=== PATIENT | male | born 1965 | race African-American/Black ===

== ENCOUNTER 2022-07-30 07:14 | Observation (INO) | payer BC ==
--- OUTSIDE RECORDS SUMMARY | 2022-07-30 07:29 | XMS REPORT | Clinical Summary ---
:1965 Author Organization [facility] MD [facility] Address [address] [place] [address] Care Team Providers Name Role Phone Thais Biggs MD Primary Care Provider Stef Biggs MD Unavailable Allergies No known active allergies Medications Medication Sig Dispensed Refills Start Date End Date Status amLODIPine (NORVASC) 5 mg Take 1 tablet by 2 019 Active tablet mouth daily. aspirin 325 mg EC tablet Take 325 mg by 0 12/10/2018 Active mouth daily. clotrimazole-betamethason Apply 1 1 03/10/2019 Active e (LOTRISONE) 1%-0.05% application cream topically to affected area(s) as needed. cyclobenzaprine Take 1 tablet by 3 04/07/2019 Active (FLEXERIL) 10 mg tablet mouth as needed. diclofenac sodium as needed. 1 06/05/2018 Active (Voltaren) 1 % gel pantoprazole (PROTONIX) Take 1 tablet by 0 9 Active 40 mg EC tablet mouth daily. OXTELLAR XR 300 mg Tb24 Take 1 tablet by 1 9 Active mouth daily. OXTELLAR XR 600 mg Tb24 Take 1 tablet by 1 9 Active mouth daily. trimethoprim (TRIMPEX) Take 1 tablet by 0 03/29/2019 Active 100 mg tablet mouth daily. labetalol (TRANDATE) 200 Take 1 tablet by 3 10/24/19 19 Active mg tablet mouth daily. losartan (COZAAR) 100 mg Take 100 mg by 0 11/28/2018 Active tablet mouth daily. hydroCHLOROthiazide Take 1 tablet by 1 02/07/2019 Active (HYDRODIURIL) 25 mg mouth daily. tablet fluticasone propionate Inhale 1 spray 0 11/03/2018 Active (FLONASE) 50 mcg/spray into each nasal spray nostril as needed. fish oil-omega-3 fatty Take 1,000 mg by 0 12/09/2018 Active acids 300-1,000 mg mouth daily. capsule Active Problems Not on file Surgical History Surgery Date Site/Laterality Comments COLONOSCOPY NEPHRECTOMY CORONARY ARTERY BYPASS GRAFT Medical History Medical History Date Comments Hypertension Myocardial infarction Arthritis Kidney cancer Social History Tobacco Use Types Packs/Day Years Used Date Smoking Tobacco: Former Cigarettes 1 20 Smokeless Tobacco: Former Alcohol Use Standard Drinks/Week Comments Not Currently 0 (1 standard drink = 0.6 oz pure alcoho l) Sex Assigned at Date Recorded Male 04/11/2019 5:08 PM CDT Obstetrics History Last Filed Vital Signs Not on file Plan of Treatment Health Maintenance Due Date Last Done Comments COVID-19 Vaccination (#1) 01/07/1967 Results Not on fileafter 07/30/2021 Insurance Payer Benefit Plan / Subscriber ID Effective Dates Phone Addre ss Type Group [employer] MANAGED CIGNA HMO POS [id number] 2018-Elena FISHER [id number] [place] [address] Care Teams 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
[2022-07-30 07:38] LABS: Absolute Lymphocytes (CBC) 2.4 K/uL (0.7-4.9); Lymphocytes % 42.4 % (15.3-44.8); MCV 80.5 fL (80-100); MPV 7.6 fL (7.6-11.3); RBC Red Blood Cell Count 5.09 M/uL (4.33-5.43)
[2022-07-30] MEDS ORDERED: ONDANSETRON 4 MG/2 ML VIAL ONE (07:42)
[2022-07-30] MEDS ORDERED: FENTANYL CITR 100 MCG/2 ML ONE (07:42)
--- OUTSIDE RECORDS SUMMARY | 2022-07-30 07:45 | XMS REPORT | Continuity of Care Document ---
:1965 Author Organization [facility] t Address [address] [place] [address] [place] [id number] Care Team Providers Name Role Phone Cherelle Ralph MD Primary Care Physician SUSAN BROWNE Attending Clinician Unavailable DARIUS LEDESMA Attending Clinician Unavailable REINALDO ABRAMS Attending Clinician Unavailable BREE SON Attending Clinician Unavailable LOU KAMINSKI Attending Clinician Unavailable Draw, [facility] Attending Clinician Unavailable Reinaldo Abrams MD Attending Clinician Darius Ledesma MD Attending Clinician Doctor Unassigned, [place] Attending Clinician Unavailable Suasn Browne MD Attending Clinician Nirav Hernandez MD Attending Clinician Lab, Lcc Attending Clinician Unavailable Lab, Lonnie Cbc Attending Clinician Unavailable Cherelle Ralph MD Attending Clinician CHERELLE RALPH Attending Clinician Unavailable Lou Kaminski DPM A Attending Clinician [phone] Bree Son MD Attending Clinician Gracie JULES, Zhanna Conway Attending Clinician [phone] NIRAV HERNANDEZ Attending Clinician Unavailable Dwayne ELIZABETH-C, Brody Attending Clinician BRODY PATEL Attending Clinician Unavailable Chantelle Mcgregor MD Attending Clinician [phone] CHANTELLE MCGREGOR Attending Clinician Unavailable Vaccine, [place] [facility] Attending Clinician Unavailable RAMIREZ WILKINS Attending Clinician Unavailable Ramirez Wilkins MD Attending Clinician MONISHA ZHOU Attending Clinician Unavailable Monisha Zhou DO Attending Clinician JASON MAI Attending Clinician Unavailable JASON MAI Attending Clinician Unavailable Km ELIZABETH, Ganesh B Attending Clinician Tabatha Bailon MD Attending Clinician TABATHA BAILON Attending Clinician Unavailable JOSE MANUEL AKERS Attending Clinician Unavailable PAULO CLARK Attending Clinician Unavailable RODRI IRENE Attending Clinician Unavailable Rodri Irene MD Attending Clinician Anita Rodriguez Attending Clinician ANITA CHAVARRIA Attending Clinician Unavailable Tosin Carrillo Attending Clinician TOSIN GUEVARA Attending Clinician Unavailable LIZZIE KIDD Attending Clinician Unavailable Lizzie Kidd NP Attending Clinician Milton GREER, Mitali Robert Attending Clinician Unavailable Wagner Oneal MD Attending Clinician Jonas CESAR, Abbey Gtz Attending Clinician Paulo Clark MD Attending Clinician ANDERSON ESQUIVEL Attending Clinician Unavailable DEWEY JONES Attending Clinician Unavailable FAVIAN PERALTA Attending Clinician Unavailable HADLEY CARDONA Attending Clinician Unavailable LEAH RIVERA Attending Clinician Unavailable Lawanda Deshpande Attending Clinician Adrian James Attending Clinician LISA ALLISON M.D, LISA DE LA TORRE, Attending Clzuly aguilar Unavailable SUSAN DOVE Admitting Clinician Unavailable JASON MAI Admitting Clinician Unavailable Jonas CESAR, Abbey Gtz Admitting Clinician Susan Browne MD Admitting Clinician LISA ALLISON M.D, LISA DE LA TORRE, Admitting Clzuly aguilar Unavailable Anay Payers Payer Name Policy Type Policy Number Effective Date Expiration Date S aman [employer] [place] [id number] 2020 00:00:00 CIGNA II [id number] 2018 00:00:00 Problems Condition Condition Condition Status Onset Resolution Last Treating Co mments Source Name Details Category Date Date Treatment Clinician Date Chest pain Chest pain Disease Active U nivers 9-07 ity of 00:00: [place] [facility] Dysphagia, Dysphagia, Disease Active Overview : Univers pharyngoes pharyngoes 7-05 Formattin ity of ophageal ophageal 00:00: g of this [place]nie as phase phase 00 note Medical might be Branch different from the original. Added automatic ally from request for surgery [id number] Sleep Sleep Disease Active Univers apnea, apnea, 6-28 ity of unspecifie unspecifie [place] type d type 00 Medical Branch Type 2 Type 2 Disease Active Univers diabetes diabetes 3-26 ity of mellitus mellitus 00:00: [place] without without 00 Medical complicati complicati Br anch on, on, without without long-term long-term current current use of use of insulin insulin Hypertrigl Hypertrigl Disease Active U nivers yceridemia yceridemia 3-26 it y of 00:00: [place] [facility] Polycythem Polycythem Disease Active U nivers ia, ia, 3-26 it[place] secondary secondary [place] Hypogonado Hypogonado Disease Active U nivers [place]ropic 3-26 ity of hypogonadi hypogonadi 00:[place] sm sm 00 Medical Branch Encounter Encounter Disease Active Uni vers for for 1-17 ity of monitoring monitoring 00:00[place] testostero testostero 00 Me dical ne ne Branch replacemen replacemen t therapy t therapy Essential Essential Disease Active Uni vers hypertensi hypertensi 7-20 it y of on on 00:00: [place] 00 Medical Branch Coronary Coronary Disease Active Unive rs artery artery 7-20 ity of disease disease 00:00: [place] involving involving 00 Medi rachana habematolel habematolel Branch coronary coronary artery of artery of habematolel habematolel heart heart without without angina angina pectoris pectoris Mixed Mixed Disease Active Univers hyperlipid hyperlipid 7-20 it y of emia emia 00:00: [place] 00 Medical Branch Seasonal Seasonal Disease Active Unive rs allergic allergic 7-20 ity of rhinitis rhinitis 00:00: [place] due to due to 00 Medical pollen pollen Branch Gastroesop Gastroesop Disease Active U nivers hageal hageal 7-20 ity of reflux reflux 00:00: [place] disease disease 00 Medical without without Branch esophagiti esophagiti s s Malignant Malignant Disease Active Uni vers neoplasm neoplasm 7-20 ity of of right of right 00:00: [place] kidney kidney 00 Medical Branch H/O H/O Disease Active Univers partial partial 7-20 ity of nephrectom nephrectom 00:[place] 00 Medical Branch History of History of Disease Active U nivers fusion of fusion of 7-20 ity of cervical cervical 00:00: [place] spine spine 00 Medical Branch Flatulence Flatulence Disease Active 2018-06 Overview : Univers , , 1-26 Formattin ity of eructation eructation 00:00: g of this [place] , and gas , and gas 00 note Medi rachana pain pain might be Branch different from the original. Added automatic ally from request for surgery [id number] HEART HEART Diagnosis Active 2017-07-07 Grisel ford PATIENT. PATIENT. 07-03 23:17:00 l HIGH BLOOD HIGH BLOOD 08:00: He rmann PRESSURE PRESSURE 00 Active 07/03/2017 [facility] CRAMPING CRAMPING Diagnosis Active 2017-07-03 Memoria Active 07-03 16:33:00 l 07/03/2017 00:00: Howie casey 00 [facility] Hypertensi Hypertens Problem Active 2017-10-14 Memoria ve iván 19:17:49 l disorder, disorder, Herm estelle systemic systemic arterial arterial (disorder) (disorder) Active Problem 10/14/2017 [facility] Malignant Malignant Problem Resolve 2017-10-14 Memoria neoplastic neoplastic d 19:17:49 l disease disease Jose Antonio (disorder) (disorder) Resolved Problem 10/14/2017 [facility] History of Past Illness Condition Condition Condition Status Onset Resolution Last Treating Co mments Source Name Details Category Date Date Treatment Clinician Date Essential Essential Problem 2017-10-14 2017-10-14 Memoria (primary) (primary) 07-08 19:17:49 19:17:49 l hypertensi hypertensi 06:00: He rmann on on 07/08/2017 8 [facility] Cramp and Cramp and Problem 2017-10-14 2017-10-14 Memoria spasm spasm 07-08 19:17:49 19:17:49 l 07/08/2017 06:00: Howie casey 00 8 [facility] Abnormal Abnormal Problem 2017-07-06 2017-07-06 Memoria levels of levels of 1-04 05:14:09 05:14:09 l other other 06:00: Jose Antonio serum serum 00 enzymes enzymes 07/03/2017 8 [facility] Allergies, Adverse Reactions, Alerts Allergy Allergy Status Severity Reaction(s) Onset Inactive Treating Comm ents Source Name Type Date Date Clinician SEMAGLUT DRUG Active N/V Univers BUTCH INGREDI -09 ity of 00:00: [place] [facility] Semaglut Propensi Active Nausea Univer s butch ty to and/or 07-08 ity of adverse Vomiting 00:00: [place] reaction Medical s Branch Empaglif Propensi Active Palpitations Univers lozin ty to - ity of adverse 00:00: [place] reaction Medical s Branch EMPAGLIF DRUG Active Palpitations Un rachel LOZIN INGREDI 01-03 ity of 00:00: [place] [facility] Atorvast Propensi Active Other - See 2019-06 Ms cramp s Univers atin ty to comments 0-20 ity of Calcium adverse 00:00: [place] reaction 00 Medical s Branch Ezetimib Propensi Active Other - See 2019-06 Muscle U nivers e ty to comments 0-20 cramps ity of adverse 00:00: [place] reaction Medical s Branch ATORVAST DRUG Active Other-Cmnt 2019-06 Univ ers ATIN INGREDI 0-20 ity of CALCIUM 00:00: Medical Branch EZETIMIB DRUG Active Other-Cmnt 2019-06 Univ ers E INGREDI 0-20 ity of 00:00: [place] [facility] [place] Social History Social Habit Start Date Stop Date Quantity Comments Source History [facility] o f Alcohol Frequency [facility] edical Branch History [facility] o f Alcohol Std Drinks [facility] History [facility] o f Alcohol Binge [facility] al Branch Exposure to 2022-07-16 2022-07-26 Not sure University of SARS-CoV-2 (event) 00:00:00 08:03:00 [facility] Tobacco use and 2022-01-31 2022-01-31 Former smokeless Uni versity of exposure 00:00:00 00:00:00 tobacco user [facility] [place] Tobacco Comment 2022-01-31 2022-01-31 1PPD for 28 Universi ty of 00:00:00 00:00:00 years; Quit 2011 [facility] dical [place] Alcohol Comment 2020-01-17 2020-01-17 OCCASINLLY Universit y of 00:00:00 00:00:00 [facility] Cigarettes smoked 2019-04-19 2019-04-19 Univers ity of current (pack per 00:00:00 00:00:00 [facility] ) - Reported [facility] Ce nter Cigarette 2019-04-19 2019-04-19 University of pack-years 00:00:00 00:00:00 [facility] Alcohol intake 2019-04-19 2019-04-19 Ex-drinker University of 00:00:00 00:00:00 (finding) [facility] Social History 2017-07-08 2017-07-08 [facility] arpit 05:01:48 05:01:48 History of tobacco 1983-06-30 2011-06-30 Cigarette Smoker University of use 00:00:00 00:00:00 [facility] Sex Ass[birth year] At [birth year] Universit y of 00:00:00 00:00:00 [facility] Smoking Status Start Date Stop Date Source Ex-smoker 2022-01-31 00:00:00 2022-01-31 00:00:00 [facility] Medications Ordered Filled Start Stop Current Ordering Indication Dosage Frequency Signature Comments Components Source Medication Medication Date Date Medication? Clinician (SIG) Name Name losartan 2022-0 Yes [id number] 100mg Take 1 Un rachel 100 mg 1-18 tablet by ity of tablet 00:00: mouth in [place] 00 the Medical morning. Branch losartan 2022-0 Yes [id number] 100mg Take 1 Un rachel 100 mg 1-18 tablet by ity of tablet 00:00: mouth in [place] 00 the Medical morning. Branch losartan 2022-0 Yes [id number] 100mg Take 1 Un rachel 100 mg 1-18 tablet by ity of tablet 00:00: mouth in [place] 00 the Medical morning. Branch losartan 2022-0 Yes [id number] 100mg Take 1 Un rachel 100 mg 1-18 tablet by ity of tablet 00:00: mouth in [place] the Medical morning. Branch losartan 2022-0 Yes [id number] 100mg Take 1 Un rachel 100 mg 1-18 tablet by ity of tablet 00:00: mouth in [place] 00 the Medical morning. Branch losartan 2022-0 Yes [id number] 100mg Take 1 Un rachel 100 mg 1-18 tablet by ity of tablet 00:00: mouth in [place] 00 the Medical morning. Branch metformin 2022-0 Yes [id number] 1000mg Take 2 Univers ER 500 mg 1-09 tablets by ity of 24 hr 00:00: mouth 2 [place] tablet 00 (two) Medical times Branch daily before breakfast and dinner. metformin 2022-0 Yes [id number] 1000mg Take 2 Univers ER 500 mg 1-09 tablets by ity of 24 hr 00:00: mouth 2 [place] tablet 00 (two) Medical times Branch daily before breakfast and dinner. metformin 3-0 Yes [id number] 1000mg Take 2 Univers ER 500 mg 1-09 tablets by ity of 24 hr 00:00: mouth 2 [place] tablet 00 (two) Medical times Branch daily before breakfast and dinner. metformin 3-0 Yes [id number] 1000mg Take 2 Univers ER 500 mg 1-09 tablets by ity of 24 hr 00:00: mouth 2 [place] tablet 00 (two) Medical times Branch daily before breakfast and dinner. metformin 2023-0 Yes [id number] 1000mg Take 2 Univers ER 500 mg 1-09 tablets by ity of 24 hr 00:00: mouth 2 [place] tablet 00 (two) Medical times Branch daily before breakfast and dinner. metformin 2023-0 Yes [id number] 1000mg Take 2 Univers ER 500 mg 1-09 tablets by ity of 24 hr 00:00: mouth 2 [place] tablet 00 (two) Medical times Branch daily before breakfast and dinner. metformin 3-0 Yes [id number] 1000mg Take 2 Univers ER 500 mg 1-09 tablets by ity of 24 hr 00:00: mouth 2 [place] tablet 00 (two) Medical times Branch daily before breakfast and dinner. metformin 3-0 Yes [id number] 1000mg Take 2 Univers ER 500 mg 1-09 tablets by ity of 24 hr 00:00: mouth 2 [place] tablet 00 (two) Medical times Branch daily before breakfast and dinner. metformin 3-0 Yes [id number] 1000mg Take 2 Univers ER 500 mg 1-09 tablets by ity of 24 hr 00:00: mouth 2 [place] tablet 00 (two) Medical times Branch daily before breakfast and dinner. metformin 3-0 Yes [id number] 1000mg Take 2 Univers ER 500 mg 1-09 tablets by ity of 24 hr 00:00: mouth 2 [place] tablet 00 (two) Medical times Branch daily before breakfast and dinner. metformin 3-0 Yes [id number] 1000mg Take 2 Univers ER 500 mg 1-09 tablets by ity of 24 hr 00:00: mouth 2 [place] tablet 00 (two) Medical times Branch daily before breakfast and dinner. OXcarbazepi 2023-0 Yes [id number] 1200mg Take 1,200 Univers ne 1-02 mg by ity of (OXTELLAR 00:00: [place] XR[place] 600 mg 00 bedtime. Medic al Tb24 Branch OXcarbazepi 3-0 Yes [id number] 1200mg Take 1,200 Univers ne 1-02 mg by ity of (OXTELLAR 00:00: [place] XR[place] 600 mg 00 bedtime. Medic al Tb24 Branch OXcarbazepi 3-0 Yes [id number] 1200mg Take 1,200 Univers ne 1-02 mg by ity of (OXTELLAR 00:00: [place] XR[place] 600 mg 00 bedtime. Medic al Tb24 Branch OXcarbazepi 3-0 Yes [id number] 1200mg Take 1,200 Univers ne 1-02 mg by ity of (OXTELLAR 00:00: [place] XR[place] 600 mg 00 bedtime. Medic al Tb24 Branch OXcarbazepi 3-0 Yes [id number] 1200mg Take 1,200 Univers ne 1-02 mg by ity of (OXTELLAR 00:00: [place] XR[place] 600 mg 00 bedtime. Medic al Tb24 Branch OXcarbazepi 3-0 Yes [id number] 1200mg Take 1,200 Univers ne 1-02 mg by ity of (OXTELLAR 00:00: [place] XR[place] 600 mg 00 bedtime. Medic al Tb24 Branch OXcarbazepi 3-0 Yes [id number] 1200mg Take 1,200 Univers ne 1-02 mg by ity of (OXTELLAR 00:00: [place] XR[place] 600 mg 00 bedtime. Medic al Tb24 Branch OXcarbazepi 3-0 Yes [id number] 1200mg Take 1,200 Univers ne 1-02 mg by ity of (OXTELLAR 00:00: [place] XR[place] 600 mg 00 bedtime. Medic al Tb24 Branch OXcarbazepi 3-0 Yes [id number] 1200mg Take 1,200 Univers ne 1-02 mg by ity of (OXTELLAR 00:00: [place] XR[place] 600 mg 00 bedtime. Medic al Tb24 Branch OXcarbazepi 3-0 Yes [id number] 1200mg Take 1,200 Univers ne 1-02 mg by ity of (OXTELLAR 00:00: [place] XR[place] 600 mg 00 bedtime. Medic al Tb24 Branch OXcarbazepi 3-0 Yes [id number] 1200mg Take 1,200 Univers ne 1-02 mg by ity of (OXTELLAR 00:00: [place] XR[place] 600 mg 00 bedtime. Medic al Tb24 Branch OXcarbazepi 2023-0 Yes [id number] 1200mg Take 1,200 Univers ne 1-02 mg by ity of (OXTELLAR 00:00: [place] XR[place] 600 mg 00 bedtime. Medic al Tb24 Branch icosapent 2021-06 Yes 1g Take 1 Univer s ethyL 2-15 capsule by ity of (VASCEPA) 1 00:00: [place] in [place] gram 00 the Medical capsule morning Branch and 1 capsule in the evening. icosapent 2021-06 Yes 1g Take 1 Univer s ethyL 2-15 capsule by ity of (VASCEPA) 1 00:00: [place] gram 00 the Medical capsule morning Branch and 1 capsule in the evening. icosapent 2021-06 Yes 1g Take 1 Univer s ethyL 2-15 capsule by ity of (VASCEPA) 1 00:00: mouth in [place] gram 00 the Medical capsule morning Branch and 1 capsule in the evening. icosapent 2021-06 Yes 1g Take 1 Univer s ethyL 2-15 capsule by ity of (VASCEPA) 1 00:00: mouth in [place] gram 00 the Medical capsule morning Branch and 1 capsule in the evening. icosapent 2021-06 Yes 1g Take 1 Univer s ethyL 2-15 capsule by ity of (VASCEPA) 1 00:00: mouth in [place] gram 00 the Medical capsule morning Branch and 1 capsule in the evening. icosapent 2021-06 Yes 1g Take 1 Univer s ethyL 2-15 capsule by ity of (VASCEPA) 1 00:00: mouth in [place] gram 00 the Medical capsule morning Branch and 1 capsule in the evening. icosapent 2021-06 Yes 1g Take 1 Univer s ethyL 2-15 capsule by ity of (VASCEPA) 1 00:00: mouth in [place] gram 00 the Medical capsule morning Branch and 1 capsule in the evening. icosapent 2021-06 Yes 1g Take 1 Univer s ethyL 2-15 capsule by ity of (VASCEPA) 1 00:00: mouth in [place] gram 00 the Medical capsule morning Branch and 1 capsule in the evening. icosapent 2021-06 Yes 1g Take 1 Univer s ethyL 2-15 capsule by ity of (VASCEPA) 1 00:00: mouth in [place] gram 00 the Medical capsule morning Branch and 1 capsule in the evening. icosapent 2021-06 Yes 1g Take 1 Univer s ethyL 2-15 capsule by ity of (VASCEPA) 1 00:00: mouth in [place] gram 00 the Medical capsule morning Branch and 1 capsule in the evening. icosapent 2021-06 Yes 1g Take 1 Univer s ethyL 2-15 capsule by ity of (VASCEPA) 1 00:00: mouth in [place] gram 00 the Medical capsule morning Branch and 1 capsule in the evening. icosapent 2021-06 Yes 1g Take 1 Univer s ethyL 2-15 capsule by ity of (VASCEPA) 1 00:00: mouth in [place] gram 00 the Medical capsule morning Branch and 1 capsule in the evening. icosapent 2021-06 Yes 1g Take 1 Univer s ethyL 2-15 capsule by ity of (VASCEPA) 1 00:00: mouth in [place] gram 00 the Medical capsule morning Branch and 1 capsule in the evening. icosapent 2021-06 Yes 1g Take 1 Univer s ethyL 2-15 capsule by ity of (VASCEPA) 1 00:00: mouth in [place] gram 00 the Medical capsule morning Branch and 1 capsule in the evening. icosapent 2021-06 Yes 1g Take 1 Univer s ethyL 2-15 capsule by ity of (VASCEPA) 1 00:00: mouth in [place] gram 00 the Medical capsule morning Branch and 1 capsule in the evening. icosapent 2021-06 Yes 1g Take 1 Univer s ethyL 2-15 capsule by ity of (VASCEPA) 1 00:00: mouth in [place] gram 00 the Medical capsule morning Branch and 1 capsule in the evening. icosapent 2021-06 Yes 1g Take 1 Univer s ethyL 2-15 capsule by ity of (VASCEPA) 1 00:00: mouth in [place] gram 00 the Medical capsule morning Branch and 1 capsule in the evening. pantoprazol 2021-06 Yes 40mg Take 1 Univ ers e 40 mg EC 2-11 tablet by ity of tablet 00:00: mouth in [place] the Medical morning. Branch 30 minutes before meal pantoprazol 2021-06 Yes 40mg Take 1 Univ ers e 40 mg EC 2-11 tablet by ity of tablet 00:00: mouth in [place] the morning. Branch 30 minutes before meal pantoprazol 2021-06 Yes 40mg Take 1 Univ ers e 40 mg EC 2-11 tablet by ity of tablet 00:00: mouth in [place] the morning. Branch 30 minutes before meal pantoprazol 2021-06 Yes 40mg Take 1 Univ ers e 40 mg EC 2-11 tablet by ity of tablet 00:00: mouth in [place] the morning. Branch 30 minutes before meal pantoprazol 2021-06 Yes 40mg Take 1 Univ ers e 40 mg EC 2-11 tablet by ity of tablet 00:00: mouth in [place] the morning. Branch 30 minutes before meal pantoprazol 2021-06 Yes 40mg Take 1 Univ ers e 40 mg EC 2-11 tablet by ity of tablet 00:00: mouth in [place] the morning. Branch 30 minutes before meal pantoprazol 2021-06 Yes 40mg Take 1 Univ ers e 40 mg EC 2-11 tablet by ity of tablet 00:00: mouth in [place] the morning. Branch 30 minutes before meal pantoprazol 2021-06 Yes 40mg Take 1 Univ ers e 40 mg EC 2-11 tablet by ity of tablet 00:00: mouth in [place] the morning. Branch 30 minutes before meal pantoprazol 2021-06 Yes 40mg Take 1 Univ ers e 40 mg EC 2-11 tablet by ity of tablet 00:00: mouth in [place] the morning. Branch 30 minutes before meal pantoprazol 2021-06 Yes 40mg Take 1 Univ ers e 40 mg EC 2-11 tablet by ity of tablet 00:00: mouth in [place] the morning. Branch 30 minutes before meal pantoprazol 2021-06 Yes 40mg Take 1 Univ ers e 40 mg EC 2-11 tablet by ity of tablet 00:00: mouth in [place] the morning. Branch 30 minutes before meal pantoprazol 2021-06 Yes 40mg Take 1 Univ ers e 40 mg EC 2-11 tablet by ity of tablet 00:00: mouth in [place] the Medical morning. Branch 30 minutes before meal pantoprazol 2021-06 Yes 40mg Take 1 Univ ers e 40 mg EC 2-11 tablet by ity of tablet 00:00: mouth in [place] the Medical morning. Branch 30 minutes before meal pantoprazol 2021-06 Yes 40mg Take 1 Univ ers e 40 mg EC 2-11 tablet by ity of tablet 00:00: mouth in [place] the morning. Branch 30 minutes before meal pantoprazol 2021-06 Yes 40mg Take 1 Univ ers e 40 mg EC 2-11 tablet by ity of tablet 00:00: mouth in [place] the morning. Branch 30 minutes before meal pantoprazol 2021-06 Yes 40mg Take 1 Univ ers e 40 mg EC 2-11 tablet by ity of tablet 00:00: mouth in [place] the morning. Branch 30 minutes before meal pantoprazol 2021-06 Yes 40mg Take 1 Univ ers e 40 mg EC 2-11 tablet by ity of tablet 00:00: mouth in [place] the morning. Branch 30 minutes before meal pantoprazol 2021-06 Yes 40mg Take 1 Univ ers e 40 mg EC 2-11 tablet by ity of tablet 00:00: mouth in [place] the morning. Branch 30 minutes before meal pantoprazol 2021-06 Yes 40mg Take 1 Univ ers e 40 mg EC 2-11 tablet by ity of tablet 00:00: mouth in [place] the morning. Branch 30 minutes before meal amLODIPine 2021-06 Yes [id number] 10mg Take 1 U nivers 10 mg 2-09 tablet by ity of tablet 00:00: mouth in [place] the morning. Branch amLODIPine 2021-06 Yes [id number] 10mg Take 1 U nivers 10 mg 2-09 tablet by ity of tablet 00:00: mouth in [place] the morning. Branch amLODIPine 2021-06 Yes [id number] 10mg Take 1 U nivers 10 mg 2-09 tablet by ity of tablet 00:00: mouth in [place] the morning. Branch amLODIPine 2021-06 Yes [id number] 10mg Take 1 U nivers 10 mg 2-09 tablet by ity of tablet 00:00: mouth in [place] the morning. Branch amLODIPine 2021-06 Yes [id number] 10mg Take 1 U nivers 10 mg 2-09 tablet by ity of tablet 00:00: mouth in [place] the Medical morning. Branch amLODIPine 2021-06 Yes [id number] 10mg Take 1 U nivers 10 mg 2-09 tablet by ity of tablet 00:00: mouth in [place] 00 the Medical morning. Branch amLODIPine 2021-06 Yes [id number] 10mg Take 1 U nivers 10 mg 2-09 tablet by ity of tablet 00:00: mouth in [place] the Medical morning. Branch amLODIPine 2021- Yes [id number] 10mg Take 1 U nivers 10 mg 2-09 tablet by ity of tablet 00:00: mouth in [place] the Medical morning. Branch amLODIPine 2021- Yes [id number] 10mg Take 1 U nivers 10 mg 2-09 tablet by ity of tablet 00:00: mouth in [place] the Medical morning. Branch amLODIPine 2021- Yes [id number] 10mg Take 1 U nivers 10 mg 2-09 tablet by ity of tablet 00:00: mouth in [place] the Medical morning. Branch amLODIPine 2021- Yes [id number] 10mg Take 1 U nivers 10 mg 2-09 tablet by ity of tablet 00:00: mouth in [place] the Medical morning. Branch amLODIPine 2021- Yes [id number] 10mg Take 1 U nivers 10 mg 2-09 tablet by ity of tablet 00:00: mouth in [place] the Medical morning. Branch amLODIPine 2021-06 Yes [id number] 10mg Take 1 U nivers 10 mg 2-09 tablet by ity of tablet 00:00: mouth in [place] the Medical morning. Branch amLODIPine 2021- Yes [id number] 10mg Take 1 U nivers 10 mg 2-09 tablet by ity of tablet 00:00: mouth in [place] the Medical morning. Branch amLODIPine 2021- Yes [id number] 10mg Take 1 U nivers 10 mg 2-09 tablet by ity of tablet 00:00: mouth in [place] the Medical morning. Branch amLODIPine 2021- Yes [id number] 10mg Take 1 U nivers 10 mg 2-09 tablet by ity of tablet 00:00: mouth in [place] the Medical morning. Branch amLODIPine 2021-1 Yes [id number] 10mg Take 1 U nivers 10 mg 2-09 tablet by ity of tablet 00:00: mouth in [place] 00 the Medical morning. Branch amLODIPine 2021- Yes [id number] 10mg Take 1 U nivers 10 mg 2-09 tablet by ity of tablet 00:00: mouth in [place] 00 the morning. Branch amLODIPine 2021-06 Yes [id number] 10mg Take 1 U nivers 10 mg 2-09 tablet by ity of tablet 00:00: mouth in [place] the morning. Branch amLODIPine 2021-06 Yes [id number] 10mg Take 1 U nivers 10 mg 2-09 tablet by ity of tablet 00:00: mouth in [place] the morning. Branch fluticasone 2021-06 Yes [id number] SHAKE U nivers propionate 1-16 LIQUID AND ity of 50 00:00: USE 2 [place] mcg/actuati 00 SPRAYS IN Med ical on nasal EACH Branch spray NOSTRIL DAILY fluticasone 2021-06 Yes [id number] SHAKE U nivers propionate 1-16 LIQUID AND ity of 50 00:00: USE 2 [place] mcg/actuati 00 SPRAYS IN Med ical on nasal EACH Branch spray NOSTRIL DAILY fluticasone 2021-06 Yes [id number] SHAKE U nivers propionate 1-16 LIQUID AND ity of 50 00:00: USE 2 [place] mcg/actuati 00 SPRAYS IN Med ical on nasal EACH Branch spray NOSTRIL DAILY fluticasone 2021-06 Yes [id number] SHAKE U nivers propionate 1-16 LIQUID AND ity of 50 00:00: USE 2 [place] mcg/actuati 00 SPRAYS IN Med ical on nasal EACH Branch spray NOSTRIL DAILY fluticasone 2021-06 Yes [id number] SHAKE U nivers propionate 1-16 LIQUID AND ity of 50 00:00: USE 2 [place] mcg/actuati 00 SPRAYS IN Med ical on nasal EACH Branch spray NOSTRIL DAILY fluticasone 2021-06 Yes [id number] SHAKE U nivers propionate 1-16 LIQUID AND ity of 50 00:00: USE 2 [place] mcg/actuati 00 SPRAYS IN Med ical on nasal EACH Branch spray NOSTRIL DAILY fluticasone 2021-06 Yes [id number] SHAKE U nivers propionate 1-16 LIQUID AND ity of 50 00:00: USE 2 [place] mcg/actuati 00 SPRAYS IN Med ical on nasal EACH Branch spray NOSTRIL DAILY fluticasone 2021-06 Yes [id number] SHAKE U nivers propionate 1-16 LIQUID AND ity of 50 00:00: USE 2 [place] mcg/actuati 00 SPRAYS IN Med ical on nasal EACH Branch spray NOSTRIL DAILY fluticasone 2021-06 Yes [id number] SHAKE U nivers propionate 1-16 LIQUID AND ity of 50 00:00: USE 2 [place] mcg/actuati 00 SPRAYS IN Med ical on nasal EACH Branch spray NOSTRIL DAILY fluticasone 2021-06 Yes [id number] SHAKE U nivers propionate 1-16 LIQUID AND ity of 50 00:00: USE 2 [place] mcg/actuati 00 SPRAYS IN Med ical on nasal EACH Branch spray NOSTRIL DAILY fluticasone 2021-06 Yes [id number] SHAKE U nivers propionate 1-16 LIQUID AND ity of 50 00:00: USE 2 [place] mcg/actuati 00 SPRAYS IN Med ical on nasal EACH Branch spray NOSTRIL DAILY fluticasone 2021-06 Yes [id number] SHAKE U nivers propionate 1-16 LIQUID AND ity of 50 00:00: USE 2 [place] mcg/actuati 00 SPRAYS IN Med ical on nasal EACH Branch spray NOSTRIL DAILY fluticasone 2021-06 Yes [id number] SHAKE U nivers propionate 1-16 LIQUID AND ity of 50 00:00: USE 2 [place] mcg/actuati 00 SPRAYS IN Med ical on nasal EACH Branch spray NOSTRIL DAILY fluticasone 2021-06 Yes [id number] SHAKE U nivers propionate 1-16 LIQUID AND ity of 50 00:00: USE 2 [place] mcg/actuati 00 SPRAYS IN Med ical on nasal EACH Branch spray NOSTRIL DAILY fluticasone 2021-06 Yes [id number] SHAKE U nivers propionate 1-16 LIQUID AND ity of 50 00:00: USE 2 [place] mcg/actuati 00 SPRAYS IN Med ical on nasal EACH Branch spray NOSTRIL DAILY fluticasone 2021-06 Yes [id number] SHAKE U nivers propionate 1-16 LIQUID AND ity of 50 00:00: USE 2 [place] mcg/actuati 00 SPRAYS IN Med ical on nasal EACH Branch spray NOSTRIL DAILY fluticasone 2021-06 Yes [id number] SHAKE U nivers propionate 1-16 LIQUID AND ity of 50 00:00: USE 2 [place] mcg/actuati 00 SPRAYS IN Med ical on nasal EACH Branch spray NOSTRIL DAILY fluticasone 2021-06 Yes [id number] SHAKE U nivers propionate 1-16 LIQUID AND ity of 50 00:00: USE 2 [place] mcg/actuati 00 SPRAYS IN Med ical on nasal EACH Branch spray NOSTRIL DAILY fluticasone 2021-06 Yes [id number] SHAKE U nivers propionate 1-16 LIQUID AND ity of 50 00:00: USE 2 [place] mcg/actuati 00 SPRAYS IN Med ical on nasal EACH Branch spray NOSTRIL DAILY fluticasone 2021-06 Yes [id number] SHAKE U nivers propionate 1-16 LIQUID AND ity of 50 00:00: USE 2 [place] mcg/actuati 00 SPRAYS IN Med ical on nasal EACH Branch spray NOSTRIL DAILY fluticasone 2021-06 Yes [id number] SHAKE U nivers propionate 1-16 LIQUID AND ity of 50 00:00: USE 2 [place] mcg/actuati 00 SPRAYS IN Med ical on nasal EACH Branch spray NOSTRIL DAILY allopurinoL 2021-06 Yes 100mg TAKE 1 [facility] 100 mg 1-09 TABLET BY ity of tablet 00:00: MOUTH IN [place] THE Medical MORNING Branch allopurinoL 2021-06 Yes 100mg TAKE 1 [facility] vers 100 mg 1-09 TABLET BY ity of tablet 00:00: MOUTH IN [place] THE Medical MORNING Branch allopurinoL 2021-06 Yes 100mg TAKE 1 [facility] vers 100 mg 1-09 TABLET BY ity of tablet 00:00: MOUTH IN [place] THE Medical MORNING Branch allopurinoL 2021-06 Yes 100mg TAKE 1 [facility] vers 100 mg 1-09 TABLET BY ity of tablet 00:00: MOUTH IN [place] THE Medical MORNING Branch allopurinoL 2021-06 Yes 100mg TAKE 1 [facility] vers 100 mg 1-09 TABLET BY ity of tablet 00:00: MOUTH IN [place] THE Medical MORNING Branch allopurinoL 2021-06 Yes 100mg TAKE 1 [facility] vers 100 mg 1-09 TABLET BY ity of tablet 00:00: MOUTH IN [place] THE Medical MORNING Branch allopurinoL 2021-06 Yes 100mg TAKE 1 [facility] vers 100 mg 1-09 TABLET BY ity of tablet 00:00: MOUTH IN [place] THE Medical MORNING Branch allopurinoL 2021-06 Yes 100mg TAKE 1 [facility] vers 100 mg 1-09 TABLET BY ity of tablet 00:00: MOUTH IN [place] 00 THE Medical MORNING Branch allopurinoL 2021- Yes 100mg TAKE 1 [facility] vers 100 mg 1-09 TABLET BY ity of tablet 00:00: MOUTH IN [place] 00 THE Medical MORNING Branch allopurinoL 2021- Yes 100mg TAKE 1 [facility] vers 100 mg 1-09 TABLET BY ity of tablet 00:00: MOUTH IN [place] 00 THE Medical MORNING Branch allopurinoL 2021- Yes 100mg TAKE 1 [facility] vers 100 mg 1-09 TABLET BY ity of tablet 00:00: MOUTH IN [place] 00 THE Medical MORNING Branch allopurinoL 2021- Yes 100mg TAKE 1 [facility] vers 100 mg 1-09 TABLET BY ity of tablet 00:00: MOUTH IN [place] 00 THE Medical MORNING Branch allopurinoL 2021- Yes 100mg TAKE 1 [facility] vers 100 mg 1-09 TABLET BY ity of tablet 00:00: MOUTH IN [place] 00 THE Medical MORNING Branch allopurinoL 2021- Yes 100mg TAKE 1 [facility] vers 100 mg 1-09 TABLET BY ity of tablet 00:00: MOUTH IN [place] 00 THE Medical MORNING Branch allopurinoL 2021- Yes 100mg TAKE 1 [facility] vers 100 mg 1-09 TABLET BY ity of tablet 00:00: MOUTH IN [place] 00 THE Medical MORNING Branch allopurinoL 2021- Yes 100mg TAKE 1 [facility] vers 100 mg 1-09 TABLET BY ity of tablet 00:00: MOUTH IN [place] 00 THE Medical MORNING Branch allopurinoL 2021- Yes 100mg TAKE 1 [facility] vers 100 mg 1-09 TABLET BY ity of tablet 00:00: MOUTH IN [place] 00 THE Medical MORNING Branch allopurinoL 2021- Yes 100mg TAKE 1 [facility] vers 100 mg 1-09 TABLET BY ity of tablet 00:00: MOUTH IN [place] 00 THE Medical MORNING Branch allopurinoL 2021- Yes 100mg TAKE 1 [facility] vers 100 mg 1-09 TABLET BY ity of tablet 00:00: MOUTH IN [place] 00 THE Medical MORNING Branch allopurinoL 2021- Yes 100mg TAKE 1 [facility] vers 100 mg 1-09 TABLET BY ity of tablet 00:00: MOUTH IN [place] 00 THE Medical MORNING Branch allopurinoL 2021- Yes 100mg TAKE 1 [facility] vers 100 mg 1-09 TABLET BY ity of tablet 00:00: MOUTH IN [place] 00 THE Medical MORNING Branch allopurinoL 2021-06 Yes 100mg TAKE 1 [facility] vers 100 mg 1-09 TABLET BY ity of tablet 00:00: MOUTH IN [place] THE Medical MORNING Branch FLUTICASONE 2021-06 Yes [id number] SHAKE U nivers PROPIONATE 0-17 LIQUID AND ity of 50 00:00: USE 2 [place] mcg/actuati 00 SPRAYS IN Med ical on nasal EACH Branch spray NOSTRIL DAILY FLUTICASONE 2021-06 Yes [id number] SHAKE U nivers PROPIONATE 0-17 LIQUID AND ity of 50 00:00: USE 2 [place] mcg/actuati 00 SPRAYS IN Med ical on nasal EACH Branch spray NOSTRIL DAILY FLUTICASONE 2021-06 Yes [id number] SHAKE U nivers PROPIONATE 0-17 LIQUID AND ity of 50 00:00: USE 2 [place] mcg/actuati 00 SPRAYS IN Med ical on nasal EACH Branch spray NOSTRIL DAILY FLUTICASONE 2021-06 Yes [id number] SHAKE U nivers PROPIONATE 0-17 LIQUID AND ity of 50 00:00: USE 2 [place] mcg/actuati 00 SPRAYS IN Med ical on nasal EACH Branch spray NOSTRIL DAILY FLUTICASONE 2021-06 Yes [id number] SHAKE U nivers PROPIONATE 0-17 LIQUID AND ity of 50 00:00: USE 2 [place] mcg/actuati 00 SPRAYS IN Med ical on nasal EACH Branch spray NOSTRIL DAILY FLUTICASONE 2021-06 Yes [id number] SHAKE U nivers PROPIONATE 0-17 LIQUID AND ity of 50 00:00: USE 2 [place] mcg/actuati 00 SPRAYS IN Med ical on nasal EACH Branch spray NOSTRIL DAILY FLUTICASONE 2021-06 Yes [id number] SHAKE U nivers PROPIONATE 0-17 LIQUID AND ity of 50 00:00: USE 2 [place] mcg/actuati 00 SPRAYS IN Med ical on nasal EACH Branch spray NOSTRIL DAILY FLUTICASONE 2021-06 Yes [id number] SHAKE U nivers PROPIONATE 0-17 LIQUID AND ity of 50 00:00: USE 2 [place] mcg/actuati 00 SPRAYS IN Med ical on nasal EACH Branch spray NOSTRIL DAILY FLUTICASONE 2021-06 Yes [id number] SHAKE U nivers PROPIONATE 0-17 LIQUID AND ity of 50 00:00: USE 2 [place] mcg/actuati 00 SPRAYS IN Med ical on nasal EACH Branch spray NOSTRIL DAILY FLUTICASONE 2021-06 Yes [id number] CHILO U nivers PROPIONATE 0-17 LIQUID AND ity of 50 00:00: USE 2 [place] mcg/actuati 00 SPRAYS IN Med ical on nasal EACH Branch spray NOSTRIL DAILY FLUTICASONE 2021-06- No [id number] CHILO [facility] PROPIONATE 0-17 11-16 LIQUID AND it y of 50 00:00: 00:00 USE 2 [place] mcg/actuati 00 :00 SPRAYS IN Med ical on nasal EACH Branch spray NOSTRIL DAILY clotrimazol 2021-06 Yes [id number] Apply to [facility] e-betametha 0-14 area(s) 2 ity of sone cream 00:00: (two) [place] 00 times Medical daily. Branch Apply only to bottom of feet BID gentian 2021-06 Yes [id number] Apply to [facility] vers nhi 1 % 0-14 area(s) 2 ity of solution 00:00: (two) [place] 00 times Medical daily. Branch Apply with q-tip in between affected toes once weekly. Do not dip used q-tip back into solution. clotrimazol 2021-06 Yes [id number] Apply to [facility] e-betametha 0-14 area(s) 2 ity of sone cream 00:00: (two) [place] 00 times Medical daily. Branch Apply only to bottom of feet BID gentian 2021-06 Yes [id number] Apply to [facility] vers nhi 1 % 0-14 area(s) 2 ity of solution 00:00: (two) [place] 00 times Medical daily. Branch Apply with q-tip in between affected toes once weekly. Do not dip used q-tip back into solution. clotrimazol 2021-06 Yes [id number] Apply to [facility] e-betametha 0-14 area(s) 2 ity of sone cream 00:00: (two) [place] 00 times Medical daily. Branch Apply only to bottom of feet BID gentian 2021-06 Yes [id number] Apply to [facility] vers nhi 1 % 0-14 area(s) 2 ity of solution 00:00: (two) [place] 00 times Medical daily. Branch Apply with q-tip in between affected toes once weekly. Do not dip used q-tip back into solution. clotrimazol 2021-06 Yes [id number] Apply to [facility] e-betametha 0-14 area(s) 2 ity of sone cream 00:00: (two) [place] 00 times Medical daily. Branch Apply only to bottom of feet BID gentian 2021-06 Yes [id number] Apply to [facility] vers nhi 1 % 0-14 area(s) 2 ity of solution 00:00: (two) [place] 00 times Medical daily. Branch Apply with q-tip in between affected toes once weekly. Do not dip used q-tip back into solution. clotrimazol 2021-06 Yes [id number] Apply to [facility] e-betametha 0-14 area(s) 2 ity of sone cream 00:00: (two) [place] 00 times Medical daily. Branch Apply only to bottom of feet BID gentian 2021-06 Yes [id number] Apply to [facility] vers nhi 1 % 0-14 area(s) 2 ity of solution 00:00: (two) [place] 00 times Medical daily. Branch Apply with q-tip in between affected toes once weekly. Do not dip used q-tip back into solution. clotrimazol 2021-06 Yes [id number] Apply to [facility] e-betametha 0-14 area(s) 2 ity of sone cream 00:00: (two) [place] 00 times Medical daily. Branch Apply only to bottom of feet BID gentian 2021-06 Yes [id number] Apply to [facility] vers nhi 1 % 0-14 area(s) 2 ity of solution 00:00: (two) [place] 00 times Medical daily. Branch Apply with q-tip in between affected toes once weekly. Do not dip used q-tip back into solution. clotrimazol 2021-06 Yes [id number] Apply to [facility] e-betametha 0-14 area(s) 2 ity of sone cream 00:00: (two) [place] 00 times Medical daily. Branch Apply only to bottom of feet BID gentian 2021-06 Yes [id number] Apply to [facility] vers nhi 1 % 0-14 area(s) 2 ity of solution 00:00: (two) [place] 00 times Medical daily. Branch Apply with q-tip in between affected toes once weekly. Do not dip used q-tip back into solution. clotrimazol 2021-06 Yes [id number] Apply to [facility] e-betametha 0-14 area(s) 2 ity of sone cream 00:00: (two) [place] 00 times Medical daily. Branch Apply only to bottom of feet BID gentian 2021-06 Yes [id number] Apply to [facility] vers nhi 1 % 0-14 area(s) 2 ity of solution 00:00: (two) [place] 00 times Medical daily. Branch Apply with q-tip in between affected toes once weekly. Do not dip used q-tip back into solution. clotrimazol 2021-06 Yes [id number] Apply to [facility] e-betametha 0-14 area(s) 2 ity of sone cream 00:00: (two) [place] 00 times Medical daily. Branch Apply only to bottom of feet BID gentian 2021-06 Yes [id number] Apply to [facility] vers nhi 1 % 0-14 area(s) 2 ity of solution 00:00: (two) [place] 00 times Medical daily. Branch Apply with q-tip in between affected toes once weekly. Do not dip used q-tip back into solution. clotrimazol 2021-06 Yes [id number] Apply to [facility] e-betametha 0-14 area(s) 2 ity of sone cream 00:00: (two) [place] 00 times Medical daily. Branch Apply only to bottom of feet BID gentian 2021-06 Yes [id number] Apply to [facility] vers nhi 1 % 0-14 area(s) 2 ity of solution 00:00: (two) [place] 00 times Medical daily. Branch Apply with q-tip in between affected toes once weekly. Do not dip used q-tip back into solution. clotrimazol 2021-06 Yes [id number] Apply to [facility] e-betametha 0-14 area(s) 2 ity of sone cream 00:00: (two) [place] 00 times Medical daily. Branch Apply only to bottom of feet BID gentian 2021-06 Yes [id number] Apply to [facility] vers nhi 1 % 0-14 area(s) 2 ity of solution 00:00: (two) [place] 00 times Medical daily. Branch Apply with q-tip in between affected toes once weekly. Do not dip used q-tip back into solution. clotrimazol 2021-06 Yes [id number] Apply to [facility] e-betametha 0-14 area(s) 2 ity of sone cream 00:00: (two) [place] 00 times Medical daily. Branch Apply only to bottom of feet BID gentian 2021-06 Yes [id number] Apply to [facility] vers nhi 1 % 0-14 area(s) 2 ity of solution 00:00: (two) [place] 00 times Medical daily. Branch Apply with q-tip in between affected toes once weekly. Do not dip used q-tip back into solution. clotrimazol 2021-06 Yes [id number] Apply to [facility] e-betametha 0-14 area(s) 2 ity of sone cream 00:00: (two) [place] 00 times Medical daily. Branch Apply only to bottom of feet BID gentian 2021-06 Yes [id number] Apply to [facility] vers nhi 1 % 0-14 area(s) 2 ity of solution 00:00: (two) [place] 00 times Medical daily. Branch Apply with q-tip in between affected toes once weekly. Do not dip used q-tip back into solution. clotrimazol 2021-06 Yes [id number] Apply to [facility] e-betametha 0-14 area(s) 2 ity of sone cream 00:00: (two) [place] 00 times Medical daily. Branch Apply only to bottom of feet BID gentian 2021-06 Yes [id number] Apply to [facility] vers nhi 1 % 0-14 area(s) 2 ity of solution 00:00: (two) [place] 00 times Medical daily. Branch Apply with q-tip in between affected toes once weekly. Do not dip used q-tip back into solution. clotrimazol 2021-06 Yes [id number] Apply to [facility] e-betametha 0-14 area(s) 2 ity of sone cream 00:00: (two) [place] 00 times Medical daily. Branch Apply only to bottom of feet BID gentian 2021-06 Yes [id number] Apply to [facility] vers nhi 1 % 0-14 area(s) 2 ity of solution 00:00: (two) [place] 00 times Medical daily. Branch Apply with q-tip in between affected toes once weekly. Do not dip used q-tip back into solution. clotrimazol 2021-06 Yes [id number] Apply to [facility] e-betametha 0-14 area(s) 2 ity of sone cream 00:00: (two) [place] 00 times Medical daily. Branch Apply only to bottom of feet BID gentian 2021-06 Yes [id number] Apply to [facility] vers nhi 1 % 0-14 area(s) 2 ity of solution 00:00: (two) [place] 00 times Medical daily. Branch Apply with q-tip in between affected toes once weekly. Do not dip used q-tip back into solution. clotrimazol 2021-06 Yes [id number] Apply to [facility] e-betametha 0-14 area(s) 2 ity of sone cream 00:00: (two) [place] 00 times Medical daily. Branch Apply only to bottom of feet BID gentian 2021-06 Yes [id number] Apply to [facility] vers nhi 1 % 0-14 area(s) 2 ity of solution 00:00: (two) [place] 00 times Medical daily. Branch Apply with q-tip in between affected toes once weekly. Do not dip used q-tip back into solution. clotrimazol 2021-06 Yes [id number] Apply to [facility] e-betametha 0-14 area(s) 2 ity of sone cream 00:00: (two) [place] 00 times Medical daily. Branch Apply only to bottom of feet BID gentian 2021-06 Yes [id number] Apply to [facility] vers nhi 1 % 0-14 area(s) 2 ity of solution 00:00: (two) [place] 00 times Medical daily. Branch Apply with q-tip in between affected toes once weekly. Do not dip used q-tip back into solution. clotrimazol 2021-06 Yes [id number] Apply to [facility] e-betametha 0-14 area(s) 2 ity of sone cream 00:00: (two) [place] 00 times Medical daily. Branch Apply only to bottom of feet BID gentian 2021-06 Yes [id number] Apply to [facility] vers nhi 1 % 0-14 area(s) 2 ity of solution 00:00: (two) [place] 00 times Medical daily. Branch Apply with q-tip in between affected toes once weekly. Do not dip used q-tip back into solution. clotrimazol 2021-06 Yes [id number] Apply to [facility] e-betametha 0-14 area(s) 2 ity of sone cream 00:00: (two) [place] 00 times Medical daily. Branch Apply only to bottom of feet BID gentian 2021-06 Yes [id number] Apply to [facility] vers nhi 1 % 0-14 area(s) 2 ity of solution 00:00: (two) [place] 00 times Medical daily. Branch Apply with q-tip in between affected toes once weekly. Do not dip used q-tip back into solution. clotrimazol 2021-06 Yes [id number] Apply to [facility] e-betametha 0-14 area(s) 2 ity of sone cream 00:00: (two) [place] 00 times Medical daily. Branch Apply only to bottom of feet BID gentian 2021-06 Yes [id number] Apply to [facility] vers nhi 1 % 0-14 area(s) 2 ity of solution 00:00: (two) [place] 00 times Medical daily. Branch Apply with q-tip in between affected toes once weekly. Do not dip used q-tip back into solution. clotrimazol 2021-06 Yes [id number] Apply to [facility] e-betametha 0-14 area(s) 2 ity of sone cream 00:00: (two) [place] 00 times Medical daily. Branch Apply only to bottom of feet BID gentian 2021-06 Yes [id number] Apply to [facility] vers nhi 1 % 0-14 area(s) 2 ity of solution 00:00: (two) [place] 00 times Medical daily. Branch Apply with q-tip in between affected toes once weekly. Do not dip used q-tip back into solution. clotrimazol 2021-06 Yes [id number] Apply to [facility] e-betametha 0-14 area(s) 2 ity of sone cream 00:00: (two) [place] 00 times Medical daily. Branch Apply only to bottom of feet BID gentian 2021-06 Yes [id number] Apply to [facility] vers nhi 1 % 0-14 area(s) 2 ity of solution 00:00: (two) [place] 00 times Medical daily. Branch Apply with q-tip in between affected toes once weekly. Do not dip used q-tip back into solution. clotrimazol 2021-06 Yes [id number] Apply to [facility] e-betametha 0-14 area(s) 2 ity of sone cream 00:00: (two) [place] 00 times Medical daily. Branch Apply only to bottom of feet BID gentian 2021-06 Yes [id number] Apply to [facility] vers nhi 1 % 0-14 area(s) 2 ity of solution 00:00: (two) [place] 00 times Medical daily. Branch Apply with q-tip in between affected toes once weekly. Do not dip used q-tip back into solution. clotrimazol 2021-06 Yes [id number] Apply to [facility] e-betametha 0-14 area(s) 2 ity of sone cream 00:00: (two) [place] 00 times Medical daily. Branch Apply only to bottom of feet BID gentian 2021-06 Yes [id number] Apply to [facility] vers nhi 1 % 0-14 area(s) 2 ity of solution 00:00: (two) [place] 00 times Medical daily. Branch Apply with q-tip in between affected toes once weekly. Do not dip used q-tip back into solution. clotrimazol 2021-06 Yes [id number] Apply to [facility] e-betametha 0-14 area(s) 2 ity of sone cream 00:00: (two) [place] 00 times Medical daily. Branch Apply only to bottom of feet BID gentian 2021-06 Yes [id number] Apply to [facility] vers nhi 1 % 0-14 area(s) 2 ity of solution 00:00: (two) [place] 00 times Medical daily. Branch Apply with q-tip in between affected toes once weekly. Do not dip used q-tip back into solution. clotrimazol 2021-06 Yes [id number] Apply to [facility] e-betametha 0-14 area(s) 2 ity of sone cream 00:00: (two) [place] 00 times Medical daily. Branch Apply only to bottom of feet BID gentian 2021-06 Yes [id number] Apply to [facility] vers nhi 1 % 0-14 area(s) 2 ity of solution 00:00: (two) [place] 00 times Medical daily. Branch Apply with q-tip in between affected toes once weekly. Do not dip used q-tip back into solution. clotrimazol 2021-06 Yes [id number] Apply to [facility] e-betametha 0-14 area(s) 2 ity of sone cream 00:00: (two) [place] 00 times Medical daily. Branch Apply only to bottom of feet BID gentian 2021-06 Yes [id number] Apply to [facility] vers nhi 1 % 0-14 area(s) 2 ity of solution 00:00: (two) [place] 00 times Medical daily. Branch Apply with q-tip in between affected toes once weekly. Do not dip used q-tip back into solution. clotrimazol 2021-06 Yes [id number] Apply to [facility] e-betametha 0-14 area(s) 2 ity of sone cream 00:00: (two) [place] 00 times Medical daily. Branch Apply only to bottom of feet BID gentian 2021-06 Yes [id number] Apply to [facility] vers nhi 1 % 0-14 area(s) 2 ity of solution 00:00: (two) [place] 00 times Medical daily. Branch Apply with q-tip in between affected toes once weekly. Do not dip used q-tip back into solution. clotrimazol 2021-06 Yes [id number] Apply to [facility] e-betametha 0-14 area(s) 2 ity of sone cream 00:00: (two) [place] 00 times Medical daily. Branch Apply only to bottom of feet BID gentian 2021-06 Yes [id number] Apply to [facility] vers nhi 1 % 0-14 area(s) 2 ity of solution 00:00: (two) [place] 00 times Medical daily. Branch Apply with q-tip in between affected toes once weekly. Do not dip used q-tip back into solution. clotrimazol 2021-06 Yes [id number] Apply to [facility] e-betametha 0-14 area(s) 2 ity of sone cream 00:00: (two) [place] 00 times Medical daily. Branch Apply only to bottom of feet BID gentian 2021-06 Yes [id number] Apply to [facility] vers nhi 1 % 0-14 area(s) 2 ity of solution 00:00: (two) [place] 00 times Medical daily. Branch Apply with q-tip in between affected toes once weekly. Do not dip used q-tip back into solution. clotrimazol 2021-06 Yes [id number] Apply to [facility] e-betametha 0-14 area(s) 2 ity of sone cream 00:00: (two) [place] 00 times Medical daily. Branch Apply only to bottom of feet BID gentian 2021-06 Yes [id number] Apply to [facility] vers nhi 1 % 0-14 area(s) 2 ity of solution 00:00: (two) [place] 00 times Medical daily. Branch Apply with q-tip in between affected toes once weekly. Do not dip used q-tip back into solution. clotrimazol 2021-06 Yes [id number] Apply to [facility] e-betametha 0-14 area(s) 2 ity of sone cream 00:00: (two) [place] 00 times Medical daily. Branch Apply only to bottom of feet BID gentian 2021-06 Yes [id number] Apply to [facility] vers nhi 1 % 0-14 area(s) 2 ity of solution 00:00: (two) [place] 00 times Medical daily. Branch Apply with q-tip in between affected toes once weekly. Do not dip used q-tip back into solution. fluticasone Yes [id number] SHAKE U nivers propionate 9-13 LIQUID AND ity of 50 00:00: USE 2 [place] mcg/actuati 00 SPRAYS IN Med ical on nasal EACH Branch spray NOSTRIL DAILY fluticasone Yes [id number] SHAKE U nivers propionate 9-13 LIQUID AND ity of 50 00:00: USE 2 [place] mcg/actuati 00 SPRAYS IN Med ical on nasal EACH Branch spray NOSTRIL DAILY fluticasone Yes [id number] SHAKE U nivers propionate 9-13 LIQUID AND ity of 50 00:00: USE 2 [place] mcg/actuati 00 SPRAYS IN Med ical on nasal EACH Branch spray NOSTRIL DAILY fluticasone 2021- No [id number] SHAKE [facility] propionate 9-13 10-17 LIQUID AND it y of 50 00:00: 00:00 USE 2 [place] mcg/actuati 00 :00 SPRAYS IN Med ical on nasal EACH Branch spray NOSTRIL DAILY fluticasone 2021- No [id number] SHAKE [facility] propionate 9-13 10-17 LIQUID AND it y of 50 00:00: 00:00 USE 2 [place] mcg/actuati 00 :00 SPRAYS IN Med ical on nasal EACH Branch spray NOSTRIL DAILY fluticasone 2021- No [id number] CHILO [facility] propionate 9-13 10-17 LIQUID AND it y of 50 00:00: 00:00 USE 2 [place] mcg/actuati 00 :00 SPRAYS IN Med ical on nasal EACH Branch spray NOSTRIL DAILY carvediloL 0 Yes [id number] 37.5mg Take 1.5 [facility] 25 mg 9-12 tablets by ity of tablet 00:00: mouth in [place] [id number] the [facility] morning [place] and 1.5 tablets in the evening. Take with meals. carvediloL 0 Yes [id number] 37.5mg Take 1.5 [facility] 25 mg 9-12 tablets by ity of tablet 00:00: mouth in [place] [id number] the [facility] morning [place] and 1.5 tablets in the evening. Take with meals. carvediloL 0 Yes [id number] 37.5mg Take 1.5 [facility] 25 mg 9-12 tablets by ity of tablet 00:00: mouth in [place] [id number] the [facility] morning [place] and 1.5 tablets in the evening. Take with meals. carvediloL 0 Yes [id number] 37.5mg Take 1.5 [facility] 25 mg 9-12 tablets by ity of tablet 00:00: mouth in [place] [id number] the [facility] morning [place] and 1.5 tablets in the evening. Take with meals. carvediloL 0 Yes [id number] 37.5mg Take 1.5 [facility] 25 mg 9-12 tablets by ity of tablet 00:00: mouth in [place] [address] the [facility] morning [place] and 1.5 tablets in the evening. Take with meals. carvediloL 0 Yes [id number] 37.5mg Take 1.5 [facility] 25 mg 9-12 tablets by ity of tablet 00:00: mouth in [place] [address] the [facility] morning [place] and 1.5 tablets in the evening. Take with meals. carvediloL 2021-0 Yes [id number] 37.5mg Take 1.5 [facility] 25 mg 9-12 tablets by ity of tablet 00:00: mouth in [place] [address] the [facility] morning [place] and 1.5 tablets in the evening. Take with meals. carvediloL 0 Yes [id number] 37.5mg Take 1.5 [facility] 25 mg 9-12 tablets by ity of tablet 00:00: mouth in [place] [address] the [facility] morning Branch and 1.5 tablets in the evening. Take with meals. carvediloL 2022-0 Yes [id number] 37.5mg Take 1.5 [facility] 25 mg 9-12 tablets by ity of tablet 00:00: mouth in [place] [address] the [facility] morning [place] and 1.5 tablets in the evening. Take with meals. carvediloL 2-0 Yes [id number] 37.5mg Take 1.5 [facility] 25 mg 9-12 tablets by ity of tablet 00:00: mouth in [place] 00 the [facility] morning Branch and 1.5 tablets in the evening. Take with meals. carvediloL 2-0 Yes [id number] 37.5mg Take 1.5 [facility] 25 mg 9-12 tablets by ity of tablet 00:00: mouth in [place] 00 the [facility] morning [place] and 1.5 tablets in the evening. Take with meals. carvediloL 2-0 Yes [id number] 37.5mg Take 1.5 [facility] 25 mg 9-12 tablets by ity of tablet 00:00: mouth in [place] [address] the [facility] morning [place] and 1.5 tablets in the evening. Take with meals. carvediloL 2-0 Yes [id number] 37.5mg Take 1.5 [facility] 25 mg 9-12 tablets by ity of tablet 00:00: mouth in [place] [address] the [facility] morning [place] and 1.5 tablets in the evening. Take with meals. carvediloL 2-0 Yes [id number] 37.5mg Take 1.5 [facility] 25 mg 9-12 tablets by ity of tablet 00:00: mouth in [place] [address] the [facility] morning [place] and 1.5 tablets in the evening. Take with meals. carvediloL 2-0 Yes [id number] 37.5mg Take 1.5 [facility] 25 mg 9-12 tablets by ity of tablet 00:00: mouth in [place] [address] the [facility] morning [place] and 1.5 tablets in the evening. Take with meals. carvediloL 2022-0 Yes [id number] 37.5mg Take 1.5 [facility] 25 mg 9-12 tablets by ity of tablet 00:00: mouth in [place] [address] the [facility] morning [place] and 1.5 tablets in the evening. Take with meals. carvediloL 2022-0 Yes [id number] 37.5mg Take 1.5 [facility] 25 mg 9-12 tablets by ity of tablet 00:00: mouth in [address] and 1.5 tablets in the evening. Take with meals. carvediloL 2-0 Yes [id number] 37.5mg Take 1.5 [facility] 25 mg 9-12 tablets by ity of tablet 00:00: mouth in [address] and 1.5 tablets in the evening. Take with meals. carvediloL 2-0 Yes [id number] 37.5mg Take 1.5 [facility] 25 mg 9-12 tablets by ity of tablet 00:00: mouth in [address] and 1.5 tablets in the evening. Take with meals. carvediloL 2-0 Yes [id number] 37.5mg Take 1.5 [facility] 25 mg 9-12 tablets by ity of tablet 00:00: mouth in [address] and 1.5 tablets in the evening. Take with meals. carvediloL 2-0 Yes [id number] 37.5mg Take 1.5 [facility] 25 mg 9-12 tablets by ity of tablet 00:00: mouth in [address] and 1.5 tablets in the evening. Take with meals. carvediloL 2-0 Yes [id number] 37.5mg Take 1.5 [facility] 25 mg 9-12 tablets by ity of tablet 00:00: mouth in [address] and 1.5 tablets in the evening. Take with meals. carvediloL 2-0 Yes [id number] 37.5mg Take 1.5 [facility] 25 mg 9-12 tablets by ity of tablet 00:00: mouth in [address] and 1.5 tablets in the evening. Take with meals. carvediloL 2-0 Yes [id number] 37.5mg Take 1.5 [facility] 25 mg 9-12 tablets by ity of tablet 00:00: mouth in [address] and 1.5 tablets in the evening. Take with meals. carvediloL 2022-0 Yes [id number] 37.5mg Take 1.5 [facility] 25 mg 9-12 tablets by ity of tablet 00:00: mouth in [address] and 1.5 tablets in the evening. Take with meals. carvediloL 2022-0 Yes [id number] 37.5mg Take 1.5 [facility] 25 mg 9-12 tablets by ity of tablet 00:00: mouth in [place] [address] the [facility] morning [place] and 1.5 tablets in the evening. Take with meals. carvediloL 2021-0 Yes [id number] 37.5mg Take 1.5 [facility] 25 mg 9-12 tablets by ity of tablet 00:00: mouth in [place] [address] the [facility] morning [place] and 1.5 tablets in the evening. Take with meals. carvediloL 2021-0 Yes [id number] 37.5mg Take 1.5 [facility] 25 mg 9-12 tablets by ity of tablet 00:00: mouth in [address] morning [place] and 1.5 tablets in the evening. Take with meals. carvediloL 2021-0 Yes [id number] 37.5mg Take 1.5 [facility] 25 mg 9-12 tablets by ity of tablet 00:00: mouth in [address] morning [place] and 1.5 tablets in the evening. Take with meals. carvediloL 2021-0 Yes [id number] 37.5mg Take 1.5 [facility] 25 mg 9-12 tablets by ity of tablet 00:00: mouth in [address] morning [place] and 1.5 tablets in the evening. Take with meals. carvediloL 2021-0 Yes [id number] 37.5mg Take 1.5 [facility] 25 mg 9-12 tablets by ity of tablet 00:00: mouth in [address] morning [place] and 1.5 tablets in the evening. Take with meals. carvediloL 2021-0 Yes [id number] 37.5mg Take 1.5 [facility] 25 mg 9-12 tablets by ity of tablet 00:00: mouth in [address] morning [place] and 1.5 tablets in the evening. Take with meals. carvediloL 2-0 Yes [id number] 37.5mg Take 1.5 [facility] 25 mg 9-12 tablets by ity of tablet 00:00: mouth in [address] morning [place] and 1.5 tablets in the evening. Take with meals. carvediloL 2-0 Yes [id number] 37.5mg Take 1.5 [facility] 25 mg 9-12 tablets by ity of tablet 00:00: mouth in [address] morning [place] and 1.5 tablets in the evening. Take with meals. carvediloL 2022-0 Yes [id number] 37.5mg Take 1.5 [facility] 25 mg 9-12 tablets by ity of tablet 00:00: mouth in [place] 00 the Medical morning Branch and 1.5 tablets in the evening. Take with meals. carvediloL 2022-0 Yes [id number] 37.5mg Take 1.5 [facility] 25 mg 9-12 tablets by ity of tablet 00:00: mouth in [place] 00 the Medical morning Branch and 1.5 tablets in the evening. Take with meals. carvediloL 2022-0 Yes [id number] 37.5mg Take 1.5 [facility] 25 mg 9-12 tablets by ity of tablet 00:00: mouth in [place] 00 the Medical morning Branch and 1.5 tablets in the evening. Take with meals. alfuzosin 2022-0 Yes 10mg Take 10 mg [facility] 10 mg 24 hr 8-16 by mouth ity of tablet 00:00: every [place] [address] morning. Medical Branch alfuzosin 2022-0 Yes 10mg Take 10 mg Un [facility] 10 mg 24 hr 8-16 by mouth ity of tablet 00:00: every [place] [address] morning. Medical Branch alfuzosin 2022-0 Yes 10mg Take 10 mg Un [facility] 10 mg 24 hr 8-16 by mouth ity of tablet 00:00: every [place] [address] morning. Medical Branch alfuzosin 2022-0 Yes 10mg Take 10 mg Un [facility] 10 mg 24 hr 8-16 by mouth ity of tablet 00:00: every [place] 00 morning. Medical Branch alfuzosin 2022-0 Yes 10mg Take 10 mg Un [facility] 10 mg 24 hr 8-16 by mouth ity of tablet 00:00: every [place] 00 morning. Medical Branch alfuzosin 2022-0 Yes 10mg Take 10 mg Un [facility] 10 mg 24 hr 8-16 by mouth ity of tablet 00:00: every [place] 00 morning. Medical Branch alfuzosin 2022-0 Yes 10mg Take 10 mg [facility] 10 mg 24 hr 8-16 by mouth ity of tablet 00:00: every [place] 00 morning. Medical Branch alfuzosin 2022-0 Yes 10mg Take 10 mg [facility] 10 mg 24 hr 8-16 by mouth ity of tablet 00:00: every [place] 00 morning. Medical Branch alfuzosin 2022-0 Yes 10mg Take 10 mg [facility] 10 mg 24 hr 8-16 by mouth ity of tablet 00:00: every [place] morning. Medical Branch alfuzosin 2022-0 Yes 10mg Take 10 mg [facility] 10 mg 24 hr 8-16 by mouth ity of tablet 00:00: every [place] morning. Medical Branch alfuzosin 2022-0 Yes 10mg Take 10 mg Un [facility] 10 mg 24 hr 8-16 by mouth ity of tablet 00:00: every [place] 00 morning. Medical Branch alfuzosin 2022-0 Yes 10mg Take 10 mg [facility] 10 mg 24 hr 8-16 by mouth ity of tablet 00:00: every [place] morning. Medical Branch alfuzosin 2022-0 Yes 10mg Take 10 mg [facility] 10 mg 24 hr 8-16 by mouth ity of tablet 00:00: every [place] morning. Medical Branch alfuzosin 2022-0 Yes 10mg Take 10 mg [facility] 10 mg 24 hr 8-16 by mouth ity of tablet 00:00: every [place] morning. Medical Branch alfuzosin 2022-0 Yes 10mg Take 10 mg [facility] [place] 10 mg 24 hr 8-16 by mouth ity of tablet 00:00: every [place] morning. Medical Branch alfuzosin 2022-0 Yes 10mg Take 10 mg [facility] [place] 10 mg 24 hr 8-16 by mouth ity of tablet 00:00: every [place] morning. Medical Branch alfuzosin 2022-0 Yes 10mg Take 10 mg [facility] [place] 10 mg 24 hr 8-16 by mouth ity of tablet 00:00: every [place] morning. Medical Branch alfuzosin 2022-0 Yes 10mg Take 10 mg [facility] [place] 10 mg 24 hr 8-16 by mouth ity of tablet 00:00: every [place] morning. Medical Branch alfuzosin 2022-0 Yes 10mg Take 10 mg [facility] [place] 10 mg 24 hr 8-16 by mouth ity of tablet 00:00: every [place] morning. Medical Branch alfuzosin 2022-0 Yes 10mg Take 10 mg [facility] [place] 10 mg 24 hr 8-16 by mouth ity of tablet 00:00: every [place] morning. Medical Branch alfuzosin 2022-0 Yes 10mg Take 10 mg [facility] [place] 10 mg 24 hr 8-16 by mouth ity of tablet 00:00: every [place] 00 morning. Medical Branch alfuzosin 2022-0 Yes 10mg Take 10 mg [facility] [place] 10 mg 24 hr 8-16 by mouth ity of tablet 00:00: every [place] 00 morning. Medical Branch alfuzosin 2022-0 Yes 10mg Take 10 mg [facility] [place] 10 mg 24 hr 8-16 by mouth ity of tablet 00:00: every [place] 00 morning. Medical Branch alfuzosin 2022-0 Yes 10mg Take 10 mg [facility] [place] 10 mg 24 hr 8-16 by mouth ity of tablet 00:00: every [place] 00 morning. Medical Branch alfuzosin 2022-0 Yes 10mg Take 10 mg [facility] [place] 10 mg 24 hr 8-16 by mouth ity of tablet 00:00: every [place] 00 morning. Medical Branch alfuzosin 2022-0 Yes 10mg Take 10 mg [facility] [place] 10 mg 24 hr 8-16 by mouth ity of tablet 00:00: every [place] 00 morning. Medical Branch alfuzosin 2022-0 Yes 10mg Take 10 mg [facility] [place] 10 mg 24 hr 8-16 by mouth ity of tablet 00:00: every [place] 00 morning. Medical Branch alfuzosin 2022-0 Yes 10mg Take 10 mg [facility] [place] 10 mg 24 hr 8-16 by mouth ity of tablet 00:00: every [place] 00 morning. Medical Branch chlorthalid 2022-0 Yes [id number] 50mg Take 1 [facility] one 50 mg 8-12 tablet by ity o f tablet 00:00: mouth in [place] the Medical morning. Branch chlorthalid 2022-0 Yes [id number] 50mg Take 1 [facility] one 50 mg 8-12 tablet by ity o f tablet 00:00: mouth in [place] the Medical morning. Branch chlorthalid 2022-0 Yes [id number] 50mg Take 1 [facility] one 50 mg 8-12 tablet by ity o f tablet 00:00: mouth in [place] the Medical morning. Branch chlorthalid 2022-0 Yes [id number] 50mg Take 1 [facility] one 50 mg 8-12 tablet by ity o f tablet 00:00: mouth in [place] the Medical morning. Branch chlorthalid 2022-0 Yes [id number] 50mg Take 1 [facility] one 50 mg 8-12 tablet by ity o f tablet 00:00: mouth in [place] the Medical morning. Branch chlorthalid 2022-0 Yes [id number] 50mg Take 1 [facility] one 50 mg 8-12 tablet by ity o f tablet 00:00: mouth in [place] 00 the Medical morning. Branch chlorthalid 2022-0 Yes [id number] 50mg Take 1 [facility] one 50 mg 8-12 tablet by ity o f tablet 00:00: mouth in [place] 00 the Medical morning. Branch chlorthalid 2022-0 Yes [id number] 50mg Take 1 [facility] one 50 mg 8-12 tablet by ity o f tablet 00:00: mouth in [place] 00 the Medical morning. Branch chlorthalid 2022-0 Yes [id number] 50mg Take 1 [facility] one 50 mg 8-12 tablet by ity o f tablet 00:00: mouth in [place] 00 the Medical morning. Branch chlorthalid 2022-0 Yes [id number] 50mg Take 1 [facility] one 50 mg 8-12 tablet by ity o f tablet 00:00: mouth in [place] 00 the Medical morning. Branch chlorthalid 2-0 Yes [id number] 50mg Take 1 [facility] one 50 mg 8-12 tablet by ity o f tablet 00:00: mouth in [place] 00 the Medical morning. Branch chlorthalid 2-0 Yes [id number] 50mg Take 1 [facility] one 50 mg 8-12 tablet by ity o f tablet 00:00: mouth in [place] 00 the Medical morning. Branch chlorthalid 2-0 Yes [id number] 50mg Take 1 [facility] one 50 mg 8-12 tablet by ity o f tablet 00:00: mouth in [place] 00 the Medical morning. Branch chlorthalid 2-0 Yes [id number] 50mg Take 1 [facility] one 50 mg 8-12 tablet by ity o f tablet 00:00: mouth in [place] 00 the Medical morning. Branch chlorthalid 2022-0 Yes [id number] 50mg Take 1 [facility] one 50 mg 8-12 tablet by ity o f tablet 00:00: mouth in [place] 00 the Medical morning. Branch chlorthalid 2022-0 Yes [id number] 50mg Take 1 [facility] one 50 mg 8-12 tablet by ity o f tablet 00:00: mouth in [place] 00 the Medical morning. Branch chlorthalid 2022-0 Yes [id number] 50mg Take 1 [facility] one 50 mg 8-12 tablet by ity o f tablet 00:00: mouth in [place] 00 the Medical morning. Branch chlorthalid 2022-0 Yes [id number] 50mg Take 1 [facility] one 50 mg 8-12 tablet by ity o f tablet 00:00: mouth in [place] 00 the Medical morning. Branch chlorthalid 2-0 Yes [id number] 50mg Take 1 [facility] one 50 mg 8-12 tablet by ity o f tablet 00:00: mouth in [place] 00 the Medical morning. Branch chlorthalid 2-0 Yes [id number] 50mg Take 1 [facility] one 50 mg 8-12 tablet by ity o f tablet 00:00: mouth in [place] 00 the Medical morning. Branch chlorthalid 2022-0 Yes [id number] 50mg Take 1 [facility] one 50 mg 8-12 tablet by ity o f tablet 00:00: mouth in [place] 00 the Medical morning. Branch chlorthalid 2-0 Yes [id number] 50mg Take 1 [facility] one 50 mg 8-12 tablet by ity o f tablet 00:00: mouth in [place] 00 the Medical morning. Branch chlorthalid 2-0 Yes [id number] 50mg Take 1 [facility] one 50 mg 8-12 tablet by ity o f tablet 00:00: mouth in [place] 00 the Medical morning. Branch chlorthalid 2-0 Yes [id number] 50mg Take 1 [facility] one 50 mg 8-12 tablet by ity o f tablet 00:00: mouth in [place] 00 the Medical morning. Branch chlorthalid 2-0 Yes [id number] 50mg Take 1 [facility] one 50 mg 8-12 tablet by ity o f tablet 00:00: mouth in [place] 00 the Medical morning. Branch chlorthalid 2-0 Yes [id number] 50mg Take 1 [facility] one 50 mg 8-12 tablet by ity o f tablet 00:00: mouth in [place] 00 the Medical morning. Branch chlorthalid 2-0 Yes [id number] 50mg Take 1 [facility] one 50 mg 8-12 tablet by ity o f tablet 00:00: mouth in [place] 00 the Medical morning. Branch chlorthalid 2022-0 Yes [id number] 50mg Take 1 [facility] one 50 mg 8-12 tablet by ity o f tablet 00:00: mouth in [place] 00 the Medical morning. Branch chlorthalid 2022-0 Yes [id number] 50mg Take 1 [facility] one 50 mg 8-12 tablet by ity o f tablet 00:00: mouth in [place] 00 the Medical morning. Branch chlorthalid 2022-0 Yes [id number] 50mg Take 1 [facility] one 50 mg 8-12 tablet by ity o f tablet 00:00: mouth in [place] 00 the Medical morning. Branch chlorthalid 2022-0 Yes [id number] 50mg Take 1 [facility] one 50 mg 8-12 tablet by ity o f tablet 00:00: mouth in [place] 00 the Medical morning. Branch chlorthalid 2022-0 Yes [id number] 50mg Take 1 [facility] one 50 mg 8-12 tablet by ity o f tablet 00:00: mouth in [place] 00 the Medical morning. Branch chlorthalid 2022-0 Yes [id number] 50mg Take 1 [facility] one 50 mg 8-12 tablet by ity o f tablet 00:00: mouth in [place] 00 the Medical morning. Branch chlorthalid 2022-0 Yes [id number] 50mg Take 1 [facility] one 50 mg 8-12 tablet by ity o f tablet 00:00: mouth in [place] 00 the Medical morning. Branch chlorthalid 2022-0 Yes [id number] 50mg Take 1 [facility] one 50 mg 8-12 tablet by ity o f tablet 00:00: mouth in [place] the Medical morning. Branch chlorthalid 2022-0 Yes [id number] 50mg Take 1 [facility] one 50 mg 8-12 tablet by ity o f tablet 00:00: mouth in [place] 00 the Medical morning. Branch chlorthalid 2022-0 Yes [id number] 50mg Take 1 [facility] one 50 mg 8-12 tablet by ity o f tablet 00:00: mouth in [place] 00 the Medical morning. Branch chlorthalid 2022-0 Yes [id number] 50mg Take 1 [facility] one 50 mg 8-12 tablet by ity o f tablet 00:00: mouth in [place] 00 the Medical morning. Branch allopurinoL 2022-0 Yes 100mg Take 1 Uni vers 100 mg 8-05 tablet by ity of tablet 00:00: mouth in [place] 00 the Medical morning. Branch allopurinoL 2022-0 Yes 100mg Take 1 [facility] vers 100 mg 8-05 tablet by ity of tablet 00:00: mouth in [place] 00 the Medical morning. Branch allopurinoL 2022-0 Yes 100mg Take 1 [facility] vers 100 mg 8-05 tablet by ity of tablet 00:00: mouth in [place] 00 the Medical morning. Branch allopurinoL 2022-0 Yes 100mg Take 1 [facility] vers 100 mg 8-05 tablet by ity of tablet 00:00: mouth in [place] 00 the Medical morning. Branch allopurinoL 2022-0 Yes 100mg Take 1 [facility] vers 100 mg 8-05 tablet by ity of tablet 00:00: mouth in [place] 00 the Medical morning. Branch allopurinoL 2022-0 Yes 100mg Take 1 [facility] vers 100 mg 8-05 tablet by ity of tablet 00:00: mouth in [place] the Medical morning. Branch allopurinoL 2022-0 Yes 100mg Take 1 [facility] vers 100 mg 8-05 tablet by ity of tablet 00:00: mouth in [place] 00 the Medical morning. Branch allopurinoL 2022-0 Yes 100mg Take 1 [facility] vers 100 mg 8-05 tablet by ity of tablet 00:00: mouth in [place] 00 the Medical morning. Branch allopurinoL 2022-0 Yes 100mg Take 1 [facility] vers 100 mg 8-05 tablet by ity of tablet 00:00: mouth in [place] the Medical morning. Branch allopurinoL 2022-0 Yes 100mg Take 1 [facility] vers 100 mg 8-05 tablet by ity of tablet 00:00: mouth in [place] the Medical morning. Branch allopurinoL 2022-0 Yes 100mg Take 1 [facility] vers 100 mg 8-05 tablet by ity of tablet 00:00: mouth in [place] 00 the Medical morning. Branch allopurinoL 2022-0 Yes 100mg Take 1 [facility] vers 100 mg 8-05 tablet by ity of tablet 00:00: mouth in [place] 00 the Medical morning. Branch allopurinoL 2022-0 Yes 100mg Take 1 [facility] vers 100 mg 8-05 tablet by ity of tablet 00:00: mouth in [place] 00 the Medical morning. Branch allopurinoL 2022-0 Yes 100mg Take 1 [facility] vers 100 mg 8-05 tablet by ity of tablet 00:00: mouth in [place] 00 the Medical morning. Branch allopurinoL 2022-0 Yes 100mg Take 1 [facility] vers 100 mg 8-05 tablet by ity of tablet 00:00: mouth in [place] 00 the Medical morning. Branch allopurinoL 2022-0 2022- No 100mg Take 1 Un [facility] 100 mg 8-05 11-09 tablet by ity of tablet 00:00: 00:00 mouth in [place] 00 :00 the Medical morning. Branch methylPREDN 2022-0 2022- No [id number] Take by Univers ISolone 8-04 09-08 mouth ity of (MEDROL, 00:00: 00:00 SEE-INSTRU Te xarufus ANJELICA,) 4 mg 00 :00 CTIONS. Medica l tablets follow Branch package directions bromphenira Yes [id number] 5mL Take 5 mL [facility] mine-pseudo 7-26 by mouth 4 it y of ephedrine-D 00:00: (four[place] (BROMFED 00 times Medical DM) 2-30-10 daily as Bran ch mg/5 mL needed for syrup Congestion /Allergies . bromphenira 0 Yes [id number] 5mL Take 5 mL [facility] mine-pseudo 7-26 by mouth 4 it y of ephedrine-D 00:00: ([place] (BROMFED 00 times Medical DM) 2-30-10 daily as Bran ch mg/5 mL needed for syrup Congestion /Allergies . bromphenira Yes [id number] 5mL Take 5 mL [facility] mine-pseudo 7-26 by mouth 4 it y of ephedrine-D 00:00: (four[place] (BROMFED 00 times Medical DM) 2-30-10 daily as Bran ch mg/5 mL needed for syrup Congestion /Allergies . bromphenira Yes [id number] 5mL Take 5 mL [facility] mine-pseudo 7-26 by mouth 4 it y of ephedrine-D 00:00: (four[place] (BROMFED 00 times Medical DM) 2-30-10 daily as Bran ch mg/5 mL needed for syrup Congestion /Allergies . bromphenira Yes [id number] 5mL Take 5 mL [facility] mine-pseudo 7-26 by mouth 4 it y of ephedrine-D 00:00: (four[place] (BROMFED 00 times Medical DM) 2-30-10 daily as Bran ch mg/5 mL needed for syrup Congestion /Allergies . bromphenira 0 Yes [id number] 5mL Take 5 mL [facility] mine-pseudo 7-26 by mouth 4 it y of ephedrine-D 00:00: (four[place] (BROMFED 00 times Medical DM) 2-30-10 daily as Bran ch mg/5 mL needed for syrup Congestion /Allergies . bromphenira 0 Yes [id number] 5mL Take 5 mL [facility] mine-pseudo 7-26 by mouth 4 it y of ephedrine-D 00:00: (four[place] (BROMFED 00 times Medical DM) 2-30-10 daily as Bran ch mg/5 mL needed for syrup Congestion /Allergies . bromphenira 0 Yes [id number] 5mL Take 5 mL [facility] mine-pseudo 7-26 by mouth 4 it y of ephedrine-D 00:00: (four[place] (BROMFED 00 times Medical DM) 2-30-10 daily as Bran ch mg/5 mL needed for syrup Congestion /Allergies . bromphenira 0 Yes [id number] 5mL Take 5 mL [facility] mine-pseudo 7-26 by mouth 4 it y of ephedrine-D 00:00: (four[place] (BROMFED 00 times Medical DM) 2-30-10 daily as Bran ch mg/5 mL needed for syrup Congestion /Allergies . bromphenira 0 Yes [id number] 5mL Take 5 mL [facility] mine-pseudo 7-26 by mouth 4 it y of ephedrine-D 00:00: ([place] (BROMFED 00 times Medical DM) 2-30-10 daily as Bran ch mg/5 mL needed for syrup Congestion /Allergies . bromphenira 2021- No [id number] 5mL Take 5 mL [facility] mine-pseudo 7-05-01 by mouth 4 i ty of ephedrine-D 00:00: 00:00 (four) [place] (BROMFED 00 :00 times Medical DM) 2-30-10 daily as Bran ch mg/5 mL needed for syrup Congestion /Allergies . bromphenira 0 2021- No [id number] 5mL Take 5 mL [facility] mine-pseudo 7-26 - by mouth 4 i ty of ephedrine-D 00:00: 00:00 (four) [place] (BROMFED 00 :00 times Medical DM) 2-30-10 daily as Bran ch mg/5 mL needed for syrup Congestion /Allergies . losartan 2021-0 Yes [id number] 100mg TAKE 1 [facility] 100 mg 7-12 TABLET BY ity of tablet 00:00: MOUTH DAILY Medical Branch losartan 2022-0 Yes [id number] 100mg TAKE 1 [facility] 100 mg 7-12 TABLET BY ity of tablet 00:00: DAILY Medical Branch losartan 2022-0 Yes [id number] 100mg TAKE 1 [facility] 100 mg 7-12 TABLET BY ity of tablet 00:00: DAILY Medical Branch losartan 2022-0 Yes [id number] 100mg TAKE 1 [facility] 100 mg 7-12 TABLET BY ity of tablet 00:00: DAILY Medical Branch losartan 2022-0 Yes [id number] 100mg TAKE 1 [facility] 100 mg 7-12 TABLET BY ity of tablet 00:00: DAILY Medical Branch losartan 2022-0 Yes [id number] 100mg TAKE 1 [facility] 100 mg 7-12 TABLET BY ity of tablet 00:00: DAILY Medical Branch losartan 2022-0 Yes [id number] 100mg TAKE 1 [facility] 100 mg 7-12 TABLET BY ity of tablet 00:00: DAILY Medical Branch losartan 2022-0 Yes [id number] 100mg TAKE 1 [facility] 100 mg 7-12 TABLET BY ity of tablet 00:00: DAILY Medical Branch losartan 2022-0 Yes [id number] 100mg TAKE 1 [facility] [place] 100 mg 7-12 TABLET BY ity of tablet 00:00: DAILY Medical Branch losartan 2022-0 Yes [id number] 100mg TAKE 1 [facility] 100 mg 7-12 TABLET BY ity of tablet 00:00: DAILY Medical Branch losartan 2022-0 Yes [id number] 100mg TAKE 1 [facility] 100 mg 7-12 TABLET BY ity of tablet 00:00: DAILY Medical Branch losartan 2022-0 Yes [id number] 100mg TAKE 1 [facility] 100 mg 7-12 TABLET BY ity of tablet 00:00: DAILY Medical Branch losartan 2022-0 Yes [id number] 100mg TAKE 1 [facility] 100 mg 7-12 TABLET BY ity of tablet 00:00: DAILY Medical Branch losartan 2022-0 Yes [id number] 100mg TAKE 1 [facility] 100 mg 7-12 TABLET BY ity of tablet 00:00: MOUTH DAILY Medical Branch losartan 2022-0 Yes [id number] 100mg TAKE 1 [facility] 100 mg 7-12 TABLET BY ity of tablet 00:00: DAILY Medical Branch losartan 2022-0 Yes [id number] 100mg TAKE 1 [facility] 100 mg 7-12 TABLET BY ity of tablet 00:00: DAILY Medical Branch losartan 2022-0 Yes [id number] 100mg TAKE 1 [facility] 100 mg 7-12 TABLET BY ity of tablet 00:00: DAILY Medical Branch losartan 2022-0 Yes [id number] 100mg TAKE 1 [facility] 100 mg 7-12 TABLET BY ity of tablet 00:00: DAILY Medical Branch losartan 2022-0 Yes [id number] 100mg TAKE 1 [facility] 100 mg 7-12 TABLET BY ity of tablet 00:00: DAILY Medical Branch losartan 2022-0 Yes [id number] 100mg TAKE 1 [facility] 100 mg 7-12 TABLET BY ity of tablet 00:00: DAILY Medical Branch losartan 2022-0 Yes [id number] 100mg TAKE 1 [facility] [place] 100 mg 7-12 TABLET BY ity of tablet 00:00: DAILY Medical Branch losartan 2022-0 Yes [id number] 100mg TAKE 1 [facility] [place] 100 mg 7-12 TABLET BY ity of tablet 00:00: DAILY Medical Branch losartan 2022-0 Yes [id number] 100mg TAKE 1 [facility] 100 mg 7-12 TABLET BY ity of tablet 00:00: DAILY Medical Branch losartan 2022-0 Yes [id number] 100mg TAKE 1 [facility] 100 mg 7-12 TABLET BY [facility] tablet 00:00: DAILY [facility] losartan 2022-0 Yes [id number] 100mg TAKE 1 [facility] 100 mg 7-12 TABLET BY [facility] tablet 00:00: DAILY [facility] losartan 2022-0 Yes [id number] 100mg TAKE 1 [facility] 100 mg 7-12 TABLET BY [facility] tablet 00:00: DAILY [facility] losartan 2022-0 Yes [id number] 100mg TAKE 1 [facility] 100 mg 7-12 TABLET BY [facility] tablet 00:00: DAILY [facility] losartan 2022-0 Yes [id number] 100mg TAKE 1 [facility] 100 mg 7-12 TABLET BY [facility] tablet 00:00: MOUTH [place] 00 DAILY [facility] losartan 2-0 Yes [id number] 100mg TAKE 1 [facility] 100 mg 7-12 TABLET BY [facility] tablet 00:00: MOUTH [place] 00 DAILY [facility] losartan 2-0 Yes [id number] 100mg TAKE 1 [facility] 100 mg 7-12 TABLET BY [facility] tablet 00:00: MOUTH 00 DAILY [facility] losartan 2-0 Yes [id number] 100mg TAKE 1 [facility] 100 mg 7-12 TABLET BY [facility] tablet 00:00: MOUTH [place] 00 DAILY [facility] losartan 2-0 Yes [id number] 100mg TAKE 1 [facility] 100 mg 7-12 TABLET BY [facility] tablet 00:00: MOUTH DAILY [facility] losartan 2021-0 3- No [id number] 100mg TAKE 1 [facility] 100 mg 7-12 -18 TABLET BY [facility] tablet 00:00: 00:00 MOUTH [place] 00 :00 DAILY [facility] metformin 2021-0 Yes [id number] 1000mg Take 2 [facility] 500 mg 7-07 tablets by [facility] 24 hr 00:00: mouth 2 [place] tablet 00 (two) Medical times Branch daily before breakfast and dinner. semaglutide 2021-0 Yes [id number] .5mg inject 0.5 [facility] (OZEMPIC) 7-07 mg under [facility] 0.25 mg or 00:00: the skin [place] 0.5 mg(2 00 weekly. Medical mg/1.5 mL) Branch PnIj metformin 2021-0 Yes [id number] 1000mg Take 2 [facility] 500 mg 7-07 tablets by [facility] 24 hr 00:00: mouth 2 [place] tablet 00 (two) Medical times Branch daily before breakfast and dinner. semaglutide 2021-0 Yes [id number] .5mg inject 0.5 [facility] (OZEMPIC) 7-07 mg under [facility] of 0.25 mg or 00:00: the skin [place] 0.5 mg(2 00 weekly. Medical mg/1.5 mL) Branch PnIj metformin 2021-0 Yes [id number] 1000mg Take 2 [facility] 500 mg 7-07 tablets by [facility] 24 hr 00:00: mouth 2 [place] tablet 00 (two) Medical times Branch daily before breakfast and dinner. semaglutide 2021-0 Yes [id number] .5mg inject 0.5 [facility] (OZEMPIC) 7-07 mg under [facility] of 0.25 mg or 00:00: the skin [place] 0.5 mg(2 00 weekly. Medical mg/1.5 mL) Branch PnIj metformin 2021-0 Yes [id number] 1000mg Take 2 [facility] 500 mg 7-07 tablets by [facility] 24 hr 00:00: mouth 2 [place] tablet 00 (two) Medical times Branch daily before breakfast and dinner. semaglutide 2021-0 Yes [id number] .5mg inject 0.5 [facility] (OZEMPIC) 7-07 mg under [facility] of 0.25 mg or 00:00: the skin [place] 0.5 mg(2 00 weekly. Medical mg/1.5 mL) Branch PnIj metformin 2021-0 Yes [id number] 1000mg Take 2 [facility] 500 mg 7-07 tablets by [facility] 24 hr 00:00: mouth 2 [place] tablet 00 (two) Medical times Branch daily before breakfast and dinner. semaglutide 2021-0 Yes [id number] .5mg inject 0.5 [facility] (OZEMPIC) 7-07 mg under [facility] of 0.25 mg or 00:00: the skin [place] 0.5 mg(2 00 weekly. Medical mg/1.5 mL) Branch PnIj metformin 2021-0 Yes [id number] 1000mg Take 2 [facility] 500 mg 7-07 tablets by [facility] 24 hr 00:00: mouth 2 [place] tablet 00 (two) Medical times Branch daily before breakfast and dinner. semaglutide 2021-0 Yes [id number] .5mg inject 0.5 [facility] (OZEMPIC) 7-07 mg under [facility] of 0.25 mg or 00:00: the skin [place] 0.5 mg(2 00 weekly. Medical mg/1.5 mL) Branch PnIj metformin 2021-0 Yes [id number] 1000mg Take 2 [facility] 500 mg 7-07 tablets by [facility] of 24 hr 00:00: mouth 2 [place] tablet 00 (two) Medical times Branch daily before breakfast and dinner. semaglutide 2021-0 Yes [id number] .5mg inject 0.5 [facility] (OZEMPIC) 7-07 mg under [facility] of 0.25 mg or 00:00: the skin [place] 0.5 mg(2 00 weekly. Medical mg/1.5 mL) Branch PnIj metformin 2021-0 Yes [id number] 1000mg Take 2 [facility] 500 mg 7-07 tablets by [facility] 24 hr 00:00: mouth 2 [place] tablet 00 (two) Medical times Branch daily before breakfast and dinner. semaglutide 2021-0 Yes [id number] .5mg inject 0.5 [facility] (OZEMPIC) 7-07 mg under [facility] of 0.25 mg or 00:00: the skin [place] 0.5 mg(2 00 weekly. Medical mg/1.5 mL) Branch Ij metformin 2021-0 Yes [id number] 1000mg Take 2 [facility] 500 mg 7-07 tablets by [facility] of 24 hr 00:00: mouth 2 [place] tablet 00 (two) Medical times Branch daily before breakfast and dinner. semaglutide 2021-0 Yes [id number] .5mg inject 0.5 [facility] (OZEMPIC) 7-07 mg under [facility] of 0.25 mg or 00:00: the skin [place] 0.5 mg(2 00 weekly. Medical mg/1.5 mL) Branch Ij metformin 2021-0 Yes [id number] 1000mg Take 2 [facility] ER 500 mg 7-07 tablets by [facility] of 24 hr 00:00: mouth 2 [place] tablet 00 (two) Medical times Branch daily before breakfast and dinner. semaglutide 2021-0 Yes [id number] .5mg inject 0.5 [facility] (OZEMPIC) 7-07 mg under [facility] of 0.25 mg or 00:00: the skin [place] 0.5 mg(2 00 weekly. Medical mg/1.5 mL) Branch Ij metformin 2021-0 Yes [id number] 1000mg Take 2 [facility] 500 mg 7-07 tablets by [facility] of 24 hr 00:00: mouth 2 [place] tablet 00 (two) Medical times Branch daily before breakfast and dinner. semaglutide 2021-0 Yes [id number] .5mg inject 0.5 [facility] (OZEMPIC) 7-07 mg under [facility] of 0.25 mg or 00:00: the skin [place] 0.5 mg(2 00 weekly. Medical mg/1.5 mL) Branch Ij metformin 2021-0 Yes [id number] 1000mg Take 2 [facility] 500 mg 7-07 tablets by [facility] 24 hr 00:00: mouth 2 [place] tablet 00 (two) Medical times Branch daily before breakfast and dinner. semaglutide 2021-0 Yes [id number] .5mg inject 0.5 [facility] (OZEMPIC) 7-07 mg under [facility] of 0.25 mg or 00:00: the skin [place] 0.5 mg(2 00 weekly. Medical mg/1.5 mL) Branch PnIj metformin 2021-0 Yes [id number] 1000mg Take 2 [facility] 500 mg 7-07 tablets by [facility] of 24 hr 00:00: mouth 2 [place] tablet 00 (two) Medical times Branch daily before breakfast and dinner. semaglutide 2021-0 Yes [id number] .5mg inject 0.5 [facility] (OZEMPIC) 7-07 mg under [facility] of 0.25 mg or 00:00: the skin [place] 0.5 mg(2 00 weekly. Medical mg/1.5 mL) Branch PnIj metformin 2021-0 Yes [id number] 1000mg Take 2 [facility] 500 mg 7-07 tablets by [facility] of 24 hr 00:00: mouth 2 [place] tablet 00 (two) Medical times Branch daily before breakfast and dinner. semaglutide 2021-0 Yes [id number] .5mg inject 0.5 [facility] (OZEMPIC) 7-07 mg under [facility] of 0.25 mg or 00:00: the skin [place] 0.5 mg(2 00 weekly. Medical mg/1.5 mL) Branch PnIj metformin 2021-0 Yes [id number] 1000mg Take 2 [facility] 500 mg 7-07 tablets by [facility] of 24 hr 00:00: mouth 2 [place] tablet 00 (two) Medical times Branch daily before breakfast and dinner. semaglutide 2-0 Yes [id number] .5mg inject 0.5 [facility] (OZEMPIC) 7-07 mg under [facility] of 0.25 mg or 00:00: the skin [place] 0.5 mg(2 00 weekly. Medical mg/1.5 mL) Branch PnIj metformin 2-0 Yes [id number] 1000mg Take 2 [facility] 500 mg 7-07 tablets by [facility] of 24 hr 00:00: mouth 2 [place] tablet 00 (two) Medical times Branch daily before breakfast and dinner. semaglutide 2021-0 Yes [id number] .5mg inject 0.5 [facility] (OZEMPIC) 7-07 mg under [facility] of 0.25 mg or 00:00: the skin [place] 0.5 mg(2 00 weekly. Medical mg/1.5 mL) Branch PnIj metformin 2021-0 Yes [id number] 1000mg Take 2 [facility] 500 mg 7-07 tablets by [facility] of 24 hr 00:00: mouth 2 [place] tablet 00 (two) Medical times Branch daily before breakfast and dinner. semaglutide 2021-0 Yes [id number] .5mg inject 0.5 [facility] (OZEMPIC) 7-07 mg under [facility] of 0.25 mg or 00:00: the skin [place] 0.5 mg(2 00 weekly. Medical mg/1.5 mL) Branch PnIj metformin 2021-0 Yes [id number] 1000mg Take 2 [facility] 500 mg 7-07 tablets by [facility] 24 hr 00:00: mouth 2 [place] tablet 00 (two) Medical times Branch daily before breakfast and dinner. semaglutide 2021-0 Yes [id number] .5mg inject 0.5 [facility] (OZEMPIC) 7-07 mg under [facility] of 0.25 mg or 00:00: the skin [place] 0.5 mg(2 00 weekly. Medical mg/1.5 mL) Branch PnIj metformin 2021-0 Yes [id number] 1000mg Take 2 [facility] ER 500 mg 7-07 tablets by [facility] of 24 hr 00:00: mouth 2 [place] tablet 00 (two) Medical times Branch daily before breakfast and dinner. semaglutide 2021-0 Yes [id number] .5mg inject 0.5 [facility] (OZEMPIC) 7-07 mg under [facility] of 0.25 mg or 00:00: the skin [place] 0.5 mg(2 00 weekly. Medical mg/1.5 mL) Branch PnIj metformin 2021-0 Yes [id number] 1000mg Take 2 [facility] 500 mg 7-07 tablets by [facility] of 24 hr 00:00: mouth 2 [place] tablet 00 (two) Medical times Branch daily before breakfast and dinner. semaglutide 2-0 Yes [id number] .5mg inject 0.5 [facility] (OZEMPIC) 7-07 mg under [facility] of 0.25 mg or 00:00: the skin [place] 0.5 mg(2 00 weekly. Medical mg/1.5 mL) Branch PnIj metformin 2021-0 Yes [id number] 1000mg Take 2 [facility] 500 mg 7-07 tablets by [facility] of 24 hr 00:00: mouth 2 [place] tablet 00 (two) Medical times Branch daily before breakfast and dinner. semaglutide 2021-0 Yes [id number] .5mg inject 0.5 [facility] (OZEMPIC) 7-07 mg under [facility] of 0.25 mg or 00:00: the skin [place] 0.5 mg(2 00 weekly. Medical mg/1.5 mL) Branch PnIj metformin 2021-0 Yes [id number] 1000mg Take 2 [facility] ER 500 mg 7-07 tablets by [facility] of 24 hr 00:00: mouth 2 [place] tablet 00 (two) Medical times Branch daily before breakfast and dinner. semaglutide 2021-0 Yes [id number] .5mg inject 0.5 [facility] (OZEMPIC) 7-07 mg under [facility] of 0.25 mg or 00:00: the skin [place] 0.5 mg(2 00 weekly. Medical mg/1.5 mL) Branch Ij metformin 2021-0 Yes [id number] 1000mg Take 2 [facility] ER 500 mg 7-07 tablets by [facility] of 24 hr 00:00: mouth 2 [place] tablet 00 (two) Medical times Branch daily before breakfast and dinner. semaglutide 2021-0 Yes [id number] .5mg inject 0.5 [facility] (OZEMPIC) 7-07 mg under [facility] of 0.25 mg or 00:00: the skin [place] 0.5 mg(2 00 weekly. Medical mg/1.5 mL) Branch Ij metformin 2021-0 Yes [id number] 1000mg Take 2 [facility] ER 500 mg 7-07 tablets by [facility] of 24 hr 00:00: mouth 2 [place] tablet 00 (two) Medical times Branch daily before breakfast and dinner. semaglutide 2021-0 Yes [id number] .5mg inject 0.5 [facility] (OZEMPIC) 7-07 mg under [facility] of 0.25 mg or 00:00: the skin [place] 0.5 mg(2 00 weekly. Medical mg/1.5 mL) Branch Ij metformin Yes [id number] 1000mg Take 2 [facility] ER 500 mg 7-07 tablets by [facility] of 24 hr 00:00: mouth 2 [place] tablet 00 (two) Medical times Branch daily before breakfast and dinner. semaglutide Yes [id number] .5mg inject 0.5 [facility] (OZEMPIC) 7-07 mg under [facility] of 0.25 mg or 00:00: the skin [place] 0.5 mg(2 00 weekly. Medical mg/1.5 mL) Branch Ij metformin Yes [id number] 1000mg Take 2 [facility] ER 500 mg 7-07 tablets by [facility] of 24 hr 00:00: mouth 2 [place] tablet 00 (two) Medical times Branch daily before breakfast and dinner. semaglutide Yes [id number] .5mg inject 0.5 [facility] (OZEMPIC) 7-07 mg under ity of 0.25 mg or 00:00: the skin [place] 0.5 mg(2 00 weekly. Medical mg/1.5 mL) Branch [facility] metformin Yes [id number] 1000mg Take 2 [facility] ER 500 mg 7-07 tablets by it[facility] of 24 hr 00:00: mouth 2 [place] tablet 00 (two) Medical times Branch daily before breakfast and dinner. semaglutide Yes [id number] .5mg inject 0.5 [facility] (OZEMPIC) 7-07 mg under ity of 0.25 mg or 00:00: the skin [place] 0.5 mg(2 00 weekly. Medical mg/1.5 mL) Branch Ij metformin 2022- No [id number] 1000mg Take 2 [facility] ER 500 mg 7-07 01-09 tablets by [facility] of 24 hr 00:00: 00:00 mouth 2 [place] tablet 00 :00 (two) Medical times Branch daily before breakfast and dinner. semaglutide 2022- No [id number] .5mg inject 0.5 [facility] (OZEMPIC) 7-07 01-09 mg under ity o f 0.25 mg or 00:00: 00:00 the skin [place] 0.5 mg(2 00 :00 weekly. Medical mg/1.5 mL) Branch Ij metformin 2022- No [id number] 1000mg Take 2 [facility] ER 500 mg 01-03- tablets by [facility] of 24 hr 00:00: 00:00 mouth 2 [place] tablet 00 :00 (two) Medical times Branch daily before breakfast and dinner. semaglutide 0 3- No [id number] .5mg inject 0.5 [facility] (OZEMPIC) 01-03- mg under ity o f 0.25 mg or 00:00: 00:00 the skin [place] 0.5 mg(2 00 :00 weekly. Medical mg/1.5 mL) Branch PnIj KCL 10 mEq 2021-0 Yes [id number] 10meq Take 1 [facility] tablet 6-03 tablet by [facility] of 00:00: mouth [place] 00 daily. Medical Branch magnesium 0 Yes [id number] 400mg Take 1 [facility] oxide 400 6-03 tablet by it[facility] o f mg (241.3 00:00: mouth [place] mg 00 daily. Medical magnesium) Branch tablet KCL 10 mEq 2021-0 Yes [id number] 10meq Take 1 [facility] tablet 6-03 tablet by [facility] of 00:00: mouth [place] 00 daily. Medical Branch magnesium 0 Yes [id number] 400mg Take 1 [facility] oxide 400 6-03 tablet by ity o f mg (241.3 00:00: mouth [place] mg 00 daily. Medical magnesium) Branch tablet KCL 10 mEq 2021-0 Yes [id number] 10meq Take 1 [facility] tablet 6-03 tablet by [facility] of 00:00: mouth [place] 00 daily. Medical Branch magnesium 2021-0 Yes [id number] 400mg Take 1 [facility] oxide 400 6-03 tablet by it[facility] o f mg (241.3 00:00: mouth [place] mg 00 daily. Medical magnesium) Branch tablet KCL 10 mEq 2021-0 Yes [id number] 10meq Take 1 [facility] tablet 6-03 tablet by [facility] of 00:00: mouth [place] 00 daily. Medical Branch magnesium 2021-0 Yes [id number] 400mg Take 1 [facility] oxide 400 6-03 tablet by ity o f mg (241.3 00:00: mouth [place] mg 00 daily. Medical magnesium) Branch tablet KCL 10 mEq 2021-0 Yes [id number] 10meq Take 1 [facility] tablet 6-03 tablet by [facility] of 00:00: mouth [place] 00 daily. Medical Branch magnesium 2022-0 Yes [id number] 400mg Take 1 [facility] oxide 400 6-03 tablet by ity o f mg (241.3 00:00: mouth [place] mg 00 daily. Medical magnesium) Branch tablet KCL 10 mEq 2-0 Yes [id number] 10meq Take 1 [facility] tablet 6-03 tablet by ity of 00:00: mouth [place] 00 daily. Medical Branch magnesium 2-0 Yes [id number] 400mg Take 1 [facility] oxide 400 6-03 tablet by ity o f mg (241.3 00:00: mouth [place] mg 00 daily. Medical magnesium) Branch tablet KCL 10 mEq 2-0 Yes [id number] 10meq Take 1 [facility] tablet 6-03 tablet by ity of 00:00: mouth [place] 00 daily. Medical Branch magnesium 2-0 Yes [id number] 400mg Take 1 [facility] oxide 400 6-03 tablet by ity o f mg (241.3 00:00: mouth [place] mg 00 daily. Medical magnesium) Branch tablet KCL 10 mEq 2-0 Yes [id number] 10meq Take 1 [facility] tablet 6-03 tablet by ity of 00:00: mouth [place] 00 daily. Medical Branch magnesium 2-0 Yes [id number] 400mg Take 1 [facility] oxide 400 6-03 tablet by ity o f mg (241.3 00:00: mouth [place] mg 00 daily. Medical magnesium) Branch tablet KCL 10 mEq 2-0 Yes [id number] 10meq Take 1 [facility] tablet 6-03 tablet by ity of 00:00: mouth [place] 00 daily. Medical Branch magnesium 2-0 Yes [id number] 400mg Take 1 [facility] oxide 400 6-03 tablet by ity o f mg (241.3 00:00: mouth [place] mg 00 daily. Medical magnesium) Branch tablet KCL 10 mEq 2-0 Yes [id number] 10meq Take 1 [facility] tablet 6-03 tablet by ity of 00:00: mouth [place] 00 daily. Medical Branch magnesium 2-0 Yes [id number] 400mg Take 1 [facility] oxide 400 6-03 tablet by ity o f mg (241.3 00:00: mouth [place] mg 00 daily. Medical magnesium) Branch tablet KCL 10 mEq 2-0 Yes [id number] 10meq Take 1 [facility] tablet 6-03 tablet by ity of 00:00: mouth [place] 00 daily. Medical Branch magnesium 2-0 Yes [id number] 400mg Take 1 [facility] oxide 400 6-03 tablet by ity o f mg (241.3 00:00: mouth [place] mg 00 daily. Medical magnesium) Branch tablet KCL 10 mEq 2-0 Yes [id number] 10meq Take 1 [facility] tablet 6-03 tablet by ity of 00:00: mouth [place] 00 daily. Medical Branch magnesium 2-0 Yes [id number] 400mg Take 1 [facility] oxide 400 6-03 tablet by ity o f mg (241.3 00:00: mouth [place] mg 00 daily. Medical magnesium) Branch tablet KCL 10 mEq 2-0 Yes [id number] 10meq Take 1 [facility] tablet 6-03 tablet by ity of 00:00: mouth [place] 00 daily. Medical Branch magnesium 2-0 Yes [id number] 400mg Take 1 [facility] oxide 400 6-03 tablet by ity o f mg (241.3 00:00: mouth [place] mg 00 daily. Medical magnesium) Branch tablet KCL 10 mEq 2021-0 Yes [id number] 10meq Take 1 [facility] tablet 6-03 tablet by ity of 00:00: mouth [place] 00 daily. Medical Branch magnesium 2-0 Yes [id number] 400mg Take 1 [facility] oxide 400 6-03 tablet by ity o f mg (241.3 00:00: mouth [place] mg 00 daily. Medical magnesium) Branch tablet KCL 10 mEq 2-0 Yes [id number] 10meq Take 1 [facility] tablet 6-03 tablet by ity of 00:00: mouth [place] 00 daily. Medical Branch magnesium 2-0 Yes [id number] 400mg Take 1 [facility] n[facility] oxide 400 6-03 tablet by ity o f mg (241.3 00:00: mouth [place] mg 00 daily. Medical magnesium) Branch tablet KCL 10 mEq 2-0 Yes [id number] 10meq Take 1 [facility] tablet 6-03 tablet by ity of 00:00: mouth [place] 00 daily. Medical Branch magnesium 2-0 Yes [id number] 400mg Take 1 [facility] n[facility] oxide 400 6-03 tablet by ity o f mg (241.3 00:00: mouth [place] mg 00 daily. Medical magnesium) Branch tablet KCL 10 mEq 2-0 Yes [id number] 10meq Take 1 [facility] tablet 6-03 tablet by ity of 00:00: mouth [place] 00 daily. Medical Branch magnesium 2-0 Yes [id number] 400mg Take 1 [facility] n[facility] oxide 400 6-03 tablet by ity o f mg (241.3 00:00: mouth [place] mg 00 daily. Medical magnesium) Branch tablet KCL 10 mEq 2-0 Yes [id number] 10meq Take 1 [facility] tablet 6-03 tablet by ity of 00:00: mouth [place] 00 daily. Medical Branch magnesium 2-0 Yes [id number] 400mg Take 1 [facility] n[facility] oxide 400 6-03 tablet by ity o f mg (241.3 00:00: mouth [place] mg 00 daily. Medical magnesium) Branch tablet KCL 10 mEq 2-0 Yes [id number] 10meq Take 1 [facility] tablet 6-03 tablet by ity of 00:00: mouth [place] 00 daily. Medical Branch magnesium 2-0 Yes [id number] 400mg Take 1 [facility] nivers oxide 400 6-03 tablet by ity o f mg (241.3 00:00: mouth [place] mg 00 daily. Medical magnesium) Branch tablet KCL 10 mEq 2-0 Yes [id number] 10meq Take 1 [facility] tablet 6-03 tablet by ity of 00:00: mouth [place] 00 daily. Medical Branch magnesium 2-0 Yes [id number] 400mg Take 1 [facility] n[facility] oxide 400 6-03 tablet by ity o f mg (241.3 00:00: mouth [place] mg 00 daily. Medical magnesium) Branch tablet KCL 10 mEq 2-0 Yes [id number] 10meq Take 1 [facility] tablet 6-03 tablet by ity of 00:00: mouth [place] 00 daily. Medical Branch magnesium 2-0 Yes [id number] 400mg Take 1 [facility] n[facility] oxide 400 6-03 tablet by ity o f mg (241.3 00:00: mouth [place] mg 00 daily. Medical magnesium) Branch tablet KCL 10 mEq 2-0 Yes [id number] 10meq Take 1 [facility] tablet 6-03 tablet by ity of 00:00: mouth [place] 00 daily. Medical Branch magnesium 2-0 Yes [id number] 400mg Take 1 [facility] n[facility] oxide 400 6-03 tablet by ity o f mg (241.3 00:00: mouth [place] mg 00 daily. Medical magnesium) Branch tablet KCL 10 mEq 2-0 Yes [id number] 10meq Take 1 [facility] tablet 6-03 tablet by ity of 00:00: mouth [place] 00 daily. Medical Branch magnesium 2-0 Yes [id number] 400mg Take 1 [facility] n[facility] oxide 400 6-03 tablet by ity o f mg (241.3 00:00: mouth [place] mg 00 daily. Medical magnesium) Branch tablet KCL 10 mEq 2-0 Yes [id number] 10meq Take 1 [facility] tablet 6-03 tablet by ity of 00:00: mouth [place] 00 daily. Medical Branch magnesium 2-0 Yes [id number] 400mg Take 1 [facility] nivers oxide 400 6-03 tablet by ity o f mg (241.3 00:00: mouth [place] mg 00 daily. Medical magnesium) Branch tablet KCL 10 mEq 2-0 Yes [id number] 10meq Take 1 [facility] tablet 6-03 tablet by ity of 00:00: mouth [place] 00 daily. Medical Branch magnesium 2-0 Yes [id number] 400mg Take 1 [facility] n[facility] oxide 400 6-03 tablet by ity o f mg (241.3 00:00: mouth [place] mg 00 daily. Medical magnesium) Branch tablet KCL 10 mEq 2021-0 Yes [id number] 10meq Take 1 [facility] tablet 6-03 tablet by ity of 00:00: mouth [place] 00 daily. Medical Branch magnesium 2-0 Yes [id number] 400mg Take 1 [facility] n[facility] oxide 400 6-03 tablet by ity o f mg (241.3 00:00: mouth [place] mg 00 daily. Medical magnesium) Branch tablet KCL 10 mEq 2-0 Yes [id number] 10meq Take 1 [facility] tablet 6-03 tablet by ity of 00:00: mouth [place] 00 daily. Medical Branch magnesium 2-0 Yes [id number] 400mg Take 1 [facility] nivers oxide 400 6-03 tablet by ity o f mg (241.3 00:00: mouth [place] mg 00 daily. Medical magnesium) Branch tablet KCL 10 mEq 2-0 Yes [id number] 10meq Take 1 [facility] tablet 6-03 tablet by ity of 00:00: mouth [place] 00 daily. Medical Branch magnesium 2-0 Yes [id number] 400mg Take 1 [facility] n[facility] oxide 400 6-03 tablet by ity o f mg (241.3 00:00: mouth [place] mg 00 daily. Medical magnesium) Branch tablet KCL 10 mEq 2-0 Yes [id number] 10meq Take 1 [facility] tablet 6-03 tablet by ity of 00:00: mouth [place] 00 daily. Medical Branch magnesium 2-0 Yes [id number] 400mg Take 1 [facility] nivers oxide 400 6-03 tablet by ity o f mg (241.3 00:00: mouth [place] mg 00 daily. Medical magnesium) Branch tablet KCL 10 mEq 2-0 Yes [id number] 10meq Take 1 [facility] tablet 6-03 tablet by ity of 00:00: mouth [place] 00 daily. Medical Branch magnesium 2-0 Yes [id number] 400mg Take 1 [facility] n[facility] oxide 400 6-03 tablet by ity o f mg (241.3 00:00: mouth [place] mg 00 daily. Medical magnesium) Branch tablet KCL 10 mEq 2-0 Yes [id number] 10meq Take 1 [facility] tablet 6-03 tablet by ity of 00:00: mouth [place] 00 daily. Medical Branch magnesium 2-0 Yes [id number] 400mg Take 1 [facility] nivers oxide 400 6-03 tablet by ity o f mg (241.3 00:00: mouth [place] mg 00 daily. Medical magnesium) Branch tablet KCL 10 mEq 2021-0 Yes [id number] 10meq Take 1 [facility] tablet 6-03 tablet by ity of 00:00: mouth [place] 00 daily. Medical Branch magnesium 2-0 Yes [id number] 400mg Take 1 [facility] nivers oxide 400 6-03 tablet by ity o f mg (241.3 00:00: mouth [place] mg 00 daily. Medical magnesium) Branch tablet KCL 10 mEq 2-0 Yes [id number] 10meq Take 1 [facility] tablet 6-03 tablet by ity of 00:00: mouth [place] 00 daily. Medical Branch magnesium 2-0 Yes [id number] 400mg Take 1 [facility] nivers oxide 400 6-03 tablet by ity o f mg (241.3 00:00: mouth [place] mg 00 daily. Medical magnesium) Branch tablet KCL 10 mEq 2-0 Yes [id number] 10meq Take 1 [facility] tablet 6-03 tablet by ity of 00:00: mouth [place] 00 daily. Medical Branch magnesium 2-0 Yes [id number] 400mg Take 1 [facility] nivers oxide 400 6-03 tablet by ity o f mg (241.3 00:00: mouth [place] mg 00 daily. Medical magnesium) Branch tablet KCL 10 mEq 2-0 Yes [id number] 10meq Take 1 [facility] tablet 6-03 tablet by ity of 00:00: mouth [place] 00 daily. Medical Branch magnesium 2-0 Yes [id number] 400mg Take 1 [facility] nivers oxide 400 6-03 tablet by ity o f mg (241.3 00:00: mouth [place] mg 00 daily. Medical magnesium) Branch tablet KCL 10 mEq 2-0 Yes [id number] 10meq Take 1 [facility] tablet 6-03 tablet by ity of 00:00: mouth [place] 00 daily. Medical Branch magnesium 2-0 Yes [id number] 400mg Take 1 [facility] nivers oxide 400 6-03 tablet by ity o f mg (241.3 00:00: mouth [place] mg 00 daily. Medical magnesium) Branch tablet KCL 10 mEq 2-0 Yes [id number] 10meq Take 1 [facility] tablet 6-03 tablet by ity of 00:00: mouth [place] 00 daily. Medical Branch magnesium 2-0 Yes [id number] 400mg Take 1 [facility] nivers oxide 400 6-03 tablet by ity o f mg (241.3 00:00: mouth [place] mg 00 daily. Medical magnesium) Branch tablet KCL 10 mEq 2021-0 Yes [id number] 10meq Take 1 [facility] tablet 6-03 tablet by ity of 00:00: mouth [place] 00 daily. Medical Branch magnesium 2-0 Yes [id number] 400mg Take 1 [facility] nivers oxide 400 6-03 tablet by ity o f mg (241.3 00:00: mouth [place] mg 00 daily. Medical magnesium) Branch tablet pantoprazol 2-0 Yes 40mg Take 1 [facility] ers e 40 mg EC 6-01 tablet by ity of tablet 00:00: mouth [place] 00 daily. 30 Medical minutes Branch before meal pantoprazol 2-0 Yes 40mg Take 1 [facility] ers e 40 mg EC 6-01 tablet by ity of tablet 00:00: mouth [place] 00 daily. 30 Medical minutes Branch before meal pantoprazol 2-0 Yes 40mg Take 1 [facility] ers e 40 mg EC 6-01 tablet by ity of tablet 00:00: mouth [place] 00 daily. 30 Medical minutes Branch before meal pantoprazol 2-0 Yes 40mg Take 1 [facility] ers e 40 mg EC 6-01 tablet by ity of tablet 00:00: mouth [place] 00 daily. 30 Medical minutes Branch before meal pantoprazol 2-0 Yes 40mg Take 1 [facility] ers e 40 mg EC 6-01 tablet by ity of tablet 00:00: mouth [place] 00 daily. 30 Medical minutes Branch before meal pantoprazol 2-0 Yes 40mg Take 1 [facility] ers e 40 mg EC 6-01 tablet by ity of tablet 00:00: mouth [place] 00 daily. 30 Medical minutes Branch before meal pantoprazol 2022-0 Yes 40mg Take 1 [facility] ers e 40 mg EC 6-01 tablet by ity of tablet 00:00: mouth [place] 00 daily. 30 Medical minutes Branch before meal pantoprazol 2022-0 Yes 40mg Take 1 [facility] ers e 40 mg EC 6-01 tablet by ity of tablet 00:00: mouth [place] 00 daily. 30 Medical minutes Branch before meal pantoprazol 2-0 Yes 40mg Take 1 [facility] ers e 40 mg EC 6-01 tablet by ity of tablet 00:00: mouth [place] 00 daily. 30 Medical minutes Branch before meal pantoprazol 2022-0 Yes 40mg Take 1 [facility] ers e 40 mg EC 6-01 tablet by ity of tablet 00:00: mouth [place] 00 daily. 30 Medical minutes Branch before meal pantoprazol 2-0 Yes 40mg Take 1 [facility] ers e 40 mg EC 6-01 tablet by ity of tablet 00:00: mouth [place] 00 daily. 30 Medical minutes Branch before meal pantoprazol 2-0 Yes 40mg Take 1 Univ ers e 40 mg EC 6-01 tablet by [facility] of tablet 00:00: mouth [place] 00 daily. 30 Medical minutes Branch before meal pantoprazol 2-0 Yes 40mg Take 1 [facility] ers [facility] 40 mg EC 6-01 tablet by it[facility] of tablet 00:00: mouth [place] 00 daily. 30 Medical minutes Branch before meal pantoprazol 2-0 Yes 40mg Take 1 [facility] ers e 40 mg EC 6-01 tablet by it[facility] of tablet 00:00: mouth [place] 00 daily. 30 Medical minutes Branch before meal pantoprazol 2022-0 Yes 40mg Take 1 [facility] ers e 40 mg EC 6-01 tablet by ity of tablet 00:00: mouth [place] 00 daily. 30 Medical minutes Branch before meal pantoprazol 2022-0 Yes 40mg Take 1 [facility] ers e 40 mg EC 6-01 tablet by it[facility] of tablet 00:00: mouth [place] 00 daily. 30 Medical minutes Branch before meal pantoprazol 2022-0 Yes 40mg Take 1 [facility] ers e 40 mg EC 6- tablet by ity of tablet 00:00: mouth [place] 00 daily. 30 Medical minutes Branch before meal pantoprazol 2021-0 Yes 40mg Take 1 [facility] ers e 40 mg EC 6- tablet by it[facility] of tablet 00:00: mouth [place] 00 daily. 30 Medical minutes Branch before meal pantoprazol 2021-0 Yes 40mg Take 1 [facility] ers e 40 mg EC 6- tablet by ity of tablet 00:00: mouth [place] 00 daily. 30 Medical minutes Branch before meal pantoprazol 0 2021- No 40mg Take 1 [facility] vers e 40 mg EC 6- 12-11 tablet by ity of tablet 00:00: 00:00 mouth [place] 00 :00 daily. 30 Medical minutes Branch before meal OXcarbazepi 0 Yes [id number] 1200mg Take 1,200 [facility] ne 5-24 mg by ity of (OX[place]LLAR 00:00: [place] 600 mg 00 bedtime. Medic al Tb24 Branch OXcarbazepi 2021-0 Yes [id number] 1200mg Take 1,200 [facility] ne 5-24 mg by ity of (OX[place]LLAR 00:00: [place] 600 mg 00 bedtime. Medic al Tb24 Branch OXcarbazepi 2021-0 Yes [id number] 1200mg Take 1,200 [facility] ne 5-24 mg by ity of (OX[place]LLAR 00:00: [place] 600 mg 00 bedtime. Medic al Tb24 Branch OXcarbazepi 2021-0 Yes [id number] 1200mg Take 1,200 [facility] ne 5-24 mg by ity of (OX[place]LLAR 00:00: [place] 600 mg 00 bedtime. Medic al Tb24 Branch OXcarbazepi 2021-0 Yes [id number] 1200mg Take 1,200 [facility] ne 5-24 mg by it[facility] of (OX[place]LLAR 00:00: [place] 600 mg 00 bedtime. Medic al Tb24 Branch OXcarbazepi 2021-0 Yes [id number] 1200mg Take 1,200 [facility] ne 5-24 mg by ity of (OX[place]LLAR 00:00: [place] 600 mg 00 bedtime. Medic al Tb24 Branch OXcarbazepi 2-0 Yes [id number] 1200mg Take 1,200 [facility] ne 5-24 mg by ity of (OX[place]LLAR 00:00: [place] 600 mg 00 bedtime. Medic al Tb24 Branch OXcarbazepi 2-0 Yes [id number] 1200mg Take 1,200 [facility] ne 5-24 mg by ity of (OX[place]LLAR 00:00: [place] X[place] 600 mg 00 bedtime. Medic al Tb24 Branch OXcarbazepi 2021-0 Yes [id number] 1200mg Take 1,200 [facility] ne 5-24 mg by ity of (OX[place]LLAR 00:00: [place] X[place] 600 mg 00 bedtime. Medic al Tb24 Branch OXcarbazepi 2021-0 Yes [id number] 1200mg Take 1,200 [facility] ne 5-24 mg by ity of (OX[place]LLAR 00:00: [place] X[place] 600 mg 00 bedtime. Medic al Tb24 Branch OXcarbazepi 2021-0 Yes [id number] 1200mg Take 1,200 [facility] ne 5-24 mg by ity of (OX[place]LLAR 00:00: [place] X[place] 600 mg 00 bedtime. Medic al Tb24 Branch OXcarbazepi 2021-0 Yes [id number] 1200mg Take 1,200 [facility] ne 5-24 mg by ity of (OX[place]LLAR 00:00: [place] X[place] 600 mg 00 bedtime. Medic al Tb24 Branch OXcarbazepi 2-0 Yes [id number] 1200mg Take 1,200 [facility] ne 5-24 mg by ity of (OX[place]LLAR 00:00: [place] X[place] 600 mg 00 bedtime. Medic al Tb24 Branch OXcarbazepi 2-0 Yes [id number] 1200mg Take 1,200 [facility] ne 5-24 mg by ity of (OX[place]LLAR 00:00: [place] X[place] 600 mg 00 bedtime. Medic al Tb24 Branch OXcarbazepi 2-0 Yes [id number] 1200mg Take 1,200 [facility] ne 5-24 mg by ity of (OX[place]LLAR 00:00: [place] X[place] 600 mg 00 bedtime. Medic al Tb24 Branch OXcarbazepi 2021-0 Yes [id number] 1200mg Take 1,200 [facility] ne 5-24 mg by ity of (OX[place]LLAR 00:00: [place] XR[place] 600 mg 00 bedtime. Medic al Tb24 Branch OXcarbazepi 2021-0 Yes [id number] 1200mg Take 1,200 [facility] ne 5-24 mg by it[facility] of (OX[place]LLAR 00:00: [place] XR[place] 600 mg 00 bedtime. Medic al Tb24 Branch OXcarbazepi 2021-0 Yes [id number] 1200mg Take 1,200 [facility] ne 5-24 mg by it[facility] of (OX[place]LLAR 00:00: [place] XR[place] 600 mg 00 bedtime. Medic al Tb24 Branch OXcarbazepi 2021-0 Yes [id number] 1200mg Take 1,200 [facility] ne 5-24 mg by it[facility] of (OX[place]LLAR 00:00: [place] XR[place] 600 mg 00 bedtime. Medic al Tb24 Branch OXcarbazepi 2021-0 Yes [id number] 1200mg Take 1,200 [facility] ne 5-24 mg by it[facility] of (OX[place]LLAR 00:00: [place] X[place] 600 mg 00 bedtime. Medic al Tb24 Branch OXcarbazepi 2021-0 Yes [id number] 1200mg Take 1,200 [facility] ne 5-24 mg by it[facility] of (OXTELLAR 00:00: [place] X[place] 600 mg 00 bedtime. Medic al Tb24 Branch OXcarbazepi 2-0 Yes [id number] 1200mg Take 1,200 [facility] ne 5-24 mg by it[facility] of (OX[place]LLAR 00:00: [place] X[place] 600 mg 00 bedtime. Medic al Tb24 Branch OXcarbazepi 2-0 Yes [id number] 1200mg Take 1,200 [facility] ne 5-24 mg by it[facility] of (OX[place]LLAR 00:00: [place] X[place] 600 mg 00 bedtime. Medic al Tb24 Branch OXcarbazepi 2-0 Yes [id number] 1200mg Take 1,200 [facility] ne 5-24 mg by it[facility] of (OX[place]LLAR 00:00: [place] 600 mg 00 bedtime. Medic al Tb24 Branch OXcarbazepi 2-0 Yes [id number] 1200mg Take 1,200 [facility] ne 5-24 mg by it[facility] of (OX[place]LLAR 00:00: [place] 600 mg 00 bedtime. Medic al Tb24 Branch OXcarbazepi 2021-0 Yes [id number] 1200mg Take 1,200 [facility] ne 5-24 mg by it[facility] of (OX[place]LLAR 00:00: [place] 600 mg 00 bedtime. Medic al Tb24 Branch OXcarbazepi 2021-0 2023- No [id number] 1200mg Take 1,200 [facility] ne 5-24 01-02 mg by ity of (OXTELLAR 00:00: 00:00 mouth [place] XR) 600 mg 00 :00 bedtime. Medic al Tb24 Branch AMLODIPINE 2021-0 Yes [id number] 10mg TAKE 1 U nivers 10 mg 5-13 TABLET BY ity of tablet 00:00: MOUTH DAILY Medical Branch AMLODIPINE 2-0 Yes [id number] 10mg TAKE 1 U nivers 10 mg 5-13 TABLET BY ity of tablet 00:00: MOUTH DAILY Medical Branch AMLODIPINE 2-0 Yes [id number] 10mg TAKE 1 U nivers 10 mg 5-13 TABLET BY ity of tablet 00:00: DAILY Medical Branch AMLODIPINE 2-0 Yes [id number] 10mg TAKE 1 U nivers 10 mg 5-13 TABLET BY ity of tablet 00:00: MOUTH DAILY Medical Branch AMLODIPINE 2-0 Yes [id number] 10mg TAKE 1 U nivers 10 mg 5-13 TABLET BY ity of tablet 00:00: MOUTH DAILY Medical Branch AMLODIPINE 2-0 Yes [id number] 10mg TAKE 1 U nivers 10 mg 5-13 TABLET BY ity of tablet 00:00: MOUTH DAILY Medical Branch AMLODIPINE 2-0 Yes [id number] 10mg TAKE 1 U nivers 10 mg 5-13 TABLET BY ity of tablet 00:00: MOUTH DAILY Medical Branch AMLODIPINE 2-0 Yes [id number] 10mg TAKE 1 U nivers 10 mg 5-13 TABLET BY ity of tablet 00:00: [facility] 00 DAILY Medical Branch AMLODIPINE 2022-0 Yes [id number] 10mg TAKE 1 U nivers 10 mg 5-13 TABLET BY ity of tablet 00:00: [facility] 00 DAILY Medical Branch AMLODIPINE 2022-0 Yes [id number] 10mg TAKE 1 U nivers 10 mg 5-13 TABLET BY ity of tablet 00:00: [facility] DAILY Medical Branch AMLODIPINE 2022-0 Yes [id number] 10mg TAKE 1 U nivers 10 mg 5-13 TABLET BY ity of tablet 00:00: [facility] DAILY Medical Branch AMLODIPINE 2022-0 Yes [id number] 10mg TAKE 1 U nivers 10 mg 5-13 TABLET BY ity of tablet 00:00: [facility] DAILY Medical Branch AMLODIPINE 2022-0 Yes [id number] 10mg TAKE 1 U nivers 10 mg 5-13 TABLET BY ity of tablet 00:00: [facility] DAILY Medical Branch AMLODIPINE 2022-0 Yes [id number] 10mg TAKE 1 U nivers 10 mg 5-13 TABLET BY ity of tablet 00:00: [facility] DAILY Medical Branch AMLODIPINE 2022-0 Yes [id number] 10mg TAKE 1 U nivers 10 mg 5-13 TABLET BY ity of tablet 00:00: [facility] DAILY Medical Branch AMLODIPINE 2022-0 Yes [id number] 10mg TAKE 1 U nivers 10 mg 5-13 TABLET BY ity of tablet 00:00: [facility] DAILY Medical Branch AMLODIPINE 2022-0 Yes [id number] 10mg TAKE 1 U nivers 10 mg 5-13 TABLET BY ity of tablet 00:00: [facility] 00 DAILY Medical Branch AMLODIPINE 2022-0 Yes [id number] 10mg TAKE 1 U nivers 10 mg 5-13 TABLET BY ity of tablet 00:00: [facility] 00 DAILY Medical Branch AMLODIPINE 2022-0 2- No [id number] 10mg TAKE 1 [facility] 10 mg 5-13 12-08 TABLET BY ity of tablet 00:00: 00:00 [facility] 00 :00 DAILY Medical Branch pregabalin 2-0 2- No Take by Uni vers (LYRICA 5-11 05-11 mouth. ity of ORAL) 16:19: 00:00 [place] 30 :00 Medical Branch cyclobenzap 2022-0 Yes [id number] 10mg Take 1 [facility] rine 10 mg 5-11 tablet by ity of tablet 00:00: mouth as [place] 00 needed for Medical Muscle Branch Spasms. gabapentin 2021-0 Yes [id number] 100mg Take 1 [facility] 100 mg 5-11 capsule by ity of capsule 00:00: mouth 3 [place] 00 (three) Medical times Branch daily. cyclobenzap 2021-0 Yes [id number] 10mg Take 1 [facility] rine 10 mg 5-11 tablet by ity of tablet 00:00: mouth as [place] 00 needed for Medical Muscle Branch Spasms. gabapentin 2021-0 Yes [id number] 100mg Take 1 [facility] 100 mg 5-11 capsule by ity of capsule 00:00: mouth 3 [place] 00 (three) Medical times Branch daily. cyclobenzap 2021-0 Yes [id number] 10mg Take 1 [facility] rine 10 mg 5-11 tablet by ity of tablet 00:00: mouth as [place] 00 needed for Medical Muscle Branch Spasms. gabapentin 2021-0 Yes [id number] 100mg Take 1 [facility] 100 mg 5-11 capsule by ity of capsule 00:00: mouth 3 [place] (three) Medical times Branch daily. cyclobenzap 2021-0 Yes [id number] 10mg Take 1 [facility] rine 10 mg 5-11 tablet by ity of tablet 00:00: mouth as [place] 00 needed for Medical Muscle Branch Spasms. gabapentin 2021-0 Yes [id number] 100mg Take 1 [facility] 100 mg 5-11 capsule by ity of capsule 00:00: mouth [facility] 00 (three) Medical times Branch daily. cyclobenzap 2-0 Yes [id number] 10mg Take 1 [facility] rine 10 mg 5-11 tablet by ity of tablet 00:00: mouth as [place] 00 needed for Medical Muscle Branch Spasms. gabapentin 2021-0 Yes [id number] 100mg Take 1 [facility] 100 mg 5-11 capsule by ity of capsule 00:00: mouth 3 [place] 00 (three) Medical times Branch daily. cyclobenzap 2022-0 Yes [id number] 10mg Take 1 [facility] rine 10 mg 5-11 tablet by ity of tablet 00:00: mouth as [place] 00 needed for Medical Muscle Branch Spasms. gabapentin 2-0 Yes [id number] 100mg Take 1 [facility] 100 mg 5-11 capsule by ity of capsule 00:00: mouth 3 [place] 00 (three) Medical times Branch daily. cyclobenzap 2022-0 Yes [id number] 10mg Take 1 [facility] rine 10 mg 5-11 tablet by ity of tablet 00:00: mouth as [place] 00 needed for Medical Muscle Branch Spasms. gabapentin 2-0 Yes [id number] 100mg Take 1 [facility] 100 mg 5-11 capsule by ity of capsule 00:00: mouth 3 [place] 00 (three) Medical times Branch daily. cyclobenzap 2021-0 Yes [id number] 10mg Take 1 [facility] rine 10 mg 5-11 tablet by ity of tablet 00:00: mouth as [place] 00 needed for Medical Muscle Branch Spasms. gabapentin 2021-0 Yes [id number] 100mg Take 1 [facility] 100 mg 5-11 capsule by ity of capsule 00:00: mouth 3 (three) Medical times Branch daily. cyclobenzap 2021-0 Yes [id number] 10mg Take 1 [facility] rine 10 mg 5-11 tablet by ity of tablet 00:00: mouth as [place] 00 needed for Medical Muscle Branch Spasms. gabapentin 2021-0 Yes [id number] 100mg Take 1 [facility] 100 mg 5-11 capsule by ity of capsule 00:00: mouth 3 (three) Medical times Branch daily. cyclobenzap 2021-0 Yes [id number] 10mg Take 1 [facility] rine 10 mg 5-11 tablet by ity of tablet 00:00: mouth as [place] 00 needed for Medical Muscle Branch Spasms. gabapentin 2021-0 Yes [id number] 100mg Take 1 [facility] 100 mg 5-11 capsule by ity of capsule 00:00: mouth 3 00 (three) Medical times Branch daily. cyclobenzap 2-0 Yes [id number] 10mg Take 1 [facility] rine 10 mg 5-11 tablet by ity of tablet 00:00: mouth as [place] 00 needed for Medical Muscle Branch Spasms. gabapentin 2022-0 Yes [id number] 100mg Take 1 [facility] 100 mg 5-11 capsule by ity of capsule 00:00: mouth 3 [place] 00 (three) Medical times Branch daily. cyclobenzap 2022-0 Yes [id number] 10mg Take 1 [facility] rine 10 mg 5-11 tablet by ity of tablet 00:00: mouth as [place] 00 needed for Medical Muscle Branch Spasms. gabapentin 2022-0 Yes [id number] 100mg Take 1 [facility] 100 mg 5-11 capsule by ity of capsule 00:00: mouth 3 [place] 00 (three) Medical times Branch daily. cyclobenzap 2021-0 Yes [id number] 10mg Take 1 [facility] rine 10 mg 5-11 tablet by ity of tablet 00:00: mouth as [place] 00 needed for Medical Muscle Branch Spasms. gabapentin 2021-0 Yes [id number] 100mg Take 1 [facility] 100 mg 5-11 capsule by ity of capsule 00:00: mouth 3 [place] 00 (three) Medical times Branch daily. cyclobenzap 2021-0 Yes [id number] 10mg Take 1 [facility] rine 10 mg 5-11 tablet by ity of tablet 00:00: mouth as [place] 00 needed for Medical Muscle Branch Spasms. gabapentin 2021-0 Yes [id number] 100mg Take 1 [facility] 100 mg 5-11 capsule by ity of capsule 00:00: mouth 3 [place] 00 (three) Medical times Branch daily. cyclobenzap 2021-0 Yes [id number] 10mg Take 1 [facility] rine 10 mg 5-11 tablet by ity of tablet 00:00: mouth as [place] 00 needed for Medical Muscle Branch Spasms. gabapentin 2021-0 Yes [id number] 100mg Take 1 [facility] 100 mg 5-11 capsule by ity of capsule 00:00: mouth 3 [place] 00 (three) Medical times Branch daily. cyclobenzap 2021-0 Yes [id number] 10mg Take 1 [facility] rine 10 mg 5-11 tablet by ity of tablet 00:00: mouth as [place] 00 needed for Medical Muscle Branch Spasms. gabapentin 2021-0 Yes [id number] 100mg Take 1 [facility] 100 mg 5-11 capsule by ity of capsule 00:00: mouth 3 [place] 00 (three) Medical times Branch daily. cyclobenzap 2021-0 Yes [id number] 10mg Take 1 [facility] rine 10 mg 5-11 tablet by ity of tablet 00:00: mouth as [place] 00 needed for Medical Muscle Branch Spasms. gabapentin 2021-0 Yes [id number] 100mg Take 1 [facility] 100 mg 5-11 capsule by ity of capsule 00:00: mouth 3 [place] 00 (three) Medical times Branch daily. cyclobenzap 2022-0 Yes [id number] 10mg Take 1 [facility] rine 10 mg 5-11 tablet by ity of tablet 00:00: mouth as [place] 00 needed for Medical Muscle Branch Spasms. gabapentin 2022-0 Yes [id number] 100mg Take 1 [facility] 100 mg 5-11 capsule by ity of capsule 00:00: mouth 3 [place] 00 (three) Medical times Branch daily. cyclobenzap 2021-0 Yes [id number] 10mg Take 1 [facility] rine 10 mg 5-11 tablet by ity of tablet 00:00: mouth as [place] 00 needed for Medical Muscle Branch Spasms. gabapentin 2021-0 Yes [id number] 100mg Take 1 [facility] 100 mg 5-11 capsule by ity of capsule 00:00: mouth 3 [place] 00 (three) Medical times Branch daily. cyclobenzap 2021-0 Yes [id number] 10mg Take 1 [facility] rine 10 mg 5-11 tablet by ity of tablet 00:00: mouth as [place] 00 needed for Medical Muscle Branch Spasms. gabapentin 2021-0 Yes [id number] 100mg Take 1 [facility] 100 mg 5-11 capsule by ity of capsule 00:00: mouth 3 [place] 00 (three) Medical times Branch daily. cyclobenzap 2021-0 Yes [id number] 10mg Take 1 [facility] rine 10 mg 5-11 tablet by ity of tablet 00:00: mouth as [place] 00 needed for Medical Muscle Branch Spasms. gabapentin 2021-0 Yes [id number] 100mg Take 1 [facility] 100 mg 5-11 capsule by ity of capsule 00:00: mouth 3 [place] 00 (three) Medical times Branch daily. cyclobenzap 2021-0 Yes [id number] 10mg Take 1 [facility] rine 10 mg 5-11 tablet by ity of tablet 00:00: mouth as [place] 00 needed for Medical Muscle Branch Spasms. gabapentin 2021-0 Yes [id number] 100mg Take 1 [facility] 100 mg 5-11 capsule by ity of capsule 00:00: mouth 3 [place] 00 (three) Medical times Branch daily. cyclobenzap 2021-0 Yes [id number] 10mg Take 1 [facility] rine 10 mg 5-11 tablet by ity of tablet 00:00: mouth as [place] 00 needed for Medical Muscle Branch Spasms. gabapentin 2-0 Yes [id number] 100mg Take 1 [facility] 100 mg 5-11 capsule by ity of capsule 00:00: mouth 3 [place] 00 (three) Medical times Branch daily. cyclobenzap 2022-0 Yes [id number] 10mg Take 1 [facility] rine 10 mg 5-11 tablet by ity of tablet 00:00: mouth as [place] 00 needed for Medical Muscle Branch Spasms. gabapentin 2022-0 Yes [id number] 100mg Take 1 [facility] 100 mg 5-11 capsule by ity of capsule 00:00: mouth 3 [place] (three) Medical times Branch daily. cyclobenzap 2-0 Yes [id number] 10mg Take 1 [facility] rine 10 mg 5-11 tablet by ity of tablet 00:00: mouth as [place] 00 needed for Medical Muscle Branch Spasms. gabapentin 2021-0 Yes [id number] 100mg Take 1 [facility] 100 mg 5-11 capsule by ity of capsule 00:00: mouth 3 [place] 00 (three) Medical times Branch daily. cyclobenzap 2021-0 Yes [id number] 10mg Take 1 [facility] rine 10 mg 5-11 tablet by ity of tablet 00:00: mouth as [place] 00 needed for Medical Muscle Branch Spasms. gabapentin 2021-0 Yes [id number] 100mg Take 1 [facility] 100 mg 5-11 capsule by ity of capsule 00:00: mouth 3 [place] (three) Medical times Branch daily. cyclobenzap 2021-0 Yes [id number] 10mg Take 1 [facility] rine 10 mg 5-11 tablet by ity of tablet 00:00: mouth as [place] 00 needed for Medical Muscle Branch Spasms. gabapentin 2021-0 Yes [id number] 100mg Take 1 [facility] 100 mg 5-11 capsule by ity of capsule 00:00: mouth 3 [place] (three) Medical times Branch daily. cyclobenzap 2-0 Yes [id number] 10mg Take 1 [facility] rine 10 mg 5-11 tablet by ity of tablet 00:00: mouth as [place] 00 needed for Medical Muscle Branch Spasms. gabapentin 2-0 Yes [id number] 100mg Take 1 [facility] 100 mg 5-11 capsule by ity of capsule 00:00: mouth 3 [place] 00 (three) Medical times Branch daily. cyclobenzap 2022-0 Yes [id number] 10mg Take 1 [facility] rine 10 mg 5-11 tablet by ity of tablet 00:00: mouth as [place] 00 needed for Medical Muscle Branch Spasms. gabapentin 2022-0 Yes [id number] 100mg Take 1 [facility] 100 mg 5-11 capsule by ity of capsule 00:00: mouth 3 [place] 00 (three) Medical times Branch daily. cyclobenzap 2022-0 Yes [id number] 10mg Take 1 [facility] rine 10 mg 5-11 tablet by ity of tablet 00:00: mouth as [place] 00 needed for Medical Muscle Branch Spasms. gabapentin 2-0 Yes [id number] 100mg Take 1 [facility] 100 mg 5-11 capsule by ity of capsule 00:00: mouth 3 [place] 00 (three) Medical times Branch daily. cyclobenzap 2022-0 Yes [id number] 10mg Take 1 [facility] rine 10 mg 5-11 tablet by ity of tablet 00:00: mouth as [place] 00 needed for Medical Muscle Branch Spasms. gabapentin 2-0 Yes [id number] 100mg Take 1 [facility] 100 mg 5-11 capsule by ity of capsule 00:00: mouth 3 [place] 00 (three) Medical times Branch daily. cyclobenzap 2-0 Yes [id number] 10mg Take 1 [facility] rine 10 mg 5-11 tablet by ity of tablet 00:00: mouth as [place] 00 needed for Medical Muscle Branch Spasms. gabapentin 2-0 Yes [id number] 100mg Take 1 [facility] 100 mg 5-11 capsule by ity of capsule 00:00: mouth 3 [place] (three) Medical times Branch daily. cyclobenzap 2021-0 Yes [id number] 10mg Take 1 [facility] rine 10 mg 5-11 tablet by ity of tablet 00:00: mouth as [place] 00 needed for Medical Muscle Branch Spasms. gabapentin 2-0 Yes [id number] 100mg Take 1 [facility] 100 mg 5-11 capsule by ity of capsule 00:00: mouth 3 [place] 00 (three) Medical times Branch daily. cyclobenzap 2-0 Yes [id number] 10mg Take 1 [facility] rine 10 mg 5-11 tablet by ity of tablet 00:00: mouth as [place] 00 needed for Medical Muscle Branch Spasms. gabapentin 2-0 Yes [id number] 100mg Take 1 [facility] 100 mg 5-11 capsule by ity of capsule 00:00: mouth 3 [place] 00 (three) Medical times Branch daily. cyclobenzap 2022-0 Yes [id number] 10mg Take 1 [facility] rine 10 mg 5-11 tablet by ity of tablet 00:00: mouth as [place] 00 needed for Medical Muscle Branch Spasms. gabapentin 2022-0 Yes [id number] 100mg Take 1 [facility] 100 mg 5-11 capsule by ity of capsule 00:00: mouth 3 [place] 00 (three) Medical times Branch daily. cyclobenzap 2022-0 Yes [id number] 10mg Take 1 [facility] rine 10 mg 5-11 tablet by ity of tablet 00:00: mouth as [place] 00 needed for Medical Muscle Branch Spasms. gabapentin 2022-0 Yes [id number] 100mg Take 1 [facility] 100 mg 5-11 capsule by ity of capsule 00:00: mouth 3 [place] 00 (three) Medical times Branch daily. cyclobenzap 2022-0 Yes [id number] 10mg Take 1 [facility] rine 10 mg 5-11 tablet by ity of tablet 00:00: mouth as [place] 00 needed for Medical Muscle Branch Spasms. gabapentin 2022-0 Yes [id number] 100mg Take 1 [facility] 100 mg 5-11 capsule by ity of capsule 00:00: mouth 3 [place] 00 (three) Medical times Branch daily. cyclobenzap 2022-0 Yes [id number] 10mg Take 1 [facility] rine 10 mg 5-11 tablet by ity of tablet 00:00: mouth as [place] 00 needed for Medical Muscle Branch Spasms. gabapentin 2022-0 Yes [id number] 100mg Take 1 [facility] 100 mg 5-11 capsule by ity of capsule 00:00: mouth 3 [place] 00 (three) Medical times Branch daily. ondansetron 2022-0 Yes [id number] 4mg Take 1 [facility] 4 mg 2-28 tablet by ity of disintegrat 00:00: mouth [place] ing tablet 00 every 8 Medica l (eight) Branch hours as needed for Nausea and Vomiting (N/V). ondansetron 2022-0 Yes [id number] 4mg Take 1 [facility] 4 mg 2-28 tablet by ity of disintegrat 00:00: mouth [place] ing tablet 00 every 8 Medica l (eight) Branch hours as needed for Nausea and Vomiting (N/V). ondansetron 2022-0 Yes [id number] 4mg Take 1 [facility] 4 mg 2-28 tablet by ity of disintegrat 00:00: mouth [place] ing tablet 00 every 8 Medica l (eight) Branch hours as needed for Nausea and Vomiting (N/V). ondansetron 2022-0 Yes [id number] 4mg Take 1 [facility] 4 mg 2-28 tablet by ity of disintegrat 00:00: mouth [place] ing tablet 00 every 8 Medica l (eight) Branch hours as needed for Nausea and Vomiting (N/V). ondansetron 2021-0 Yes [id number] 4mg Take 1 [facility] 4 mg 2-28 tablet by ity of disintegrat 00:00: mouth [place] ing tablet 00 every 8 Medica l (eight) Branch hours as needed for Nausea and Vomiting (N/V). ondansetron 2021-0 Yes [id number] 4mg Take 1 [facility] 4 mg 2-28 tablet by ity of disintegrat 00:00: mouth [place] ing tablet 00 every 8 Medica l (eight) Branch hours as needed for Nausea and Vomiting (N/V). ondansetron 2021-0 Yes [id number] 4mg Take 1 [facility] 4 mg 2-28 tablet by ity of disintegrat 00:00: mouth [place] ing tablet 00 every 8 Medica l (eight) Branch hours as needed for Nausea and Vomiting (N/V). ondansetron 2021-0 Yes [id number] 4mg Take 1 [facility] 4 mg 2-28 tablet by ity of disintegrat 00:00: mouth [place] ing tablet 00 every 8 Medica l (eight) Branch hours as needed for Nausea and Vomiting (N/V). ondansetron 2021-0 Yes [id number] 4mg Take 1 [facility] 4 mg 2-28 tablet by ity of disintegrat 00:00: mouth [place] ing tablet 00 every 8 Medica l (eight) Branch hours as needed for Nausea and Vomiting (N/V). ondansetron 2021-0 Yes [id number] 4mg Take 1 [facility] 4 mg 2-28 tablet by ity of disintegrat 00:00: mouth [place] ing tablet 00 every 8 Medica l (eight) Branch hours as needed for Nausea and Vomiting (N/V). ondansetron 2021-0 2021- No [id number] 4mg Take 1 [facility] 4 mg 2-28 -02 tablet by ity of disintegrat 00:00: 00:00 [place] tablet 00 :00 every 8 Medica l (eight) Branch hours as needed for Nausea and Vomiting (N/V). ondansetron 2021-0 2- No [id number] 4mg Take 1 [facility] 4 mg 2-28 11-02 tablet by ity of disintegrat 00:00: 00:00 [place] tablet 00 :00 every 8 Medica l (eight) Branch hours as needed for Nausea and Vomiting (N/V). tamsulosin 2020-06 Yes [id number] .4mg Take 1 [facility] 0.4 mg 24 2-28 9107 capsule by ity of hr capsule 00:00: mouth [place] 00 daily. Medical Branch tamsulosin 2020-06 Yes [id number] .4mg Take 1 [facility] 0.4 mg 24 2-28 9107 capsule by ity of hr capsule 00:00: mouth [place] 00 daily. Medical Branch tamsulosin 2020-06 Yes [id number] .4mg Take 1 [facility] 0.4 mg 24 2-28 9107 capsule by ity of hr capsule 00:00: mouth [place] 00 daily. Medical Branch tamsulosin 2020-06 Yes [id number] .4mg Take 1 [facility] 0.4 mg 24 2-28 9107 capsule by ity of hr capsule 00:00: mouth [place] 00 daily. Medical Branch tamsulosin 2020-06 Yes [id number] .4mg Take 1 [facility] 0.4 mg 24 2-28 9107 capsule by ity of hr capsule 00:00: mouth [place] 00 daily. Medical Branch tamsulosin 2020-06 Yes [id number] .4mg Take 1 [facility] 0.4 mg 24 2-28 9107 capsule by ity of hr capsule 00:00: mouth [place] 00 daily. Medical Branch tamsulosin 2020-06 Yes [id number] .4mg Take 1 [facility] 0.4 mg 24 2-28 9107 capsule by ity of hr capsule 00:00: mouth [place] 00 daily. Medical Branch tamsulosin 2020-06 Yes [id number] .4mg Take 1 [facility] 0.4 mg 24 2-28 9107 capsule by ity of hr capsule 00:00: mouth [place] 00 daily. Medical Branch tamsulosin 2020-06 Yes [id number] .4mg Take 1 [facility] 0.4 mg 24 2-28 9107 capsule by ity of hr capsule 00:00: mouth [place] 00 daily. Medical Branch tamsulosin 2020-06 Yes [id number] .4mg Take 1 [facility] 0.4 mg 24 2-28 9107 capsule by ity of hr capsule 00:00: mouth [place] 00 daily. Medical Branch tamsulosin 2020-06 Yes [id number] .4mg Take 1 [facility] 0.4 mg 24 08-27 9107 capsule by ity of hr capsule 00:00: mouth [place] 00 daily. Medical Branch tamsulosin 2020-06- No [id number] .4mg Take 1 [facility] 0.4 mg 24 08-27 9107 capsule by ity of hr capsule 00:00: 00:00 mouth [place] 00 :00 daily. Medical Branch tamsulosin 2020-06- No [id number] .4mg Take 1 [facility] 0.4 mg 24 08-27 9107 capsule by ity of hr capsule 00:00: 00:00 mouth [place] 00 :00 daily. Medical Branch tamsulosin 2020-06- No [id number] .4mg Take 1 [facility] 0.4 mg 24 08-27 9107 capsule by ity of hr capsule 00:00: 00:00 mouth [place] 00 :00 daily. Medical Branch carvediloL 2020-06 Yes [id number] 37.5mg Take 1.5 [facility] 25 mg 2-06 tablets by ity of tablet 00:00: mouth 2 [place] 00 (two) Medical [facility] daily with meals. carvediloL 2020-06- No [id number] 37.5mg Take 1.5 [facility] 25 mg 2-06 09-12 tablets by ity of tablet 00:00: 00:00 mouth 2 [place] 00 :00 (two) [facility] daily with meals. clotrimazol 2020-06 Yes [id number] Apply to [facility] e-betametha 0-11 area(s) 2 ity of sone cream 00:00: (two) [place] 00 times Medical daily. Branch clotrimazol 2020-06 Yes [id number] Apply to [facility] e-betametha 0-11 area(s) 2 ity of sone cream 00:00: (two) [place] 00 times Medical daily. Branch clotrimazol 2020-06 Yes [id number] Apply to [facility] e-betametha 0-11 area(s) 2 ity of sone cream 00:00: (two) [place] 00 times Medical daily. Branch clotrimazol 2020-06 Yes [id number] Apply to [facility] e-betametha 0-11 area(s) 2 ity of sone cream 00:00: (two) [place] 00 times Medical daily. Branch clotrimazol 2020-06 Yes [id number] Apply to [facility] e-betametha 0-11 area(s) 2 ity of sone cream 00:00: (two) [place] 00 times Medical daily. Branch clotrimazol 2020-06 Yes [id number] Apply to [facility] e-betametha 0-11 area(s) 2 ity of sone cream 00:00: (two) [place] 00 times Medical daily. Branch clotrimazol 2020-06 Yes [id number] Apply to [facility] e-betametha 0-11 area(s) 2 ity of sone cream 00:00: (two) [place] 00 times Medical daily. Branch clotrimazol 2020-06 Yes [id number] Apply to [facility] e-betametha 0-11 area(s) 2 ity of sone cream 00:00: (two) [place] 00 times Medical daily. Branch clotrimazol 2020-06 Yes [id number] Apply to [facility] e-betametha 0-11 area(s) 2 ity of sone cream 00:00: (two) [place] 00 times Medical daily. Branch clotrimazol 2020-06 Yes [id number] Apply to [facility] e-betametha 0-11 area(s) 2 ity of sone cream 00:00: (two) [place] 00 times Medical daily. Branch clotrimazol 2020-06- No [id number] Apply to [facility] e-betametha 0-11 11-02 area(s) 2 it y of sone cream 00:00: 00:00 (two) [place] 00 :00 times Medical daily. Branch clotrimazol 2020-06- No [id number] Apply to [facility] e-betametha 0-11 11-02 area(s) 2 it y of sone cream 00:00: 00:00 (two) [place] 00 :00 times Medical daily. Branch KCL 10 mEq 2020- Yes 10meq Take 1 [facility] ers tablet 9-21 tablet by ity of 00:00: mouth [place] 00 daily. Medical Branch KCL 10 mEq 2020-0 Yes 10meq Take 1 [facility] ers tablet 9-21 tablet by ity of 00:00: mouth [place] 00 daily. Medical Branch KCL 10 mEq 2020-0 Yes 10meq Take 1 [facility] ers tablet 9-21 tablet by ity of 00:00: mouth [place] 00 daily. Medical Branch KCL 10 mEq 1-0 Yes 10meq Take 1 [facility] ers tablet 9-21 tablet by ity of 00:00: mouth [place] 00 daily. Medical Branch KCL 10 mEq 1-0 Yes 10meq Take 1 [facility] ers tablet 9-21 tablet by ity of 00:00: mouth [place] 00 daily. Medical Branch KCL 10 mEq 1-0 Yes 10meq Take 1 [facility] ers tablet 9-21 tablet by ity of 00:00: mouth [place] 00 daily. Medical Branch KCL 10 mEq 1-0 Yes 10meq Take 1 [facility] ers tablet 9-21 tablet by ity of 00:00: mouth [place] 00 daily. Medical Branch KCL 10 mEq 1-0 Yes 10meq Take 1 [facility] ers tablet 9-21 tablet by ity of 00:00: mouth [place] 00 daily. Medical Branch KCL 10 mEq 1-0 Yes 10meq Take 1 [facility] ers tablet 9-21 tablet by ity of 00:00: mouth [place] 00 daily. Medical Branch KCL 10 mEq 1-0 Yes 10meq Take 1 [facility] ers tablet 9-21 tablet by ity of 00:00: mouth [place] 00 daily. Medical Branch KCL 10 mEq 1-0 Yes 10meq Take 1 [facility] ers tablet 9-21 tablet by ity of 00:00: mouth [place] 00 daily. Medical Branch KCL 10 mEq 1-0 2- No 10meq Take 1 [facility] vers tablet 9-21 11-02 tablet by ity of 00:00: 00:00 mouth [place] 00 :00 daily. Medical Branch KCL 10 mEq 1-0 2- No 10meq Take 1 [facility] vers tablet 9-21 11-02 tablet by ity of 00:00: 00:00 mouth [place] 00 :00 daily. Medical Branch KCL 10 mEq 2021-0 2- No 10meq Take 1 [facility] vers tablet 9-21 11-02 tablet by ity of 00:00: 00:00 mouth [place] 00 :00 daily. Medical Branch aspirin 81 2020-0 Yes [id number] 81mg Take 1 U nivers mg chewable 9-09 tablet by ity of tablet 00:00: mouth [place] 00 daily. Medical Branch aspirin 81 2020-0 Yes [id number] 81mg Take 1 U nivers mg chewable 9-09 tablet by ity of tablet 00:00: mouth [place] 00 daily. Medical Branch aspirin 81 2020-0 Yes [id number] 81mg Take 1 U nivers mg chewable 9-09 tablet by ity of tablet 00:00: mouth [place] 00 daily. Medical Branch aspirin 81 2020-0 Yes [id number] 81mg Take 1 U nivers mg chewable 9-09 tablet by ity of tablet 00:00: mouth [place] 00 daily. Medical Branch aspirin 81 2020-0 Yes [id number] 81mg Take 1 U nivers mg chewable 9-09 tablet by ity of tablet 00:00: mouth [place] 00 daily. Medical Branch aspirin 81 2020-0 Yes [id number] 81mg Take 1 U nivers mg chewable 9-09 tablet by ity of tablet 00:00: mouth [place] 00 daily. Medical Branch aspirin 81 2020-0 Yes [id number] 81mg Take 1 U nivers mg chewable 9-09 tablet by ity of tablet 00:00: mouth [place] 00 daily. Medical Branch aspirin 81 2020-0 Yes [id number] 81mg Take 1 U nivers mg chewable 9-09 tablet by ity of tablet 00:00: mouth [place] 00 daily. Medical Branch aspirin 81 2020-0 Yes [id number] 81mg Take 1 U nivers mg chewable 9-09 tablet by ity of tablet 00:00: mouth [place] 00 daily. Medical Branch aspirin 81 2020-0 Yes [id number] 81mg Take 1 U nivers mg chewable 9-09 tablet by ity of tablet 00:00: mouth [place] 00 daily. Medical Branch aspirin 81 2020-0 Yes [id number] 81mg Take 1 U nivers mg chewable 9-09 tablet by ity of tablet 00:00: mouth [place] 00 daily. Medical Branch aspirin 81 2020-0 Yes [id number] 81mg Take 1 U nivers mg chewable 9-09 tablet by ity of tablet 00:00: mouth [place] 00 daily. Medical Branch aspirin 81 2020-0 Yes [id number] 81mg Take 1 U nivers mg chewable 9-09 tablet by ity of tablet 00:00: mouth [place] 00 daily. Medical Branch aspirin 81 2020-0 Yes [id number] 81mg Take 1 U nivers mg chewable 9-09 tablet by ity of tablet 00:00: mouth [place] 00 daily. Medical Branch aspirin 81 2020-0 Yes [id number] 81mg Take 1 U nivers mg chewable 9-09 tablet by ity of tablet 00:00: mouth [place] 00 daily. Medical Branch aspirin 81 2020-0 Yes [id number] 81mg Take 1 U nivers mg chewable 9-09 tablet by ity of tablet 00:00: mouth [place] 00 daily. Medical Branch aspirin 81 2020-0 Yes [id number] 81mg Take 1 U nivers mg chewable 9-09 tablet by ity of tablet 00:00: mouth [place] 00 daily. Medical Branch aspirin 81 2020-0 Yes [id number] 81mg Take 1 U nivers mg chewable 9-09 tablet by ity of tablet 00:00: mouth [place] 00 daily. Medical Branch aspirin 81 2020-0 Yes [id number] 81mg Take 1 U nivers mg chewable 9-09 tablet by ity of tablet 00:00: mouth [place] 00 daily. Medical Branch aspirin 81 2020-0 Yes [id number] 81mg Take 1 U nivers mg chewable 9-09 tablet by ity of tablet 00:00: mouth [place] 00 daily. Medical Branch aspirin 81 2020-0 Yes [id number] 81mg Take 1 U nivers mg chewable 9-09 tablet by ity of tablet 00:00: mouth [place] 00 daily. Medical Branch aspirin 81 2020-0 Yes [id number] 81mg Take 1 U nivers mg chewable 9-09 tablet by ity of tablet 00:00: mouth [place] 00 daily. Medical Branch aspirin 81 2020-0 Yes [id number] 81mg Take 1 U nivers mg chewable 9-09 tablet by ity of tablet 00:00: mouth [place] 00 daily. Medical Branch aspirin 81 2020-0 Yes [id number] 81mg Take 1 U nivers mg chewable 9-09 tablet by ity of tablet 00:00: mouth [place] 00 daily. Medical Branch aspirin 81 2020-0 Yes [id number] 81mg Take 1 U nivers mg chewable 9-09 tablet by ity of tablet 00:00: mouth [place] 00 daily. Medical Branch aspirin 81 2020-0 Yes [id number] 81mg Take 1 U nivers mg chewable 9-09 tablet by ity of tablet 00:00: mouth [place] 00 daily. Medical Branch aspirin 81 2020-0 Yes [id number] 81mg Take 1 U nivers mg chewable 9-09 tablet by ity of tablet 00:00: mouth [place] 00 daily. Medical Branch aspirin 81 2020-0 Yes [id number] 81mg Take 1 U nivers mg chewable 9-09 tablet by ity of tablet 00:00: mouth [place] 00 daily. Medical Branch aspirin 81 2020-0 Yes [id number] 81mg Take 1 U nivers mg chewable 9-09 tablet by ity of tablet 00:00: mouth [place] 00 daily. Medical Branch aspirin 81 2020-0 Yes [id number] 81mg Take 1 U nivers mg chewable 9-09 tablet by ity of tablet 00:00: mouth [place] 00 daily. Medical Branch aspirin 81 2020-0 Yes [id number] 81mg Take 1 U nivers mg chewable 9-09 tablet by ity of tablet 00:00: mouth [place] 00 daily. Medical Branch aspirin 81 2020-0 Yes [id number] 81mg Take 1 U nivers mg chewable 9-09 tablet by ity of tablet 00:00: mouth [place] 00 daily. Medical Branch aspirin 81 2020-0 Yes [id number] 81mg Take 1 U nivers mg chewable 9-09 tablet by ity of tablet 00:00: mouth [place] 00 daily. Medical Branch aspirin 81 2020-0 Yes [id number] 81mg Take 1 U nivers mg chewable 9-09 tablet by ity of tablet 00:00: mouth [place] 00 daily. Medical Branch aspirin 81 2020-0 Yes [id number] 81mg Take 1 U nivers mg chewable 9-09 tablet by ity of tablet 00:00: mouth [place] 00 daily. Medical Branch aspirin 81 2020-0 Yes [id number] 81mg Take 1 U nivers mg chewable 9-09 tablet by ity of tablet 00:00: mouth [place] 00 daily. Medical Branch aspirin 81 2020-0 Yes [id number] 81mg Take 1 U nivers mg chewable 9-09 tablet by ity of tablet 00:00: mouth [place] 00 daily. Medical Branch aspirin 81 2020-0 Yes [id number] 81mg Take 1 U nivers mg chewable 9-09 tablet by ity of tablet 00:00: mouth [place] 00 daily. Medical Branch mupirocin 2 0 Yes [id number] Apply to [facility] % ointment 7-29 [id number] area(s) 3 it y of 00:00: (three) [place] 00 times Medical daily. Branch mupirocin 2 2020-0 Yes [id number] Apply to [facility] % ointment 7-29 [id number] area(s) 3 it y of 00:00: (three) [place] 00 times Medical daily. Branch mupirocin 2 2020-0 Yes [id number] Apply to [facility] % ointment 7-29 [id number] area(s) 3 it y of 00:00: (three) [place] 00 times Medical daily. Branch mupirocin 2 2020-0 Yes [id number] Apply to [facility] % ointment 7-29 [id number] area(s) 3 it y of 00:00: (three) [place] 00 times Medical daily. Branch mupirocin 2 2020-0 Yes [id number] Apply to [facility] % ointment 7-29 [id number] area(s) 3 it y of 00:00: (three) [place] 00 times Medical daily. Branch mupirocin 2 2020-0 Yes [id number] Apply to [facility] % ointment 7-29 [id number] area(s) 3 it y of 00:00: (three) [place] 00 times Medical daily. Branch mupirocin 2 2020-0 Yes [id number] Apply to [facility] % ointment 7-29 [id number] area(s) 3 it y of 00:00: (three) [place] 00 times Medical daily. Branch mupirocin 2 2020-0 Yes [id number] Apply to [facility] % ointment 7-29 [id number] area(s) 3 it y of 00:00: (three) [place] 00 times Medical daily. Branch mupirocin 2 2020-0 Yes [id number] Apply to [facility] % ointment 7-29 [id number] area(s) 3 it y of 00:00: (three) [place] 00 times Medical daily. Branch mupirocin 2 2020-0 Yes [id number] Apply to [facility] % ointment 7-29 [id number] area(s) 3 it y of 00:00: (three) [place] 00 times Medical daily. Branch mupirocin 2 2020-0 2- No [id number] Apply to [facility] % ointment 7-29 11-02 [id number] area(s) 3 i ty of 00:00: 00:00 (three) [place] 00 :00 times Medical daily. Branch mupirocin 2 2021- No [id number] Apply to [facility] % ointment 01-25 [id number] area(s) 3 i ty of 00:00: 00:00 (three) [place] 00 :00 times Medical daily. Branch amLODIPine Yes Essential 10mg Take 1 [facility] 10 mg 4-12 hypertensio tablet by it y of tablet 00:00: n mouth [place] 00 daily. Medical Branch chlorthalid Yes 50mg Take 1 [facility] ers one 50 mg 4-12 tablet by ity o f tablet 00:00: mouth [place] 00 daily. Medical Branch amLODIPine Yes Essential 10mg Take 1 [facility] 10 mg 4-12 hypertensio tablet by it y of tablet 00:00: n mouth [place] 00 daily. Medical Branch chlorthalid Yes 50mg Take 1 [facility] ers one 50 mg 4-12 tablet by ity o f tablet 00:00: mouth [place] 00 daily. Medical Branch metformin Yes Type 2 1000mg Take 2 Un rachel ER 500 mg 3-26 diabetes tablets by ity of 24 hr 00:00: mellitus mouth 2 [place] tablet 00 without (two) Medical complicatio times Branch n, without daily with long-term meals. current use of insulin icosapent Yes Hypertrigly 1g Take 1 [facility] ethyL 1 3-26 ceridemia capsule by i ty of gram 00:00: mouth 2 [place] capsule 00 (two) Medical times Branch daily. testosteron Yes Hypogonadot 50mg Apply 1 [facility] e 1 % (50 3-26 ropic Packet to ity of mg/5 gram) 00:00: hypogonadis skin [place] gel packet 00 m daily. Medical Branch metformin Yes Type 2 1000mg Take 2 Un rachel ER 500 mg 3-26 diabetes tablets by ity of 24 hr 00:00: mellitus mouth 2 [place] tablet 00 without (two) Medical complicatio times Branch n, without daily with long-term meals. current use of insulin icosapent Yes Hypertrigly 1g Take 1 [facility] ethyL 1 3-26 ceridemia capsule by i ty of gram 00:00: mouth 2 [place] capsule 00 (two) Medical times Branch daily. testosteron Yes Hypogonadot 50mg Apply 1 [facility] e 1 % (50 3-26 ropic Packet to ity of mg/5 gram) 00:00: hypogonadis skin [place] gel packet 00 m daily. Medical Branch pregabalin Yes Take by [facility] [place] [facility] ers (LYRICA 3-05 mouth. ity of ORAL) 14:15: [place] [id number] Medical Branch pregabalin 0 Yes Take by [facility] [place] [facility] ers (LYRICA 3-05 mouth. ity of ORAL) 14:15: [address] Branch evolocumab 0 Yes 140mg inject 140 [facility] (REPATHA 1-13 mg under ity of SURECLICK) 00:00: the skin [place] as 140 mg/mL 00 every 2 Medical PnIj (two) Branch weeks. cloNIDine 0 Yes Essential .1mg Take 1 U nivers 0.1 mg 1-13 hypertensio tablet by i ty of tablet 00:00: n mouth 3 (three) Medical times Branch daily as needed (elevated blood pressure above 160/100). evolocumab 0 Yes 140mg inject 140 [facility] (REPATHA 1-13 mg under ity of SURECLICK) 00:00: the skin [place] 140 mg/mL 00 every 2 Medical PnIj (two) Branch weeks. cloNIDine 0 Yes Essential .1mg Take 1 U nivers 0.1 mg 1-13 hypertensio tablet by i ty of tablet 00:00: n mouth 3 (three) Medical times Branch daily as needed (elevated blood pressure above 160/100). evolocumab 0 Yes 140mg inject 140 [facility] (REPATHA 1-13 mg under ity of SURECLICK) 00:00: the skin [place] 140 mg/mL 00 every 2 Medical PnIj (two) Branch weeks. cloNIDine 2020-0 Yes [id number] .1mg Take 1 Un [place]achel 0.1 mg 1-13 tablet by ity of tablet 00:00: mouth 3 (three) Medical times Branch daily as needed (elevated blood pressure above 160/100). evolocumab 2020-0 Yes 140mg inject 140 [facility] (REPATHA 1-13 mg under ity of SURECLICK) 00:00: the skin [place] 140 mg/mL 00 every 2 Medical PnIj (two) Branch weeks. cloNIDine 2021-0 Yes [id number] .1mg Take 1 Un rachel 0.1 mg 1-13 tablet by ity of tablet 00:00: mouth 3 [place] 00 (three) Medical times Branch daily as needed (elevated blood pressure above 160/100). evolocumab 2021-0 Yes 140mg inject 140 [facility] (REPATHA 1-13 mg under ity of SURECLICK) 00:00: the skin [place] 140 mg/mL 00 every 2 Medical PnIj (two) Branch weeks. cloNIDine 2021-0 Yes [id number] .1mg Take 1 Un [place] 0.1 mg 1-13 tablet by ity of tablet 00:00: mouth 3 [place] 00 (three) Medical times Branch daily as needed (elevated blood pressure above 160/100). evolocumab 2021-0 Yes 140mg inject 140 [facility] (REPATHA 1-13 mg under ity of SURECLICK) 00:00: the skin [place] 140 mg/mL 00 every 2 Medical PnIj (two) Branch weeks. cloNIDine 2021-0 Yes [id number] .1mg Take 1 Un rachel 0.1 mg 1-13 tablet by ity of tablet 00:00: mouth 3 [place] 00 (three) Medical times Branch daily as needed (elevated blood pressure above 160/100). evolocumab 2021-0 Yes 140mg inject 140 [facility] (REPATHA 1-13 mg under ity of SURECLICK) 00:00: the skin [place] 140 mg/mL 00 every 2 Medical PnIj (two) Branch weeks. cloNIDine 2021-0 Yes [id number] .1mg Take 1 Un [place] 0.1 mg 1-13 tablet by ity of tablet 00:00: mouth 3 [place] 00 (three) Medical times Branch daily as needed (elevated blood pressure above 160/100). evolocumab 2021-0 Yes 140mg inject 140 [facility] (REPATHA 1-13 mg under ity of SURECLICK) 00:00: the skin [place] 140 mg/mL 00 every 2 Medical PnIj (two) Branch weeks. cloNIDine 2021-0 Yes [id number] .1mg Take 1 Un [place] 0.1 mg 1-13 tablet by ity of tablet 00:00: mouth 3 [place] 00 (three) Medical times Branch daily as needed (elevated blood pressure above 160/100). evolocumab 2021-0 Yes 140mg inject 140 [facility] (REPATHA 1-13 mg under ity of SURECLICK) 00:00: the skin [place] 140 mg/mL 00 every 2 Medical PnIj (two) Branch weeks. cloNIDine 2021-0 Yes [id number] .1mg Take 1 Un [place] 0.1 mg 1-13 tablet by ity of tablet 00:00: mouth 3 [place] 00 (three) Medical times Branch daily as needed (elevated blood pressure above 160/100). evolocumab 2021-0 Yes 140mg inject 140 [facility] (REPATHA 1-13 mg under ity of SURECLICK) 00:00: the skin [place] 140 mg/mL 00 every 2 Medical PnIj (two) Branch weeks. cloNIDine 2021-0 Yes [id number] .1mg Take 1 Un [place] 0.1 mg 1-13 tablet by ity of tablet 00:00: mouth 3 [place] 00 (three) Medical times Branch daily as needed (elevated blood pressure above 160/100). evolocumab 2021-0 Yes 140mg inject 140 [facility] (REPATHA 1-13 mg under ity of SURECLICK) 00:00: the skin [place] mg/mL 00 every 2 Medical PnIj (two) Branch weeks. cloNIDine 2021-0 Yes [id number] .1mg Take 1 Un [place] 0.1 mg 1-13 tablet by ity of tablet 00:00: mouth 3 [place] 00 (three) Medical times Branch daily as needed (elevated blood pressure above 160/100). evolocumab 2021-0 Yes 140mg inject 140 [facility] (REPATHA 1-13 mg under ity of SURECLICK) 00:00: the skin [place] mg/mL 00 every 2 Medical PnIj (two) Branch weeks. cloNIDine 2021-0 Yes [id number] .1mg Take 1 Un [place] 0.1 mg 1-13 tablet by ity of tablet 00:00: mouth 3 [place] 00 (three) Medical times Branch daily as needed (elevated blood pressure above 160/100). evolocumab 2021-0 Yes 140mg inject 140 [facility] (REPATHA 1-13 mg under ity of SURECLICK) 00:00: the skin [place] mg/mL 00 every 2 Medical PnIj (two) Branch weeks. cloNIDine 2021-0 Yes [id number] .1mg Take 1 Un r[facility] 0.1 mg 1-13 tablet by ity of tablet 00:00: mouth 3 [place] 00 (three) Medical times Branch daily as needed (elevated blood pressure above 160/100). evolocumab 2021-0 Yes 140mg inject 140 [facility] (REPATHA 1-13 mg under ity of SURECLICK) 00:00: the skin [place] mg/mL 00 every 2 Medical PnIj (two) Branch weeks. evolocumab 2021-0 Yes 140mg inject 140 [facility] (REPATHA 1-13 mg under ity of SURECLICK) 00:00: the skin [place] mg/mL 00 every 2 Medical PnIj (two) Branch weeks. evolocumab 2021-0 Yes 140mg inject 140 [facility] (REPATHA 1-13 mg under ity of SURECLICK) 00:00: the skin [place] mg/mL 00 every 2 Medical PnIj (two) Branch weeks. evolocumab 2021-0 Yes 140mg inject 140 [facility] (REPATHA 1-13 mg under ity of SURECLICK) 00:00: the skin [place] mg/mL 00 every 2 Medical PnIj (two) Branch weeks. evolocumab 2021-0 Yes 140mg inject 140 [facility] (REPATHA 1-13 mg under ity of SURECLICK) 00:00: the skin [place] mg/mL 00 every 2 Medical PnIj (two) Branch weeks. evolocumab 2021-0 Yes 140mg inject 140 [facility] (REPATHA 1-13 mg under ity of SURECLICK) 00:00: the skin [place] mg/mL 00 every 2 Medical PnIj (two) Branch weeks. evolocumab 2021-0 Yes 140mg inject 140 [facility] (REPATHA 1-13 mg under ity of SURECLICK) 00:00: the skin [place] mg/mL 00 every 2 Medical PnIj (two) Branch weeks. evolocumab 2021-0 Yes 140mg inject 140 [facility] (REPATHA 1-13 mg under ity of SURECLICK) 00:00: the skin [place] mg/mL 00 every 2 Medical PnIj (two) Branch weeks. evolocumab 2021-0 Yes 140mg inject 140 [facility] (REPATHA 1-13 mg under ity of SURECLICK) 00:00: the skin [place] 140 mg/mL 00 every 2 Medical PnIj (two) Branch weeks. evolocumab 2021-0 Yes 140mg inject 140 [facility] (REPATHA 1-13 mg under ity of SURECLICK) 00:00: the skin [place] 140 mg/mL 00 every 2 Medical PnIj (two) Branch weeks. evolocumab 2021-0 Yes 140mg inject 140 [facility] (REPATHA 1-13 mg under ity of SURECLICK) 00:00: the skin [place] mg/mL 00 every 2 Medical PnIj (two) Branch weeks. evolocumab 2021-0 Yes 140mg inject 140 [facility] (REPATHA 1-13 mg under ity of SURECLICK) 00:00: the skin [place] mg/mL 00 every 2 Medical PnIj (two) Branch weeks. evolocumab 2021-0 Yes 140mg inject 140 [facility] (REPATHA 1-13 mg under ity of SURECLICK) 00:00: the skin [place] 140 mg/mL 00 every 2 Medical PnIj (two) Branch weeks. evolocumab 2021-0 Yes 140mg inject 140 [facility] (REPATHA 1-13 mg under ity of SURECLICK) 00:00: the skin [place] 140 mg/mL 00 every 2 Medical PnIj (two) Branch weeks. evolocumab 2021-0 Yes 140mg inject 140 [facility] (REPATHA 1-13 mg under ity of SURECLICK) 00:00: the skin [place] 140 mg/mL 00 every 2 Medical PnIj (two) Branch weeks. evolocumab 2021-0 Yes 140mg inject 140 [facility] (REPATHA 1-13 mg under ity of SURECLICK) 00:00: the skin [place] 140 mg/mL 00 every 2 Medical PnIj (two) Branch weeks. evolocumab 2021-0 Yes 140mg inject 140 [facility] (REPATHA 1-13 mg under ity of SURECLICK) 00:00: the skin [place] 140 mg/mL 00 every 2 Medical PnIj (two) Branch weeks. evolocumab 2021-0 Yes 140mg inject 140 [facility] (REPATHA 1-13 mg under ity of SURECLICK) 00:00: the skin [place] 140 mg/mL 00 every 2 Medical PnIj (two) Branch weeks. evolocumab 2021-0 Yes 140mg inject 140 [facility] (REPATHA 1-13 mg under ity of SURECLICK) 00:00: the skin [place] 140 mg/mL 00 every 2 Medical PnIj (two) Branch weeks. evolocumab 2021-0 Yes 140mg inject 140 [facility] (REPATHA 1-13 mg under ity of SURECLICK) 00:00: the skin [place] 140 mg/mL 00 every 2 Medical PnIj (two) Branch weeks. evolocumab 2021-0 Yes 140mg inject 140 [facility] (REPATHA 1-13 mg under ity of SURECLICK) 00:00: the skin [place] 140 mg/mL 00 every 2 Medical PnIj (two) Branch weeks. evolocumab 2021-0 Yes 140mg inject 140 [facility] (REPATHA 1-13 mg under ity of SURECLICK) 00:00: the skin [place] 140 mg/mL 00 every 2 Medical PnIj (two) Branch weeks. evolocumab 2021-0 Yes 140mg inject 140 [facility] (REPATHA 1-13 mg under ity of SURECLICK) 00:00: the skin [place] 140 mg/mL 00 every 2 Medical PnIj (two) Branch weeks. evolocumab 2021-0 Yes 140mg inject 140 [facility] (REPATHA 1-13 mg under ity of SURECLICK) 00:00: the skin [place] 140 mg/mL 00 every 2 Medical PnIj (two) Branch weeks. evolocumab 2021-0 Yes 140mg inject 140 [facility] (REPATHA 1-13 mg under ity of SURECLICK) 00:00: the skin [place] 140 mg/mL 00 every 2 Medical PnIj (two) Branch weeks. evolocumab 2021-0 Yes 140mg inject 140 [facility] (REPATHA 1-13 mg under ity of SURECLICK) 00:00: the skin [place] 140 mg/mL 00 every 2 Medical PnIj (two) Branch weeks. evolocumab 2021-0 Yes 140mg inject 140 [facility] (REPATHA 1-13 mg under ity of SURECLICK) 00:00: the skin [place] 140 mg/mL 00 every 2 Medical PnIj (two) Branch weeks. cloNIDine 2020-0 2022- No [id number] .1mg Take 1 U nivers 0.1 mg 1-13 11-02 tablet by ity of tablet 00:00: 00:00 mouth 3 [place] 00 :00 (three) Medical times Branch daily as needed (elevated blood pressure above 160/100). cloNIDine 2021- No [id number] .1mg Take 1 U nivers 0.1 mg 07-12 tablet by ity of tablet 00:00: 00:00 mouth 3 [place] 00 :00 (three) Medical times Branch daily as needed (elevated blood pressure above 160/100). cloNIDine 2021- No [id number] .1mg Take 1 U nivers 0.1 mg 07-12 tablet by ity of tablet 00:00: 00:00 mouth 3 [place] 00 :00 (three) Medical times Branch daily as needed (elevated blood pressure above 160/100). OXcarbazepi Yes Myalgia 1200mg Take 1,200 [facility] ne 1-08 mg by ity of (OXTELLAR 00:00: [place] XR[place] 600 mg 00 bedtime. Medic al Tb24 Branch OXcarbazepi Yes Myalgia 1200mg Take 1,200 [facility] ne 1-08 mg by ity of (OXTELLAR 00:00: [place] XR[place] 600 mg 00 bedtime. Medic al Tb24 Branch fluticasone 2019-06 Yes Seasonal INHALE TWO [facility] propionate 2-17 allergic SPRAYS IN ity of 50 00:00: rhinitis EACH [place] mcg/actuati 00 due to NOSTRIL Med ical on nasal pollen DAILY Branch spray fluticasone 2019-06 Yes Seasonal INHALE TWO [facility] propionate 2-17 allergic SPRAYS IN ity of 50 00:00: rhinitis EACH [place] mcg/actuati 00 due to NOSTRIL Med ical on nasal pollen DAILY Branch spray losartan 2019-06 Yes 100mg Take 1 Univer s 100 mg 1-27 tablet by ity of tablet 00:00: mouth [place] 00 daily. Medical Branch losartan 2019-06 Yes 100mg Take 1 Univer s 100 mg 1-27 tablet by ity of tablet 00:00: mouth [place] 00 daily. Medical Branch fluticasone 2019-06 2020- No [id number] INHALE 2 [facility] propionate 0-20 11-23 SPRAYS BY ity of 50 00:00: 00:00 NASAL [place] mcg/actuati 00 :00 ROUTE ONCE Me dical on nasal DAILY Branch spray testosteron 2019-06- No [id number] 200mg Univers e cypionate 0-16 03-26 ity of (DEPO-TESTO 05:00: 13:56 [place] STERONE) 00 :34 Medical injection Branch 200 mg pantoprazol Yes 40mg Take 40 mg Univers e 40 mg EC 9-30 by mouth ity o f tablet 00:00: daily. [place] [facility] pantoprazol Yes 40mg Take 40 mg Univers e 40 mg EC 9-30 by mouth ity o f tablet 00:00: daily. [place] [facility] pantoprazol 2020- No 40mg Take 40 mg Univers e 40 mg EC 9-30 07-13 by mouth ity of tablet 00:00: 00:00 daily. [place] 00 :00 Medical Branch OXcarbazepi 2020- No [id number] 1200mg Take 1,200 Univers ne 9-28 01-08 mg by ity of (OXTELLAR 00:00: 00:00 mouth at [place] as XR) 600 mg 00 :00 bedtime. Medic al Tb24 Branch cyclobenzap Yes Univer s rine 10 mg 8-28 ity of tablet 00:00: [place] [facility] cyclobenzap Yes Univer s rine 10 mg 8-28 ity of tablet 00:00: [place] [facility] cyclobenzap 2021- No Unive rs rine 10 mg 8-28 05-11 ity of tablet 00:00: 00:00 [place] 00 :00 Medical Branch metformin 2019-0 2020- No 1000mg Take 2 Uni vers ER 500 mg 8-14 11-20 tablets by ity of 24 hr 00:00: 00:00 mouth 2 [place] tablet 00 :00 (two) Medical times Branch daily with meals. cyclobenzap 2018-06 Yes 1{tbl} Take 1 Un rachel rine 0-09 tablet by ity of (FLEXERIL) 00:00: mouth as [place] as 10 mg 00 needed. MD [facility] OXTELLAR XR 2018-06 Yes 1{tbl} Take 1 Un rachel 300 mg Tb24 0-05 tablet by ity of 00:00: mouth [place] 00 daily. MD Binh casey [facility] OXTELLAR XR 2018-06 Yes 1{tbl} Take 1 Un rachel 600 mg Tb24 0-04 tablet by ity of 00:00: mouth [place] 00 daily. MD Binh casey [facility] trimethopri Yes 1{tbl} Take 1 Un rachel m (TRIMPEX) 9-30 tablet by ity of 100 mg 00:00: mouth [place] tablet 00 daily. MD Binh casey [facility] clotrimazol Yes 1{appli Apply 1 Univers e-betametha 9-11 cation} applicatio ity of sone 00:00: n [place] (LOTRISONE) 00 topically 1%-0.05% to [facility] cream affected n area(s) as Cancer needed. [place] hydroCHLORO Yes 1{tbl} Take 1 Un rachel thiazide 8-11 tablet by ity of (HYDRODIURI 00:00: mouth [place] L) 25 mg 00 daily. tablet Binh [facility] aspirin 325 Yes 325mg Take 325 U nivers mg EC 6-13 mg by ity of tablet 00:00: mouth [place] 00 daily. MD Binh casey [facility] aspirin 2020- No [id number] 325mg Take 1 U nivers E.C. 325 mg 6-13 03-26 tablet by it y of EC tablet 00:00: 00:00 mouth [place] 00 :00 daily. Medical Branch fish Yes 1000mg Take 1,000 Unive rs oil-omega-3 6-12 mg by ity of fatty acids 00:00: mouth [place] 300-1,000 00 daily. mg capsule Binh casey [facility] losartan Yes 100mg Take 100 Univ ers (COZAAR) 6-01 mg by ity of 100 mg 00:00: mouth [place] tablet 00 daily. MD Binh casey [facility] losartan 2020- No 100mg Take 100 Uni vers 100 mg 6-01 11-27 mg by ity of tablet 00:00: 00:00 mouth [place] 00 :00 daily. Medical Branch pantoprazol Yes 1{tbl} Take 1 Un rachel e 5-18 tablet by ity of (PROTONIX) 00:00: mouth [place] 40 mg EC 00 daily. MD dara casey [facility] hydroCHLORO 2020- No TAKE 1 Uni vers thiazide 25 -11 07-12 TABLET BY it y of mg tablet 00:00: 00:00 MOUTH [place] 00 :00 EVERY DAY Medical IN THE Branch MORNING fluticasone Yes 1{spray Inhale 1 Univers propionate 5-07 } spray into ity of (FLONASE) 00:00: each [place] 50 00 nostril as mcg/spray needed. Binh nasal braden casey [facility] labetalol Yes 1{tbl} Take 1 Univ ers (TRANDATE) 4-26 tablet by ity of 200 mg 00:00: mouth [place] tablet 00 daily. MD Binh casey [facility] labetalol Yes TAKE 1 Univer s 200 mg 4-26 TABLET BY ity of tablet 00:00: MOUTH [place] 00 TWICE A Medical DAY Branch labetalol Yes TAKE 1 Univer s 200 mg 4-26 TABLET BY ity of tablet 00:00: MOUTH [place] 00 TWICE A Medical DAY Branch labetalol 2020- No TAKE 1 Unive rs 200 mg 4-26 05-17 TABLET BY ity of tablet 00:00: 00:00 MOUTH [place] 00 :00 TWICE A Medical DAY Branch amLODIPine Yes 1{tbl} Take 1 Uni vers (NORVASC) 5 4-15 tablet by ity of mg tablet 00:00: mouth [place] 00 daily. MD Binh casey [facility] amLODIPine 2020- No 10mg Take 10 mg Univers 5 mg tablet 15 07-10 by mouth ity of 00:00: 00:00 daily. [place] 00 :00 Medical Branch diclofenac 2017-06 Yes as needed. U nivers sodium 2-07 ity of (Voltaren) 00:00: [place] 1 % gel 00 MD Binh casey [facility] Diclofenac 2017-06 Yes Chronic as needed. Univers Sodium 1 % 2-07 bilateral ity of gel 00:00: low back [place] 00 pain Medical without Branch sciatica Diclofenac 2017-06 Yes Chronic as needed. Univers Sodium 1 % 2-07 bilateral ity of gel 00:00: low back [place] 00 pain Medical without Branch sciatica Diclofenac 2017-06 Yes [id number] as needed. Univers Sodium 1 % 2-07 ity of gel 00:00: [place] 00 Medical Branch Diclofenac 2018- Yes [id number] as needed. Univers Sodium 1 % 2-07 ity of gel 00:00: [place] 00 Medical Branch Diclofenac 2018- Yes [id number] as needed. Univers Sodium 1 % 2-07 ity of gel 00:00: [place] 00 Medical Branch Diclofenac 2018- Yes [id number] as needed. Univers Sodium 1 % 2-07 ity of gel 00:00: [place] 00 Medical Branch Diclofenac 2018- Yes [id number] as needed. Univers Sodium 1 % 2-07 ity of gel 00:00: [place] 00 Medical Branch Diclofenac 2018- Yes [id number] as needed. Univers Sodium 1 % 2-07 ity of gel 00:00: [place] 00 Medical Branch Diclofenac 2018- Yes [id number] as needed. Univers Sodium 1 % 2-07 ity of gel 00:00: [place] 00 Medical Branch Diclofenac 2018- Yes [id number] as needed. Univers Sodium 1 % 2-07 ity of gel 00:00: [place] 00 Medical Branch Diclofenac 2018- Yes [id number] as needed. Univers Sodium 1 % 2-07 ity of gel 00:00: [place] 00 Medical Branch Diclofenac 2018-1 Yes [id number] as needed. Univers Sodium 1 % 2-07 ity of gel 00:00: [place] 00 Medical Branch Diclofenac 2018- Yes [id number] as needed. Univers Sodium 1 % 2-07 ity of gel 00:00: [place] 00 Medical Branch Diclofenac 2018- Yes [id number] as needed. Univers Sodium 1 % 2-07 ity of gel 00:00: [place] 00 Medical Branch Diclofenac 2018-2021- No [id number] as needed. Univers Sodium 1 % 2-07 - ity of gel 00:00: 00:00 [place] 00 :00 Medical Branch Diclofenac 2018-1 2- No [id number] as needed. Univers Sodium 1 % 2-07 -02 ity of gel 00:00: 00:00 [place] 00 :00 Medical Branch Diclofenac 2018-1 2- No [id number] as needed. Univers Sodium 1 % 2-07 -02 ity of gel 00:00: 00:00 [place] 00 :00 Medical Branch Hydralazine 2018-0 No Notes: Pete destiny 07-08 (Same as: l 05:20: [place] 00 ) Push over 5 minutes Hydralazine No Notes: [place] destiny 1- (Same as: l 05:20: [place] 00 ) Push over 5 minutes Hydralazine No Notes: [place] destiny - (Same as: l 05:20: [place] 00 ) Push over 5 minutes Hydralazine No Notes: [place] destiny - (Same as: l 05:20: [place] 00 ) Push over 5 minutes Hydralazine No Notes: [place] destiny - (Same as: l 05:20: [place] 00 ) Push over 5 minutes Cyclobenzap Yes 5 mg = 1 Me moria rine 1-05 tab, PO, l hydrochlori 03:08: TID, X 7 He rmann de 5 MG 00 day, # 21 Oral Tablet tab, 0 [Flexeril] Refill(s) Cyclobenzap Yes 5 mg = 1 Me moria rine 1-05 tab, PO, l hydrochlori 03:08: TID, X 7 He rmann de 5 MG 00 day, # 21 Oral Tablet tab, 0 [Flexeril] Refill(s) Cyclobenzap Yes 5 mg = 1 Me moria rine 1-05 tab, PO, l hydrochlori 03:08: TID, X 7 He rmann de 5 MG 00 day, # 21 Oral Tablet tab, 0 [Flexeril] Refill(s) Cyclobenzap Yes 5 mg = 1 Me moria rine 1-05 tab, PO, l hydrochlori 03:08: TID, X 7 He rmann de 5 MG 00 day, # 21 Oral Tablet tab, 0 [Flexeril] Refill(s) Cyclobenzap 2018-0 Yes 5 mg = 1 Me moria rine 1-05 tab, PO, l hydrochlori 03:08: TID, X 7 He rmann de 5 MG 00 day, # 21 Oral Tablet tab, 0 [Flexeril] Refill(s) Morphine No Notes: Memoria 1-05 (Same l 00:16: as:MORPhin [place] 00 e Sulfate) Morphine No Notes: [place] 1-05 (Same l 00:16: as:MORPhin [place] 00 e Sulfate) Morphine No Notes: [place] 1-05 (Same l 00:16: as:MORPhin [place] 00 e Sulfate) Morphine No Notes: [place] 1-05 (Same l 00:16: as:MORPhin [place] 00 e Sulfate) Morphine No Notes: [place] 1-05 (Same l 00:16: as:MORPhin [place] 00 e Sulfate) Calcium No 1,000 mL, Memor ia Chloride 1-05 1,000 l 0.0014 00:10: ml/hr, [place] MEQ/ML / 00 Infuse Potassium Over: 1 Chloride hr, Route: 0.004 IV, 1,000, MEQ/ML / Drug form: Sodium INJ, ONCE, Chloride Priority: 0.103 STAT, MEQ/ML / Dosing Sodium Weight Lactate 104.545 0.028 kg, Start MEQ/ML date: Injectable 07/03/17 Solution 18:10:00 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, Stop date: 07/03/17 18:10:00 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 Calcium 2017-0 No 1,000 mL, Memor ia Chloride 1-05 1,000 l 0.0014 00:10: ml/hr, [place] MEQ/ML / 00 Infuse Potassium Over: 1 Chloride hr, Route: 0.004 IV, 1,000, MEQ/ML / Drug form: Sodium INJ, ONCE, Chloride Priority: 0.103 STAT, MEQ/ML / Dosing Sodium Weight Lactate 104.545 0.028 kg, Start MEQ/ML date: Injectable 07/03/17 Solution 18:10:00 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, Stop date: 07/03/17 18:10:00 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 Calcium No 1,000 mL, Memor ia Chloride 1-05 1,000 l 0.0014 00:10: ml/hr, [place] MEQ/ML / 00 Infuse Potassium Over: 1 Chloride hr, Route: 0.004 IV, 1,000, MEQ/ML / Drug form: Sodium INJ, ONCE, Chloride Priority: 0.103 STAT, MEQ/ML / Dosing Sodium Weight Lactate 104.545 0.028 kg, Start MEQ/ML date: Injectable 07/03/17 Solution 18:10:00 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, Stop date: 07/03/17 18:10:00 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 Calcium 2018-0 No 1,000 mL, Memor ia Chloride 1-05 1,000 l 0.0014 00:10: ml/hr, [place] MEQ/ML / 00 Infuse Potassium Over: 1 Chloride hr, Route: 0.004 IV, 1,000, MEQ/ML / Drug form: Sodium INJ, ONCE, Chloride Priority: 0.103 STAT, MEQ/ML / Dosing Sodium Weight Lactate 104.545 0.028 kg, Start MEQ/ML date: Injectable 07/03/17 Solution 18:10:00 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, Stop date: 07/03/17 18:10:00 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 Calcium 2018-0 No 1,000 mL, Memor ia Chloride 1-05 1,000 l 0.0014 00:10: ml/hr, [place] MEQ/ML / 00 Infuse Potassium Over: 1 Chloride hr, Route: 0.004 IV, 1,000, MEQ/ML / Drug form: Sodium INJ, ONCE, Chloride Priority: 0.103 STAT, MEQ/ML / Dosing Sodium Weight Lactate 104.545 0.028 kg, Start MEQ/ML date: Injectable 07/03/17 Solution 18:10:00 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, Stop date: 07/03/17 18:10:00 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 Immunizations Ordered Filled Immunization Date Status Comments [facility] Immunization Name Name SARS-COV-2 COVID-19 2022-01-17 Completed Unive rsity of MODERNA 0.25ML 00:00:00 [place] Medi rachana BOOSTER VACCINE Branch SARS-COV-2 COVID-19 2022-01-17 Completed Unive rsity of MODERNA 0.25ML 00:00:00 [place] Medi rachana BOOSTER VACCINE Branch SARS-COV-2 COVID-19 2022-01-17 Completed Unive rsity of MODERNA 0.25ML 00:00:00 [place] Medi archana BOOSTER VACCINE Branch SARS-COV-2 COVID-19 2022-01-17 Completed Unive rsity of MODERNA 0.25ML 00:00:00 [place] Medi rachana BOOSTER VACCINE Branch SARS-COV-2 COVID-19 2022-01-17 Completed Unive rsity of MODERNA 0.25ML 00:00:00 [place] Medi rachana BOOSTER VACCINE Branch SARS-COV-2 COVID-19 2022-01-17 Completed Unive rsity of MODERNA 0.25ML 00:00:00 [place] Medi rachana BOOSTER VACCINE Branch SARS-COV-2 COVID-19 2022-01-17 Completed Unive rsity of MODERNA 0.25ML 00:00:00 [place] Medi rachana BOOSTER VACCINE Branch SARS-COV-2 COVID-19 2022-01-17 Completed Unive rsity of MODERNA 0.25ML 00:00:00 [place] Medi rachana BOOSTER VACCINE Branch SARS-COV-2 COVID-19 2022-01-17 Completed Unive rsity of MODERNA 0.25ML 00:00:00 [place] Medi rachana BOOSTER VACCINE Branch SARS-COV-2 COVID-19 2022-01-17 Completed Unive rsity of MODERNA 0.25ML 00:00:00 [place] Medi rachana BOOSTER VACCINE Branch SARS-COV-2 COVID-19 2022-01-17 Completed Unive rsity of MODERNA 0.25ML 00:00:00 [place] Medi rachana BOOSTER VACCINE Branch SARS-COV-2 COVID-19 2022-01-17 Completed Unive rsity of MODERNA 0.25ML 00:00:00 [place] Medi rachana BOOSTER VACCINE Branch SARS-COV-2 COVID-19 2022-01-17 Completed Unive rsity of MODERNA 0.25ML 00:00:00 [place] Medi rachana BOOSTER VACCINE Branch SARS-COV-2 COVID-19 2022-01-17 Completed Unive rsity of MODERNA 0.25ML 00:00:00 [place] Medi rachana BOOSTER VACCINE Branch SARS-COV-2 COVID-19 2022-01-17 Completed Unive rsity of MODERNA 0.25ML 00:00:00 [place] Medi rachana BOOSTER VACCINE Branch SARS-COV-2 COVID-19 2022-01-17 Completed Unive rsity of MODERNA 0.25ML 00:00:00 [place] Medi rachana BOOSTER VACCINE Branch SARS-COV-2 COVID-19 2022-01-17 Completed Unive rsity of MODERNA 0.25ML 00:00:00 [place] Medi rachana BOOSTER VACCINE Branch SARS-COV-2 COVID-19 2022-01-17 Completed Unive rsity of MODERNA 0.25ML 00:00:00 [place] Medi rachana BOOSTER VACCINE Branch SARS-COV-2 COVID-19 2022-01-17 Completed Unive rsity of MODERNA 0.25ML 00:00:00 [place] Medi rachana BOOSTER VACCINE Branch SARS-COV-2 COVID-19 2022-01-17 Completed Unive rsity of MODERNA 0.25ML 00:00:00 [place] Medi rachana BOOSTER VACCINE Branch SARS-COV-2 COVID-19 2022-01-17 Completed Unive rsity of MODERNA 0.25ML 00:00:00 [place] Medi rachana BOOSTER VACCINE Branch SARS-COV-2 COVID-19 2022-01-17 Completed Unive rsity of MODERNA 0.25ML 00:00:00 [place] Medi rachana BOOSTER VACCINE Branch SARS-COV-2 COVID-19 2022-01-17 Completed Unive rsity of MODERNA 0.25ML 00:00:00 [place] Medi rachana BOOSTER VACCINE Branch SARS-COV-2 COVID-19 2022-01-17 Completed Unive rsity of MODERNA 0.25ML 00:00:00 [place] Medi rachana BOOSTER VACCINE Branch SARS-COV-2 COVID-19 2022-01-17 Completed Unive rsity of MODERNA 0.25ML 00:00:00 [place] Medi rachana BOOSTER VACCINE Branch SARS-COV-2 COVID-19 2022-01-17 Completed Unive rsity of MODERNA 0.25ML 00:00:00 [place] Medi rachana BOOSTER VACCINE Branch SARS-COV-2 COVID-19 2022-01-17 Completed Unive rsity of MODERNA 0.25ML 00:00:00 [place] Medi rachana BOOSTER VACCINE Branch SARS-COV-2 COVID-19 2022-01-17 Completed Unive rsity of MODERNA 0.25ML 00:00:00 [place] Medi rachana BOOSTER VACCINE Branch SARS-COV-2 COVID-19 2022-01-17 Completed Unive rsity of MODERNA 0.25ML 00:00:00 [place] Medi rachana BOOSTER VACCINE Branch SARS-COV-2 COVID-19 2022-01-17 Completed Unive rsity of MODERNA 0.25ML 00:00:00 [place] Medi rachana BOOSTER VACCINE Branch SARS-COV-2 COVID-19 2022-01-17 Completed Unive rsity of MODERNA 0.25ML 00:00:00 [place] Medi rachana BOOSTER VACCINE Branch SARS-COV-2 COVID-19 2022-01-17 Completed Unive rsity of MODERNA 0.25ML 00:00:00 [place] Medi rachana BOOSTER VACCINE Branch SARS-COV-2 COVID-19 2022-01-17 Completed Unive rsity of MODERNA 0.25ML 00:00:00 [place] Medi rachana BOOSTER VACCINE Branch SARS-COV-2 COVID-19 2022-01-17 Completed Unive rsity of MODERNA 0.25ML 00:00:00 [place] Medi rachana BOOSTER VACCINE Branch SARS-COV-2 COVID-19 2022-01-17 Completed Unive rsity of MODERNA 0.25ML 00:00:00 [place] Medi rachana BOOSTER VACCINE Branch SARS-COV-2 COVID-19 2022-01-17 Completed Unive rsity of MODERNA 0.25ML 00:00:00 [place] Medi rachana BOOSTER VACCINE Branch SARS-COV-2 COVID-19 2022-01-17 Completed Unive rsity of MODERNA 0.25ML 00:00:00 [place] Medi rachana BOOSTER VACCINE Branch SARS-COV-2 COVID-19 2022-01-17 Completed Unive rsity of MODERNA 0.25ML 00:00:00 [place] Medi rachana BOOSTER VACCINE Branch Moderna COVID-19 Moderna COVID-19 2022-01-17 Completed Vaccine Vaccine 00:00:00 SARS-COV-2 COVID-19 2021-06-14 Completed Unive rsity of MODERNA 0.25ML 00:00:00 [place] Medi rachana BOOSTER VACCINE Branch SARS-COV-2 COVID-19 2021-06-14 Completed Unive rsity of MODERNA 0.25ML 00:00:00 [place] Medi rachana BOOSTER VACCINE Branch SARS-COV-2 COVID-19 2021-06-14 Completed Unive rsity of MODERNA 0.25ML 00:00:00 [place] Medi rachana BOOSTER VACCINE Branch SARS-COV-2 COVID-19 2021-06-14 Completed Unive rsity of MODERNA 0.25ML 00:00:00 [place] Medi rachana BOOSTER VACCINE Branch SARS-COV-2 COVID-19 2021-06-14 Completed Unive rsity of MODERNA 0.25ML 00:00:00 [place] Medi rachana BOOSTER VACCINE Branch SARS-COV-2 COVID-19 2021-06-14 Completed Unive rsity of MODERNA 0.25ML 00:00:00 [place] Medi rachana BOOSTER VACCINE Branch SARS-COV-2 COVID-19 2021-06-14 Completed Unive rsity of MODERNA 0.25ML 00:00:00 [place] Medi rachana BOOSTER VACCINE Branch SARS-COV-2 COVID-19 2021-06-14 Completed Unive rsity of MODERNA 0.25ML 00:00:00 [place] Medi rachana BOOSTER VACCINE Branch SARS-COV-2 COVID-19 2021-06-14 Completed Unive rsity of MODERNA 0.25ML 00:00:00 [place] Medi rachana BOOSTER VACCINE Branch SARS-COV-2 COVID-19 2021-06-14 Completed Unive rsity of MODERNA 0.25ML 00:00:00 [place] Medi rachana BOOSTER VACCINE Branch SARS-COV-2 COVID-19 2021-06-14 Completed Unive rsity of MODERNA 0.25ML 00:00:00 [place] Medi rachana BOOSTER VACCINE Branch SARS-COV-2 COVID-19 2021-06-14 Completed Unive rsity of MODERNA 0.25ML 00:00:00 [place] Medi rachana BOOSTER VACCINE Branch SARS-COV-2 COVID-19 2021-06-14 Completed Unive rsity of MODERNA 0.25ML 00:00:00 [place] Medi rachana BOOSTER VACCINE Branch SARS-COV-2 COVID-19 2021-06-14 Completed Unive rsity of MODERNA 0.25ML 00:00:00 [place] Medi rachana BOOSTER VACCINE Branch SARS-COV-2 COVID-19 2021-06-14 Completed Unive rsity of MODERNA 0.25ML 00:00:00 [place] Medi rachana BOOSTER VACCINE Branch SARS-COV-2 COVID-19 2021-06-14 Completed Unive rsity of MODERNA 0.25ML 00:00:00 [place] Medi rachana BOOSTER VACCINE Branch SARS-COV-2 COVID-19 2021-06-14 Completed Unive rsity of MODERNA 0.25ML 00:00:00 [place] Medi rachana BOOSTER VACCINE Branch SARS-COV-2 COVID-19 2021-06-14 Completed Unive rsity of MODERNA 0.25ML 00:00:00 [place] Medi rachana BOOSTER VACCINE Branch SARS-COV-2 COVID-19 2021-06-14 Completed Unive rsity of MODERNA 0.25ML 00:00:00 [place] Medi rachana BOOSTER VACCINE Branch SARS-COV-2 COVID-19 2021-06-14 Completed Unive rsity of MODERNA 0.25ML 00:00:00 [place] Medi rachana BOOSTER VACCINE Branch SARS-COV-2 COVID-19 2021-06-14 Completed Unive rsity of MODERNA 0.25ML 00:00:00 [place] Medi rachana BOOSTER VACCINE Branch SARS-COV-2 COVID-19 2021-06-14 Completed Unive rsity of MODERNA 0.25ML 00:00:00 [place] Medi rachana BOOSTER VACCINE Branch SARS-COV-2 COVID-19 2021-06-14 Completed Unive rsity of MODERNA 0.25ML 00:00:00 [place] Medi rachana BOOSTER VACCINE Branch SARS-COV-2 COVID-19 2021-06-14 Completed Unive rsity of MODERNA 0.25ML 00:00:00 [place] Medi rachana BOOSTER VACCINE Branch SARS-COV-2 COVID-19 2021-06-14 Completed Unive rsity of MODERNA 0.25ML 00:00:00 [place] Medi rachana BOOSTER VACCINE Branch SARS-COV-2 COVID-19 2021-06-14 Completed Unive rsity of MODERNA 0.25ML 00:00:00 [place] Medi rachana BOOSTER VACCINE Branch SARS-COV-2 COVID-19 2021-06-14 Completed Unive rsity of MODERNA 0.25ML 00:00:00 [place] Medi rachana BOOSTER VACCINE Branch SARS-COV-2 COVID-19 2021-06-14 Completed Unive rsity of MODERNA 0.25ML 00:00:00 [place] Medi rachana BOOSTER VACCINE Branch SARS-COV-2 COVID-19 2021-06-14 Completed Unive rsity of MODERNA 0.25ML 00:00:00 [place] Medi rachana BOOSTER VACCINE Branch SARS-COV-2 COVID-19 2021-06-14 Completed Unive rsity of MODERNA 0.25ML 00:00:00 [place] Medi rachana BOOSTER VACCINE Branch SARS-COV-2 COVID-19 2021-06-14 Completed Unive rsity of MODERNA 0.25ML 00:00:00 [place] Medi rachana BOOSTER VACCINE Branch SARS-COV-2 COVID-19 2021-06-14 Completed Unive rsity of MODERNA 0.25ML 00:00:00 [place] Medi rachana BOOSTER VACCINE Branch SARS-COV-2 COVID-19 2021-06-14 Completed Unive rsity of MODERNA 0.25ML 00:00:00 [place] Medi rachana BOOSTER VACCINE Branch SARS-COV-2 COVID-19 2021-06-14 Completed Unive rsity of MODERNA 0.25ML 00:00:00 [place] Medi rachana BOOSTER VACCINE Branch SARS-COV-2 COVID-19 2021-06-14 Completed Unive rsity of MODERNA 0.25ML 00:00:00 [place] Medi rachana BOOSTER VACCINE Branch SARS-COV-2 COVID-19 2021-06-14 Completed Unive rsity of MODERNA 0.25ML 00:00:00 [place] Medi rachana BOOSTER VACCINE Branch SARS-COV-2 COVID-19 2021-06-14 Completed Unive rsity of MODERNA 0.25ML 00:00:00 [place] Medi rachana BOOSTER VACCINE Branch SARS-COV-2 COVID-19 2021-06-14 Completed Unive rsity of MODERNA 0.25ML 00:00:00 [place] Medi rachana BOOSTER VACCINE Branch Moderna COVID-19 Moderna COVID-19 2021-06-14 Completed Vaccine Vaccine 00:00:00 SARS-COV-2 COVID-19 2020-10-17 Completed Unive rsity of MODERNA 12+ YRS 00:00:00 [place] Med ical VACCINE Branch SARS-COV-2 COVID-19 2020-10-17 Completed Unive rsity of MODERNA 12+ YRS 00:00:00 [place] Med ical VACCINE Branch SARS-COV-2 COVID-19 2020-10-17 Completed Unive rsity of MODERNA 12+ YRS 00:00:00 [place] Med ical VACCINE Branch SARS-COV-2 COVID-19 2020-10-17 Completed Unive rsity of MODERNA 12+ YRS 00:00:00 [place] Med ical VACCINE Branch SARS-COV-2 COVID-19 2020-10-17 Completed Unive rsity of MODERNA 12+ YRS 00:00:00 [place] Med ical VACCINE Branch SARS-COV-2 COVID-19 2020-10-17 Completed Unive rsity of MODERNA 12+ YRS 00:00:00 [place] Med ical VACCINE Branch SARS-COV-2 COVID-19 2020-10-17 Completed Unive rsity of MODERNA 12+ YRS 00:00:00 [place] Med ical VACCINE Branch SARS-COV-2 COVID-19 2020-10-17 Completed Unive rsity of MODERNA 12+ YRS 00:00:00 [place] Med ical VACCINE Branch SARS-COV-2 COVID-19 2020-10-17 Completed Unive rsity of MODERNA 12+ YRS 00:00:00 [place] Med ical VACCINE Branch SARS-COV-2 COVID-19 2020-10-17 Completed Unive rsity of MODERNA 12+ YRS 00:00:00 [place] Med ical VACCINE Branch SARS-COV-2 COVID-19 2020-10-17 Completed Unive rsity of MODERNA 12+ YRS 00:00:00 [place] Med ical VACCINE Branch SARS-COV-2 COVID-19 2020-10-17 Completed Unive rsity of MODERNA 12+ YRS 00:00:00 [place] Med ical VACCINE Branch SARS-COV-2 COVID-19 2020-10-17 Completed Unive rsity of MODERNA 12+ YRS 00:00:00 [place] Med ical VACCINE Branch SARS-COV-2 COVID-19 2020-10-17 Completed Unive rsity of MODERNA 12+ YRS 00:00:00 [place] Med ical VACCINE Branch SARS-COV-2 COVID-19 2020-10-17 Completed Unive rsity of MODERNA 12+ YRS 00:00:00 [place] Med ical VACCINE Branch SARS-COV-2 COVID-19 2020-10-17 Completed Unive rsity of MODERNA 12+ YRS 00:00:00 [place] Med ical VACCINE Branch SARS-COV-2 COVID-19 2020-10-17 Completed Unive rsity of MODERNA 12+ YRS 00:00:00 [place] Med ical VACCINE Branch SARS-COV-2 COVID-19 2020-10-17 Completed Unive rsity of MODERNA 12+ YRS 00:00:00 [place] Med ical VACCINE Branch SARS-COV-2 COVID-19 2020-10-17 Completed Unive rsity of MODERNA 12+ YRS 00:00:00 [place] Med ical VACCINE Branch SARS-COV-2 COVID-19 2020-10-17 Completed Unive rsity of MODERNA 12+ YRS 00:00:00 [place] Med ical VACCINE Branch SARS-COV-2 COVID-19 2020-10-17 Completed Unive rsity of MODERNA 12+ YRS 00:00:00 [place] Med ical VACCINE Branch SARS-COV-2 COVID-19 2020-10-17 Completed Unive rsity of MODERNA 12+ YRS 00:00:00 [place] Med ical VACCINE Branch SARS-COV-2 COVID-19 2020-10-17 Completed Unive rsity of MODERNA 12+ YRS 00:00:00 [place] Med ical VACCINE Branch SARS-COV-2 COVID-19 2020-10-17 Completed Unive rsity of MODERNA 12+ YRS 00:00:00 [place] [facility] SARS-COV-2 COVID-19 2020-10-17 Completed [facility] 12+ YRS 00:00:00 [place] [facility] SARS-COV-2 COVID-19 2020-10-17 Completed [facility] 12+ YRS 00:00:00 [place] [facility] SARS-COV-2 COVID-19 2020-10-17 Completed [facility] 12+ YRS 00:00:00 [place] [facility] SARS-COV-2 COVID-19 2020-10-17 Completed [facility] 12+ YRS 00:00:00 [place] [facility] SARS-COV-2 COVID-19 2020-10-17 Completed [facility] 12+ YRS 00:00:00 [place] [facility] SARS-COV-2 COVID-19 2020-10-17 Completed [facility] 12+ YRS 00:00:00 [place] [facility] SARS-COV-2 COVID-19 2020-10-17 Completed [facility] 12+ YRS 00:00:00 [place] [facility] SARS-COV-2 COVID-19 2020-10-17 Completed [facility] 12+ YRS 00:00:00 [place] [facility] SARS-COV-2 COVID-19 2020-10-17 Completed [facility] 12+ YRS 00:00:00 [place] [facility] SARS-COV-2 COVID-19 2020-10-17 Completed [facility] 12+ YRS 00:00:00 [place] [facility] SARS-COV-2 COVID-19 2020-10-17 Completed [facility] 12+ YRS 00:00:00 [place] [facility] SARS-COV-2 COVID-19 2020-10-17 Completed Unive rsity of MODERNA 12+ YRS 00:00:00 [place] [facility] VACCINE [facility] SARS-COV-2 COVID-19 2020-10-17 Completed Unive rsity of MODERNA 12+ YRS 00:00:00 [place] [facility] VACCINE [facility] SARS-COV-2 COVID-19 2020-10-17 Completed Unive rsity of MODERNA 12+ YRS 00:00:00 [place] [facility] VACCINE [facility] Moderna COVID-19 Moderna COVID-19 2020-10-17 Completed Vaccine Vaccine 00:00:00 SARS-COV-2 COVID-19 2020-10-17 Completed Unive rsity of MODER[place] VACCINE 00:00:00 [place] [facility] SARS-COV-2 COVID-19 2020-10-17 Completed Unive rsity of MODERNA VACCINE 00:00:00 [place] [facility] SARS-COV-2 COVID-19 2020-09-19 Completed Unive rsity of MODERNA 12+ YRS 00:00:00 [place] [facility] VACCINE [facility] SARS-COV-2 COVID-19 2020-09-19 Completed Unive rsity of MODERNA 12+ YRS 00:00:00 [place] [facility] VACCINE [facility] SARS-COV-2 COVID-19 2020-09-19 Completed Unive rsity of MODERNA 12+ YRS 00:00:00 [place] [facility] VACCINE [facility] SARS-COV-2 COVID-19 2020-09-19 Completed Unive rsity of MODERNA 12+ YRS 00:00:00 [place] [facility] VACCINE [facility] SARS-COV-2 COVID-19 2020-09-19 Completed Unive rsity of MODERNA 12+ YRS 00:00:00 [place] [facility] VACCINE [facility] SARS-COV-2 COVID-19 2020-09-19 Completed Unive rsity of MODERNA 12+ YRS 00:00:00 [place] [facility] VACCINE [facility] SARS-COV-2 COVID-19 2020-09-19 Completed Unive rsity of MODERNA 12+ YRS 00:00:00 [place] [facility] VACCINE [facility] SARS-COV-2 COVID-19 2020-09-19 Completed Unive rsity of MODERNA 12+ YRS 00:00:00 [place] [facility] VACCINE [facility] SARS-COV-2 COVID-19 2020-09-19 Completed Unive rsity of MODERNA 12+ YRS 00:00:00 [place] [facility] VACCINE [facility] SARS-COV-2 COVID-19 2020-09-19 Completed Unive rsity of MODERNA 12+ YRS 00:00:00 [place] [facility] VACCINE [facility] SARS-COV-2 COVID-19 2020-09-19 Completed Unive rsity of MODERNA 12+ YRS 00:00:00 [place] [facility] VACCINE [facility] SARS-COV-2 COVID-19 2020-09-19 Completed Unive rsity of MODERNA 12+ YRS 00:00:00 [place] [facility] VACCINE [facility] SARS-COV-2 COVID-19 2020-09-19 Completed Unive rsity of MODERNA 12+ YRS 00:00:00 [place] [facility] VACCINE [facility] SARS-COV-2 COVID-19 2020-09-19 Completed Unive rsity of MODERNA 12+ YRS 00:00:00 [place] [facility] VACCINE [facility] SARS-COV-2 COVID-19 2020-09-19 Completed Unive rsity of MODERNA 12+ YRS 00:00:00 [place] [facility] VACCINE [facility] SARS-COV-2 COVID-19 2020-09-19 Completed Unive rsity of MODERNA 12+ YRS 00:00:00 [place] [facility] VACCINE [facility] SARS-COV-2 COVID-19 2020-09-19 Completed Unive rsity of MODERNA 12+ YRS 00:00:00 [place] [facility] VACCINE [facility] SARS-COV-2 COVID-19 2020-09-19 Completed Unive rsity of MODERNA 12+ YRS 00:00:00 [place] [facility] VACCINE [facility] SARS-COV-2 COVID-19 2020-09-19 Completed Unive rsity of MODERNA 12+ YRS 00:00:00 [place] [facility] VACCINE [facility] SARS-COV-2 COVID-19 2020-09-19 Completed Unive rsity of MODERNA 12+ YRS 00:00:00 [place] [facility] VACCINE [facility] SARS-COV-2 COVID-19 2020-09-19 Completed Unive rsity of MODERNA 12+ YRS 00:00:00 [place] [facility] VACCINE [facility] SARS-COV-2 COVID-19 2020-09-19 Completed Unive rsity of MODERNA 12+ YRS 00:00:00 [place] [facility] VACCINE [facility] SARS-COV-2 COVID-19 2020-09-19 Completed Unive rsity of MODERNA 12+ YRS 00:00:00 [place] [facility] VACCINE [facility] SARS-COV-2 COVID-19 2020-09-19 Completed Unive rsity of MODERNA 12+ YRS 00:00:00 [place] [facility] VACCINE Branch SARS-COV-2 COVID-19 2020-09-19 Completed Unive rsity of MODERNA 12+ YRS 00:00:00 [place] [facility] VACCINE [facility] SARS-COV-2 COVID-19 2020-09-19 Completed Unive rsity of MODERNA 12+ YRS 00:00:00 [place] [facility] VACCINE [facility] SARS-COV-2 COVID-19 2020-09-19 Completed Unive rsity of MODERNA 12+ YRS 00:00:00 [place] [facility] VACCINE [facility] SARS-COV-2 COVID-19 2020-09-19 Completed Unive rsity of MODERNA 12+ YRS 00:00:00 [place] [facility] VACCINE [facility] SARS-COV-2 COVID-19 2020-09-19 Completed Unive rsity of MODERNA 12+ YRS 00:00:00 [place] [facility] VACCINE [facility] SARS-COV-2 COVID-19 2020-09-19 Completed Unive rsity of MODERNA 12+ YRS 00:00:00 [place] [facility] VACCINE [facility] SARS-COV-2 COVID-19 2020-09-19 Completed Unive rsity of MODERNA 12+ YRS 00:00:00 [place] [facility] VACCINE [facility] SARS-COV-2 COVID-19 2020-09-19 Completed Unive rsity of MODERNA 12+ YRS 00:00:00 [place] [facility] VACCINE [facility] SARS-COV-2 COVID-19 2020-09-19 Completed Unive rsity of MODERNA 12+ YRS 00:00:00 [place] [facility] VACCINE Branch SARS-COV-2 COVID-19 2020-09-19 Completed Unive rsity of MODERNA 12+ YRS 00:00:00 [place] [facility] VACCINE [facility] SARS-COV-2 COVID-19 2020-09-19 Completed Unive rsity of MODERNA 12+ YRS 00:00:00 [place] [facility] VACCINE [facility] SARS-COV-2 COVID-19 2020-09-19 Completed Unive rsity of MODERNA 12+ YRS 00:00:00 [place] [facility] VACCINE [facility] SARS-COV-2 COVID-19 2020-09-19 Completed Unive rsity of MODERNA 12+ YRS 00:00:00 [place] [facility] VACCINE [facility] SARS-COV-2 COVID-19 2020-09-19 Completed Unive rsity of MODERNA 12+ YRS 00:00:00 [facility] ical VACCINE Branch Moderna COVID-19 Moderna COVID-19 2020-09-19 Completed Vaccine Vaccine 00:00:00 SARS-COV-2 COVID-19 2020-09-19 Completed Unive rsity of [place]ER[place] VACCINE 00:00:00 [facility] ical Branch SARS-COV-2 COVID-19 2020-09-19 Completed Unive rsity of [place] VACCINE 00:00:00 [facility] Vital Signs Vital Name Observation Time Observation Value Comments Source Systolic blood 2022-07-08 21:51:00 129 mm[Hg] Univer sity of pressure [facility] Diastolic blood 2022-07-08 21:51:00 84 mm[Hg] Unive rsity of pressure [facility] Heart rate 2022-07-08 21:51:00 85 /min [facility] Body height 2022-07-08 21:51:00 181.6 cm [facility] Body weight 2022-07-08 21:51:00 107.729 kg [facility] BMI 2022-07-08 21:51:00 32.66 kg/m2 [facility] Oxygen saturation in 2022-07-08 21:51:00 95 /min [facility] Arterial blood by [facility] Pulse oximetry Branch Systolic blood 2022-05-01 20:21:00 126 mm[Hg] Univer sity of pressure [facility] Diastolic blood 2022-05-01 20:21:00 82 mm[Hg] Unive rsity of pressure [facility] Heart rate 2022-05-01 20:21:00 89 /min [facility] Body temperature 2022-05-01 20:21:00 36.94 Penny [facility] [place] [facility] Respiratory rate 2022-05-01 20:21:00 17 /min [facility] [place] [facility] Body height 2022-05-01 20:21:00 181.6 cm [facility] [place] [facility] Body weight 2022-05-01 20:21:00 105.87 kg [facility] [place] [facility] BMI 2022-05-01 20:21:00 32.10 kg/m2 [facility] [place] [facility] Oxygen saturation in 2022-05-01 20:21:00 96 /min ra University of Arterial blood by [facility] rachana Pulse oximetry Branch Systolic blood 2022-04-22 21:22:00 138 mm[Hg] Univer sity of pressure [facility] Diastolic blood 2022-04-22 21:22:00 89 mm[Hg] Unive rsity of pressure [facility] Heart rate 2022-04-22 21:22:00 88 /min [facility] [place] [facility] Body temperature 2022-04-22 21:22:00 36.11 Penny [facility] [place] [facility] Body height 2022-04-22 21:22:00 180.3 cm [facility] [place] [facility] Body weight 2022-04-22 21:22:00 106.323 kg [facility] [place] [facility] BMI 2022-04-22 21:22:00 32.69 kg/m2 [facility] [place] [facility] Oxygen saturation in 2022-04-22 21:22:00 97 /min University of Arterial blood by [facility] Pulse oximetry Branch Body temperature 2022-04-12 21:03:00 36.61 Penny [facility] [place] [facility] Body height 2022-04-12 21:03:00 180.3 cm [facility] [place] [facility] Body weight 2022-04-12 21:03:00 106.867 kg [facility] [place] [facility] BMI 2022-04-12 21:03:00 32.86 kg/m2 [facility] [place] [facility] Systolic blood 2022-03-07 14:36:00 120 mm[Hg] Univer sity of pressure [facility] Diastolic blood 2022-03-07 14:36:00 75 mm[Hg] Unive rsity of pressure [facility] Heart rate 2022-03-07 14:36:00 92 /min [facility] Body temperature 2022-03-07 14:36:00 36.56 Penny Univ ersity of [facility] Body height 2022-03-07 14:36:00 180.3 cm [facility] Body weight 2022-03-07 14:36:00 105.779 kg [facility] BMI 2022-03-07 14:36:00 32.52 kg/m2 [facility] Oxygen saturation in 2022-03-07 14:36:00 96 /min [facility] Arterial blood by [facility] Pulse oximetry Branch Systolic (mm Hg) 2017-07-08 07:35:00 Pete rial [place] Diastolic (mm Hg) 2017-07-08 07:35:00 Mem orial [place] Temperature Oral (F) 2017-07-08 07:35:00 98.5 F [facility] Heart Rate 2017-07-08 07:35:00 [facility] Respitory Rate 2017-07-08 07:35:00 Memori al [place] Heart Rate 2017-07-08 06:34:00 [facility] Systolic (mm Hg) 2017-07-08 06:34:00 Pete rial [place] Diastolic (mm Hg) 2017-07-08 06:34:00 [facility] [place] Respitory Rate 2017-07-08 06:34:00 Memori al [place] Heart Rate 2017-07-08 05:03:00 [facility] Respitory Rate 2017-07-08 05:03:00 Memori al [place] Systolic (mm Hg) 2017-07-08 05:03:00 Pete rial [place] Diastolic (mm Hg) 2017-07-08 05:03:00 Mem orial [place] Weight 2017-07-08 01:43:00 [facility] Temperature Oral (F) 2017-07-08 01:43:00 98.6 F [facility] Respitory Rate 2017-07-04 01:44:00 [facility] [place] Systolic (mm Hg) 2017-07-04 01:44:00 [facility] [place] Diastolic (mm Hg) 2017-07-04 01:44:00 Mem orial [place] Heart Rate 2017-07-04 01:44:00 [facility] Temperature Oral (F) 2017-07-04 01:44:00 98.2 F [facility] Respitory Rate 2017-07-04 00:15:00 Memori al [place] Systolic (mm Hg) 2017-07-04 00:15:00 Pete rial [place] Diastolic (mm Hg) 2017-07-04 00:15:00 Mem orial [place] Heart Rate 2017-07-04 00:15:00 [facility] Temperature Oral (F) 2017-07-04 00:15:00 98.2 F [facility] Weight 2017-07-03 19:59:00 [facility] Respitory Rate 2017-07-03 19:59:00 [facility] [place] Heart Rate 2017-07-03 19:59:00 [facility] [place] Systolic (mm Hg) 2017-07-03 19:59:00 Pete rial [place] Diastolic (mm Hg) 2017-07-03 19:59:00 [facility] [place] Temperature Oral (F) 2017-07-03 19:59:00 98.1 F [facility] Procedures Procedure Date / Time Performing Clinician Source Performed PROSTATIC SPECIFIC 2022-05-01 21:04:00 Cherelle Ralph [facility] CBC WITH DIFF 2022-05-01 21:04:00 Cherelle Ralph [facility] PHYSICIAN CERTIFICATION 2022-05-01 05:01:00 Doctor Unassigned, N o [facility] STATEMENT [facility] POCT HEMOGLOBIN A1C TEST 2022-05-01 00:00:00 Cherelle Ralph [facility] ASSIGNMENT OF BENEFITS 2022-04-12 20:39:16 Doctor Unassigned, No [facility] ALDOSTERONE, SERUM 2020-10-30 16:38:00 Reinaldo Abrams [facility] BASIC METABOLIC PANEL 2020-10-30 16:38:00 Tabatha Bailon [facility] (NA, K, CL, CO2, Medical Branch GLUCOSE, BUN, CREATININE, CA) LIPID PANEL 2020-10-30 16:38:00 Reinaldo Abrams [facility] ([id number])(TOTAL Medical Branch CHOLESTEROL, TRIGLYCERIDES, HDL) GLYCOSYLATED HEMOGLOBIN 2020-10-30 16:38:00 [facility] URINALYSIS 2020-10-30 16:38:00 Tabatha Bailon [facility] URINE CULTURE 2020-10-30 16:38:00 Tabatha Bailon [facility] Catheterization<sup>1</s Keshav Brady up> Surgical biopsy [facility] Plan of Care Planned Activity Planned Date Details Comments Source Future Scheduled 2026-12-12 Screening for University of Test 00:00:00 malignant neoplasm [place] [facility] of colon (procedure) Branch [code = 389237441] Future Scheduled 2026-12-12 Screening for University of Test 00:00:00 malignant neoplasm [place] [facility] of colon (procedure) Branch [code = 550821644] Future Scheduled 2026-12-12 Screening for University of Test 00:00:00 malignant neoplasm [place] [facility] of colon (procedure) Branch [code = 750003987] Future Scheduled 2026-12-12 Screening for University of Test 00:00:00 malignant neoplasm [place] [facility] of colon (procedure) Branch [code = 933637701] Future Scheduled 2022-01-02 COVID-19 Vaccination Uni versity of Test 06:32:45 (#1) [code = [facility] on [facility] (#1)] Future Scheduled 2021-10-30 Creatinine University of Test 00:00:00 measurement [facility] (procedure) [code = Branch 83930657] Future Scheduled 2021-10-30 Depression screening Uni versity of Test 00:00:00 (procedure) [code = [facility] dical 293873810] Branch Future Scheduled 2021-10-30 Diabetic foot University of Test 00:00:00 examination [place] [facility] (regime/therapy) Branch [code = 351697474] Future Scheduled 2021-10-30 Calculated low Universit y of Test 00:00:00 density lipoprotein [facility] dical cholesterol level Branch (procedure) [code = 064296983] Future Scheduled 2021-10-30 Creatinine University of Test 00:00:00 measurement [facility] (procedure) [code = Branch 22482963] Future Scheduled 2021-10-30 Depression screening Uni versity of Test 00:00:00 (procedure) [code = [facility] dical 862291301] Branch Future Scheduled 2021-10-30 Diabetic foot University of Test 00:00:00 examination [place] [facility] (regime/therapy) Branch [code = 819728451] Future Scheduled 2021-10-30 Calculated low Universit y of Test 00:00:00 density lipoprotein [facility] dical cholesterol level Branch (procedure) [code = 577330874] Future Scheduled 2021-05-02 Hemoglobin A1c Universit y of Test 00:00:00 measurement [facility] (procedure) [code = Branch 83201470] Future Scheduled 2021-05-02 Hemoglobin A1c Universit y of Test 00:00:00 measurement [facility] (procedure) [code = Branch 34803146] Future Scheduled 2021-04-18 DTaP,Tdap,and Td Postponed from Unive rsity of Test 00:00:00 Vaccines (1 - Tdap) 1985 [facility] dical [code = (Refused) Branch DTaP,Tdap,and Td Vaccines (1 - Tdap)] Future Scheduled 2021-04-18 PNEUMOCOCCAL 0-64 Postponed from Univ ersity of Test 00:00:00 YEARS COMBINED 1972 [place] [facility] SERIES (1 of 3 - (Refused) Branch PCV13) [code = PNEUMOCOCCAL 0-64 YEARS COMBINED SERIES (1 of 3 - PCV13)] Future Scheduled 2021-04-18 Zoster Recombinant Postponed from Uni versity of Test 00:00:00 Vaccine (SHINGRIX) 2016 [facility] ica (1 of 2) [code = (Refused) Branch Zoster Recombinant Vaccine (SHINGRIX) (1 of 2)] Future Scheduled 2021-04-18 DTaP,Tdap,and Td Postponed from Unive rsity of Test 00:00:00 Vaccines (1 - Tdap) 1985 [facility] dical [code = (Refused) Branch DTaP,Tdap,and Td Vaccines (1 - Tdap)] Future Scheduled 2021-04-18 PNEUMOCOCCAL 0-64 Postponed from Univ ersity of Test 00:00:00 YEARS COMBINED 1971 [place] [facility] SERIES (1 of 3 - (Refused) Branch PCV13) [code = PNEUMOCOCCAL 0-64 YEARS COMBINED SERIES (1 of 3 - PCV13)] Future Scheduled 2021-04-18 Zoster Recombinant Postponed from Uni versity of Test 00:00:00 Vaccine (SHINGRIX) 2016 [place] [facility] (1 of 2) [code = (Refused) Branch Zoster Recombinant Vaccine (SHINGRIX) (1 of 2)] Future Scheduled 2021-04-14 Examination of Universit y of Test 00:00:00 retina (procedure) [place] [facility] [code = 406990108] Branch Future Scheduled 2021-04-14 Examination of Universit y of Test 00:00:00 retina (procedure) [place] [facility] [code = 747561459] Branch Future Scheduled 2021-02-28 INFLUENZA VACCINE Univer sity of Test 00:00:00 (Season Ended) [code [place] [facility] = INFLUENZA VACCINE Branch (Season Ended)] Future Scheduled 2021-02-28 INFLUENZA VACCINE Univer sity of Test 00:00:00 (Season Ended) [code [place] [facility] = INFLUENZA VACCINE Branch (Season Ended)] Future Scheduled 2021-01-17 Microalbumin University of Test 00:00:00 measurement, urine, [facility] dical quantitative Branch (procedure) [code = 344050025] Future Scheduled 2021-01-17 Microalbumin University of Test 00:00:00 measurement, urine, [place] [facility] quantitative [facility] (procedure) [code = 084361462] Future Scheduled 2016 Screening for occult Uni versity of Test 00:00:00 blood in feces [place] [facility] (procedure) [code = Branch 559109348] Future Scheduled 2016 Stool DNA-based Universi ty of Test 00:00:00 colorectal cancer [facility] screening Branch (procedure) [code = 950728817782239] Future Scheduled 2016 Flexible fiberoptic Univ ersity of Test 00:00:00 sigmoidoscopy [place] [facility] (procedure) [code = Branch 48425014] Future Scheduled 2016 Screening for occult Uni versity of Test 00:00:00 blood in feces [place] [facility] (procedure) [code = Branch 050660111] Future Scheduled 2016 Stool DNA-based Universi ty of Test 00:00:00 colorectal cancer [facility] screening Branch (procedure) [code = 759070001996112] Future Scheduled 2016 Flexible fiberoptic Univ ersity of Test 00:00:00 sigmoidoscopy [place] [facility] (procedure) [code = Branch 93917668] Future Scheduled RENIN ACTIVITY [code Uni versity of Test = 2915-7] [facility] Future Scheduled TESTOSTERONE University of Test LC-MS/MS BIO&SHBG [facility] [code = 71821] [place] Encounters Start End Encounter Admission Attending Care Care Encounter Source Date/Time Date/Time Type Type Clinicians Facility Department ID 2021-04-30 Emergency [facility] [id number] Univers 23:42:09 ity [facility] 2021-04-30 Emergency [facility] [id number] Univers 20:51:10 ity [facility] 2021-04-30 Outpatient R HOLLIE [facility] HENNA [id number] Univers 17:55:39 SUSAN [facility] 2021-04-30 Outpatient R HOLLIE [facility] GIE [id number] Univers 15:02:04 [facility] 2021-04-28 Emergency [facility] [id number] Univers [facility] 2022-10-28 Outpatient R DARIUS LEDESMA [facility] [id number] Univers 16:00:00 16:00:00 ity [facility] 2022-09-12 2022-09-12 Outpatient R HUY [facility] [id number] Univers 10:30:00 10:30:00 BREE [facility] 2022-07-26 2022-07-26 Flare Worker Draw, Clc-Bls Lab [facility] 1.2.8 40.114 [id number] Univers 07:45:00 08:00:00 Visit Reinaldo Abrams HEALTH 350.1.13.10 ity of CLEAR 4.2.7.2.686 [facility] [id number] [address] OFFICE BUILDING 2022-07-26 2022-07-26 Outpatient R ALIZA [facility] [id number] Univers 07:45:00 07:45:00 REINALDO ity o f [facility] 2022-07-23 2022-07-23 Telephone Darius Ledesma [facility] 1.2.840.114 [id number] Univers 00:00:00 00:00:00 N HEALTH 350.1.13.10 [place] [id number] [place] [address] Branch OFFICE BUILDING 2022-07-18 2022-07-18 Patient Doctor [facility] 1.2.840.114 [id number] Univers 00:00:00 00:00:00 Secure Msg Unassigned, HEALTH 350.1.13.10 ity [place]2.686 [place] - [id number] [address] 2022-07-17 2022-07-17 Patient Darius Ledesma [facility] 1.2.840.114 [id number] Univers 00:00:00 00:00:00 Secure Msg N HEALTH 350.1.13.10 [place] [id number] [address] OFFICE [facility] 2022-07-17 2022-07-17 Refill Callie Darius [facility] 1.2.840.114 [id number] Univers 00:00:00 00:00:00 N HEALTH 350.1.13.10 [place] [id number] [address] OFFICE BUILDING 2022-07-15 2022-07-15 Telephone Callie Darius [facility] 1.2.840.114 [id number] Univers 00:00:00 00:00:00 N HEALTH 350.1.13.10 [place] [id number] [address] OFFICE BUILDING 2022-07-08 2022-07-08 Office Aliza [facility] 1.2.840.114 [id number] Univers 16:00:00 16:30:00 Visit Reinaldo Bhardwaj HEALTH 350.1.13.10 [place]2.[place] - [phone] [address] 2022-07-08 2022-07-08 Outpatient R ALIZA [facility] [id number] Univers 16:00:00 16:00:00 REINALDO ity o f [facility] 2022-07-08 2022-07-08 Refill Hollie [facility] 1.2.840.114 [id number] Univers 00:00:00 00:00:00 Susan SPECIALTY 350.1.13.10 ity of CARE 4.2.7.2.686 [facility] AT [phone] Nm miroslava GARZON 072 [facility] 2022-07-01 2022-07-01 Telephone Mary [facility] [id number] Univers 00:00:00 [facility]:00:00 [facility] 350.1.13.10 ity of [place] 4.2.7.2.686 [facility] [id number] [place] 076972 [place] OFFICE BUILDING 2022-06-28 2022-06-28 Flare Worker Lab, [facility] 1.2.840.114 [id number] Univers 14:30:00 14:45:00 Visit Reinaldo Abrams SPECIALTY 350.1.13.1 0 ity of CARE 4.2.7.2.686 [facility] AT [id number] Nm hugopatrick ADKINS 353 [facility] 2022-06-28 2022-06-28 Outpatient R ALIZA [facility] [id number] Univers 14:30:00 14:30:00 REINALDO llamas o f [facility] 2022-06-28 2022-06-28 Flare Worker Lab, [facility] 1.2.840.11 [id number] Univers 07:45:00 08:00:00 Visit Reinaldo Abrams HEALTH 350.1.13.10 [place]y of [place] 4.2.7.2.[address] [facility] [id number] [facility] PRIMARY & [address] Branch SPECIALTY CARE 2022-06-28 2022-06-28 Telephone Aliza [facility] [id number] Univers 00:00:00 00:00:00 Reinaldo Bhardwaj HEALTH 350.1.13.10 ity of SPECIALTY 4.2.7.2.686 On license of [facility] [id number] [facility] 220 Branch 2022-06-17 2022-06-17 Patient Darius Ledesma [facility] 1.2.840.114 [id number] Univers 00:00:00 00:00:00 Secure Msg N HEALTH 350.1.13.10 [place] [id number] [place] 892449 Branch OFFICE BUILDING 2022-06-12 2022-06-12 Patient Darius Ledesma [facility] 1.2.840.114 [id number] Univers 00:00:00 00:00:00 Secure Msg N HEALTH 350.1.13.10 [place] [id number] [place] [address] Branch OFFICE BUILDING 2022-06-10 2022-06-10 Telephone LUIS EDUARDO [place] 1.2.840.114 [id number] Univers 00:00:00 00:00:00 Susan Y HEALTH 350.1.13.10 i ty of [place] [id number] [place] 772221 [place] 2022-06-09 2022-06-09 Refill Hollie [facility] 1.2.840.114 [id number] Univers 00:00:00 00:00:00 Susan SPECIALTY 350.1.13.10 [place] [phone] Nm miroslava GARZON 2 [facility] 2022-06-06 2022-06-06 Refill Darius Ledesma [facility] 1.2.840.114 [id number] Univers 00:00:00 00:00:00 N HEALTH 350.1.13.10 [place] [id number] [place] [address] Branch OFFICE BUILDING 2022-05-15 2022-05-15 Refhailee Ralph [facility] 1.2.840.114 [id number] Univers 00:00:00 00:00:00 Peter A HEALTH 350.1.13.10 [place] [facility] [id number] [facility] PRIMARY & [address] Branch SPECIALTY CARE 2022-05-08 2022-05-08 Refhailee Ralph [facility] 1.2.840.114 [id number] Univers 00:00:00 00:00:00 Cherelle Bhardwaj HEALTH 350.1.13.10 it y of [place] 4.2.7.2.[address] [facility] [id number] [facility] PRIMARY & [address] Branch SPECIALTY CARE 2022-05-03 2022-05-03 Telephone Mjlashae [facility] 1.2.840.114 [id number] Univers 00:00:00 00:00:00 Cherelle Bhardwaj HEALTH 350.1.13.10 it y of [place] 4.2.7.2.[address] [facility] [id number] [facility] PRIMARY & [address] SPECIALTY CARE 2022-05-01 2022-05-01 [facility] 1.2.840.114 [id number] Univers 16:00:00 16:20:00 Visit Cherelle Bhardwaj HEALTH 350.1.13.10 it y of [place] 4.2.7.2.[address] 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 [phone] [facility] PRIMARY & [address] SPECIALTY CARE 2022-05-01 2022-05-01 Outpatient R RAMO [facility] [id number] Univers 13:30:00 13:30:00 CHERELLE muriel [facility] 2022-05-01 2022-05-01 Orders Doctor CARLTON 1.2.840.114 [id number] Univers 00:00:00 00:00:00 Only Unassigned, DEIRDRE 350.1.13.10 ity of [place] [facility] 4.2.7.2.686 Lonnie as [phone] [facility] 009 Branch 2022-04-25 2022-04-25 Outpatient R DILLONFAVIOLA [facility] [id number] Univers 13:30:00 13:30:00 BREE ity of [facility] 2022-04-22 2022-04-22 Outpatient R DARIUS LEDESMA [facility] [id number] Univers 16:30:00 17:24:54 ity of [facility] 2022-04-22 2022-04-22 Office Darius Ledesma [facility] 1.2.840.114 [id number] Univers 16:30:00 17:24:54 Visit N HEALTH 350.1.13.10 it [place] of [place].2.[place] [id number] [facility] 059 Branch OFFICE BUILDING 2022-04-15 2022-04-15 Refill Ramo [facility] 1.2.840.114 [id number] Univers 00:00:00 00:00:00 Peter A HEALTH 350.1.13.10 it y of [place] 4.2.7.2.686 [place] [facility] [id number] [facility] PRIMARY & [address] SPECIALTY CARE 2022-04-12 2022-04-12 Outpatient R GORDY [facility] [id number] Univers 16:00:00 16:20:38 LOU ity of [facility] 2022-04-12 2022-04-12 Office [facility] 1.2.888.680 [id number] Univers 16:00:00 16:20:38 Visit Lou PRIMARY 350.1.13.10 ity of [place].2.7.2.686 [place] [id number] Nm dical [address] Branch 2022-04-12 2022-04-12 Orders Doctor BIANKA 1.2.840.114 [id number] Univers 00:00:00 00:00:00 Only Unassigned, DEIRDRE 350.1.13.10 [place] [facility] 4.2.7.2.686 Lonnie as [phone] [facility] 009 Branch 2022-03-12 2022-03-12 Patient Ramo [facility] 1.2.840.114 [id number] Univers 00:00:00 00:00:00 Secure Msg Peter A HEALTH 350.1.13.10 [place] of [place].2.7.2.686 [place] [id number] [facility] PRIMARY & [address] SPECIALTY CARE 2022-03-12 2022-03-12 Refill Ramo [facility] 1.2.840.114 [id number] Univers 00:00:00 00:00:00 Peter Lashae HEALTH 350.1.13.10 it [place] of [place].2.686 [place] [id number] [facility] PRIMARY & [address] SPECIALTY CARE 2022-03-11 2022-03-11 Refill Darius Ledesma [facility] 1.2.840.114 [id number] Univers 00:00:00 00:00:00 N HEALTH 350.1.13.10 it y of [place].2.[place] [phone] [facility] 059 Branch OFFICE BUILDING 2022-03-07 2022-03-07 Flare Worker Draw, Clc-Bls Lab [facility] 1.2.8 40.114 [id number] Univers 11:30:00 11:44:52 Visit DillonfaviolaBree HEALTH 350.1.13.10 ity of [place] [id number] [facility] 353 Branch OFFICE BUILDING 2022-03-07 2022-03-07 Outpatient R HUY [facility] [id number] Univers 11:30:00 11:44:52 BREE ity [facility] 2022-03-07 2022-03-07 Outpatient R HUY [facility] [id number] Univers 11:30:00 11:30:00 BREE ity [facility] 2022-03-07 2022-03-07 Office Zhanna Bowman [facility] 1.2.840.114 [id number] Univers 09:30:00 11:10:55 Visit Huy Bree HEALTH 350.1.13.10 ity of [place] 4.2.7.2.686 [facility] [phone] [facility] MEDICAL 092 Branch OFFICE BUILDING 2022-03-07 2022-03-07 Outpatient R HUY [facility] [id number] Univers 09:30:00 11:10:55 BREE [facility] 2022-03-07 2022-03-07 Outpatient R HUY [facility] [id number] Univers 09:30:00 09:30:00 BREE [facility] 2022-02-11 2022-02-11 Patient Ramo [facility] 1.2.840.114 [id number] Univers 00:00:00 00:00:00 Secure Ms Peter A HEALTH 350.1.13.10 ity of [place] 4.2.7.[address] [place] [address] [id number] [facility] PRIMARY & [address] SPECIALTY CARE 2022-02-08 2022-02-08 Outpatient R MARY [facility] [id number] Univers 08:30:00 08:30:00 NIRAV [facility] 2022-02-01 2022-02-01 Telephone Dwayne [facility] 1.2.840.114 [id number] Univers 00:00:00 00:00:00 HEALTH 350.1.13.10 it y of [place] 4.2.7.2.[address] [facility] [id number] [facility] PRIMARY & [address] SPECIALTY CARE 2022-01-31 2022-01-31 Hospital Brody Patel [facility] 1.2.840.114 [id number] Univers 11:30:00 23:59:00 Encounter HEALTH 350.1.13.10 ity of [place] 4.2.7.2.[address] [facility] [id number] [facility] PRIMARY & 809 Branch SPECIALTY CARE 2022-01-31 2022-01-31 Flare Worker Lab, [facility] 1.2.840.11 [id number] Univers 12:45:00 13:00:00 Visit Brody Patel [facility] 350.1.13.10 ity of [place] 4.2.7.[address] [place] [address] [id number] [facility] PRIMARY & [address] SPECIALTY CARE 2022-01-31 2022-01-31 Outpatient R BRODY PATEL [facility] [id number] Univers 11:30:00 11:56:46 ity of [facility] 2022-01-31 2022-01-31 Office Brody Patel [facility] 1.2.840.114 [id number] Univers 11:30:00 11:56:46 Visit HEALTH 350.1.13.10 it y of [place] 4.2.7.2.[address] [facility] [id number] [facility] PRIMARY & [address] SPECIALTY CARE 2022-01-31 2022-01-31 Outpatient R BRODY PATEL [facility] [id number] Univers 11:30:00 11:56:46 ity of [facility] 2022-01-31 2022-01-31 Orders Doctor BIANKA 1.2.840.114 [id number] Univers 00:00:00 00:00:00 Only Unassigned, DEIRDRE 350.1.13.10 ity of [place] [facility] 4.2.7.[address] [place] [address] [phone] [facility] 009 Branch 2022-01-31 2022-01-31 Telephone Brody Patel [facility] 1.2.840.114 [id number] Univers 00:00:00 00:00:00 HEALTH 350.1.13.10 it y of [place] 4.2.7.2.686 [facility] [id number] [facility] PRIMARY & [address] SPECIALTY CARE 2022-01-28 2022-01-28 [facility] 1.2.840.114 [id number] Univers 00:00:00 00:00:00 Secure Msg on, Chantelle Hassan HEALTH 350.1.13.10 ity of [place] 4.2.7.2.686 [facility] s [place] [id number] [facility] PRIMARY & [address] SPECIALTY CARE 2022-01-22 2022-01-22 [facility] 1.2.840.114 [id number] Univers 09:40:00 10:00:00 Visit onChantelle HEALTH 350.1.13.10 ity of [place] 4.2.7.2.686 [facility] [id number] [facility] PRIMARY & [address] SPECIALTY CARE 2022-01-22 2022-01-22 Outpatient R TREVOR [facility] [id number] Univers 09:40:00 09:40:00 ON, CHANTELLE ity of [facility] 2022-01-22 2022-01-22 [facility] [id number] Univers 09:40:00 09:40:00 ON, CHANTELLE ity of [facility] 2022-01-17 2022-01-17 Imm/Inj Vaccine, Surgery [facility] 1.2.840.114 [id number] Univers 15:20:00 15:30:00 Visit Cherelle Ralph HEALTH 350.1.13.10 ity of [place] 4.2.7.2.[address] [facility] [phone] [facility] PRIMARY & [facility] Branch SPECIALTY CARE 2022-01-17 2022-01-17 Outpatient R RAMO [facility] [id number] Univers 15:20:00 15:20:00 CHERELLE ity of [facility] 2022-01-17 2022-01-17 Outpatient GCCOVIDV GCCOVIDV [id number] GCCOVID 00:00:00 00:00:00 V 2022-01-06 2022-01-06 Refill Darius Ledesma [facility] 1.2.840.114 [id number] Univers 00:00:00 00:00:00 N HEALTH 350.1.13.10 it y of [place] 4.2.7.2.686 [facility] [phone] [place] 892449 Branch OFFICE BUILDING 2022-01-03 2022-01-03 Office [facility] 1.2.840.114 [id number] Univers 16:00:00 16:30:00 Visit Reinaldo Bhardwaj HEALTH 350.1.13.10 ity of SPECIALTY 4.2.7.2.686 On license of [facility] [phone] [facility] 220 Branch 2022-01-03 2022-01-03 Outpatient Mis ABRAMS [facility] [id number] Univers 16:00:00 16:00:00 REINALDO ity o f [facility] 2021-12-27 2021-12-27 Flare Worker Lab, Lonnie [facility] 1.2.840.11 [id number] Univers 07:45:00 08:00:00 Visit Reinaldo Abrams HEALTH 350.1.13.10 ity of [place] 4.2.7.2.[address] [facility] [id number] [facility] PRIMARY & [facility] Branch SPECIALTY CARE 2021-12-27 2021-12-27 Outpatient R ALIZA [facility] [id number] Univers 07:45:00 07:45:00 REINALDO ity o f [facility] 2021-12-21 2021-12-21 [facility] [id number] Univers 16:45:00 16:45:00 BILAL ity [facility] 2021-12-21 2021-12-21 [facility] [id number] Univers 16:45:00 16:45:00 BILAL ity [facility] 2021-12-20 2021-12-20 Telephone [facility] 1.2.092.056 [id number] Univers 00:00:00 00:00:00 [facility] 350.1.13.10 it y of [place] 4.2.7.2.686 [facility] [phone] [address] OFFICE BUILDING 2021-12-04 2021-12-04 Emergency [facility] [id number] Univers 15:56:00 18:45:00 MONISHA [facility] 2021-12-04 2021-12-04 Emergency [facility] 1.2.840.114 [id number] Univers 15:56:00 18:45:[address] [facility] 350.1.13.10 it y of [place] 4.2.7.2.[address] [facility] [phone] [address] ([facility]) 2021-12-03 2021-12-03 Telephone [facility] 1.2.607.235 [id number] Univers 00:00:00 00:00:00 [facility] HEALTH 350.1.13.10 ity of [place] 4.2.7.2.686 [facility] [id number] [address] OFFICE BUILDING 2021-11-29 2021-11-30 Outpatient X JASON MAI [facility] [id number] Univers 12:53:00 14:11:00 JASON MAI ity of [facility] 2021-11-29 2021-11-30 Emergency Ganesh Barbour [facility] 1.2.840 .114 [id number] Univers 12:53:00 14:11:00 Jason Mai HEALTH 350.1.13.10 [place] of [place].2.686 [place] [phone] [address] ([facility]) 2021-11-27 2021-11-27 Chris Browne [facility] 1.2.840.114 [id number] Univers 00:00:00 00:00:00 Susan SPECIALTY 350.1.13.10 ity of [place] 4.2.7.2.686 [place] AT [phone] Nm dical [address] 2021-11-23 2021-11-23 Office Gordy [facility] 1.2.019.980 [id number] Univers 16:30:00 16:30:00 Visit [facility] 350.1.13.10 ity of [place] 4.2.[place].2.686 [place] [facility] [phone] Nm miroslava [address] [place] [address] 2021-11-23 2021-11-23 Outpatient R GORDY [facility] [id number] Univers 16:30:00 16:11:57 LOU ity of [facility] 2021-11-19 2021-11-19 Refhailee Hernandez [facility] 1.2.840.114 [id number] Univers 00:00:00 00:00:00 [facility] 350.1.13.10 ity of [place] 4.2.7.2.686 [place] [phone] [address] OFFICE [facility] 2021-11-07 2021-11-07 Flare Worker Draw, Clc-Bls Lab [facility] 1.2.8 40.114 [id number] Univers 16:30:00 16:45:00 Visit Iban HernandezCritical access hospital 350.1.13.10 [place].2.[place] [id number] [facility] [address] OFFICE BUILDING 2021-11-07 2021-11-07 Outpatient R MARY [facility] [id number] Univers 15:30:00 16:26:16 [facility] ity [facility] 2021-11-07 2021-11-07 Office [facility] 1.2.840.114 [id number] Univers 15:30:00 16:26:16 [facility] 350.1.13.10 it[place] of [place].2.[place] [phone] [facility] [address] OFFICE BUILDING 2021-11-07 2021-11-07 Outpatient R MARY [facility] [id number] Univers 15:30:00 16:26:16 [facility] 2021-11-07 2021-11-07 Refill Darius Ledesma [facility] 1.2.840.114 [id number] Univers 00:00:00 00:00:00 HEALTH 350.1.13.10 it y of [place].2.[place] [phone] [facility] [address] OFFICE BUILDING 2021-10-27 2021-10-27 Flare Worker Vls-Lab [facility] 1.2.840.114 [id number] Univers 15:00:00 15:15:00 Visit Cherelle Ralph SPECIALTY 350.1.13.10 ity of [place] 4.2.7.2.686 [place] AT [phone] Nm miroslava OCEANSIDETenisha [facility] Branch [place] 2021-10-27 2021-10-27 Outpatient R [facility] [id number] Univers 15:00:00 15:00:00 ity [facility] 2021-10-27 2021-10-27 Outpatient R RAMO [facility] [id number] Univers 15:00:00 15:00:00 CHERELLE llamas [facility] 2021-10-25 2021-10-25 Office Franky [facility] 1.2.840.114 [id number] Univers 16:30:00 16:52:59 Visit Bilal HEALTH 350.1.13.10 it [place] of [place].7.2.686 [place] [phone] [facility] PRIMARY & [address] SPECIALTY CARE 2021-10-25 2021-10-25 Outpatient R FRANKY [facility] [id number] Univers 16:30:00 16:52:59 BILAL ity of [facility] 2021-10-25 2021-10-25 Outpatient R FRANKY [facility] [id number] Univers 16:30:00 16:30:00 BILAL ity of [facility] 2021-10-15 2021-10-15 Outpatient R DARIUS LEDESMA [facility] [id number] Univers 16:30:00 16:56:43 ity of [facility] 2021-10-15 2021-10-15 Office Darius Ledesma [facility] 1.2.840.114 [id number] Univers 16:30:00 16:56:43 Visit N HEALTH 350.1.13.10 it y of [place].2.[place] [phone] [place] [address] Branch OFFICE BUILDING 2021-10-15 2021-10-15 Outpatient R DARIUS LEDESMA [facility] [id number] Univers 16:30:00 16:56:43 ity of [facility] 2021-10-08 2021-10-08 Refill Ramo [facility] 1.2.840.114 [id number] Univers 00:00:00 00:00:00 Peter A HEALTH 350.1.13.10 it [place] of [place].7.2.686 [place] [id number] [facility] PRIMARY & [address] SPECIALTY CARE 2021-09-30 2021-09-30 Refill Darius Ledesma [facility] 1.2.840.114 [id number] Univers 00:00:00 00:00:00 N HEALTH 350.1.13.10 it y of [place].2.[place] [phone] [facility] MEDICAL 9 Branch OFFICE BUILDING 2021-09-29 2021-09-29 Refill Aliza [facility] 1.2.840.114 [id number] Univers 00:00:00 00:00:00 Najera A HEALTH 350.1.13.10 ity of [place] 4.[place].7.2.686 [place] [facility] - [phone] [facility] 220 Branch 2021-09-21 2021-09-21 Refill Darius Ledesma [facility] 1.2.840.114 [id number] Univers 00:00:00 00:00:00 N HEALTH 350.1.13.10 it y of [place] 4[place]2.7.2.686 [place] [facility] [id number] [facility] 059 Branch OFFICE BUILDING 2021-09-13 2021-09-13 Outpatient Mis ABRAMS [facility] [id number] Univers 15:30:00 15:30:00 REINALDO llamas o f [facility] 2021-09-03 2021-09-03 Patient Ramo [facility] 1.2.840.114 [id number] Univers 00:00:00 00:00:00 Secure Msg Peter A HEALTH 350.1.13.10 ity of [place] 4.2.7.2.[address] [facility] [id number] [facility] PRIMARY & [address] SPECIALTY CARE 2021-09-03 2021-09-03 Telephone Ramo [facility] 1.2.840.114 [id number] Univers 00:00:00 00:00:00 Peter A HEALTH 350.1.13.10 it y of [place] 4.2.7.2.[address] [facility] [id number] [facility] PRIMARY & [address] SPECIALTY CARE 2021-08-28 2021-08-28 Outpatient Mis ABRAMS [facility] [id number] Univers 16:00:00 16:00:00 REINALDO paigey o f [facility] 2021-08-27 2021-08-27 Flare Worker Lab, [facility] 1.2.840.11 [id number] Univers 12:15:00 12:30:00 Visit Tabatha Bailon HEALTH 350.1.13.10 ity of [place] 4.2.7.2.[address] [facility] [phone] [facility] PRIMARY & [address] SPECIALTY CARE 2021-08-27 2021-08-27 Office Uvaldo [facility] 1.2.840.114 [id number] Univers 11:20:00 11:40:00 Visit Tabatha [employer] 350.1.13.10 i ty of [place] 4.2.7.2.[address] [facility] [phone] [facility] PRIMARY & [address] SPECIALTY CARE 2021-08-27 2021-08-27 Outpatient R UVALDO [facility] [id number] Univers 11:20:00 11:20:00 TABATHA ity o f [facility] 2021-08-27 2021-08-27 Patient Ramo [facility] 1.2.840.114 [id number] Univers 00:00:00 00:00:00 Secure Msg Cherelle Bhardwaj HEALTH 350.1.13.10 ity of [place] 4.2.7.2.[address] [facility] [id number] [facility] PRIMARY & [address] SPECIALTY CARE 2021-08-21 2021-08-21 Flare Worker Draw, Clc-Bls Lab [facility] 1.2.8 40.114 [id number] Univers 16:00:00 16:15:00 Visit Reinaldo Abrams Lashae HEALTH 350.1.13.10 ity [facility] 4.2.7.2.686 [facility] [phone] [place] [address] Branch OFFICE BUILDING 2021-08-21 2021-08-21 Outpatient R ALIZA [facility] [id number] Univers 16:00:00 16:00:00 REINALDO llamas o tasha [facility] 2021-07-30 2021-07-30 Outpatient R DARIUS LEDESMA [facility] [id number] Univers 14:30:00 14:30:00 ity [facility] 2021-07-26 2021-07-26 Outpatient R RAMO [facility] [id number] Univers 16:20:00 16:20:00 CHERELLE llamas [facility] 2021-07-19 2021-07-19 Telephone Darius Ledesma [facility] 1.2.840.114 [id number] Univers 00:00:00 00:00:00 N HEALTH 350.1.13.10 it y of [place] 4.2.7.2.686 [facility] [id number] [facility] MEDICAL 0[address] OFFICE BUILDING 2021-07-13 2021-07-13 Refhailee [facility]on[facility]reel[facility]ae[facility] 1.2.840.114 [id number] Univers 00:00:00 00:00:00 Peter A HEALTH 350.1.13.10 it y of [place] 4.2.7.2.[address] [facility] [id number] [facility] PRIMARY & [address] SPECIALTY CARE 2021-07-09 2021-07-09 Outpatient R DELPHINE [facility] [id number] Univers 15:40:00 15:40:00 JOSE MANUEL ity [facility] 2021-06-29 2021-06-29 [facility] 1.2.840.114 [id number] Univers 00:00:00 00:00:00 on, Chantelle Hassan HEALTH 350.1.13.10 ity of [place] 4.2.7.2.[address] [facility] [id number] [facility] PRIMARY & [address] SPECIALTY CARE 2021-06-28 2021-06-28 [facility] [id number] Univers 09:00:00 09:33:30 BILAL ity [facility] 2021-06-28 2021-06-28 Office [facility] 1.2.840.114 [id number] Univers 09:00:00 09:33:30 Visit [facility] HEALTH 350.1.13.10 it y of [place] 4.2.7.2.[address] [facility] [id number] [facility] PRIMARY & [address] SPECIALTY CARE 2021-06-26 2021-06-26 Outpatient [facility] [id number] Univers 11:00:00 23:59:00 ONCHANTELLEtenisha [facility] 2021-06-26 2021-06-26 [facility] 1.2.840.114 [id number] Univers 11:00:00 23:59:00 Encounter onChantelle HEALTH 350.1.13.10 ity of [place] 4.2.7.2.[address] [facility] [id number] [facility] PRIMARY & [address] SPECIALTY CARE 2021-06-26 2021-06-26 Outpatient R TREVOR [facility] [id number] Univers 10:00:00 11:15:24 ON, CHANTELLE ity of [facility] 2021-06-26 2021-06-26 Office [facility] 1.2.840.114 [id number] Univers 10:00:00 11:15:24 Visit on, Chantelle Hassan HEALTH 350.1.13.10 ity of [place] 4.2.7.2.[address] [facility] [id number] [facility] PRIMARY & [address] SPECIALTY CARE 2021-06-14 2021-06-14 Imm/Inj Vaccine, Surgery [facility] 1.2.840.114 [id number] Univers 15:30:00 15:40:00 Visit Cherelle Ralph HEALTH 350.1.13.10 ity of [place] 4.2.7.2.[address] [facility] [phone] [facility] PRIMARY & [address] SPECIALTY CARE 2021-06-14 2021-06-14 Outpatient R RAMO [facility] [id number] Univers 15:30:00 15:30:00 CHERELLE ity of [facility] 2021-06-14 2021-06-14 Outpatient GCCOVIDV GCCOVIDV [id number] GCCOVID 00:00:00 00:00:00 V 2021-06-04 2021-06-04 Telephone Darius Ledesma [facility] 1.2.840.114 [id number] Univers 00:00:00 00:00:00 N HEALTH [id number] it y of [place] 4.2.7.2.686 [facility] [phone] [facility] MEDICAL [address] OFFICE BUILDING 2021-05-25 2021-05-25 Patient Doctor [facility] 1.2.840.114 [id number] Univers 00:00:00 00:00:00 Secure Msg Unassigned, HEALTH 350.1.13.10 [place] 4[place]2.7.2.686 [place] - [phone] [facility] [address] 2021-05-14 2021-05-14 Outpatient R PAULO CLARK [facility] [id number] Univers 09:30:00 09:30:00 ity of [facility] 2021-05-09 2021-05-09 Refhailee Ralph [facility] 1.2.840.114 [id number] Univers 00:00:00 00:00:00 Peter A HEALTH [id number] it y of [place] 4.2.7.2.[address] [facility] [id number] [facility] PRIMARY & [address] SPECIALTY CARE 2021-05-07 2021-05-07 Patient Darius Ledesma [facility] 1.2.840.114 [id number] Univers 00:00:00 00:00:00 Secure Msg N HEALTH 350.1.13.10 ity of [place] [id number] [facility] [phone] [facility] [address] OFFICE BUILDING 2021-05-04 2021-05-04 Refhailee Ralph [facility] 1.2.840.114 [id number] Univers 00:00:00 00:00:00 Peter A HEALTH [id number] it y of [place] [id number] [facility] [facility] [facility] [phone] [facility] PRIMARY & [address] SPECIALTY CARE 2021-05-03 2021-05-03 Outpatient R TETO [facility] [id number] Univers 15:45:00 15:45:00 RODRI llamas [facility] 2021-05-03 2021-05-03 Office LUIS EDUARDO Irene 1.2.840.114 [id number] Univers 15:26:27 15:41:27 Visit Rodri Swenson HEALTH 350.1.13.10 i ty of CLINICS 4.2.7.2.686 [place] [phone] [place] [address] [address] 2021-05-01 2021-05-01 Office Anita Chavarria [facility] 1.2.840.114 [id number] Univers 16:03:19 16:33:19 Visit MULTISPEC 350.1.13.10 ity of IALTY 4.2.7.2.686 [facility] [id number] [facility] AND ONESIMO [address] DIABETES CLINIC 2021-05-01 2021-05-01 Outpatient Mis CHAVARRIAANITA [facility] [id number] Univers 16:30:00 16:30:00 ity of [facility] 2021-05-01 2021-05-01 Outpatient Mis CHAVARRIAANITA [facility] [id number] Univers 16:30:00 16:30:00 ity [facility] 2021-05-01 2021-05-01 Outpatient Mis CHAVARRIAANITA [facility] [id number] Univers 16:30:00 16:30:00 ity of [facility] 2021-04-30 2021-04-30 Flare Worker Lab, [facility] 1.2.840.11 [id number] Univers 16:11:41 16:26:41 Visit Cherelle Ralph HEALTH 350.1.13.10 ity [facility] 4.2.7.2.[address] [facility] [phone] [facility] PRIMARY & [address] SPECIALTY CARE 2021-04-30 2021-04-30 Office Ramo [facility] 1.2.840.114 [id number] Univers 15:46:43 16:14:18 Visit Cherelle Bhardwaj HEALTH 350.1.13.10 it y [facility] 4.2.7.2.[address] [facility] [phone] [facility] PRIMARY & [address] SPECIALTY CARE 2021-04-30 2021-04-30 Outpatient Mis RALPH [facility] [id number] Univers 15:40:00 16:14:18 CHERELLE llamas [facility] 2021-04-30 2021-04-30 Outpatient Mis RALPH [facility] [id number] Univers 16:00:00 16:00:00 CHERELLE llamas [facility] 2021-04-27 2021-04-27 Office Uvaldo [facility] 1.2.840.114 [id number] Univers 16:20:00 17:00:00 Visit Tabatha [employer] 350.1.13.10 i ty of [place] 4.2.7.2.686 [facility] s CITY [phone] [facility] PRIMARY & [address] SPECIALTY CARE 2021-04-27 2021-04-27 Outpatient Mis BAILON [facility] [id number] Univers 16:20:00 16:20:00 TABATHA cordova [facility] 2021-04-27 2021-04-27 Outpatient R UVALDO [facility] [id number] Univers 16:20:00 16:20:00 TABATHA cordova [facility] 2021-04-27 2021-04-27 Outpatient R UVALDO [facility] [id number] Univers 16:20:00 16:20:00 TABATHA ríos [facility] 2021-04-26 2021-04-26 [facility] 1.2.840.114 [id number] Univers 15:36:27 16:06:27 Visit Najera A HEALTH 350.1.13.10 it[place] of [place].2.686 [place] CARE - [id number] [address] 2021-04-26 2021-04-26 [facility] [id number] Univers 15:30:00 15:30:00 NAJERA ity o [facility] 2021-04-20 2021-04-20 Office [facility] 1.2.955.404 [id number] Univers 15:50:10 16:29:28 Visit Lou PRIMARY 350.1.13.10 ity of A CARE 4.2.7.2.686 Deborah hooper PAVILLION [id number] [address] 2021-04-20 2021-04-20 Outpatient R HUOGBANDAR [facility] [id number] Univers 16:00:00 16:00:00 TABATHA ríos [facility] 2021-04-20 2021-04-20 [facility] [id number] Univers 15:45:00 15:45:00 LOU ity [facility] 2021-04-19 2021-04-19 Telephone [facility] 1.2.979.630 [id number] Univers 00:00:00 00:00:00 Najera A Health 350.1.13.10 it[place] of Specialty 4.[place].7.2.686 [place] [facility] - [phone] [facility] [address] 2021-04-09 2021-04-09 Office [facility] 1.2.840.114 [id number] Univers 15:47:26 17:12:55 Visit [facility] 350.1.13.10 i ty of [place] 4.2.7.2.686 [facility] [phone] [facility] Primary & [address] Specialty Care 2021-04-09 2021-04-09 [facility] [id number] Univers 15:40:00 15:40:00 [facility] ity o f [facility] 2021-04-04 2021-04-04 Refill [facility] 1.2.840.114 [id number] Univers 00:00:00 00:00:00 [place] A HEALTH 350.1.13.10 it y of [place] 4.2.7.2.686 [facility] [phone] [facility] Primary & [address] Specialty Care 2021-04-02 2021-04-02 [facility] 1.2.840.114 [id number] Univers 09:00:00 23:59:00 Encounter N SPECIALTY 350.1.13.10 ity of CARE [place].2.[place].2.[place] AT [phone] Nm dicpatrick [address] 2021-04-02 2021-04-02 [facility] 1.2.840.114 [id number] Univers 07:54:22 08:59:00 Encounter N SPECIALTY 350.1.13.10 it[place] of C[place].2.[place].2.686 [place] AT [phone] [facility] [address] [place] [address] 2021-03-30 2021-03-30 [facility] 1.2.840.114 [id number] Univers 12:30:47 23:59:00 Encounter N SPECIALTY 350.1.13.10 it[place] of C[place] 4.2.7.2.686 [place] [id number] Nm dical VICTORY [address] [place] [address] 2021-03-30 2021-03-30 Hospital [facility] 1.2.840.114 [id number] Univers 12:30:34 23:59:00 Encounter N SPECIALTY 350.1.13.10 ity of C[place] 4.2.[place].2.686 [place] [id number] Nm miroslava GARZON [address] [place] [address] 2021-03-30 2021-03-30 [facility] 1.2.840.114 [id number] Univers 12:00:00 12:07:00 Encounter N SPECIALTY 350.1.13.10 it[place] of C[place] 4.2.[place].2.[place] [id number] Nm miroslava GARZON [address] [place] [address] 2021-03-30 2021-03-30 Outpatient [facility] [id number] Univers 00:00:00 00:00:00 ity of [facility] 2021-03-22 2021-03-22 Office [facility] 1.2.840.114 [id number] Univers 15:22:06 17:36:57 Visit [facility] 350.1.13.10 it y [place] [id number] [address] Office Building 2021-03-22 2021-03-22 Out[facility] [id number] Univers 15:15:00 15:15:00 TOSIN ity of [facility] 2021-03-22 2021-03-22 Telephone [facility] 1.2.840.114 [id number] Univers 00:00:00 00:00:00 N Health 350.1.13.10 [place] [id number] [address] Office Building 2021-03-20 2021-03-20 Patient Callie [facility] 1.2.840.114 [id number] Univers 00:00:00 00:00:00 Secure Msg N Health 350.1.13.10 [place] [phone] [address] Office Building 2021-03-19 2021-03-19 Patient Darius Ledesma [facility] 1.2.840.114 [id number] Univers 00:00:00 00:00:00 Secure Msg N Health 350.1.13.10 [place] [phone] [address] Office Building 2021-03-18 2021-03-18 Emergency X [facility], [facility] ERT [id number] Univers 13:26:00 18:26:00 LIZZIE ity of [facility] 2021-03-18 2021-03-18 Emergency [facility] 1.2.270.019 [id number] Univers 13:26:00 18:26:00 Lizzie G Health 350.1.13.10 i ty [place].686 [place] [phone] [address] ([facility]) 2021-03-14 2021-03-14 Patient Darius Ledesma [facility] 1.2.840.114 [id number] Univers 00:00:00 00:00:00 Secure Msg N Health 350.1.13.10 [place] [id number] [address] Office Building 2021-03-12 2021-03-12 Outpatient R DARIUS LEDESMA [facility] [id number] Univers 16:00:00 16:00:00 ity [facility] 2021-03-12 2021-03-12 Office Darius Ledesma [facility] 1.2.840.114 [id number] Univers 10:02:54 10:50:39 Visit N Health 350.1.13.10 it y [place] [id number] [address] Office Building 2021-03-12 2021-03-12 Outpatient R DARIUS LEDESMA [facility] [id number] Univers 10:00:00 10:00:00 ity [facility] 2021-03-11 2021-03-11 Refill Darius Ledesma [facility] 1.2.840.114 [id number] Univers 00:00:00 00:00:00 N Health 350.1.13.10 [place] [id number] [facility] [address] Office Building 2021-03-09 2021-03-09 Outpatient R HOLLIE [facility] [id number] Univers 15:30:00 15:30:00 SUSAN ity of [facility] 2021-03-09 2021-03-09 Flare Worker Vls-Lab [facility] 1.2.840.114 [id number] Univers 11:30:29 11:45:29 Visit Susan Browne SPECIALTY 350.1.13.10 it[place] of C[place].2.[place].2.686 [place] [id number] Nm miroslava GARZON 353 [facility] 2021-03-09 2021-03-09 Office Hollie [facility] 1.2.840.114 [id number] Univers 10:54:20 11:24:20 Visit Susan SPECIALTY 350.1.13.10 it[place] of C[place] 4.2.[place].2.[place] [phone] Nm miroslava GARZON 072 [facility] 2021-03-08 2021-03-08 Transition Paula Rose 1.2.840.114 [id number] Univers 00:00:00 00:00:00 of Care Mitali Robert Parrish 350.1.13.10 i ty of [place] 4.2.7.2.686 [place] [id number] [facility] [address] 2021-03-06 2021-03-07 Emergency Wagner Oneal [facility] 1.2.840.1 14 [id number] Univers 12:24:00 14:48:00 Abbey Mcdaniel Health 350.1.13.10 [place].686 [place] [facility] [id number] [address] ([facility]) 2021-03-07 2021-03-07 Telephone Paulo Clark [facility] 1.2.840.114 [id number] Univers 00:00:00 00:00:00 W SPECIALTY 350.1.13.10 [place] of [place].2.[place] [id number] [facility] [address] 2021-02-22 2021-02-22 Patient [facility] 1.2.840.114 [id number] Univers 00:00:00 00:00:00 Secure Msg Susan SPECIALTY 350.1.13.10 it[place] of C[place].2.[place].2.[place] [phone] Nm miroslava GARZON 072 [facility] 2021-02-21 2021-02-21 Hospital [facility] 1.2.142.922 [id number] Univers 08:29:00 10:57:00 Encounter Formerly [facility] 350.1.13.10 [place].686 [place] [facility] [phone] [address] ([facility]) 2021-02-21 2021-02-21 Surgery [facility] 1.2.840.114 [id number] Univers 09:45:00 10:15:00 Susan SPECIALTY 350.1.13.10 it[place] of C[place].2.[place] [phone] Nm miroslava GARZON 020 [facility] 2021-02-21 2021-02-21 Orders Doctor BIANKA 1.2.840.114 [id number] Univers 00:00:00 00:00:00 Only Unassigned, DEIRDRE 350.1.13.10 ity of [place] [facility] 4.2.7.2.686 Lonnie [phone] [facility] [address] 2021-02-18 2021-02-18 Outpatient R HOLLIE [facility] [id number] Univers 10:00:00 10:00:00 SUSAN llamas of [facility] 2021-01-25 2021-01-25 Outpatient R UVADLO [facility] [id number] Univers 16:40:00 16:40:00 TABATHA cordova [facility] 2021-01-24 2021-01-24 Office Paulo Clark [facility] 1.2.840.114 [id number] Univers 12:19:44 12:49:44 Visit W PRIMARY 350.1.13.10 it y of CARE 4.2.7.2.686 Deborah [place] [phone] [address] 2021-01-24 2021-01-24 Outpatient R PAULO CLARK [facility] [id number] Univers 12:30:00 [facility] 2021-01-24 2021-01-24 Outpatient R PAULO CLARK [facility] [id number] Univers 12:30:00 12:30:00 [facility] 2021-01-11 2021-01-11 Outpatient R SULTANA [facility] [id number] Univers 15:00:00 15:00:00 ANDERSON [facility] 2020-12-29 2020-12-29 Outpatient R HOLLIE, [facility] [id number] Univers 13:30:00 13:30:00 SUSAN [facility] 2020-12-27 2020-12-27 Outpatient R ANITA CHAVARRIA [facility] [id number] Univers 15:30:00 15:30:00 [facility] 2020-12-25 2020-12-25 Outpatient R ALIZA [facility] [id number] Univers 08:30:00 08:30:00 REINALDO ity o f [facility] 2020-11-30 2020-11-30 Outpatient R RAMO [facility] [id number] Univers 15:00:00 15:00:00 CHERELLE [facility] 2020-11-15 2020-11-15 Outpatient R KAREN [facility] [id number] Univers 15:00:00 15:00:00 [facility] 2020-11-10 2020-11-10 Outpatient R KAREN [facility] [id number] Univers 15:00:00 15:00:00 [facility] 2020-11-10 2020-11-10 Outpatient R KAREN [facility] [id number] Univers 15:00:00 15:00:00 [facility] 2020-11-06 2020-11-06 Outpatient R MARY [facility] [id number] Univers 11:30:00 11:30:00 NIRAV [facility] 2020-10-30 2020-10-30 Outpatient R UVALDO [facility] [id number] Univers 10:00:00 10:00:00 TABATHA ity o f [facility] 2020-10-27 2020-10-27 Outpatient R [facility] [id number] Univers 15:00:00 15:00:00 [facility] 2020-10-18 2020-10-18 Outpatient R DREA PAULO [facility] [id number] Univers 12:00:00 12:00:00 [facility] 2020-10-17 2020-10-17 Outpatient KATHRYN [facility] [id number] Univers 15:20:00 15:20:00 FAVIAN [facility] 2020-10-17 2020-10-17 Outpatient GCCOVIDV GCCOVIDV [id number] GCCOVID 00:00:00 00:00:00 V 2020-10-13 2020-10-13 Outpatient R [facility] [id number] Univers 15:00:00 15:00:00 [facility] 2020-10-06 2020-10-06 Outpatient R MARY [facility] [id number] Univers 11:00:00 11:00:00 NIRAV [facility] 2020-09-29 2020-09-29 Outpatient R [facility] [id number] Univers 08:00:00 08:00:00 [facility] 2020-09-26 2020-09-26 Orders Doctor CARLTON 1.2.840.114 [id number] Univers 00:00:00 00:00:00 Only Unassigned, DEIRDRE 350.1.13.10 ity [place] [facility] 4.2.7.2.686 Lonnie as [id number] [address] 2020-09-22 2020-09-22 Outpatient R ALIZA [facility] [id number] Univers 08:00:00 08:00:00 REINALDO ity o f [facility] 2020-09-19 2020-09-19 Outpatient [facility] [id number] Univers 15:05:00 15:05:00 ity [facility] 2020-09-19 2020-09-19 Outpatient GCCOVIDV GCCOVIDV [id number] GCCOVID 00:00:00 00:00:00 V 2020-09-13 2020-09-13 Outpatient R [facility] [id number] Univers 15:30:00 15:30:00 ity [facility] 2020-09-01 2020-09-01 Outpatient R [facility] [id number] Univers 08:00:00 08:00:00 ity [facility] 2020-08-28 2020-08-28 Outpatient R DARIUS LEDESMA [facility] [id number] Univers 16:00:00 16:00:00 ity [facility] 2020-08-23 2020-08-23 Outpatient R [facility] [id number] Univers 08:00:00 08:00:00 ity [facility] 2020-08-21 2020-08-21 Outpatient R [facility] [id number] Univers 08:00:00 08:00:00 ity [facility] 2020-08-02 2020-08-02 [facility] [id number] Univers 07:30:00 07:30:00 HADLEY it o f [facility] 2020-07-21 2020-07-21 Outpatient [facility] [id number] Univers 16:15:00 16:15:00 [facility] 2020-07-21 2020-07-21 Outpatient R [facility] [id number] Univers 15:30:00 15:30:00 ity [facility] 2020-07-13 2020-07-13 Outpatient R KAREN [facility] [id number] Univers 15:00:00 15:00:00 DEWEY [facility] 2020-07-12 2020-07-12 Outpatient R [facility] [id number] Univers 13:00:00 13:00:00 CHERELLE [facility] 2020 2020 Outpatient R MIGUEL, [facility] [id number] Univers 09:15:00 09:15:00 LEAH ity [facility] 2020-07-07 2020-07-07 Outpatient R MARY, [facility] [id number] Univers 10:00:00 10:00:00 NIRAV ity of [facility] 2020-06-21 2020-06-21 Outpatient R [facility] [id number] Univers 10:00:00 10:00:00 ity of [facility] 2020-06-09 2020-06-09 Outpatient R [facility] [id number] Univers 08:15:00 08:15:00 ity of [facility] 2020-05-24 2020-05-24 Outpatient R CARDONA, [facility] [id number] Univers 09:30:00 09:30:00 CHIPILLO ity o f [facility] 2020-05-19 2020-05-19 [facility] [id number] Univers 08:30:00 08:30:00 NAJERA ity o f [facility] 2020-05-12 2020-05-12 Outpatient R [facility] [id number] Univers 08:00:00 08:00:00 ity [facility] 2020-04-28 2020-04-28 Outpatient R [facility] [id number] Univers 08:15:00 08:15:00 ity [facility] 2020-04-18 2020-04-18 Flare Worker Lab, [facility] 1.2.840.11 [id number] Univers 15:45:00 16:00:00 Visit Cherelle Ralph [facility] 350.1.13.10 [facility] 4.2.7.2.[address] [facility] [id number] [facility] PRIMARY & [address] SPECIALTY CARE 2020-04-18 2020-04-18 Outpatient R RAMO [facility] [id number] Univers 15:20:00 15:20:00 CHERELLE ittenisha [facility] 2020-04-14 2020-04-14 Outpatient R [facility] [id number] Univers 10:30:00 10:30:00 ity [facility] 2020-04-07 2020-04-07 Outpatient R MIGUEL [facility] [id number] Univers 13:00:00 13:00:00 LEAH ity [facility] 2020-03-31 2020-03-31 Outpatient R MARY [facility] [id number] Univers 08:00:00 08:00:00 XIASOWMYA ity [facility] 2020-03-27 2020-03-27 Outpatient R MARY [facility] [id number] Univers 09:00:00 09:00:00 XIANGPING ity [facility] 2020-03-24 2020-03-24 Outpatient R [facility] [id number] Univers 08:00:00 08:00:00 ity [facility] 2020-03-10 2020-03-10 Outpatient R PASCUALANDREZuly [facility] [id number] Univers 14:00:00 14:00:00 [facility] ity [facility] 2020-02-21 2020-02-21 Outpatient R DARIUS LEDESMA [facility] [id number] Univers 15:00:00 15:00:00 ity [facility] 2020-02-21 2020-02-21 Outpatient R MIGUEL [facility] [id number] Univers 14:15:00 14:15:00 [facility] ity [facility] 2020-02-11 2020-02-11 Outpatient R ALIZA [facility] [id number] Univers 08:30:00 08:30:00 NAJERA ity o f [facility] 2020-02-04 2020-02-04 Outpatient R RAMO [facility] [id number] Univers 07:45:58 23:59:00 CHERELLE ity [facility] 2020-02-04 2020-02-04 Outpatient R RAMO [facility] [id number] Univers 00:00:00 00:00:00 CHERELLE ity [facility] 2020-01-31 2020-01-31 Outpatient R ALIZA [facility] [id number] Univers 12:30:00 16:24:08 NAJERA ity o f [facility] 2020-01-18 2020-01-18 Outpatient R [facility] [id number] Univers 08:30:00 08:30:00 ity [facility] 2020-01-17 2020-01-17 Outpatient R RAMO [facility] [id number] Univers 15:00:00 15:00:00 CHERELLE [facility] 2019-11-16 2019-11-16 Outpatient R [facility] [id number] Univers 08:00:00 08:00:00 [facility] 2017-07-08 2017-07-08 [facility] [id number] Memoria 01:21:00 07:37:00 r Jose Antonio 01 l [facility] 2017-07-08 2017-07-08 [facility] [id number] Memoria 01:21:00 07:37:00 r Jose Antonio 01 [facility] 2017-07-07 2017-07-08 Outpatient Charlee [facility] [id number] 19:21:00 01:37:00 Lawanda [place] 2017-07-07 2017-07-08 Outpatient Charlee [facility] [id number] 19:21:00 01:37:00 Lawanda [place] 2017-07-03 2017-07-04 [facility] [id number] Memoria 19:45:00 03:21:00 r Jose Antonio 00 l [facility] 2017-07-03 2017-07-04 [facility] [id number] Memoria 19:45:00 03:21:00 mis Brady 00 l [facility] 2017-07-03 2017-07-03 Outpatient Erika [facility] [id number] 13:45:00 21:21:00 Adrian De Leon 2016-08-02 2016-08-02 Outpatient C [facility] [id number] Medical 06:16:00 06:16:00 [facility] 2006-11-03 2006-11-03 Outpatient [facility] [id number] Univers 00:00:00 14:00:00 2 [facility] 2006-09-10 2006-09-10 Outpatient [facility] [id number] Univers 00:00:00 09:38:00 6 [facility] 2006-09-08 2006-09-08 Outpatient [facility] [id number] Univers 00:00:00 13:14:00 4 [facility] Results Test Description Test Time Test Comments Results Result Comments Source POCT HEMOGLOBIN A1C TEST 2022-05-01 20:37:00 Test Item Value Reference Range Interpretation Comme nts POCT HBA1C (test code = 4548-4) 6.8 % 4-6 A Lab Interpretation (test code = 78629-6) [facility] [id number] 20:37:00 Test Item Value Reference Range Interpretation Comments POCT HBA1C (test code = 4548-4) 6.8 % 4-6 A Lab Interpretation (test code = Abnormal 58176-5) [facility], [id number] 04:30:08 Test Item Value Reference Range Interpretation Comments ALDOST (test code = 6.6 ng/dL INTERPRE TIVE INFORMATION: 1763-2) Aldosterone, Se rum Reference inter vals for age 15 and olde r: Upright ......... 4.0 - 31.0 ng/dL Supine .. ........ Less than or eq ual to 16.0 ng/dL Unsp ecified ..... Less than or equal to 31.0 ng/dL N ormal serum levels of aldosterone are dependent on the sodium i ntake and whether the pat ient is upright or supi ne. High sodium intake w ill tend to suppress ser um aldosterone, wh ereas low sodium intake w ill elevate serum aldosterone. Th e reference inter vals for serum aldostero ne are based on normal sodium intake. Access complete set of age- and /or gender-specific reference intervals for t his test in the [facility] or[facility] Test Directory ([employer]).P erformed By: ALMAZ kaplan[address] [place] [id number] aboratory Director: Windy Porter MD [facility] Center[facility]INE [id number] 17:05:49 Test Item Value Reference Range Interpretation Comments URINE CULTURE (test < 10,000 CFU/mL mixed code = 630-4) aerobic organisms - suggests endogenous microbial contamination [facility] (A[facility]C)2020-10-31 00:08:25 Test Item Value Reference Range Interpretation Comments HGB A1C (test code = 6.9 % 4.0-5.7 H 4548-4) ALON (test code = ALON) Reference RangesNormal: <5.7%Prediabetes: 5.7 - 6.4%Diabetes: > 6.5% Lab Interpretation (test Abnormal code = 39945-7) [facility]13[facility]43 Test Item Value Reference Range Interpretation Comments APPEARANCE (test code = Clear Clear 1462352245) COLOR (test code = Yellow Yellow 2043638502) PH (test code = 6.0 4.8-8.0 2290735541) SP GRAVITY (test code = 1.016 1.003-1.030 1515977616) GLU U QUAL (test code = Normal Normal 1857267632) BLOOD (test code = Negative Negative 8208040640) KETONES (test code = Negative Negative 4373619011) PROTEIN (test code = Negative Negative 2887-8) UROBILIN (test code = Normal Normal 2318905127) BILIRUBIN (test code = Negative Negative 9858147820) NITRITE (test code = Negative Negative 6512476034) LEUK BENNY (test code = Negative Negative 1591656945) RBC/HPF (test code = 1 See_Comment [Autom ated message] 2283475087) The system [employer] generated this result transmitted ref erence range: 0 - 3 HP F. The reference range was not used to int erpret this result as normal/abnormal . WBC/HPF (test code = 1 See_Comment [Autom ated message] 1708257516) The system [employer] generated this result transmitted ref erence range: 0 - 5 HP F. The reference range was not used to int erpret this result as normal/abnormal . BACTERIA (test code = Negative Negative 8080174392) MUCOUS (test code = Slight Negative LPF A 9931039765) SQ EPITH (test code = <1 See_Comment [Auto mated message] 4279291564) The system [employer] generated this result transmitted ref erence range: <=2 HPF. The reference range was not used to int erpret this result as normal/abnormal . Lab Interpretation (test Abnormal code = 81730-2) [facility] METABOLIC PANEL (NA, K, CL, CO2, GLUCOSE, BUN, CREATININE, CA)2020-10-30 22:24:14 Test Item Value Reference Range Interpretation Comments NA (test code = 139 mmol/L 135-145 9297657769) K (test code = 4.1 mmol/L 3.5-5.0 7827172973) CL (test code = 96 mmol/L 98-108 L 9137721522) CO2 TOTAL (test code = 34 mmol/L 23-31 H 8732405347) AGAP (test code = 9 2-16 2264871602) BUN (test code = 14 mg/dL 7-23 7425132176) GLUCOSE (test code = 118 mg/dL 70-110 H 8722690096) CREATININE (test code = 1.05 mg/dL 0.60-1.25 3631677868) CALCIUM (test code = 9.5 mg/dL 8.6-10.6 6940452786) eGFR (test code = 73.6 mL/min/1.73m2 0147796183) ALON (test code = ALON) Association of Glomerular Filtration Rate (GFR) and Staging of Kidney Disease* + --+ --+ ------+| GFR (mL/min/1.73 m2) | With Kidney Damage | Without Kidney Damage+ --------+ --------+ +| >90 | Stage one | Normal + --+ --+ ------+| 60-89 | Stage two | Decreased GFR + --+ --+ ------+| 30-59 | Stage three | Stage three + --+ --+ ------+| 15-29 | Stage four | Stage four + --+ --+ ------+| <15 (or dialysis) | Stage five | Stage five + --+ --+ ------+ *Each stage assumes the associated GFR level has been in effect for at least three months. Stages 1 to 5, with or without kidney disease, indicate chronic kidney disease. Notes: Determination of stages one and two (with eGFR >59mL/min/1.73 m2) requires estimation of kidney damage for at least three months as defined by structural or functional abnormalities of the kidney, manifested by either:Pathological abnormalities or Markers of kidney damage (including abnormalities in the composition of the blood or urine or abnormalities in imaging tests). Lab Interpretation Abnormal (test code = 45958-2) [facility] BranchLIP[facility] PANEL (33516)(TOTAL CHOLESTEROL, TRIGLYCERIDES, HDL)2020-10-30 22:24:14 Test Item Value Reference Range Interpretation Comments CHOL (test code = 167 mg/dL 120-200 7636812793) HDL (test code = 32 mg/dL >40 L 7141574142) HDLC RATIO (test code = 5.2 See_Comment H [Au tomated message] 1044442337) The system [employer] generated this result transmit elo reference range : <=5.0. The refe rence range was not u sed to interpret th is result as normal/abnormal . TRIG (test code = 276 mg/dL 30-170 H 5094076341) LDL CHOL (test code = 80 mg/dL See_Comment [Auto mated message] 02970-3) The system [employer] generated this result transmit elo reference range : <=160. The refe rence range was not u sed to interpret th is result as normal/abnormal . VLDL (test code = 55 mg/dL 5-60 3597373880) Lab Interpretation (test Abnormal code = 09404-0) [facility]2018-01-09 05:03:00 Test Item Value Reference Range Interpretation Comments Sodium Lvl (test code = Sodium Lvl) 136 135-145 [facility]2018-01-09 05:03:00 Test Item Value Reference Range Interpretation Comments eGFR (test code = eGFR) 90 [facility]2018-01-09 05:03:00 Test Item Value Reference Range Interpretation Comments BUN (test code = BUN) 16 7-22 [facility]2018-01-09 05:03:00 Test Item Value Reference Range Interpretation Comments Glucose Lvl (test code = Glucose Lvl) 99 70-99 [facility]inteDjdcyynJNWZHJAKCV1282-50-02 05:03:00 Test Item Value Reference Range Interpretation Comments MPV (test code = MPV) 7.5 7.4-10.4 [facility] PointeCmohabiZHORJNMNFC4009-37-79 05:03:00 Test Item Value Reference Range Interpretation Comments Platelet (test code = Platelet) 296 133-450 [facility]2018-01-09 05:03:00 Test Item Value Reference Range Interpretation Comments Creatinine Lvl (test code = Creatinine 1.10 0.50-1.40 Lvl) [facility]2018-01-09 05:03:00 Test Item Value Reference Range Interpretation Comments Potassium Lvl (test code = Potassium 4.2 3.5-5.1 Lvl) [facility]2018-01-09 05:03:00 Test Item Value Reference Range Interpretation Comments Chloride Lvl (test code = Chloride Lvl) 102 95-109 [facility]2018-01-09 05:03:00 Test Item Value Reference Range Interpretation Comments CO2 (test code = CO2) 27 24-32 [facility]2018-01-09 05:03:00 Test Item Value Reference Range Interpretation Comments Calcium Lvl (test code = Calcium Lvl) 8.9 8.5-10.5 [facility]2018-01-09 05:03:00 Test Item Value Reference Range Interpretation Comments AGAP (test code = AGAP) 11.2 10.0-20.0 [facility] PointeVawytxlDEOTUFHHNB5460-15-21 05:03:00 Test Item Value Reference Range Interpretation Comments MCV (test code = MCV) 80.7 80.0-94.0 [facility]2018-01-09 05:03:00 Test Item Value Reference Range Interpretation Comments Sodium Lvl (test code = Sodium Lvl) 136 135-145 [facility]2018-01-09 05:03:00 Test Item Value Reference Range Interpretation Comments BUN (test code = BUN) 16 7-22 [facility] PointeYrwccenQSJRKHPPOZ5792-59-54 05:03:00 Test Item Value Reference Range Interpretation Comments MCH (test code = MCH) 25.9 pg 27.0-31.0 [facility] PointeYhkumghAHMBUPUMPN2890-26-32 05:03:00 Test Item Value Reference Range Interpretation Comments RDW (test code = RDW) 14.5 11.5-14.5 [facility] PointeWgpguayOWFFKOHRKI1806-70-51 05:03:00 Test Item Value Reference Range Interpretation Comments MCHC (test code = MCHC) 32.0 32.0-36.0 [facility] PointeRarafvfAHZSWDNAVY9972-25-21 05:03:00 Test Item Value Reference Range Interpretation Comments MPV (test code = MPV) 7.5 7.4-10.4 [facility] PointePwwjuogIJEQUNTMWA2339-72-21 05:03:00 Test Item Value Reference Range Interpretation Comments Platelet (test code = Platelet) 296 133-450 [facility] PointeQblevmjHHIPOCAKZH9747-58-39 05:03:00 Test Item Value Reference Range Interpretation Comments RBC (test code = RBC) 5.63 4.70-6.10 [facility] PointeFonqqtqQDCWMSAIQT1378-41-28 05:03:00 Test Item Value Reference Range Interpretation Comments WBC (test code = WBC) 10.5 3.7-10.4 [facility] PointeTdxfaogMGXTDVMXYE8994-92-30 05:03:00 Test Item Value Reference Range Interpretation Comments MCV (test code = MCV) 80.7 80.0-94.0 [facility] PointeFmyjohwVSXQMWBVRK7512-49-87 05:03:00 Test Item Value Reference Range Interpretation Comments Hct (test code = Hct) 45.5 42.0-54.0 [facility] PointeEjphckzYYSCJPBPJK0423-84-68 05:03:00 Test Item Value Reference Range Interpretation Comments MCH (test code = MCH) 25.9 pg 27.0-31.0 [facility] PointeWcdjktlXVEMQBDDUX1622-90-25 05:03:00 Test Item Value Reference Range Interpretation Comments RDW (test code = RDW) 14.5 11.5-14.5 [facility] PointeSpackipCIZOKUGQDN9518-10-02 05:03:00 Test Item Value Reference Range Interpretation Comments Hgb (test code = Hgb) 14.6 14.0-18.0 [facility] PointeFyvggdqSOJCVWCAIH9211-26-24 05:03:00 Test Item Value Reference Range Interpretation Comments Segs-Bands # (test code = Segs-Bands #) 5.5 1.5-8.1 [facility] PointeVgnsngrBALHQHLXVQ4295-19-12 05:03:00 Test Item Value Reference Range Interpretation Comments MCHC (test code = MCHC) 32.0 32.0-36.0 [facility] PointeVpupencCAVUEJXWPN3907-46-38 05:03:00 Test Item Value Reference Range Interpretation Comments Lymphocytes # (test code = Lymphocytes 4.0 1.0-5.5 #) [facility] PointeGcsvxyaTYINZHAUGU8421-01-90 05:03:00 Test Item Value Reference Range Interpretation Comments RBC (test code = RBC) 5.63 4.70-6.10 [facility] PointeJcoakurGTOXUHXUUK7048-16-32 05:03:00 Test Item Value Reference Range Interpretation Comments Monocytes # (test code 0.8 See_Comment [Aut omated message] The = Monocytes #) system which generated this result tra nsmitted reference range : <=0.8. The reference r rossi was not used to int erpret this result as normal/abnormal . [facility] PointeRvdoxdiCQEQYIJDYS8218-50-93 05:03:00 Test Item Value Reference Range Interpretation Comments WBC (test code = WBC) 10.5 3.7-10.4 [facility] PointeOgcwbsgWRYTKVXRUX4745-71-77 05:03:00 Test Item Value Reference Range Interpretation Comments Hct (test code = Hct) 45.5 42.0-54.0 [facility] PointeMkuuqkmKNJCDJUFBM7823-75-07 05:03:00 Test Item Value Reference Range Interpretation Comments Eosinophils # (test code 0.2 See_Comment [A utomated message] The = Eosinophils #) system whic h generated this result tra nsmitted reference range : <=0.5. The reference r rossi was not used to int erpret this result as normal/abnormal . [facility] PointeEtvnrwbMMWISJMLLI0058-79-40 05:03:00 Test Item Value Reference Range Interpretation Comments Hgb (test code = Hgb) 14.6 14.0-18.0 [facility] PointeXgtsrtnEPNPGNFVHS3551-37-17 05:03:00 Test Item Value Reference Range Interpretation Comments Basophils # (test code 0.1 See_Comment [Aut omated message] The = Basophils #) system which generated this result tra nsmitted reference range : <=0.2. The reference r rossi was not used to int erpret this result as normal/abnormal . [facility] PointeJwmimtlIBERKPYTOT2931-48-39 05:03:00 Test Item Value Reference Range Interpretation Comments Segs-Bands # (test code = Segs-Bands #) 5.5 1.5-8.1 [facility] PointeUeuejkmJLFXJKQMNB6214-75-27 05:03:00 Test Item Value Reference Range Interpretation Comments Lymphocytes (test code = Lymphocytes) 38.3 20.0-40.0 [facility] PointeYanqdntZCECKLKSPE0123-34-88 05:03:00 Test Item Value Reference Range Interpretation Comments Lymphocytes # (test code = Lymphocytes 4.0 1.0-5.5 #) [facility] PointeWrgywycSOCXHJTRBZ5546-90-61 05:03:00 Test Item Value Reference Range Interpretation Comments Basophils (test code = 0.6 See_Comment [Aut omated message] The Basophils) system which ge nerated this result tra nsmitted reference range : <=1.0. The reference r rossi was not used to int erpret this result as normal/abnormal . [facility] PointeDfuhkauPUIDEREQZD9897-49-83 05:03:00 Test Item Value Reference Range Interpretation Comments Monocytes # (test code 0.8 See_Comment [Aut omated message] The = Monocytes #) system which generated this result tra nsmitted reference range : <=0.8. The reference r rossi was not used to int erpret this result as normal/abnormal . [facility] PointeBdixkiqPNVUFRKRZM0474-77-45 05:03:00 Test Item Value Reference Range Interpretation Comments Segs (test code = Segs) 52.1 45.0-75.0 [facility] PointePpljhzjUMEVISBOEF6994-09-51 05:03:00 Test Item Value Reference Range Interpretation Comments Eosinophils # (test code 0.2 See_Comment [A utomated message] The = Eosinophils #) system whic h generated this result tra nsmitted reference range : <=0.5. The reference r rossi was not used to int erpret this result as normal/abnormal . [facility] PointeCdvglqzHGPUPCQPBH7438-62-23 05:03:00 Test Item Value Reference Range Interpretation Comments Monocytes (test code = Monocytes) 7.5 2.0-12.0 [facility] PointeFtuwqohVYVITSFCHB1040-95-61 05:03:00 Test Item Value Reference Range Interpretation Comments Basophils # (test code 0.1 See_Comment [Aut omated message] The = Basophils #) system which generated this result tra nsmitted reference range : <=0.2. The reference r rossi was not used to int erpret this result as normal/abnormal . [facility] PointeTfujumtQSYOGBBSDA6471-42-76 05:03:00 Test Item Value Reference Range Interpretation Comments Eosinophils (test code = 1.5 See_Comment [A utomated message] The Eosinophils) system which ge nerated this result tra nsmitted reference range : <=4.0. The reference r rossi was not used to int erpret this result as normal/abnormal . [facility] PointeBjqafxfYFBHNJCVMA8364-75-98 05:03:00 Test Item Value Reference Range Interpretation Comments Lymphocytes (test code = Lymphocytes) 38.3 20.0-40.0 [facility] PointeOuzspsqIALAICAPTZ6595-50-84 05:03:00 Test Item Value Reference Range Interpretation Comments Basophils (test code = 0.6 See_Comment [Aut omated message] The Basophils) system which ge nerated this result tra nsmitted reference range : <=1.0. The reference r rossi was not used to int erpret this result as normal/abnormal . [facility] DjzczpwSWSNVPYBNA3115-74-09 05:03:00 Test Item Value Reference Range Interpretation Comments Segs (test code = Segs) 52.1 45.0-75.[address] [facility] HospitalDxrbgvfLKFMFCIUTU3890-27-91 05:03:00 Test Item Value Reference Range Interpretation Comments Monocytes (test code = Monocytes) 7.5 2.0-12.[address] [facility] HospitalCftvlfoYYLCMAMFHM0711-14-99 05:03:00 Test Item Value Reference Range Interpretation Comments Eosinophils (test code = 1.5 See_Comment [A utomated message] The Eosinophils) system which ge nerated this result tra nsmitted reference range : <=4.0. The reference r rossi was not used to int erpret this result as normal/abnormal . [facility]09 05:03:00 Test Item Value Reference Range Interpretation Comments CK MB Index (test 0.5 1 See_Comment [Automate d message] The code = CK MB Index) system w [facility] generated this result transmit elo reference range : <=2.5. The reference range was not used to interpr et this result as chantelle l/abnormal. [facility]-09 05:03:00 Test Item Value Reference Range Interpretation Comments Troponin-I (test code no gt See_Comment [Auto mated message] The = Troponin-I) system which g enerated this result transmit elo reference range : <=0.40. The reference r rossi was not used to interpr et this result as chantelle l/abnormal. [facility]09 05:03:00 Test Item Value Reference Range Interpretation Comments Total CK (test code = Total CK) 1180 12-[address] [facility]2018-01-09 05:03:00 Test Item Value Reference Range Interpretation Comments CK MB (test code = CK MB) 6.3 0.5-3.6 [facility] [employer] CGHKP8953-84-81 05:03:00 Test Item Value Reference Range Interpretation Comments eGFR (test code = eGFR) 90 [facility] [employer] TSZQB9913-37-77 05:03:00 Test Item Value Reference Range Interpretation Comments Glucose Lvl (test code = Glucose Lvl) 99 70-99 [facility]2018-01-09 05:03:00 Test Item Value Reference Range Interpretation Comments Creatinine Lvl (test code = Creatinine 1.10 0.50-1.40 Lvl) [facility]2018-01-09 05:03:00 Test Item Value Reference Range Interpretation Comments Potassium Lvl (test code = Potassium 4.2 3.5-5.1 Lvl) [facility]2018-01-09 05:03:00 Test Item Value Reference Range Interpretation Comments Chloride Lvl (test code = Chloride Lvl) 102 95-109 [facility]2018-01-09 05:03:00 Test Item Value Reference Range Interpretation Comments CO2 (test code = CO2) 27 24-32 [facility]2018-01-09 05:03:00 Test Item Value Reference Range Interpretation Comments Calcium Lvl (test code = Calcium Lvl) 8.9 8.5-10.5 [facility]2018-01-09 05:03:00 Test Item Value Reference Range Interpretation Comments AGAP (test code = AGAP) 11.2 10.0-20.0 [facility]2018-01-09 05:03:00 Test Item Value Reference Range Interpretation Comments Sodium Lvl (test code = Sodium Lvl) 136 135-145 [facility]2018-01-09 05:03:00 Test Item Value Reference Range Interpretation Comments BUN (test code = BUN) 16 7-22 [facility] PointeAhcwlggXTMWYVCTXF7251-14-04 05:03:00 Test Item Value Reference Range Interpretation Comments MPV (test code = MPV) 7.5 7.4-10.4 [facility] PointeOtqjvnuKOGNNEQSTP6745-54-65 05:03:00 Test Item Value Reference Range Interpretation Comments Platelet (test code = Platelet) 296 133-450 [facility] PointeKdvyanhTWSCCQOLRY9853-97-55 05:03:00 Test Item Value Reference Range Interpretation Comments MCV (test code = MCV) 80.7 80.0-94.0 [facility] PointeOueaxjwLOWMHDCAQS7005-14-88 05:03:00 Test Item Value Reference Range Interpretation Comments MCH (test code = MCH) 25.9 pg 27.0-31.0 [facility] PointeRwdrwzjYGBCOYJRYC8375-11-94 05:03:00 Test Item Value Reference Range Interpretation Comments RDW (test code = RDW) 14.5 11.5-14.5 [facility] PointeGpvwogeTHSGSKCXRZ7808-52-66 05:03:00 Test Item Value Reference Range Interpretation Comments MCHC (test code = MCHC) 32.0 32.0-36.0 [facility] PointeVlzwilpEWLNXMQCAR3811-40-90 05:03:00 Test Item Value Reference Range Interpretation Comments RBC (test code = RBC) 5.63 4.70-6.10 [facility] PointeYyewixnMRFBGKIXQA8142-87-70 05:03:00 Test Item Value Reference Range Interpretation Comments WBC (test code = WBC) 10.5 3.7-10.4 [facility] PointeDmzwnevOGORHELBSL1263-89-29 05:03:00 Test Item Value Reference Range Interpretation Comments Hct (test code = Hct) 45.5 42.0-54.0 [facility] PointeYugogmrDTLUHHIQXF8842-80-30 05:03:00 Test Item Value Reference Range Interpretation Comments Hgb (test code = Hgb) 14.6 14.0-18.0 [facility] PointeVzmdujmBSAVPPPQGV8478-90-08 05:03:00 Test Item Value Reference Range Interpretation Comments Segs-Bands # (test code = Segs-Bands #) 5.5 1.5-8.1 [facility] PointeKjfirzxYOWCLQQDVK6040-27-42 05:03:00 Test Item Value Reference Range Interpretation Comments Lymphocytes # (test code = Lymphocytes 4.0 1.0-5.5 #) [facility] PointeSighcafUUUIFENXCR2727-72-85 05:03:00 Test Item Value Reference Range Interpretation Comments Monocytes # (test code 0.8 See_Comment [Aut omated message] The = Monocytes #) system which generated this result tra nsmitted reference range : <=0.8. The reference r rossi was not used to int erpret this result as normal/abnormal . [facility] PointeIfyfavgRMPLJOCKEM3592-98-82 05:03:00 Test Item Value Reference Range Interpretation Comments Eosinophils # (test code 0.2 See_Comment [A utomated message] The = Eosinophils #) system whic h generated this result tra nsmitted reference range : <=0.5. The reference r rossi was not used to int erpret this result as normal/abnormal . [facility] PointeQhaoowoBYEAJWFNOT5463-40-99 05:03:00 Test Item Value Reference Range Interpretation Comments Basophils # (test code 0.1 See_Comment [Aut omated message] The = Basophils #) system which generated this result tra nsmitted reference range : <=0.2. The reference r rossi was not used to int erpret this result as normal/abnormal . [facility]BgnzturMIWXKYXOHU0054-32-81 05:03:00 Test Item Value Reference Range Interpretation Comments Lymphocytes (test code = Lymphocytes) 38.3 20.0-40.0 [facility] VRTPJCW4671-07-57 05:03:00 Test Item Value Reference Range Interpretation Comments CK MB Index (test 0.5 1 See_Comment [Automate d message] The code = CK MB Index) system w [facility] generated this result transmit elo reference range : <=2.5. The reference range was not used to interpr et this result as chantelle l/abnormal. [facility] PointeCreizimTSDYQDUAIQ8984-56-03 05:03:00 Test Item Value Reference Range Interpretation Comments Basophils (test code = 0.6 See_Comment [Aut omated message] The Basophils) system which ge nerated this result tra nsmitted reference range : <=1.0. The reference r rossi was not used to int erpret this result as normal/abnormal . [facility] PointeHpwajmqGKTUQZGRZF2507-35-85 05:03:00 Test Item Value Reference Range Interpretation Comments Segs (test code = Segs) 52.1 45.0-75.0 [facility] HospitalTrkcbmdJYNGBDWIJO7220-74-04 05:03:00 Test Item Value Reference Range Interpretation Comments Monocytes (test code = Monocytes) 7.5 2.0-12.0 [facility] HospitalOyxaeuyBBIMZASUBF1606-85-59 05:03:00 Test Item Value Reference Range Interpretation Comments Eosinophils (test code = 1.5 See_Comment [A utomated message] The Eosinophils) system which ge nerated this result tra nsmitted reference range : <=4.0. The reference r rossi was not used to int erpret this result as normal/abnormal . [facility] HARLXJY3888-11-82 05:03:00 Test Item Value Reference Range Interpretation Comments Troponin-I (test code no gt See_Comment [Auto mated message] The = Troponin-I) system which g enerated this result transmit elo reference range : <=0.40. The reference r rossi was not used to interpr et this result as chantelle l/abnormal. [facility] Product[employer] CUHUMUU9196-03-87 05:03:00 Test Item Value Reference Range Interpretation Comments CK MB Index (test 0.5 1 See_Comment [Automate d message] The code = CK MB Index) system w [facility] generated this result transmit elo reference range : <=2.5. The reference range was not used to interpr et this result as chantelle l/abnormal. [facility] [employer] ZUGCGXM3072-64-14 05:03:00 Test Item Value Reference Range Interpretation Comments Troponin-I (test code no gt See_Comment [Auto mated message] The = Troponin-I) system which g enerated this result transmit elo reference range : <=0.40. The reference r rossi was not used to interpr et this result as chantelle l/abnormal. [facility] [employer]2018-01-09 05:03:00 Test Item Value Reference Range Interpretation Comments Total CK (test code = Total CK) 1180 12-191 [facility] [employer] [id number] 05:03:00 Test Item Value Reference Range Interpretation Comments CK MB (test code = CK MB) 6.3 0.5-3.6 [facility] [employer]2018-01-09 05:03:00 Test Item Value Reference Range Interpretation Comments Total CK (test code = Total CK) 1180 12-191 [facility] [id number] 05:03:00 Test Item Value Reference Range Interpretation Comments eGFR (test code = eGFR) 90 [facility] [employer] [id number] 05:03:00 Test Item Value Reference Range Interpretation Comments Glucose Lvl (test code = Glucose Lvl) 99 70-99 [facility] [id number] 05:03:00 Test Item Value Reference Range Interpretation Comments Creatinine Lvl (test code = Creatinine 1.10 0.50-1.40 Lvl) [facility] [employer] [id number] 05:03:00 Test Item Value Reference Range Interpretation Comments Potassium Lvl (test code = Potassium 4.2 3.5-5.1 Lvl) [facility] [employer]2018-01-09 05:03:00 Test Item Value Reference Range Interpretation Comments Chloride Lvl (test code = Chloride Lvl) 102 95-[address] [facility] [id number] 05:03:00 Test Item Value Reference Range Interpretation Comments CK MB (test code = CK MB) 6.3 0.5-3.6 [facility] StationCHEM [id number] 05:03:00 Test Item Value Reference Range Interpretation Comments CO2 (test code = CO2) 27 24-32 [facility] [id number] 05:03:00 Test Item Value Reference Range Interpretation Comments eGFR (test code = eGFR) 90 [facility] [id number] 05:03:00 Test Item Value Reference Range Interpretation Comments Calcium Lvl (test code = Calcium Lvl) 8.9 8.5-10.5 [facility] [id number] 05:03:00 Test Item Value Reference Range Interpretation Comments AGAP (test code = AGAP) 11.2 10.0-20.0 [facility] [id number] 05:03:00 Test Item Value Reference Range Interpretation Comments Sodium Lvl (test code = Sodium Lvl) 136 135-145 [facility] [id number] 05:03:00 Test Item Value Reference Range Interpretation Comments BUN (test code = BUN) 16 7-22 [facility] HospitalUikzpmfTTXNEJEBWX8202-84-97 05:03:00 Test Item Value Reference Range Interpretation Comments MPV (test code = MPV) 7.5 7.4-10.4 [facility] [id number] 05:03:00 Test Item Value Reference Range Interpretation Comments Glucose Lvl (test code = Glucose Lvl) 99 70-99 [facility] HospitalWwwmavzIRFOFLSWWF5027-28-35 05:03:00 Test Item Value Reference Range Interpretation Comments Platelet (test code = Platelet) 296 133-450 [facility] HospitalTtrnlgzVTNLSGDTIP3477-60-86 05:03:00 Test Item Value Reference Range Interpretation Comments MCV (test code = MCV) 80.7 80.0-94.0 [facility] HospitalPbmirgmGXXFSPWBAE2709-17-93 05:03:00 Test Item Value Reference Range Interpretation Comments MCH (test code = MCH) 25.9 pg 27.0-31.0 [facility]2018-01-09 05:03:00 Test Item Value Reference Range Interpretation Comments Creatinine Lvl (test code = Creatinine 1.10 0.50-1.40 Lvl) [facility] PointeVjxvlblBKMVLQIXGD7900-02-78 05:03:00 Test Item Value Reference Range Interpretation Comments RDW (test code = RDW) 14.5 11.5-14.5 [facility] PointeRhvvytmJNJRGVDXAW8679-76-14 05:03:00 Test Item Value Reference Range Interpretation Comments MCHC (test code = MCHC) 32.0 32.0-36.0 [facility] PointeUgopkdwDOCFSKEIWS8032-15-50 05:03:00 Test Item Value Reference Range Interpretation Comments RBC (test code = RBC) 5.63 4.70-6.10 [facility]2018-01-09 05:03:00 Test Item Value Reference Range Interpretation Comments Potassium Lvl (test code = Potassium 4.2 3.5-5.1 Lvl) [facility] PointeAfxrodlTDXOPNCPTC8344-61-27 05:03:00 Test Item Value Reference Range Interpretation Comments WBC (test code = WBC) 10.5 3.7-10.4 [facility] PointeUhwbzwbXPQTIYWLGC3761-34-55 05:03:00 Test Item Value Reference Range Interpretation Comments Hct (test code = Hct) 45.5 42.0-54.0 [facility] PointeRyfiwjfABMFDXAZIB6267-10-47 05:03:00 Test Item Value Reference Range Interpretation Comments Hgb (test code = Hgb) 14.6 14.0-18.0 [facility]2018-01-09 05:03:00 Test Item Value Reference Range Interpretation Comments Chloride Lvl (test code = Chloride Lvl) 102 95-109 [facility] PointeLpivexeVQZXMJBLLX8484-71-66 05:03:00 Test Item Value Reference Range Interpretation Comments Segs-Bands # (test code = Segs-Bands #) 5.5 1.5-8.1 [facility] PointeCgggwbhUWDDYLCGTU7967-75-03 05:03:00 Test Item Value Reference Range Interpretation Comments Lymphocytes # (test code = Lymphocytes 4.0 1.0-5.5 #) [facility] PointePoejccbYEWPJYALYK2890-31-95 05:03:00 Test Item Value Reference Range Interpretation Comments Monocytes # (test code 0.8 See_Comment [Aut omated message] The = Monocytes #) system which generated this result tra nsmitted reference range : <=0.8. The reference r rossi was not used to int erpret this result as normal/abnormal . [facility] PointeHnbkahfCSYZLPMRXV3546-04-72 05:03:00 Test Item Value Reference Range Interpretation Comments Eosinophils # (test code 0.2 See_Comment [A utomated message] The = Eosinophils #) system whic h generated this result tra nsmitted reference range : <=0.5. The reference r rossi was not used to int erpret this result as normal/abnormal . [facility] StationSweetLabs [id number] 05:03:00 Test Item Value Reference Range Interpretation Comments CO2 (test code = CO2) 27 24-32 [facility] PointeZqswvgqPLQVQAPQUK2595-26-61 05:03:00 Test Item Value Reference Range Interpretation Comments Basophils # (test code 0.1 See_Comment [Aut omated message] The = Basophils #) system which generated this result tra nsmitted reference range : <=0.2. The reference r rossi was not used to int erpret this result as normal/abnormal . [facility] PointeGiisywiQHEXOYQHMT2297-29-36 05:03:00 Test Item Value Reference Range Interpretation Comments Lymphocytes (test code = Lymphocytes) 38.3 20.0-40.0 [facility] PointeCiszvfqRQXOTDWVRQ5145-96-65 05:03:00 Test Item Value Reference Range Interpretation Comments Basophils (test code = 0.6 See_Comment [Aut omated message] The Basophils) system which ge nerated this result tra nsmitted reference range : <=1.0. The reference r rossi was not used to int erpret this result as normal/abnormal . [facility] PointeOvvhujxXCALOQFYLO1715-79-41 05:03:00 Test Item Value Reference Range Interpretation Comments Segs (test code = Segs) 52.1 45.0-75.0 [facility] StationSweetLabs [id number] 05:03:00 Test Item Value Reference Range Interpretation Comments Calcium Lvl (test code = Calcium Lvl) 8.9 8.5-10.5 [facility] PointeTudegqnHGTQSVTSHS5302-79-50 05:03:00 Test Item Value Reference Range Interpretation Comments Monocytes (test code = Monocytes) 7.5 2.0-12.0 [facility] PointePsrhovaQTVNKGQNFM3160-81-29 05:03:00 Test Item Value Reference Range Interpretation Comments Eosinophils (test code = 1.5 See_Comment [A utomated message] The Eosinophils) system which ge nerated this result tra nsmitted reference range : <=4.0. The reference r rossi was not used to int erpret this result as normal/abnormal . [facility]2018-01-09 05:03:00 Test Item Value Reference Range Interpretation Comments AGAP (test code = AGAP) 11.2 10.0-20.0 [facility]2018-01-09 05:03:00 Test Item Value Reference Range Interpretation Comments Sodium Lvl (test code = Sodium Lvl) 136 135-145 [facility]2018-01-09 05:03:00 Test Item Value Reference Range Interpretation Comments BUN (test code = BUN) 16 7-22 [facility] PointeOpddyfxJBDUEPVTGN9887-32-77 05:03:00 Test Item Value Reference Range Interpretation Comments MPV (test code = MPV) 7.5 7.4-10.4 [facility] PointeOuihprtRDDXWDRPMC0981-58-26 05:03:00 Test Item Value Reference Range Interpretation Comments Platelet (test code = Platelet) 296 133-450 [facility] PointeEgapfhjQKGWZPMCDC8153-13-61 05:03:00 Test Item Value Reference Range Interpretation Comments MCV (test code = MCV) 80.7 80.0-94.0 [facility] PointeWxwhgyvCBMZLWVMUU5535-66-01 05:03:00 Test Item Value Reference Range Interpretation Comments MCH (test code = MCH) 25.9 pg 27.0-31.0 [facility] PointeHxthgvwXEWCGXIZWP4584-76-99 05:03:00 Test Item Value Reference Range Interpretation Comments RDW (test code = RDW) 14.5 11.5-14.5 [facility] PointeRsoemvtPQKHEFPHEZ8037-06-76 05:03:00 Test Item Value Reference Range Interpretation Comments MCHC (test code = MCHC) 32.0 32.0-36.0 [facility] PointeBervqwqZCUFBWWWHQ0325-69-11 05:03:00 Test Item Value Reference Range Interpretation Comments RBC (test code = RBC) 5.63 4.70-6.10 [facility] PointeRxhrvkiBDLOUEHCHS7066-44-46 05:03:00 Test Item Value Reference Range Interpretation Comments WBC (test code = WBC) 10.5 3.7-10.4 [facility] PointeCaivfhiMNQDIKPBZM7623-27-31 05:03:00 Test Item Value Reference Range Interpretation Comments Hct (test code = Hct) 45.5 42.0-54.0 [facility] PointeMkxhcfbHDPGODGPNA7521-11-62 05:03:00 Test Item Value Reference Range Interpretation Comments Hgb (test code = Hgb) 14.6 14.0-18.0 [facility] PointeGruqpulUYVKPBMHRN6194-54-00 05:03:00 Test Item Value Reference Range Interpretation Comments Segs-Bands # (test code = Segs-Bands #) 5.5 1.5-8.1 [facility] HospitalIggsiuiEHSIQXNFKD1842-44-25 05:03:00 Test Item Value Reference Range Interpretation Comments Lymphocytes # (test code = Lymphocytes 4.0 1.0-5.5 #) [facility] MHOKGPA0362-09-08 05:03:00 Test Item Value Reference Range Interpretation Comments CK MB Index (test 0.5 1 See_Comment [Automate d message] The code = CK MB Index) system w [facility] generated this result transmit elo reference range : <=2.5. The reference range was not used to interpr et this result as chantelle l/abnormal. [facility] PointeZcgyatwZOEWMGAUIM3178-23-02 05:03:00 Test Item Value Reference Range Interpretation Comments Monocytes # (test code 0.8 See_Comment [Aut omated message] The = Monocytes #) system which generated this result tra nsmitted reference range : <=0.8. The reference r rossi was not used to int erpret this result as normal/abnormal . [facility] PointePelapmzPTOZVFBYQQ1742-21-14 05:03:00 Test Item Value Reference Range Interpretation Comments Eosinophils # (test code 0.2 See_Comment [A utomated message] The = Eosinophils #) system whic h generated this result tra nsmitted reference range : <=0.5. The reference r rossi was not used to int erpret this result as normal/abnormal . [facility] MOISSNG7104-98-87 05:03:00 Test Item Value Reference Range Interpretation Comments Troponin-I (test code no gt See_Comment [Auto mated message] The = Troponin-I) system which g enerated this result transmit elo reference range : <=0.40. The reference r rossi was not used to interpr et this result as chantelle l/abnormal. [facility] StationZwvwfhdCCBPBBJYMA6958-80-95 05:03:00 Test Item Value Reference Range Interpretation Comments Basophils # (test code 0.1 See_Comment [Aut omated message] The = Basophils #) system which generated this result tra nsmitted reference range : <=0.2. The reference r rossi was not used to int erpret this result as normal/abnormal . [facility] UQKKQUB4286-78-12 05:03:00 Test Item Value Reference Range Interpretation Comments Total CK (test code = Total CK) 1180 12-[address] [facility] HospitalQgogjluPWOTGPBPRC8988-91-21 05:03:00 Test Item Value Reference Range Interpretation Comments Lymphocytes (test code = Lymphocytes) 38.3 20.0-40.[address] [facility] HospitalDrop 'til you ShopSAINT ELIZABETH FLORENCE [id number] 05:03:00 Test Item Value Reference Range Interpretation Comments CK MB (test code = CK MB) 6.3 0.5-3.[address] [facility] HospitalPyfkexlKDTSCNAIAN2676-50-45 05:03:00 Test Item Value Reference Range Interpretation Comments Basophils (test code = 0.6 See_Comment [Aut omated message] The Basophils) system which ge nerated this result tra nsmitted reference range : <=1.0. The reference r rossi was not used to int erpret this result as normal/abnormal . [facility] [employer]2018-01-09 05:03:00 Test Item Value Reference Range Interpretation Comments eGFR (test code = eGFR) 90 [facility] StationFjskmzrWGAFKYMCYA1318-39-97 05:03:00 Test Item Value Reference Range Interpretation Comments Segs (test code = Segs) 52.1 45.0-75.[address] [facility] YSKWM4881-13-47 05:03:00 Test Item Value Reference Range Interpretation Comments Glucose Lvl (test code = Glucose Lvl) 99 70-[address] [facility] HospitalYmzlsnhSMRXQUWWSL7251-94-04 05:03:00 Test Item Value Reference Range Interpretation Comments Monocytes (test code = Monocytes) 7.5 2.0-12.[address] [facility] SSIZF2986-59-17 05:03:00 Test Item Value Reference Range Interpretation Comments Creatinine Lvl (test code = Creatinine 1.10 0.50-1.40 Lvl) [facility] StationBjroxkqRXIAOZIQBQ1152-94-64 05:03:00 Test Item Value Reference Range Interpretation Comments Eosinophils (test code = 1.5 See_Comment [A utomated message] The Eosinophils) system which ge nerated this result tra nsmitted reference range : <=4.0. The reference r rossi was not used to int erpret this result as normal/abnormal . [facility]2018-01-09 05:03:00 Test Item Value Reference Range Interpretation Comments Potassium Lvl (test code = Potassium 4.2 3.5-5.1 Lvl) [facility] [employer]2018-01-09 05:03:00 Test Item Value Reference Range Interpretation Comments CK MB Index (test 0.5 1 See_Comment [Automate d message] The code = CK MB Index) system w [facility] generated this result transmit elo reference range : <=2.5. The reference range was not used to interpr et this result as chantelle l/abnormal. [facility] [employer]2018-01-09 05:03:00 Test Item Value Reference Range Interpretation Comments Chloride Lvl (test code = Chloride Lvl) 102 95-109 [facility] [employer]2018-01-09 05:03:00 Test Item Value Reference Range Interpretation Comments Troponin-I (test code no gt See_Comment [Auto mated message] The = Troponin-I) system which g enerated this result transmit elo reference range : <=0.40. The reference r rossi was not used to interpr et this result as chantelle l/abnormal. [facility] [employer]2018-01-09 05:03:00 Test Item Value Reference Range Interpretation Comments CO2 (test code = CO2) 27 24-32 [facility] [employer]2018-01-09 05:03:00 Test Item Value Reference Range Interpretation Comments Calcium Lvl (test code = Calcium Lvl) 8.9 8.5-10.5 [facility] [employer]2018-01-09 05:03:00 Test Item Value Reference Range Interpretation Comments Total CK (test code = Total CK) 1180 12-191 [facility] [employer]2018-01-09 05:03:00 Test Item Value Reference Range Interpretation Comments AGAP (test code = AGAP) 11.2 10.0-20.0 [facility] [employer]2018-01-09 05:03:00 Test Item Value Reference Range Interpretation Comments CK MB (test code = CK MB) 6.3 0.5-3.6 [facility]annCARD[facility] [id number] 01:42:00 Test Item Value Reference Range Interpretation Comments Total CK (test code = Total CK) 1787 [facility]annCARD[facility]AC TBJPFQL6691-47-83 01:42:00 Test Item Value Reference Range Interpretation Comments Total CK (test code = Total CK) 1787 [facility]annCARDIAC GKEYRAQ7665-03-18 01:42:00 Test Item Value Reference Range Interpretation Comments Total CK (test code = Total CK) 1787 [facility]annCARDIAC JPPPCYS8593-87-10 01:42:00 Test Item Value Reference Range Interpretation Comments Total CK (test code = Total CK) 1787 [facility]annCARD[facility]AC DJKQRHG2008-63-86 01:42:00 Test Item Value Reference Range Interpretation Comments Total CK (test code = Total CK) 1787 [facility] SafeTacMagannCARFinancial Investors Insurance CorporationAC DHFZXZP9319-19-77 21:54:00 Test Item Value Reference Range Interpretation Comments CK MB Index (test 0.4 See_Comment [Automate d message] The code = CK MB Index) system w [facility] generated this result transmit elo reference range : <=2.5. The reference range was not used to interpr et this result as chantelle l/abnormal. [facility] SafeTacMagannCARFinancial Investors Insurance CorporationAC RFGADGT7411-11-76 21:54:00 Test Item Value Reference Range Interpretation Comments CK MB (test code = CK MB) 7.6 0.5-3.6 [facility] SafeTacMagannCARFinancial Investors Insurance CorporationAC JGBWJMW0519-99-40 21:54:00 Test Item Value Reference Range Interpretation Comments Total CK (test code = Total CK) 1972 [facility] SafeTacMagannCARFinancial Investors Insurance CorporationAC YFNEFJX6796-58-93 21:54:00 Test Item Value Reference Range Interpretation Comments Troponin-I (test code no gt See_Comment [Auto mated message] The = Troponin-I) system which g enerated this result transmit elo reference range : <=0.40. The reference r rossi was not used to interpr et this result as chantelle l/abnormal. [facility] NibpwnpSSFTHSSLPTKN1300-74-76 21:54:00 Test Item Value Reference Range Interpretation Comments AGAP (test code = AGAP) 10.1 10.0-20.0 [facility]PabrzfxAMQYLTRMMMYD6574-64-84 21:54:00 Test Item Value Reference Range Interpretation Comments eGFR (test code = eGFR) 101 [facility] HospitalLyoqpdpEBNLYLONPUUI0748-72-39 21:54:00 Test Item Value Reference Range Interpretation Comments Chloride Lvl (test code = Chloride Lvl) 103 95-109 [facility] HospitalVymhysdISPNRRLBBNCO2737-80-19 21:54:00 Test Item Value Reference Range Interpretation Comments CO2 (test code = CO2) 27 24-32 [facility] HospitalOyvoycdEJRMUEYHHVTP8760-51-82 21:54:00 Test Item Value Reference Range Interpretation Comments Sodium Lvl (test code = Sodium Lvl) 136 135-145 [facility] HospitalLdrjpnrEDVOQEQGYVEI5615-91-23 21:54:00 Test Item Value Reference Range Interpretation Comments Calcium Lvl (test code = Calcium Lvl) 8.3 8.5-10.5 [facility] HospitalSksriiqICLMZDJCIQLB5798-96-80 21:54:00 Test Item Value Reference Range Interpretation Comments BUN (test code = BUN) 14 7-22 [facility] HospitalGcxcqwiROULCPCFDDNW5843-58-60 21:54:00 Test Item Value Reference Range Interpretation Comments Potassium Lvl (test code = Potassium 4.1 3.5-5.1 Lvl) [facility] HospitalSbmdggmWZQJCTETTNOE7451-82-22 21:54:00 Test Item Value Reference Range Interpretation Comments Creatinine Lvl (test code = Creatinine 1.00 0.50-1.40 Lvl) [facility] HospitalWagknhdTRMZJKLWJMBJ9599-06-79 21:54:00 Test Item Value Reference Range Interpretation Comments Glucose Lvl (test code = Glucose Lvl) 102 70-99 [facility] PointeHliywsbKGZDLBWVRD8341-90-12 21:54:00 Test Item Value Reference Range Interpretation Comments MCHC (test code = MCHC) 31.2 32.0-36.0 [facility] PointeBzijwjqRYPRVHUTFL5425-89-44 21:54:00 Test Item Value Reference Range Interpretation Comments MCH (test code = MCH) 25.5 pg 27.0-31.0 [facility] PointeQodxxkdDBBUQNGWLG7994-99-60 21:54:00 Test Item Value Reference Range Interpretation Comments MCV (test code = MCV) 81.7 80.0-94.0 [facility] PointeRpfowzjGLOBXRSALM5302-63-58 21:54:00 Test Item Value Reference Range Interpretation Comments Hct (test code = Hct) 44.7 42.0-54.0 [facility] PointeEyemtsbMEXIXINYUH6189-58-40 21:54:00 Test Item Value Reference Range Interpretation Comments Platelet (test code = Platelet) 299 133-450 [facility] PointeErrexnpCCLGLIADGL8130-74-23 21:54:00 Test Item Value Reference Range Interpretation Comments RDW (test code = RDW) 14.3 11.5-14.5 [facility] PointeUuviyuaLXREQBIGRL5931-78-69 21:54:00 Test Item Value Reference Range Interpretation Comments MPV (test code = MPV) 7.6 7.4-10.4 [facility] PointeAcgahqmKPQALRYOSR6793-43-27 21:54:00 Test Item Value Reference Range Interpretation Comments WBC (test code = WBC) 8.1 3.7-10.4 [facility] PointeGbrwrwvSOUTQCXQLQ5096-82-96 21:54:00 Test Item Value Reference Range Interpretation Comments RBC (test code = RBC) 5.48 4.70-6.10 [facility] PointeImwqjrsGVCITRHEPS4695-81-73 21:54:00 Test Item Value Reference Range Interpretation Comments Hgb (test code = Hgb) 14.0 14.0-18.0 [facility] PointeLpmjjifPXWFUAJSKV8378-43-25 21:54:00 Test Item Value Reference Range Interpretation Comments Basophils # (test code 0.1 See_Comment [Aut omated message] The = Basophils #) system which generated this result tra nsmitted reference range : <=0.2. The reference r rossi was not used to int erpret this result as normal/abnormal . [facility] PointeCzesvzpJWIBCNEHUX7697-95-22 21:54:00 Test Item Value Reference Range Interpretation Comments Basophils (test code = 0.6 See_Comment [Aut omated message] The Basophils) system which ge nerated this result tra nsmitted reference range : <=1.0. The reference r rossi was not used to int erpret this result as normal/abnormal . [facility] PointeKsmamudMFZKCXUCGO8324-23-17 21:54:00 Test Item Value Reference Range Interpretation Comments Eosinophils (test code = 1.9 See_Comment [A utomated message] The Eosinophils) system which ge nerated this result tra nsmitted reference range : <=4.0. The reference r rossi was not used to int erpret this result as normal/abnormal . [facility] PointeLtkrqogQBJSOLOBYS8125-96-83 21:54:00 Test Item Value Reference Range Interpretation Comments Segs-Bands # (test code = Segs-Bands #) 3.9 1.5-8.1 [facility] PointePxcgmjfHYHAMAFKKW1545-50-46 21:54:00 Test Item Value Reference Range Interpretation Comments Lymphocytes # (test code = Lymphocytes 3.3 1.0-5.5 #) [facility] PointeLkrarmnFMNPIOHXJL2148-56-82 21:54:00 Test Item Value Reference Range Interpretation Comments Eosinophils # (test code 0.2 See_Comment [A utomated message] The = Eosinophils #) system whic h generated this result tra nsmitted reference range : <=0.5. The reference r rossi was not used to int erpret this result as normal/abnormal . [facility] PointeWmmhpbdNZCHPDDSII7344-08-69 21:54:00 Test Item Value Reference Range Interpretation Comments Monocytes # (test code 0.7 See_Comment [Aut omated message] The = Monocytes #) system which generated this result tra nsmitted reference range : <=0.8. The reference r rossi was not used to int erpret this result as normal/abnormal . [facility]inteXatuqcgGTSOTVFJXU7358-36-58 21:54:00 Test Item Value Reference Range Interpretation Comments Segs (test code = Segs) 48.1 45.0-75.0 [facility] PointeMypfuyuHVAXIIVWBF5469-49-54 21:54:00 Test Item Value Reference Range Interpretation Comments Monocytes (test code = Monocytes) 8.8 2.0-12.0 [facility] PointeGkfewslJSQOKMLBQX0674-74-36 21:54:00 Test Item Value Reference Range Interpretation Comments Lymphocytes (test code = Lymphocytes) 40.6 20.0-40.0 [facility]2018-01-04 21:54:00 Test Item Value Reference Range Interpretation Comments UA Mucus (test code = UA Mucus) Few /LPF [facility] AND [id number] 21:54:00 Test Item Value Reference Range Interpretation Comments UA WBC (test code = no gt See_Comment [Automa elo message] The UA WBC) system which ge nerated this result transmit elo reference range : <=5. The reference range was not used to interpr et this result as chantelle l/abnormal. [facility] AND [id number] 21:54:00 Test Item Value Reference Range Interpretation Comments UA Urobilinogen (test code = UA <=1.0 mg/dL 0.1-1.0 Urobilinogen) [facility] AND [id number] 21:54:00 Test Item Value Reference Range Interpretation Comments UA Blood (test code = Negative (07/03/17 3:54 UA Blood) PM) [facility] AND [id number] 21:54:00 Test Item Value Reference Range Interpretation Comments UA Bili (test code = Negative *NA*(07/03/17 UA Bili) 3:54 PM) [facility] AND [id number] 21:54:00 Test Item Value Reference Range Interpretation Comments UA Sq Epi (test code = UA Sq Occasional /LPF Epi) [facility] AND [id number] 21:54:00 Test Item Value Reference Range Interpretation Comments UA Leuk Est (test Negative (07/03/17 3:54 code = UA Leuk Est) PM) [facility] AND [id number] 21:54:00 Test Item Value Reference Range Interpretation Comments UA Nitrite (test code Negative (07/03/17 3:54 = UA Nitrite) PM) [facility] AND [id number] 21:54:00 Test Item Value Reference Range Interpretation Comments UA Spec Grav (test code = UA Spec Grav) 1.016 [facility] AND [id number] 21:54:00 Test Item Value Reference Range Interpretation Comments UA Ketones (test code = UA Negative mg/dL Ketones) [facility] AND [id number] 21:54:00 Test Item Value Reference Range Interpretation Comments UA Glucose (test code = UA Negative mg/dL Glucose) [facility] AND [id number] 21:54:00 Test Item Value Reference Range Interpretation Comments UA Protein (test code = UA Negative mg/dL Protein) [facility] AND [id number] 21:54:00 Test Item Value Reference Range Interpretation Comments UA pH (test code = UA pH) 6.0 5.0-8.0 [facility] AND [id number] 21:54:00 Test Item Value Reference Range Interpretation Comments UA Color (test code = Light Yellow UA Color) *NA*(07/03/17 3:54 PM) [facility] AND [id number] 21:54:00 Test Item Value Reference Range Interpretation Comments UA Turbidity (test code = Clear (07/03/17 3:54 UA Turbidity) PM) [facility] StationCARDIAC [id number] 21:54:00 Test Item Value Reference Range Interpretation Comments CK MB Index (test 0.4 See_Comment [Automate d message] The code = CK MB Index) system w [facility] generated this result transmit elo reference range : <=2.5. The reference range was not used to interpr et this result as chantelle l/abnormal. [facility] [id number] 21:54:00 Test Item Value Reference Range Interpretation Comments CK MB (test code = CK MB) 7.6 0.5-3.6 [facility] [id number] 21:54:00 Test Item Value Reference Range Interpretation Comments Total CK (test code = Total CK) 1972 12-191 [facility] [id number] 21:54:00 Test Item Value Reference Range Interpretation Comments Troponin-I (test code no gt See_Comment [Auto mated message] The = Troponin-I) system which g enerated this result transmit elo reference range : <=0.40. The reference r rossi was not used to interpr et this result as chantelle l/abnormal. [facility] RockPfmrbnrPFGUFIGSZZDQ6768-24-35 21:54:00 Test Item Value Reference Range Interpretation Comments AGAP (test code = AGAP) 10.1 10.0-20.0 [facility] RockXsmoyamBQDIKVJZSJKD2893-68-33 21:54:00 Test Item Value Reference Range Interpretation Comments eGFR (test code = eGFR) 101 [facility] RockTuzokbiKKEODZAYYKYK6327-61-70 21:54:00 Test Item Value Reference Range Interpretation Comments Chloride Lvl (test code = Chloride Lvl) 103 95-109 [facility] RockWfgdnxzIWAHDUWIAFMC5650-77-86 21:54:00 Test Item Value Reference Range Interpretation Comments CO2 (test code = CO2) 27 24-32 [facility] RockLlslfslYFBAYVFTRCTF6652-20-34 21:54:00 Test Item Value Reference Range Interpretation Comments Sodium Lvl (test code = Sodium Lvl) 136 135-145 [facility]YjxzmxpGCBKXAJAHLTC7982-37-13 21:54:00 Test Item Value Reference Range Interpretation Comments Calcium Lvl (test code = Calcium Lvl) 8.3 8.5-10.5 [facility] HospitalFcycdfsUHLUQMYZKFND6294-87-87 21:54:00 Test Item Value Reference Range Interpretation Comments BUN (test code = BUN) 14 7-22 [facility] HospitalIfpnsbtKWMMSDOHYPCY8926-14-95 21:54:00 Test Item Value Reference Range Interpretation Comments Potassium Lvl (test code = Potassium 4.1 3.5-5.1 Lvl) [facility] HospitalOzmpghnTUCFADNDHYBW7918-34-98 21:54:00 Test Item Value Reference Range Interpretation Comments Creatinine Lvl (test code = Creatinine 1.00 0.50-1.40 Lvl) [facility] HospitalLwvqtbyQBCVMEUIULJX9552-37-28 21:54:00 Test Item Value Reference Range Interpretation Comments Glucose Lvl (test code = Glucose Lvl) 102 70-99 [facility] PointeHiqqdngXBSHABXWZP7654-87-23 21:54:00 Test Item Value Reference Range Interpretation Comments MCHC (test code = MCHC) 31.2 32.0-36.0 [facility] PointeImegxpnBILYNLHHCT2670-80-80 21:54:00 Test Item Value Reference Range Interpretation Comments MCH (test code = MCH) 25.5 pg 27.0-31.0 [facility] PointeTrxvyeiIPRTAAGFLB5838-15-79 21:54:00 Test Item Value Reference Range Interpretation Comments MCV (test code = MCV) 81.7 80.0-94.0 [facility] PointeKrtmwrzTOVETEDGKX7312-66-98 21:54:00 Test Item Value Reference Range Interpretation Comments Hct (test code = Hct) 44.7 42.0-54.0 [facility] PointeYreukgkSBONUGLFLX8891-30-32 21:54:00 Test Item Value Reference Range Interpretation Comments Platelet (test code = Platelet) 299 133-450 [facility] PointeBcjovcjRAZYVABHGR4922-27-75 21:54:00 Test Item Value Reference Range Interpretation Comments RDW (test code = RDW) 14.3 11.5-14.5 [facility] PointeIgooiosKOUWJGJSAA9313-31-17 21:54:00 Test Item Value Reference Range Interpretation Comments MPV (test code = MPV) 7.6 7.4-10.4 [facility] PointeHdfrmjdXCXGYPDKZU3913-71-14 21:54:00 Test Item Value Reference Range Interpretation Comments WBC (test code = WBC) 8.1 3.7-10.4 [facility] PointeWjipeffLTMNFXQDGT7903-45-01 21:54:00 Test Item Value Reference Range Interpretation Comments RBC (test code = RBC) 5.48 4.70-6.10 [facility] PointeBsepohkVQHGULBOLL9789-10-06 21:54:00 Test Item Value Reference Range Interpretation Comments Hgb (test code = Hgb) 14.0 14.0-18.0 [facility] PointeNvkitebPFBXAUEDNI0405-97-45 21:54:00 Test Item Value Reference Range Interpretation Comments Basophils # (test code 0.1 See_Comment [Aut omated message] The = Basophils #) system which generated this result tra nsmitted reference range : <=0.2. The reference r rossi was not used to int erpret this result as normal/abnormal . [facility] PointeNptxvxcINUVCBMXDJ7918-42-19 21:54:00 Test Item Value Reference Range Interpretation Comments Basophils (test code = 0.6 See_Comment [Aut omated message] The Basophils) system which ge nerated this result tra nsmitted reference range : <=1.0. The reference r rossi was not used to int erpret this result as normal/abnormal . [facility] PointeNjybmgoYGHQHWGQQB7878-69-20 21:54:00 Test Item Value Reference Range Interpretation Comments Eosinophils (test code = 1.9 See_Comment [A utomated message] The Eosinophils) system which ge nerated this result tra nsmitted reference range : <=4.0. The reference r rossi was not used to int erpret this result as normal/abnormal . [facility] PointeWdaokbbKIVGAVEAXV4504-29-69 21:54:00 Test Item Value Reference Range Interpretation Comments Segs-Bands # (test code = Segs-Bands #) 3.9 1.5-8.1 [facility] PointeQfopziaNZLFWASNTQ2822-58-23 21:54:00 Test Item Value Reference Range Interpretation Comments Lymphocytes # (test code = Lymphocytes 3.3 1.0-5.5 #) [facility] PointeDyfoxjeVALDBTKACL5297-01-57 21:54:00 Test Item Value Reference Range Interpretation Comments Eosinophils # (test code 0.2 See_Comment [A utomated message] The = Eosinophils #) system whic h generated this result tra nsmitted reference range : <=0.5. The reference r rossi was not used to int erpret this result as normal/abnormal . [facility] PointeQapbnaiPXKXGPXDOE8426-63-98 21:54:00 Test Item Value Reference Range Interpretation Comments Monocytes # (test code 0.7 See_Comment [Aut omated message] The = Monocytes #) system which generated this result tra nsmitted reference range : <=0.8. The reference r rossi was not used to int erpret this result as normal/abnormal . [facility] PointeLubzcenJLDTJDBCYC9349-03-33 21:54:00 Test Item Value Reference Range Interpretation Comments Segs (test code = Segs) 48.1 45.0-75.0 [facility] PointeFfsajabHNYXYZLEGM2596-26-02 21:54:00 Test Item Value Reference Range Interpretation Comments Monocytes (test code = Monocytes) 8.8 2.0-12.0 [facility] PointeQgvbnftIENKWUIHHB1841-30-92 21:54:00 Test Item Value Reference Range Interpretation Comments Lymphocytes (test code = Lymphocytes) 40.6 20.0-40.0 [facility] AND [id number] 21:54:00 Test Item Value Reference Range Interpretation Comments UA Mucus (test code = UA Mucus) Few /LPF [facility] AND [id number] 21:54:00 Test Item Value Reference Range Interpretation Comments UA WBC (test code = no gt See_Comment [Automa elo message] The UA WBC) system which ge nerated this result transmit elo reference range : <=5. The reference range was not used to interpr et this result as chantelle l/abnormal. [facility] AND [id number] 21:54:00 Test Item Value Reference Range Interpretation Comments UA Urobilinogen (test code = UA <=1.0 mg/dL 0.1-1.0 Urobilinogen) [facility] AND [id number] 21:54:00 Test Item Value Reference Range Interpretation Comments UA Blood (test code = Negative (07/03/17 3:54 UA Blood) PM) [facility] AND [id number] 21:54:00 Test Item Value Reference Range Interpretation Comments UA Bili (test code = Negative *NA*(07/03/17 UA Bili) 3:54 PM) [facility] AND [id number] 21:54:00 Test Item Value Reference Range Interpretation Comments UA Sq Epi (test code = UA Sq Occasional /LPF Epi) [facility] AND [id number] 21:54:00 Test Item Value Reference Range Interpretation Comments UA Leuk Est (test Negative (07/03/17 3:54 code = UA Leuk Est) PM) [facility] AND [id number] 21:54:00 Test Item Value Reference Range Interpretation Comments UA Nitrite (test code Negative (07/03/17 3:54 = UA Nitrite) PM) [facility] AND [id number] 21:54:00 Test Item Value Reference Range Interpretation Comments UA Spec Grav (test code = UA Spec Grav) 1.016 [facility] AND [id number] 21:54:00 Test Item Value Reference Range Interpretation Comments UA Ketones (test code = UA Negative mg/dL Ketones) [facility] AND [id number] 21:54:00 Test Item Value Reference Range Interpretation Comments UA Glucose (test code = UA Negative mg/dL Glucose) [facility] AND [id number] 21:54:00 Test Item Value Reference Range Interpretation Comments UA Protein (test code = UA Negative mg/dL Protein) [facility] AND [id number] 21:54:00 Test Item Value Reference Range Interpretation Comments UA pH (test code = UA pH) 6.0 5.0-8.0 [facility] AND [id number] 21:54:00 Test Item Value Reference Range Interpretation Comments UA Color (test code = Light Yellow UA Color) *NA*(07/03/17 3:54 PM) [facility] AND [id number] 21:54:00 Test Item Value Reference Range Interpretation Comments UA Turbidity (test code = Clear (07/03/17 3:54 UA Turbidity) PM) [facility]annCARD[facility]AC [id number] 21:54:00 Test Item Value Reference Range Interpretation Comments CK MB Index (test 0.4 See_Comment [Automate d message] The code = CK MB Index) system w [facility] generated this result transmit elo reference range : <=2.5. The reference range was not used to interpr et this result as chantelle l/abnormal. [facility] StationCAROWEN[facility] [id number] 21:54:00 Test Item Value Reference Range Interpretation Comments CK MB (test code = CK MB) 7.6 0.5-3.6 [facility] [id number] 21:54:00 Test Item Value Reference Range Interpretation Comments Total CK (test code = Total CK) 1972 12-191 [facility] [id number] 21:54:00 Test Item Value Reference Range Interpretation Comments Troponin-I (test code no gt See_Comment [Auto mated message] The = Troponin-I) system which g enerated this result transmit elo reference range : <=0.40. The reference r rossi was not used to interpr et this result as chantelle l/abnormal. [facility] HospitalDfwrzyrJHCJXGWKJTVJ5648-28-53 21:54:00 Test Item Value Reference Range Interpretation Comments AGAP (test code = AGAP) 10.1 10.0-20.0 [facility] HospitalBznyyiuKANZDPCQEEII5683-80-74 21:54:00 Test Item Value Reference Range Interpretation Comments eGFR (test code = eGFR) 101 [facility] HospitalFbgtpzyYTGNIKYQUOMU0113-70-89 21:54:00 Test Item Value Reference Range Interpretation Comments Chloride Lvl (test code = Chloride Lvl) 103 95-109 [facility] HospitalPlzfgaoMNEJKFEYINNT6349-52-74 21:54:00 Test Item Value Reference Range Interpretation Comments CO2 (test code = CO2) 27 24-32 [facility] HospitalQdqmvvqTVAYFKMZTLYC3776-80-05 21:54:00 Test Item Value Reference Range Interpretation Comments Sodium Lvl (test code = Sodium Lvl) 136 135-145 [facility] HospitalLzyjuzsUWRADRRYHPFH2007-58-32 21:54:00 Test Item Value Reference Range Interpretation Comments Calcium Lvl (test code = Calcium Lvl) 8.3 8.5-10.5 [facility] HospitalUjalkgiZXXXLXPZPNDU3436-30-76 21:54:00 Test Item Value Reference Range Interpretation Comments BUN (test code = BUN) 14 7-22 [facility] HospitalQaqpjiwTUHEBIYBCKXP6038-97-49 21:54:00 Test Item Value Reference Range Interpretation Comments Potassium Lvl (test code = Potassium 4.1 3.5-5.1 Lvl) [facility] HospitalMyhflagRJHIRRCEYWXX1373-71-62 21:54:00 Test Item Value Reference Range Interpretation Comments Creatinine Lvl (test code = Creatinine 1.00 0.50-1.40 Lvl) [facility] HospitalXvcqlgnTCTTPFYSTKCV7680-86-15 21:54:00 Test Item Value Reference Range Interpretation Comments Glucose Lvl (test code = Glucose Lvl) 102 70-99 [facility] PointeHdoabuzOGCYIMZJFO5641-88-39 21:54:00 Test Item Value Reference Range Interpretation Comments MCHC (test code = MCHC) 31.2 32.0-36.0 [facility] PointeSfxqxirTGVNEXJJDT9533-11-57 21:54:00 Test Item Value Reference Range Interpretation Comments MCH (test code = MCH) 25.5 pg 27.0-31.0 [facility] PointeWbpkxclOJIOQZJOUI5847-72-24 21:54:00 Test Item Value Reference Range Interpretation Comments MCV (test code = MCV) 81.7 80.0-94.0 [facility] PointeIykvzmwVPAMWBAPNP1776-92-72 21:54:00 Test Item Value Reference Range Interpretation Comments Hct (test code = Hct) 44.7 42.0-54.0 [facility] PointeDsnedeeLUJLIGHUXP7280-51-84 21:54:00 Test Item Value Reference Range Interpretation Comments Platelet (test code = Platelet) 299 133-450 [facility] PointeDymxqwbSMADWEZDWN6228-08-39 21:54:00 Test Item Value Reference Range Interpretation Comments RDW (test code = RDW) 14.3 11.5-14.5 [facility] PointeCajeuauZJFRWMSYKJ3991-25-51 21:54:00 Test Item Value Reference Range Interpretation Comments MPV (test code = MPV) 7.6 7.4-10.4 [facility] PointeQirxezyIMXAOOTXMM8007-06-29 21:54:00 Test Item Value Reference Range Interpretation Comments WBC (test code = WBC) 8.1 3.7-10.4 [facility] PointeEsawtkqGPMWYSVKDS1811-12-95 21:54:00 Test Item Value Reference Range Interpretation Comments RBC (test code = RBC) 5.48 4.70-6.10 [facility] PointeRmqmazmBWWNRDZCII9017-14-64 21:54:00 Test Item Value Reference Range Interpretation Comments Hgb (test code = Hgb) 14.0 14.0-18.0 [facility] PointeShtlssjXINVGRRODJ8816-90-62 21:54:00 Test Item Value Reference Range Interpretation Comments Basophils # (test code 0.1 See_Comment [Aut omated message] The = Basophils #) system which generated this result tra nsmitted reference range : <=0.2. The reference r rossi was not used to int erpret this result as normal/abnormal . [facility] PointeWgqntesWPDUBCUOEK3449-15-32 21:54:00 Test Item Value Reference Range Interpretation Comments Basophils (test code = 0.6 See_Comment [Aut omated message] The Basophils) system which ge nerated this result tra nsmitted reference range : <=1.0. The reference r rossi was not used to int erpret this result as normal/abnormal . [facility] PointeLaeeycwHTVTBYZBSD2868-18-95 21:54:00 Test Item Value Reference Range Interpretation Comments Eosinophils (test code = 1.9 See_Comment [A utomated message] The Eosinophils) system which ge nerated this result tra nsmitted reference range : <=4.0. The reference r rossi was not used to int erpret this result as normal/abnormal . [facility] PointeDwllpqeAWIYFMSPYM6919-81-55 21:54:00 Test Item Value Reference Range Interpretation Comments Segs-Bands # (test code = Segs-Bands #) 3.9 1.5-8.1 [facility] PointeRcasikhSTNMGDLEUL8844-21-94 21:54:00 Test Item Value Reference Range Interpretation Comments Lymphocytes # (test code = Lymphocytes 3.3 1.0-5.5 #) [facility] PointeMifvidpKGZBDQVJDB3311-44-05 21:54:00 Test Item Value Reference Range Interpretation Comments Eosinophils # (test code 0.2 See_Comment [A utomated message] The = Eosinophils #) system whic h generated this result tra nsmitted reference range : <=0.5. The reference r rossi was not used to int erpret this result as normal/abnormal . [facility] PointeCigbmwxGLTPRMXAIE0450-34-80 21:54:00 Test Item Value Reference Range Interpretation Comments Monocytes # (test code 0.7 See_Comment [Aut omated message] The = Monocytes #) system which generated this result tra nsmitted reference range : <=0.8. The reference r rossi was not used to int erpret this result as normal/abnormal . [facility] PointeVwfauzlWXWTGSZSNT1267-76-32 21:54:00 Test Item Value Reference Range Interpretation Comments Segs (test code = Segs) 48.1 45.0-75.0 [facility] PointeXptluvtQHYTWBAJZT4155-85-28 21:54:00 Test Item Value Reference Range Interpretation Comments Monocytes (test code = Monocytes) 8.8 2.0-12.0 [facility] PointeQmvnqpkBICSLBZRJJ5151-59-22 21:54:00 Test Item Value Reference Range Interpretation Comments Lymphocytes (test code = Lymphocytes) 40.6 20.0-40.0 [facility] AND [id number] 21:54:00 Test Item Value Reference Range Interpretation Comments UA Mucus (test code = UA Mucus) Few /LPF [facility] AND [id number] 21:54:00 Test Item Value Reference Range Interpretation Comments UA WBC (test code = no gt See_Comment [Automa elo message] The UA WBC) system which ge nerated this result transmit elo reference range : <=5. The reference range was not used to interpr et this result as chantelle l/abnormal. [facility] AND [id number] 21:54:00 Test Item Value Reference Range Interpretation Comments UA Urobilinogen (test code = UA <=1.0 mg/dL 0.1-1.0 Urobilinogen) [facility] AND [id number] 21:54:00 Test Item Value Reference Range Interpretation Comments UA Blood (test code = Negative (07/03/17 3:54 UA Blood) PM) [facility] AND [id number] 21:54:00 Test Item Value Reference Range Interpretation Comments UA Bili (test code = Negative *NA*(07/03/17 UA Bili) 3:54 PM) [facility] AND [id number] 21:54:00 Test Item Value Reference Range Interpretation Comments UA Sq Epi (test code = UA Sq Occasional /LPF Epi) [facility] AND [id number] 21:54:00 Test Item Value Reference Range Interpretation Comments UA Leuk Est (test Negative (07/03/17 3:54 code = UA Leuk Est) PM) [facility] AND [id number] 21:54:00 Test Item Value Reference Range Interpretation Comments UA Nitrite (test code Negative (07/03/17 3:54 = UA Nitrite) PM) [facility] AND [id number] 21:54:00 Test Item Value Reference Range Interpretation Comments UA Spec Grav (test code = UA Spec Grav) 1.016 [facility] [id number] 21:54:00 Test Item Value Reference Range Interpretation Comments UA Ketones (test code = UA Negative mg/dL Ketones) [facility] AND [id number] 21:54:00 Test Item Value Reference Range Interpretation Comments UA Glucose (test code = UA Negative mg/dL Glucose) [facility] AND [id number] 21:54:00 Test Item Value Reference Range Interpretation Comments UA Protein (test code = UA Negative mg/dL Protein) [facility] AND [id number] 21:54:00 Test Item Value Reference Range Interpretation Comments UA pH (test code = UA pH) 6.0 5.0-8.0 [facility] [facility] AND [id number] 21:54:00 Test Item Value Reference Range Interpretation Comments UA Color (test code = Light Yellow UA Color) *NA*(07/03/17 3:54 PM) [facility] AND [id number] 21:54:00 Test Item Value Reference Range Interpretation Comments UA Turbidity (test code = Clear (07/03/17 3:54 UA Turbidity) PM) [facility] [id number] 21:54:00 Test Item Value Reference Range Interpretation Comments CK MB Index (test 0.4 See_Comment [Automate d message] The code = CK MB Index) system w [facility] generated this result transmit elo reference range : <=2.5. The reference range was not used to interpr et this result as chantelle l/abnormal. [facility] [id number] 21:54:00 Test Item Value Reference Range Interpretation Comments CK MB (test code = CK MB) 7.6 0.5-3.[address] [facility] [id number] 21:54:00 Test Item Value Reference Range Interpretation Comments Total CK (test code = Total CK) 1972 12-[address] [facility] [id number] 21:54:00 Test Item Value Reference Range Interpretation Comments Troponin-I (test code no gt See_Comment [Auto mated message] The = Troponin-I) system which g enerated this result transmit elo reference range : <=0.40. The reference r rossi was not used to interpr et this result as chantelle l/abnormal. [facility]HdolzsdKJGLJSQVDMQI1500-[facility]-31 21:54:00 Test Item Value Reference Range Interpretation Comments AGAP (test code = AGAP) 10.1 10.0-20.0 [facility] HospitalKbpioamLGQORXNCUFZC4657-49-20 21:54:00 Test Item Value Reference Range Interpretation Comments eGFR (test code = eGFR) 101 [facility] HospitalJgaqebsDJSJOWNYFMTX0253-52-41 21:54:00 Test Item Value Reference Range Interpretation Comments Chloride Lvl (test code = Chloride Lvl) 103 95-109 [facility] HospitalNiqjtomUSDWSRYXUGFH7860-03-28 21:54:00 Test Item Value Reference Range Interpretation Comments CO2 (test code = CO2) 27 24-32 [facility] HospitalRajdccgDWVIKDTKPVBP7862-07-27 21:54:00 Test Item Value Reference Range Interpretation Comments Sodium Lvl (test code = Sodium Lvl) 136 135-145 [facility] HospitalDiinuzmXODYJIGHPZNY6817-68-84 21:54:00 Test Item Value Reference Range Interpretation Comments Calcium Lvl (test code = Calcium Lvl) 8.3 8.5-10.5 [facility] HospitalOedqueaOOXOBBULEDGP2471-25-27 21:54:00 Test Item Value Reference Range Interpretation Comments BUN (test code = BUN) 14 7-22 [facility] HospitalFxzupxqRDBKNDBEMLLQ1560-40-00 21:54:00 Test Item Value Reference Range Interpretation Comments Potassium Lvl (test code = Potassium 4.1 3.5-5.1 Lvl) [facility] HospitalJqjwlgrRKMNEILLISXO8866-33-44 21:54:00 Test Item Value Reference Range Interpretation Comments Creatinine Lvl (test code = Creatinine 1.00 0.50-1.40 Lvl) [facility] HospitalPtmeyadAEUZLKQQJQMB3108-14-37 21:54:00 Test Item Value Reference Range Interpretation Comments Glucose Lvl (test code = Glucose Lvl) 102 70-99 [facility]inteOxwbzmbYWDIIACNKQ6367-18-78 21:54:00 Test Item Value Reference Range Interpretation Comments MCHC (test code = MCHC) 31.2 32.0-36.0 [facility] PointeTbpaphrXUHKYBTSHL9480-98-49 21:54:00 Test Item Value Reference Range Interpretation Comments MCH (test code = MCH) 25.5 pg 27.0-31.0 [facility] PointeBjxqkmvBBSLWBUVFG1680-00-82 21:54:00 Test Item Value Reference Range Interpretation Comments MCV (test code = MCV) 81.7 80.0-94.0 [facility] PointeTagvusmABTISPNIKS1795-30-24 21:54:00 Test Item Value Reference Range Interpretation Comments Hct (test code = Hct) 44.7 42.0-54.0 [facility] PointeVyvbyhaCBAYPULWUA4061-03-18 21:54:00 Test Item Value Reference Range Interpretation Comments Platelet (test code = Platelet) 299 133-450 [facility] PointeFkdpnstSOYRWJNZST7045-94-64 21:54:00 Test Item Value Reference Range Interpretation Comments RDW (test code = RDW) 14.3 11.5-14.5 [facility] PointeYmdjqkcOLLDQXHKVT5614-12-15 21:54:00 Test Item Value Reference Range Interpretation Comments MPV (test code = MPV) 7.6 7.4-10.4 [facility] PointeCvcwhldREFLSHESWH8633-52-25 21:54:00 Test Item Value Reference Range Interpretation Comments WBC (test code = WBC) 8.1 3.7-10.4 [facility] PointeGygcbluWCFUEVPQYZ0293-35-17 21:54:00 Test Item Value Reference Range Interpretation Comments RBC (test code = RBC) 5.48 4.70-6.10 [facility] PointeNmtofnyKVRMRIYKMG9764-94-33 21:54:00 Test Item Value Reference Range Interpretation Comments Hgb (test code = Hgb) 14.0 14.0-18.0 [facility] PointeWzayhncWMFTQJYXXN1597-37-90 21:54:00 Test Item Value Reference Range Interpretation Comments Basophils # (test code 0.1 See_Comment [Aut omated message] The = Basophils #) system which generated this result tra nsmitted reference range : <=0.2. The reference r rossi was not used to int erpret this result as normal/abnormal . [facility] PointeKyqcsoaTMKUKAGUTJ7766-59-22 21:54:00 Test Item Value Reference Range Interpretation Comments Basophils (test code = 0.6 See_Comment [Aut omated message] The Basophils) system which ge nerated this result tra nsmitted reference range : <=1.0. The reference r rossi was not used to int erpret this result as normal/abnormal . [facility] PointeAxiloflMUOIIVAECA9230-75-66 21:54:00 Test Item Value Reference Range Interpretation Comments Eosinophils (test code = 1.9 See_Comment [A utomated message] The Eosinophils) system which ge nerated this result tra nsmitted reference range : <=4.0. The reference r rossi was not used to int erpret this result as normal/abnormal . [facility] PointeXxjhoscJYRFCVBIKL0328-05-98 21:54:00 Test Item Value Reference Range Interpretation Comments Segs-Bands # (test code = Segs-Bands #) 3.9 1.5-8.1 [facility] PointeRvassvbOAOHEIPJNI2189-14-55 21:54:00 Test Item Value Reference Range Interpretation Comments Lymphocytes # (test code = Lymphocytes 3.3 1.0-5.5 #) [facility] PointeJgfedznYKTXVGPSHQ0956-94-42 21:54:00 Test Item Value Reference Range Interpretation Comments Eosinophils # (test code 0.2 See_Comment [A utomated message] The = Eosinophils #) system whic h generated this result tra nsmitted reference range : <=0.5. The reference r rossi was not used to int erpret this result as normal/abnormal . [facility] PointeHkvtcmfJVHNOFMZDV5539-80-99 21:54:00 Test Item Value Reference Range Interpretation Comments Monocytes # (test code 0.7 See_Comment [Aut omated message] The = Monocytes #) system which generated this result tra nsmitted reference range : <=0.8. The reference r rossi was not used to int erpret this result as normal/abnormal . [facility] PointeCpfyspnSNHPYQNUCD4413-64-04 21:54:00 Test Item Value Reference Range Interpretation Comments Segs (test code = Segs) 48.1 45.0-75.0 [facility] PointeWhorbijJMFEBXRDYY4515-48-72 21:54:00 Test Item Value Reference Range Interpretation Comments Monocytes (test code = Monocytes) 8.8 2.0-12.0 [facility] PointeFmayggkNDBBQANPAH5025-48-34 21:54:00 Test Item Value Reference Range Interpretation Comments Lymphocytes (test code = Lymphocytes) 40.6 20.0-40.0 [facility]2018-01-04 21:54:00 Test Item Value Reference Range Interpretation Comments UA Mucus (test code = UA Mucus) Few /LPF [facility] AND [id number] 21:54:00 Test Item Value Reference Range Interpretation Comments UA WBC (test code = no gt See_Comment [Automa elo message] The UA WBC) system which ge nerated this result transmit elo reference range : <=5. The reference range was not used to interpr et this result as chantelle l/abnormal. [facility] AND [id number] 21:54:00 Test Item Value Reference Range Interpretation Comments UA Urobilinogen (test code = UA <=1.0 mg/dL 0.1-1.0 Urobilinogen) [facility] AND [id number] 21:54:00 Test Item Value Reference Range Interpretation Comments UA Blood (test code = Negative (07/03/17 3:54 UA Blood) PM) [facility] AND [id number] 21:54:00 Test Item Value Reference Range Interpretation Comments UA Bili (test code = Negative *NA*(07/03/17 UA Bili) 3:54 PM) [facility] AND [id number] 21:54:00 Test Item Value Reference Range Interpretation Comments UA Sq Epi (test code = UA Sq Occasional /LPF Epi) [facility] AND [id number] 21:54:00 Test Item Value Reference Range Interpretation Comments UA Leuk Est (test Negative (07/03/17 3:54 code = UA Leuk Est) PM) [facility] AND [id number] 21:54:00 Test Item Value Reference Range Interpretation Comments UA Nitrite (test code Negative (07/03/17 3:54 = UA Nitrite) PM) [facility] AND [id number] 21:54:00 Test Item Value Reference Range Interpretation Comments UA Spec Grav (test code = UA Spec Grav) 1.016 [facility] AND [id number] 21:54:00 Test Item Value Reference Range Interpretation Comments UA Ketones (test code = UA Negative mg/dL Ketones) [facility] AND [id number] 21:54:00 Test Item Value Reference Range Interpretation Comments UA Glucose (test code = UA Negative mg/dL Glucose) [facility] AND [id number] 21:54:00 Test Item Value Reference Range Interpretation Comments UA Protein (test code = UA Negative mg/dL Protein) [facility] AND [id number] 21:54:00 Test Item Value Reference Range Interpretation Comments UA pH (test code = UA pH) 6.0 5.0-8.0 [facility] [id number] 21:54:00 Test Item Value Reference Range Interpretation Comments UA Color (test code = Light Yellow UA Color) *NA*(07/03/17 3:54 PM) [facility] AND [id number] 21:54:00 Test Item Value Reference Range Interpretation Comments UA Turbidity (test code = Clear (07/03/17 3:54 UA Turbidity) PM) [facility] HospitalestelleCARFinancial Investors Insurance CorporationAC [id number] 21:54:00 Test Item Value Reference Range Interpretation Comments CK MB Index (test 0.4 See_Comment [Automate d message] The code = CK MB Index) system w [facility] generated this result transmit elo reference range : <=2.5. The reference range was not used to interpr et this result as chantelle l/abnormal. [facility] PedritoFive BelowAC [id number] 21:54:00 Test Item Value Reference Range Interpretation Comments CK MB (test code = CK MB) 7.6 0.5-3.[address] [facility] [address] HospitalestelleCARFinancial Investors Insurance CorporationAC [id number] 21:54:00 Test Item Value Reference Range Interpretation Comments Total CK (test code = Total CK) 1972 12-191 [facility] StationCARFinancial Investors Insurance Corporation [id number] 21:54:00 Test Item Value Reference Range Interpretation Comments Troponin-I (test code no gt See_Comment [Auto mated message] The = Troponin-I) system which g enerated this result transmit elo reference range : <=0.40. The reference r rossi was not used to interpr et this result as chantelle l/abnormal. [facility] WohordiOZZJMIXWHYGL3938-00-72 21:54:00 Test Item Value Reference Range Interpretation Comments AGAP (test code = AGAP) 10.1 10.0-20.0 [facility] LybirwoMYVXXLRZBLKA0913-65-64 21:54:00 Test Item Value Reference Range Interpretation Comments eGFR (test code = eGFR) [address] [facility] HospitalJgglgczFDQXETORBRUL8643-49-86 21:54:00 Test Item Value Reference Range Interpretation Comments Chloride Lvl (test code = Chloride Lvl) 103 95-109 [facility] HospitalDtysfxjWECJYGBWLMMM4823-73-16 21:54:00 Test Item Value Reference Range Interpretation Comments CO2 (test code = CO2) 27 24-32 [facility] HospitalXobeeohXUZAQICQBAHN8661-42-40 21:54:00 Test Item Value Reference Range Interpretation Comments Sodium Lvl (test code = Sodium Lvl) 136 135-145 [facility] HospitalGzijzuwRTTLQVEOKHFU6945-66-23 21:54:00 Test Item Value Reference Range Interpretation Comments Calcium Lvl (test code = Calcium Lvl) 8.3 8.5-10.5 [facility] HospitalPquniwtPKRLLDMRMKJU8675-76-78 21:54:00 Test Item Value Reference Range Interpretation Comments BUN (test code = BUN) 14 7-22 [facility] HospitalBfglnafKUGAXCFGEKAJ5562-05-18 21:54:00 Test Item Value Reference Range Interpretation Comments Potassium Lvl (test code = Potassium 4.1 3.5-5.1 Lvl) [facility] HospitalSlvdhszLNIUJONUJDNY3427-67-17 21:54:00 Test Item Value Reference Range Interpretation Comments Creatinine Lvl (test code = Creatinine 1.00 0.50-1.40 Lvl) [facility] HospitalZmnocluZMAELVHDBWLC1516-35-30 21:54:00 Test Item Value Reference Range Interpretation Comments Glucose Lvl (test code = Glucose Lvl) 102 70-99 [facility] PointeViyzzlpKBOLWDAXII0482-45-67 21:54:00 Test Item Value Reference Range Interpretation Comments MCHC (test code = MCHC) 31.2 32.0-36.0 [facility] PointeYlfatqiMSPLPAOUFQ5055-02-91 21:54:00 Test Item Value Reference Range Interpretation Comments MCH (test code = MCH) 25.5 pg 27.0-31.0 [facility] PointeRiffsalLFOAPXLUWF6458-66-04 21:54:00 Test Item Value Reference Range Interpretation Comments MCV (test code = MCV) 81.7 80.0-94.0 [facility] PointeCrqgbtnFOPORRRYYE7996-03-98 21:54:00 Test Item Value Reference Range Interpretation Comments Hct (test code = Hct) 44.7 42.0-54.0 [facility] PointeKyhmrqyHOWYRXBXWW2029-64-01 21:54:00 Test Item Value Reference Range Interpretation Comments Platelet (test code = Platelet) 299 503-450 [facility] PointeBubooibJNNOBUEMFH5977-42-20 21:54:00 Test Item Value Reference Range Interpretation Comments RDW (test code = RDW) 14.3 11.5-14.5 [facility] PointeHhosttyZIAGYAUCEA1425-88-56 21:54:00 Test Item Value Reference Range Interpretation Comments MPV (test code = MPV) 7.6 7.4-10.4 [facility] PointeBumxqitISMAXWTCFM6456-76-52 21:54:00 Test Item Value Reference Range Interpretation Comments WBC (test code = WBC) 8.1 3.7-10.4 [facility] PointePlzhkxaWCJJZFYMWI9994-78-71 21:54:00 Test Item Value Reference Range Interpretation Comments RBC (test code = RBC) 5.48 4.70-6.10 [facility] PointeDtesyeiPTLADPCXCO7566-03-54 21:54:00 Test Item Value Reference Range Interpretation Comments Hgb (test code = Hgb) 14.0 14.0-18.0 [facility] PointeLctazrnMJCFGSCUKZ3534-04-21 21:54:00 Test Item Value Reference Range Interpretation Comments Basophils # (test code 0.1 See_Comment [Aut omated message] The = Basophils #) system which generated this result tra nsmitted reference range : <=0.2. The reference r rossi was not used to int erpret this result as normal/abnormal . [facility] PointeKvwmcpvQCVEPFVKOC1513-12-66 21:54:00 Test Item Value Reference Range Interpretation Comments Basophils (test code = 0.6 See_Comment [Aut omated message] The Basophils) system which ge nerated this result tra nsmitted reference range : <=1.0. The reference r rossi was not used to int erpret this result as normal/abnormal . [facility] PointeOoczxttJLAGFYXAGL8007-02-80 21:54:00 Test Item Value Reference Range Interpretation Comments Eosinophils (test code = 1.9 See_Comment [A utomated message] The Eosinophils) system which ge nerated this result tra nsmitted reference range : <=4.0. The reference r rossi was not used to int erpret this result as normal/abnormal . [facility] PointeMvfnskdKXTWGQMLMC0855-38-84 21:54:00 Test Item Value Reference Range Interpretation Comments Segs-Bands # (test code = Segs-Bands #) 3.9 1.5-8.1 [facility] PointeMpfkljgEPOKIQRJHJ3849-77-34 21:54:00 Test Item Value Reference Range Interpretation Comments Lymphocytes # (test code = Lymphocytes 3.3 1.0-5.5 #) [facility] PointeLxgdcaoTXMHGCECPW6683-69-93 21:54:00 Test Item Value Reference Range Interpretation Comments Eosinophils # (test code 0.2 See_Comment [A utomated message] The = Eosinophils #) system whic h generated this result tra nsmitted reference range : <=0.5. The reference r rossi was not used to int erpret this result as normal/abnormal . [facility] PointeXphhxqrVUIDEPQHKU5634-37-65 21:54:00 Test Item Value Reference Range Interpretation Comments Monocytes # (test code 0.7 See_Comment [Aut omated message] The = Monocytes #) system which generated this result tra nsmitted reference range : <=0.8. The reference r rossi was not used to int erpret this result as normal/abnormal . [facility] PointeKvhldzmJTKSCWDDGQ5912-82-51 21:54:00 Test Item Value Reference Range Interpretation Comments Segs (test code = Segs) 48.1 45.0-75.0 [facility] PointeByyxnhgMONMIXMOGN3361-23-28 21:54:00 Test Item Value Reference Range Interpretation Comments Monocytes (test code = Monocytes) 8.8 2.0-12.0 [facility] PointeVjjmuvaTLSKPMDWLA3375-84-55 21:54:00 Test Item Value Reference Range Interpretation Comments Lymphocytes (test code = Lymphocytes) 40.6 20.0-40.0 [facility]2018-01-04 21:54:00 Test Item Value Reference Range Interpretation Comments UA Mucus (test code = UA Mucus) Few /LPF [facility]2018-01-04 21:54:00 Test Item Value Reference Range Interpretation Comments UA WBC (test code = no gt See_Comment [Automa elo message] The UA WBC) system which ge nerated this result transmit elo reference range : <=5. The reference range was not used to interpr et this result as chantelle l/abnormal. [facility]2018-01-04 21:54:00 Test Item Value Reference Range Interpretation Comments UA Urobilinogen (test code = UA <=1.0 mg/dL 0.1-1.0 Urobilinogen) [facility] AND [id number] 21:54:00 Test Item Value Reference Range Interpretation Comments UA Blood (test code = Negative (07/03/17 3:54 UA Blood) PM) [facility] AND [id number] 21:54:00 Test Item Value Reference Range Interpretation Comments UA Bili (test code = Negative *NA*(07/03/17 UA Bili) 3:54 PM) [facility] AND [id number] 21:54:00 Test Item Value Reference Range Interpretation Comments UA Sq Epi (test code = UA Sq Occasional /LPF Epi) [facility] AND [id number] 21:54:00 Test Item Value Reference Range Interpretation Comments UA Leuk Est (test Negative (07/03/17 3:54 code = UA Leuk Est) PM) [facility] AND [id number] 21:54:00 Test Item Value Reference Range Interpretation Comments UA Nitrite (test code Negative (07/03/17 3:54 = UA Nitrite) PM) [facility] AND [id number] 21:54:00 Test Item Value Reference Range Interpretation Comments UA Spec Grav (test code = UA Spec Grav) 1.016 [facility] AND [id number] 21:54:00 Test Item Value Reference Range Interpretation Comments UA Ketones (test code = UA Negative mg/dL Ketones) [facility] AND [id number] 21:54:00 Test Item Value Reference Range Interpretation Comments UA Glucose (test code = UA Negative mg/dL Glucose) [facility] AND [id number] 21:54:00 Test Item Value Reference Range Interpretation Comments UA Protein (test code = UA Negative mg/dL Protein) [facility] AND [id number] 21:54:00 Test Item Value Reference Range Interpretation Comments UA pH (test code = UA pH) 6.0 5.0-8.0 [facility] AND [id number] 21:54:00 Test Item Value Reference Range Interpretation Comments UA Color (test code = Light Yellow UA Color) *NA*(07/03/17 3:54 PM) [facility] AND [id number] 21:54:00 Test Item Value Reference Range Interpretation Comments UA Turbidity (test code = Clear (07/03/17 3:54 UA Turbidity) PM) Marcial Brady"
[2022-07-30 08:03] LABS: Albumin 3.8 g/dL (3.4-5.0); Bilirubin Direct 0.2 mg/dL (0-0.2); Bilirubin Total 0.5 mg/dL (0.2-1.0); Magnesium 1.8 mg/dL (1.6-2.4); Protein, Total 7.7 g/dL (6.4-8.2); Troponin High Sensitivity 8.7 pg/mL (<58.9)
[2022-07-30 08:04] LABS: Potassium 2.7 mmol/L (3.5-5.1)
[2022-07-30] MEDS ORDERED: POTASSIUM 25 MEQ EFFERV TAB ONE (08:18)
[2022-07-30] MEDS ORDERED: NITROGLYCERIN 0.4 MG/TAB SL ONE (08:18)
[2022-07-30] MEDS ORDERED: ACETAMINOPHEN 325 MG TABLET ONE (08:18)
--- NOTE | 2022-07-30 08:18 | ER ---
Nurse's Notes [facility] Name: John Priest Jr Age: 57 yrs Sex: Male : 1965 Arrival Date: 07/30/2022 Time: 07:15 Bed 17 Private MD: Diagnosis: Chest pain, unspecified Presentation: 07/30 07:15 Chief complaint: EMS states: ACUTE SUBSTERNAL CP AT WORK. Coronavirus screen: At this bp time, the client does not indicate any symptoms associated with coronavirus-19. Ebola Screen: No symptoms or risks identified at this time. Initial Sepsis Screen: Does the patient meet any 2 criteria? No. Patient's initial sepsis screen is negative. Does the patient have a suspected source of infection? No. Patient's initial sepsis screen is negative. Risk Assessment: Do you want to hurt yourself or someone else?. Onset of symptoms was July 30, 2022 at 06:00. Care prior to arrival: Medication(s) given: ASA, 81 mg, x 4. 07:15 Method Of Arrival: EMS: [facility] bp 07:15 Acuity: CARLOS 3 bp Triage Assessment: 07:17 General: Appears distressed, uncomfortable, Behavior is cooperative, appropriate for bp age, anxious. Pain: Complains of pain in chest. EENT: No deficits noted. Neuro: No deficits noted. Cardiovascular: Reports chest pain. Respiratory: No deficits noted. GI: No signs and/or symptoms were reported involving the gastrointestinal system. : No signs and/or symptoms were reported regarding the genitourinary system. Derm: No deficits noted. Musculoskeletal: No deficits noted. Historical: - Allergies: 07:17 No Known Allergies; bp - PMHx: 07:17 Myocardial infarction; Hypertensive disorder; bp - Immunization history:: Adult Immunizations up to date. - Social history:: Smoking status: Patient denies any tobacco usage or history of. Screenin:21 [facility] ED Fall Risk Assessment (Adult) History of falling in the last 3 months, bp including since admission. Abuse screen: Denies threats or abuse. Denies injuries from another. Nutritional screening: No deficits noted. Tuberculosis screening: No symptoms or risk factors identified. Assessment: 07:20 General: SEE TRIAGE NOTE. bp 11:12 Pain: Pain does not radiate. Pain began gradually, this morning. ap3 Vital Signs: 07:15 BP 146 / 82; Pulse 85; Resp 16; Temp 98; Pulse Ox 100% ; bp 10:10 BP 110 / 75; Pulse 74; Resp 17; Pulse Ox 99% on R/A; ap3 ED Course: 07:15 Patient arrived in ED. bp 07:15 Juliette Carpio FNP [facility]. jh7 07:15 Antonio España MD is Attending Physician. jh7 07:17 Triage completed. bp 07:17 Arm band placed on. bp 07:21 Ana Cristina Verde, PERCY is Primary Nurse. ap3 07:23 Patient has correct armband on for positive identification. Bed in low position. Call bp light in reach. Side rails up X2. Client placed on continuous cardiac and pulse oximetry monitoring. NIBP monitoring applied. 07:30 Inserted saline lock: 20 gauge in right antecubital area, using aseptic technique. ap3 Blood collected. 08:04 Notified Nurse Practitioner and/or Physician Mental Health Tech of a critical lab result(s), aa5 Potassium 2.7. 08:07 XRAY Chest (1 view) In Process Unspecified. EDMS 08:16 Coy España MD is Hospitalizing Provider. jh7 11:12 Patient maintains SpO2 saturation greater than 95% on room air. ap3 11:51 SARS-COV-2 Antigen Rapid Sent. ap3 Administered Medications: 07:57 Drug: fentaNYL (PF) 50 mcg Route: IVP; Site: right antecubital; ap3 08:25 Follow up: Response: No adverse reaction; Nausea is decreased ap3 07:57 Drug: Zofran (Ondansetron) 4 mg Route: IVP; Site: right antecubital; ap3 08:25 Follow up: Response: No adverse reaction; Nausea is decreased ap3 08:25 Drug: Potassium Effervescent Tablet 50 mEq Route: PO; ap3 11:13 Follow up: Response: No adverse reaction ap3 08:25 Drug: Nitroglycerin 0.4 mg Route: Sublingual; ap3 08:25 Drug: Tylenol 650 mg Route: PO; ap3 11:13 Follow up: Response: No adverse reaction; Pain is decreased ap3 Medication: 07:20 VIS not applicable for this client. bp Outcome: 08:18 Decision to Hospitalize by Provider. jh7 17:27 Patient left the ED. aa5 Signatures: Dispatcher [employer] Lyndsey Yang RN RN aa5 Adrian Leggett RN RN Ana Cristina Lee RN RN ap3 Juliette Carpio FNP MANAGER STERILE PROCESSING jh7
--- NOTE | 2022-07-30 08:18 | EDPHYS ---
Physician Documentation [facility] Name: John Priest Jr Age: 57 yrs Sex: Male : 1965 Arrival Date: 07/30/2022 Time: 07:15 Bed 17 Private MD: ED Physician Antonio España HPI: 07/30 07:00 This 57 yrs old Black Male presents to ER via EMS with complaints of Chest Pain. jh7 07:00 Onset: The symptoms/episode began/occurred suddenly, at 06:00. Associated signs and jh7 symptoms: Pertinent positives: Lightheadedness, dizziness, Pertinent negatives: abdominal pain, fever, shortness of breath, sore throat, vomiting, wheezing. Patient reports that he got to work this morning, went to take his jacket off, and suddenly felt lightheaded. He states that all of a sudden he felt severe left-sided chest pain that was sharp and relentless. History of hypertension and an TN in 2011. The patient reports that he had 2 stents placed in 2008 for a possible heart attack, and had 2 more placed in 2011 when he had his heart attack. Reports that his certified tumor registrar is Dr. Ramirez at [facility]. Aspirin given by EMS prior to arrival. Vital signs stable.. Historical: - Allergies: 07:17 No Known Allergies; bp - PMHx: 07:17 Myocardial infarction; Hypertensive disorder; bp - Immunization history:: Adult Immunizations up to date. - Social history:: Smoking status: Patient denies any tobacco usage or history of. ROS: 07:00 Constitutional: Negative for fever, chills, and weight loss, Eyes: Negative for injury, jh7 pain, redness, and discharge, ENT: Negative for injury, pain, and discharge, Neck: Negative for injury, pain, and swelling, Respiratory: Negative for shortness of breath, cough, wheezing, and pleuritic chest pain, Abdomen/GI: Negative for abdominal pain, nausea, vomiting, diarrhea, and constipation, Back: Negative for injury and pain, MS/Extremity: Negative for injury and deformity, Skin: Negative for injury, rash, and discoloration. 07:00 Cardiovascular: Positive for chest pain, Negative for edema, orthopnea, palpitations. 07:00 Neuro: Positive for dizziness, Negative for altered mental status, headache, numbness, syncope, tingling, visual changes, weakness. 07:00 All other systems are negative. Exam: 07:00 Head/Face: Normocephalic, atraumatic. Eyes: Pupils equal round and reactive to light, [facility] extra-ocular motions intact. Lids and lashes normal. Conjunctiva and sclera are non-icteric and not injected. Cornea within normal limits. Periorbital areas with no swelling, redness, or edema. ENT: Nares patent. No nasal discharge, no septal abnormalities noted. Tympanic membranes are normal and external auditory canals are clear. Oropharynx with no redness, swelling, or masses, exudates, or evidence of obstruction, uvula midline. Mucous membranes moist. Neck: Trachea midline, no thyromegaly or masses palpated, and no cervical lymphadenopathy. Supple, full range of motion without nuchal rigidity, or vertebral point tenderness. No Meningismus. Cardiovascular: Regular rate and rhythm with a normal S1 and S2. No gallops, murmurs, or rubs. Normal PMI, no JVD. No pulse deficits. Respiratory: Lungs have equal breath sounds bilaterally, clear to auscultation and percussion. No rales, rhonchi or wheezes noted. No increased work of breathing, no retractions or nasal flaring. Abdomen/GI: Soft, non-tender, with normal bowel sounds. No distension or tympany. No guarding or rebound. No evidence of tenderness throughout. Back: No spinal tenderness. No costovertebral tenderness. Full range of motion. Skin: Warm, dry with normal turgor. Normal color with no rashes, no lesions, and no evidence of cellulitis. MS/ Extremity: Pulses equal, no cyanosis. Neurovascular intact. Full, normal range of motion. Neuro: Awake and alert, GCS 15, oriented to person, place, time, and situation. Motor strength 5/5 in all extremities. Sensory grossly intact. Normal gait. 07:00 Constitutional: The patient appears alert, awake, in obvious pain, uncomfortable. Vital Signs: 07:15 BP 146 / 82; Pulse 85; Resp 16; Temp 98; Pulse Ox 100% ; bp 10:10 BP 110 / 75; Pulse 74; Resp 17; Pulse Ox 99% on R/A; ap3 MDM: 07:15 Patient medically screened. [facility] 08:25 Differential diagnosis: pneumonia Acute TN, unstable angina, pulmonary embolism. Data [facility] reviewed: vital signs, nurses notes, lab test result(s), EKG, radiologic studies, plain films. Consideration of Admission/Observation Patient was admitted/placed on observation. Management of patient was discussed with the following: Hospitalist: Niecy, admitting nurse practitioner and Dr. Coy España, hospitalist. I considered the following discharge prescriptions or medication management in the emergency department Medications were administered in the Emergency Department. See MAR. Independent interpretation of the following test(s) in the Emergency Department EKG: See my EKG interpretation above X-Ray: My interpretation is No acute findings. Test considered but Not performed: CT: CTA. Negative D-dimer and PERQ 0. Care significantly affected by the following chronic conditions: Hypertension, Acute TN. Counseling: I had a detailed discussion with the patient and/or guardian regarding: the historical points, exam findings, and any diagnostic results supporting the discharge/admit diagnosis, the need for further work-up and treatment in the hospital. Response to treatment: the patient's symptoms have mildly improved after treatment. 07/30 07:18 Order name: Basic Metabolic Panel; Complete Time: 08:05 [facility] 07/30 07:18 Order name: CBC with Diff; Complete Time: 07:55 [facility] 07/30 07:18 Order name: D-Dimer; Complete Time: :55 [facility] 07/30 07:18 Order name: LFT's; Complete Time: 08:05 [facility] 07/30 07:18 Order name: Magnesium; Complete Time: 08:05 [facility] 07/30 07:18 Order name: NT PRO-BNP; Complete Time: 08:05 [facility] 07/30 07:18 Order name: PT-INR; Complete Time: 07:55 [facility] 07/30 07:18 Order name: Troponin HS; Complete Time: 08:05 [facility] 07/30 09:51 Order name: SARS-COV-2 Antigen Rapid; Complete Time: 13:37 07/30 13:19 Order name: Lipid Profile; Complete Time: 13:37 [facility] 07/30 13:21 Order name: Troponin High Sensitivity; Complete Time: 13:37 [facility] 07/30 13:23 Order name: Hemoglobin A1c; Complete Time: 13:37 [facility] 07/30 13:26 Order name: Basic Metabolic Panel; Complete Time: 13:37 [facility] 07/30 13:26 Order name: Phosphorus; Complete Time: 13:37 [facility] 07/30 07:18 Order name: XRAY Chest (1 view); Complete Time: 08:47 07/30 07:18 Order name: EKG; Complete Time: 07:18 07/30 07:18 Order name: Cardiac monitoring; Complete Time: 07:21 07/30 07:18 Order name: EKG - Nurse/Tech; Complete Time: 07:21 07/30 07:18 Order name: IV Saline Lock; Complete Time: 07:30 07/30 07:18 Order name: Labs collected and sent; Complete Time: 07:30 07/30 07:18 Order name: O2 Per Protocol; Complete Time: 07:21 07/30 13:26 Order name: T4 Free; Complete Time: 13:37 [facility] 07/30 13:26 Order name: Magnesium; Complete Time: 13:37 [facility] 07/30 13:26 Order name: Thyroid Stimulating Hormone; Complete Time: 13:37 [facility] 07/30 13:30 Order name: LDL, Direct; Complete Time: 13:37 07/30 07:18 Order name: O2 Sat Monitoring; Complete Time: 07:21 7 EC:00 Rate is 76 beats/min. Rhythm is regular. QRS [place] is Normal. [place] interval is normal at jh7 156 msec. QRS interval is normal at 106 msec. QT interval is prolonged at 432 msec. No Q waves. T waves are Normal. No ST changes noted. Clinical impression: Normal sinus rhythm with prolonged QT. Administered Medications: 07:57 Drug: fentaNYL (PF) 50 mcg Route: IVP; Site: right antecubital; ap3 08:25 Follow up: Response: No adverse reaction; Nausea is decreased ap3 07:57 Drug: Zofran (Ondansetron) 4 mg Route: IVP; Site: right antecubital; ap3 08:25 Follow up: Response: No adverse reaction; Nausea is decreased ap3 08:25 Drug: Potassium Effervescent Tablet 50 mEq Route: PO; ap3 11:13 Follow up: Response: No adverse reaction ap3 08:25 Drug: Nitroglycerin 0.4 mg Route: Sublingual; ap3 08:25 Drug: Tylenol 650 mg Route: PO; ap3 11:13 Follow up: Response: No adverse reaction; Pain is decreased ap3 Disposition: 18:13 Co-signature as Attending Physician, Antonio España MD I reviewed the patient's care rn provided by the Advanced Practice Provider and agree with the diagnosis and treatment plan. Disposition Summary: 07/30/22 08:18 Hospitalization Ordered Hospitalization Status: Observation [facility] Provider: Coy España [facility] Location: Telemetry/MedSurg (observation) [facility] Condition: Fair [facility] Problem: new [facility] Symptoms: are unchanged [facility] Bed/Room Type: Standard [facility] Room Assignment: [facility] Diagnosis - Chest pain, unspecified [facility] Forms: - Medication Reconciliation Form [facility] - SBAR form [facility] Signatures: Dispatcher [employer] EDMS Antonio España MD MD rn Peltier, Brian RN Ana Cristina Traore RN RN ap3 Juliette Carpio, ROLL SKINNER ROLL SKINNER [facility]
--- NOTE | 2022-07-30 08:28 | RAD REPORT ---
EXAM DESCRIPTION: RAD - Chest Single View - 07/30/2022 8:05 am CLINICAL HISTORY: CHEST PAIN COMPARISON: None TECHNIQUE: AP portable chest image was obtained 07/30/2022 8:05 am . FINDINGS: Lungs are clear. Heart and vasculature are normal. No measurable pleural effusion and no p neumothorax. No acute bony abnormality seen. No acute aortic findings suspected. IMPRESSION: No acute cardiopulmonary process.
[2022-07-30] MEDS ORDERED: ACETAMINOPHEN 325 MG TABLET PO PRN (09:41)
[2022-07-30] MEDS ORDERED: ASPIRIN 81 MG CHEWABLE TABLET PO ONE (09:42)
[2022-07-30] MEDS ORDERED: HYDROCODONE/APAP 10/325 TAB PO PRN (09:44)
[2022-07-30 10:14] VITALS: BMI 32.1
[2022-07-30] MEDS ORDERED: ONDANSETRON 4 MG/2 ML VIAL IV PRN (10:22)
--- NOTE | 2022-07-30 10:34 | P.HP ---
Certification for Inpatient Patient admitted to: Observation With expected LOS: <2 Midnights Patient will require the following post-hospital care: None Practitioner: I am a practitioner with admitting privileges, knowledge of patient current condition, hospital course, and medical plan of care. Services: Services provided to patient in accordance with Admission requirements found in Title 42 Section 412.3 of the Code of Federal Regulations Patient History Date of Service: 07/30/22 Reason for admission: Chest pain History of Present Illness: Patient is a 57-year-old male with a past medical history significant for FL, hypertension, CAD with stents who presents with complaint of chest pain onset when he got to work this morning. Patient reported that he started experiencing lightheadedness and dizziness when he got to his office. Shortly after patient started experiencing chest pain located in the substernal chest area. Patient rated pain as 8/10 in severity and described pain as tightness\sharp in quality. Patient reported associated signs and symptoms of mild diaphoresis and mild cough. Patient denies any other signs and symptoms. Symptoms are aggravated or relieved by nothing. Patient decided to present to the hospital due to worsening symptoms. Allergies No Known Allergies Allergy (Unverified 07/30/22 09:58) - Past Medical/Surgical History -: FL -: CAD with Stents -: HTN -: HLD -: Renal cancer -: Neck Surgery -: Back Surgery -: Right partial nephrectomy - Family History Father -: Heart disease Mother -: Hypertension, Diabetes - Social History Smoking Status: Never smoker Alcohol use: No CD- Drugs: No Caffeine use: Yes Place of Residence: Home Review of Systems General: Sweats Eyes: Unremarkable ENT: Unremarkable Respiratory: Cough Cardiovascular: Chest Pain, Light Headedness Gastrointestinal: Unremarkable Genitourinary: Unremarkable Musculoskeletal: Unremarkable Integumentary: Unremarkable Neurological: Other (Dizziness ) Lymphatics: Unremarkable Physical Examination - Vital Signs Temperature: 98.4 F Blood Pressure: 110/75 Pulse: 84 Respirations: 17 Pulse Ox (%): 99 - Physical Exam General: Alert, In no apparent distress, Oriented x3, Cooperative HEENT: Atraumatic, PERRLA, Mucous membr. moist/pink, EOMI, Sclerae nonicteric Neck: Supple, 2+ carotid pulse no bruit, No LAD, Without JVD or thyroid abnormality Respiratory: Clear to auscultation bilaterally, Normal air movement Cardiovascular: No edema, Regular rate/rhythm, Normal S1 S2 Capillary refill: <2 Seconds Gastrointestinal: Normal bowel sounds, Soft and benign, Non-distended, No tenderness Musculoskeletal: No clubbing, No swelling, No contractures, No tenderness Integumentary: No rashes, No breakdown, No significant lesion, No erythema Neurological: Normal speech, Normal tone, Normal affect Lymphatics: No axilla or inguinal lymphadenopathy - Studies Laboratory Data (last 24 hrs) 07/30/22 07:28: PT 11.0, INR 1.00 07/30/22 07:28: WBC 5.60, Hgb 13.5 L, Hct 41.0, Plt Count 219 07/30/22 07:28: Sodium 135 L, Potassium 2.7 L*, BUN 16, Creatinine 1.15, Glucose 191 H, Magnesium 1.8, Total Bilirubin 0.5, AST 41 H, ALT 54, Alkaline Phosphatase 72 Assessment and Plan - Plan --Chest pain. To rule out ACS. Will trend serial troponins-- negative so far. Cardiology consulted. Echocardiogram pending to assess LV\valvular function and wall motion. Telemetry to monitor for any significant arrhythmia. Patient placed on aspirin, statin and metoprolol. Continue aspirin and statin.We will await further recommendation from roster clerk. --History of FL\CAD with stents. Continue aspirin and statin. --Hypertension. Poorly controlled. Continue home medications and hydralazine as needed. --Obesity. Likely secondary to excess calories intake. Patient counseled on weight reduction, diet and exercise therapy. Continue supportive care. --CKD 2. Baseline functions unknown. We will continue to monitor renal functions. --Hypokalemia. Replete as needed. --DM2. BS monitoring with sliding scale insulin. --DVT prophylaxis with Lovenox subQ Discharge Plan: Home Plan to discharge in: 48 Hours - Advance Directives Does patient have a Living Will: No Does patient have a Durable POA for Healthcare: No - Code Status/Comfort Care Code Status Assessed: Yes Physician Review: Patient Assessed, Agree with Above Assessment and Plan Critical Care: No
[2022-07-30] MEDS ORDERED: HYDRALAZINE HCL 20 MG/ML VIAL IV PRN (11:57)
[2022-07-30 12:03] LABS: SARS-CoV-2 Antigen Rapid Res Negative (Negative)
[2022-07-30] MEDS ORDERED: GLUCAGON 1 MG/VIAL IM PRN (12:08)
[2022-07-30] MEDS ORDERED: D50W 25 GM/50 ML SYRINGE IV PRN (12:08)
[2022-07-30] MEDS ORDERED: D10W 125 ML IV PRN (12:27)
[2022-07-30 13:17] LABS: HDL Cholesterol 32 mg/dL (40-60)
[2022-07-30 13:25] LABS: Phosphorus 3.8 mg/dL (2.5-4.9); Thyroid Stimulating Hormone 1.56 uIU/mL (0.358-3.740)
[2022-07-30 13:29] LABS: LDL, Direct 20 mg/dL (100-129)
[2022-07-30 15:18] VITALS: BP 117/81; TEMP 97.8
[2022-07-30] MEDS ORDERED: INSULIN -REGULAR HUMAN 50 UNIT/0.5 ML ML SQ SCH (16:30)
--- NOTE | 2022-07-30 16:53 | EKG ---
Test Date: 2022-07-30 Test Time: 07:17:08 Human Resources Leader: ALP MEASUREMENT RESULTS: Intervals: Rate: 76 CA: 156 QRSD: 106 QT: 432 QTc: 486 [place]: P: 61 CA: 156 QRS: 8 T: 27 INTERPRETIVE STATEMENTS: Normal sinus rhythm Prolonged QT Abnormal ECG No previous ECG available for comparison Electronically Signed On 07-30-22 16:53:08 MANAGER SCHEDULING by Jordan Jamison
[2022-07-30 17:50] VITALS: O2SAT 99
[2022-07-30] MEDS ORDERED: METOPROLOL TAR 25 MG TAB PO SCH (18:00)
[2022-07-30] MEDS ORDERED: ATORVASTATIN 40 MG TAB PO SCH (21:00)
--- NOTE | 2022-07-31 07:02 | ECHO ---
HEIGHT: 5 ft 11 in WEIGHT: 230 lb 0 oz DATE OF STUDY: 07/30/[address]: Sarah Sutton 2-DIMENSIONAL: YES M.MODE: YES DOPPLER: YES COLOR FLOW: YES TDS: PORTABLE: YES DEFINITY: BUBBLE STUDY: DIAGNOSIS: CHEST PAIN CARDIAC HISTORY: CATHERIZATION: SURGERY: PROSTHETIC VALVE: PACEMAKER: MEASUREMENTS (cm) DIASTOLIC (NORMALS) SYSTOLIC (NORMALS) IVSd 1.0 (0.6-1.2) LA Diam 3.1 (1.9-4.0) LVEF 56% LVIDd 5.3 (3.5-5.7) LVIDs 3.7 (2.0-3.5) %FS 30% LVPWd 1.3 (0.6-1.2) Ao Diam 3.2 (2.0-3.7) 2 DIMENSIONAL ASSESSMENT: RIGHT ATRIUM: NORMAL LEFT ATRIUM: NORMAL RIGHT VENTRICLE: NORMAL LEFT VENTRICLE: NORMAL TRICUSPID VALVE: MILD TRICUSPID REGURGITATION MITRAL VALVE: NORMAL PULMONIC VALVE: NORMAL AORTIC VALVE: NORMAL PERICARDIAL EFFUSION: NONE AORTIC ROOT: NORMAL LEFT VENTRICULAR WALL MOTION: NORMAL DOPPLER/COLOR FLOW: MILD TRICUSPID REGURGITATION COMMENTS: 1. NORMAL LEFT VENTRICULAR EJECTION FRACTION 55-60% 2. NORMAL WALL MOTION 3. MILD TRICUSPID REGURGITATION 4. POOR WINDOWS TECHNOLOGIST: MACIE JUAN
[2022-07-31] MEDS ORDERED: ASPIRIN 81 MG CHEWABLE TABLET PO SCH (09:00)
[2022-07-31] MEDS ORDERED: ENOXAPARIN 40 MG/0.4 ML SQ SCH (09:00)
== END 2022-07-30 17:20 | disposition left against medical advice (07) ==
LOC: ER 07:14 → ERHOLD 09:32
PROVIDERS: ADMIT Hospitalist; ATTEND Hospitalist
DX: R07.9 Chest pain, unspecified (principal); I25.2 Old myocardial infarction; I25.10 Atherosclerotic heart disease of native coronary artery without angina pectoris; E66.9 Obesity, unspecified; E11.22 Type 2 diabetes mellitus with diabetic chronic kidney disease; I12.9 Hypertensive chronic kidney disease with stage 1 through stage 4 chronic kidney disease, or unspecified chronic kidney disease; N18.2 Chronic kidney disease, stage 2 (mild); E87.6 Hypokalemia; R42 Dizziness and giddiness; Z20.822 Contact with and (suspected) exposure to COVID-19; Z95.5 Presence of coronary angioplasty implant and graft; Z68.32 Body mass index [BMI] 32.0-32.9, adult
CPT/HCPCS: 93005; 93306; 85025; 80048 ×2; 36415; 83721; 83735 ×2; 84100; 85610; 80061; 85379; 80076; 84443; 83036; 84484 ×2; 84439; 83880; 71045; 87811; J3010; J2405; G0378